=== PATIENT | female | born 1955 | race Caucasian/White ===

== ENCOUNTER 2016-03-11 17:38 | Outpatient (CLI) ==
[2016-03-11 17:54] VITALS: BMI 26.1
== END 2016-03-11 17:39 | disposition home or self-care (01) ==
LOC: AMBL 17:38
PROVIDERS: ATTEND Internal Medicine
DX: M79.662 Pain in left lower leg (principal); M79.661 Pain in right lower leg; L03.116 Cellulitis of left lower limb; L03.115 Cellulitis of right lower limb

== ENCOUNTER 2016-03-11 17:50 | Inpatient (IN) | payer OTHER ==
[2016-03-11 17:54] VITALS: BMI 26.1
--- NOTE | 2016-03-11 18:38 | ED.PDOC ---
[id number] 4d BILATERAL LEG PAIN RASH EDEMA Time Seen by Physician: 18:00 Mode of Arrival: Ambulance Information Source: Patient Exam Limitations: No limitations Nursing and Triage Documentation Reviewed and Agree: Yes Skin Complaint Exam - Skin Rash/Itching Complaint/Exam Onset/Duration: 4 DAYS SEEN AT [facility] [place] LAST NIGHT TREATED FOR CELLULITIS AND DISCHARGED Symptoms Are: Still present (PAIN IS ABOUT THE SAME , EDEMA IS THE SAME THE NIGHT BERFORE HAD LEG U/S LAST NIGHT AT [facility] PER PT REPORT) Initial Severity: Moderate Current Severity: Moderate Location: BILATERAL LOWER LEGS Prior Treatment: CLINDA STARTED LAST NIGHT AT [facility] E/D Aggravating: Reports: None Alleviating: Reports: None Associated Signs and Symptoms: Denies: Difficulty breathing, Fever, Chills Related History: Similar episode Differential Diagnoses: Other (CELLULITIS) Review of Systems - Review Of Systems Constitutional: Reports: No symptoms Eyes: Reports: No symptoms Ears, Nose, Mouth, Throat: Reports: No symptoms Respiratory: Reports: No symptoms Cardiac: Reports: No symptoms GI: Reports: No symptoms : Reports: No symptoms Musculoskeletal: Reports: Other (LEG EDEMA RASH SEE PHOTOS) Skin: Reports: Rash (BILATERAL LOWER LEGS SEE PHOTOS) Neurological: Reports: No symptoms Endocrine: Reports: No symptoms Hematologic/Lymphatic: Reports: No symptoms All Other Systems: Reviewed and Negative Past Medical History - Past Medical History Previously Healthy: No Endocrine: Reports: DM 2, Hypothyroid, Dyslipidemia Cardiovascular: Reports: CAD, [place], Hypertension, CHF Respiratory: Reports: COPD Hematological: Reports: Anemia Gastrointestinal: Reports: GERD, Pancreatitis Genitourinary: Reports: CKD Neuro/Psych: Reports: Seizure, Anxiety, Depression Musculoskeletal: Reports: None Cancer: Reports: Other (kidney) Last Menstrual Period: n/a Other Pertinent Past Medical History: 1 kidney, Greeley's disease, Glaucoma - Surgical History General Surgical History: Reports: Hysterectomy, Appendectomy, Cholecystectomy, Back Surgery, Other (nephrectomy,spleenectomy, partial pancreas,thyroidectomy, perforated colon,3 stents in heart) - Family History Family History: Reports: None - Social History Smoking Status: Current every day smoker, Light tobacco smoker Hx Substance Use: No Alcohol Screening: None Physical Exam - Physical Exam Appearance: Well-appearing, No pain distress, Well-nourished Eyes: DONY, EOMI, Conjunctiva clear ENT: Ears normal, Nose normal, Oropharynx normal Respiratory: Airway patent, Breath sounds clear, Breath sounds equal, Respirations nonlabored Cardiovascular: RRR, Pulses normal, No rub, No murmur GI/: Soft, Nontender, No masses, Bowel sounds normal, No Organomegaly Musculoskeletal: Normal strength, ROM intact, No edema, No calf tenderness Skin: Warm, Dry ( RASH BRADEN [place] COLOR DIFFUSE SEE PHOTOS OF LOWER LEGS) Neurological: Sensation intact, Motor intact, Reflexes intact, Cranial nerves intact, Alert, Oriented Psychiatric: Affect appropriate, Mood appropriate Physician Notification - Case Discussed Physician Notified: RELIFE AT 7 PM Time of Notification: 19:00 Critical Care Note - Critical Care Note Total Time (mins): 0 Course - Course Hematology/Chemistry: 03/12/16 05:18 03/12/16 05:18 Orders, Labs, Meds: Lab Review 03/11/16 03/11/16 18:15 18:18 WBC 11.53 H RBC 4.34 Hgb 13.9 Hct 42.2 MCV 97.2 MCH 32.0 H MCHC 32.9 RDW Coeff of Manoj 12.8 Plt Count 360 Immature Gran % (Auto) 0.4 Neut % (Auto) 57.9 Lymph % (Auto) 28.4 Barnes % (Auto) 6.6 Eos % (Auto) 6.2 Baso % (Auto) 0.5 Immature Gran # (Auto) 0.1 Neut # 6.7 Lymph # 3.3 Barnes # 0.8 Eos # 0.7 Baso # 0.1 Sodium 134 L Potassium 4.2 Chloride 98 Carbon Dioxide 23 Anion Gap 17.2 BUN 22 H Creatinine 1.04 Estimated GFR (MDRD) 54.00 BUN/Creatinine Ratio 21.15 Glucose 399 H Lactic Acid 15.3 Calcium 9.6 Total Bilirubin 0.29 AST 12 L ALT 20 Alkaline Phosphatase 132 Total Protein 8.4 H Albumin 3.4 Globulin 5.0 Albumin/Globulin Ratio 0.68 Acetone, Qual N Orders Category Date Time Status ED IV/MEDIPORT/POWERPORT .ONCE EMERGENCY 03/11/16 18:03 Active BLOOD CULTURE Stat LAB 03/11/16 18:18 Received CBC W/ AUTO DIFF Stat LAB 03/11/16 18:18 Completed COMPREHENSIVE METABOLIC PANEL Stat LAB 03/11/16 18:18 Completed LACTIC ACID Stat LAB 03/11/16 18:18 Completed 0.9 % Sodium Chloride [Saline Flush] MEDS 03/11/16 18:03 Ordered 1 syr IVF PRN PRN Hydromorphone HCl [Dilaudid 1 mg/ml Syringe] MEDS 03/11/16 20:10 Discontinued 1 mg IVP ONCE STA Vancomycin HCl [Vancomycin] 1 gm MEDS 03/11/16 20:07 Discontinued 0.9 % Sodium Chloride [Sodium Chloride] 250 ml IV ONCE Medications Generic Name Dose Route Start Last Admin Trade Name Freq PRN Reason Stop Dose Admin Albuterol Sulfate 2 puff 03/11/16 21:15 Proair Hfa IH Q4H PRN shortness of breath Aspirin 81 mg 03/12/16 21:00 Aspirin Ec PO BEDTIME [facility] Clopidogrel Bisulfate 75 mg 03/12/16 21:00 Plavix PO BEDTIME [facility] Cyclobenzaprine HCl 10 mg 03/12/16 09:00 Flexeril PO TID FRANCISCO J Enoxaparin Sodium 40 mg 03/12/16 09:00 Lovenox SUBCUT DAILY [facility] Hydromorphone HCl 1 mg 03/11/16 21:07 03/12/16 02:38 Dilaudid 1 Mg/Ml Syringe IVP 1 mg Q6HR PRN Administration Severe Pain Vancomycin HCl 1 gm/ Sodium 250 mls @ 125 mls/hr 03/12/16 09:00 Chloride IV Q12HR FRANCISCO J Sodium Chloride 1,000 mls @ 40 mls/hr 03/11/16 23:58 Sodium Chloride IV .Q25H [facility] Insulin Glargine 80 unit 03/12/16 21:00 Lantus SUBCUT BEDTIME [facility] Insulin Human Regular 0 - 15 unit 03/11/16 21:19 03/12/16 06:17 Humulin R SUBCUT 4 unit PRN PRN Administration Hyperglycemica Protocol Latanoprost 1 drop 03/12/16 21:00 Xalatan OP BEDTIME [facility] Levothyroxine Sodium 88 mcg 03/12/16 06:30 03/12/16 06:20 Synthroid PO 88 mcg QDAC FRANCISCO J Administration Lisinopril 5 mg 03/12/16 09:00 Zestril PO DAILY [facility] Nitroglycerin 0.4 mg 03/11/16 21:15 Nitrostat SL Q5MIN X 3 DOSES PRN Chest Pain Non-Formulary Medication 30 gm 03/12/16 09:00 Clobetasol Propionate/Emoll [Clobetasol Emollient 0.05% Crm] TP BID FRANCISCO J Non-Formulary Medication 100 mg 03/12/16 09:00 Desvenlafaxine Succinate [Pristiq] PO DAILY FRANCISCO J Non-Formulary Medication 1,000 mg 03/12/16 09:00 Levetiracetam [Keppra] PO BID FRANCISCO J Non-Formulary Medication 10 mg 03/12/16 09:00 Oxycodone Hcl [Oxycodone Hcl] PO TID FRANCISCO J Non-Formulary Medication 1 each 03/12/16 09:00 [employer]s/Dha/Epa/Fish Oil/D3 [[employer] + D Softgel] PO BID FRANCISCO J Non-Formulary Medication 40 mg 03/12/16 09:00 Rosuvastatin Calcium [Crestor] PO DAILY FRANCISCO J Non-Formulary Medication 60 gm 03/12/16 09:00 Calcipotriene [Dovonex] TP BID FRANCISCO J Ondansetron HCl 4 mg 03/11/16 21:07 Zofran 4 Mg/2 Ml IVP Q6H PRN Nausea / Vomiting Pantoprazole Sodium 40 mg 03/12/16 06:30 03/12/16 06:20 Protonix PO 40 mg QDAC FRANCISCO J Administration Sodium Chloride 1 syr 03/11/16 18:03 Saline Flush IVF PRN PRN To flush IV Discontinued Medications Generic Name Dose Route Start Last Admin Trade Name Freq PRN Reason Stop Dose Admin Hydromorphone HCl 1 mg 03/11/16 20:10 03/11/16 20:38 Dilaudid 1 Mg/Ml Syringe IVP 03/11/16 20:11 1 mg ONCE STA Administration Vancomycin HCl 1 gm/ Sodium 250 mls @ 250 mls/hr 03/11/16 20:07 03/11/16 20: 42 Chloride IV 03/11/16 21:06 250 mls/hr ONCE STA Administration Sodium Chloride 1,000 mls @ 125 mls/hr 03/11/16 21:30 03/11/16 23:02 Sodium Chloride IV 125 mls/hr .Q8H FRANCISCO J Administration Insulin Glargine 60 unit 03/12/16 21:00 Lantus SUBCUT BEDTIME [facility] Vital Signs: Temp Pulse Resp BP Pulse Ox 03/11/16 17:51 96.9 F L 108 H 16 168/82 H 97 Departure - Departure Time of Disposition: 19:00 Disposition: ADMITTED INPATIENT Discharge Problem: Cellulitis Condition: Good Pt referred to PMD for follow-up: No Allergies/Adverse Reactions: Allergies duloxetine HCl [From Cymbalta] Allergy (Severe, Verified 03/11/16 17:56) unable to sleep penicillin G Adverse Reaction (Severe, Verified 03/11/16 17:56) Difficulty Breathing aripiprazole [From Abilify] Adverse Reaction (Verified 03/11/16 17:56) cefaclor [From Ceclor] Adverse Reaction (Verified 03/11/16 17:56) ciprofloxacin [From Cipro] Adverse Reaction (Verified 03/11/16 17:56) Rash ciprofloxacin HCl [From Cipro] Adverse Reaction (Verified 03/11/16 17:56) Rash clarithromycin [From Biaxin] Adverse Reaction (Verified 03/11/16 17:56) Rash ketorolac tromethamine [From Toradol] Adverse Reaction (Verified 03/11/16 17:56) Vomiting loperamide HCl [From Imodium A-D] Adverse Reaction (Verified 03/11/16 17:56) affects glaucoma morphine Adverse Reaction (Verified 03/11/16 17:56) Penicillins Adverse Reaction (Verified 03/11/16 17:56) Difficulty Breathing sumatriptan [From Imitrex] Adverse Reaction (Verified 03/11/16 17:56) heart attack sumatriptan succinate [From Imitrex] Adverse Reaction (Verified 03/11/16 17:56) heart attack morphine Allergy (Uncoded 03/11/16 17:56) hypotension RECOMMENDED BY DR VYAS NOT TO TAKE DUE TO BP BOTTOMING OUT Home Medications: Ambulatory Orders Aspirin [Aspirin EC] 81 mg PO BEDTIME 11/14/12 Desvenlafaxine Succinate [Pristiq] 100 mg PO DAILY 11/14/12 Nitroglycerin [Nitrostat] 0.4 mg SL Q5MIN X 3 DOSES PRN 11/14/12 Pantoprazole Sodium [Protonix] 40 mg PO QDAC 04/12/14 Albuterol Sulfate [Proair Hfa] 2 puff IH Q4H PRN 08/23/14 Lisinopril 5 mg PO DAILY 10/24/14 Oxycodone HCl 10 mg PO TID 12/05/14 Calcipotriene [Dovonex] 60 gm TP BID #1 cream..g. 01/15/15 Clopidogrel Bisulfate [Plavix] 75 mg PO BEDTIME 05/30/15 Cyclobenzaprine HCl [Flexeril] 10 mg PO TID 08/05/15 Levetiracetam [Keppra] 1,000 mg PO BID 08/05/15 [employer]-3S/Dha/Epa/Fish Oil/D3 [[employer] + D Softgel] 1 each PO BID 08/05/15 Clobetasol Propionate/Emoll [Clobetasol Emollient 0.05% Crm] 30 gm TP BID Insulin Regular, Human [Novolin R] 8 - 15 unit IJ TIDWM 12/06/15 Metoprolol Succinate 12.5 mg PO BID 02/13/16
[2016-03-11 18:40] LABS: BASOPHILS # (AUTO) 0.1 K/uL (0-0.2); BASOPHILS % (AUTO) 0.5 % (0.0-3.0); EOSINOPHILS # (AUTO) 0.7 K/ul (0.0-0.7); EOSINOPHILS % (AUTO) 6.2 % (0.0-7.0); HEMATOCRIT 42.2 % (37.0-47.0); HEMOGLOBIN 13.9 g/dl (12.0-16.0); IMMATURE GRANULOCYTE % (AUTO) 0.4 % (0.0-5.0); LYMPHOCYTES # (AUTO) 3.3 K/uL (0.60-3.4); LYMPHOCYTES % (AUTO) 28.4 (10.0-50.0); MEAN CORPUSCULAR HGB CONC 32.9 (31.8-35.4); MEAN CORPUSCULAR VOLUME 97.2 fl (81.0-99.0); MONOCYTES # (AUTO) 0.8 K/uL (0.4-2.0); MONOCYTES % (AUTO) 6.6 (0-10); NEUTROPHILS # (AUTO) 6.7 K/ul (2.0-6.9); NEUTROPHILS % (AUTO) 57.9; PLATELET COUNT 360 10^3/uL (140-440); RED BLOOD COUNT 4.34 10^6/ul (4.20-5.40); WHITE BLOOD COUNT 11.53 K/ul (4.6-10.2)
[2016-03-11 18:52] LABS: ALBUMIN 3.4 g/dL (3.4-5.0); ALBUMIN/GLOBULIN RATIO 0.68; ANION GAP 17.2; BILIRUBIN,TOTAL 0.29 mg/dL (0.00-1.20); BUN/CREATININE RATIO 21.15; CALCIUM 9.6 mg/dL (8.2-10.2); CREATININE 1.04 mg/dL (0.60-1.30); POTASSIUM 4.2 mmol/L (3.5-5.10); TOTAL PROTEIN 8.4 g/dL (5.8-8.1)
[2016-03-11] MEDS ORDERED: VANCOMYCIN 1 GM in SODIUM CHLORIDE 250 ML IV STA (20:07)
[2016-03-11] MEDS ORDERED: DILAUDID 1 MG/ML SYRINGE IVP STA (20:10)
[2016-03-11 21:06] LABS: ABG BASE EXCESS -3 (-2.0-2.0); ABG HCO3 23.6 (22.0-26.0); ABG PCO2 47.3 mmHg (35-45); ABG PH 7.307 (7.35-7.45); ABG TCO2 25 (22.0-28.0)
[2016-03-11] MEDS ORDERED: ZOFRAN 4 MG/2 ML IVP PRN (21:07)
[2016-03-11] MEDS ORDERED: NITROSTAT SL PRN (21:15)
[2016-03-11] MEDS ORDERED: PROAIR HFA IH PRN (21:15)
[2016-03-11] MEDS ORDERED: SODIUM CHLORIDE 1,000 ML IV SCH (21:30)
[2016-03-11] MEDS: HUMULIN R SUBCUT PRN (23:19)
[2016-03-12] MEDS: DILAUDID 1 MG/ML SYRINGE IVP PRN ×4 (02:38→23:38)
[2016-03-12 05:19] LABS: BASOPHILS % (AUTO) 0.4 % (0.0-3.0); EOSINOPHILS # (AUTO) 0.6 K/ul (0.0-0.7); EOSINOPHILS % (AUTO) 5.5 % (0.0-7.0); HEMATOCRIT 40.3 % (37.0-47.0); HEMOGLOBIN 12.8 g/dl (12.0-16.0); IMMATURE GRANULOCYTE % (AUTO) 0.6 % (0.0-5.0); LYMPHOCYTES # (AUTO) 2.3 K/uL (0.60-3.4); LYMPHOCYTES % (AUTO) 22.1 (10.0-50.0); MEAN CORPUSCULAR HEMOGLOBIN 30.8 pg (27.0-31.0); MEAN CORPUSCULAR HGB CONC 31.8 (31.8-35.4); MEAN CORPUSCULAR VOLUME 97.1 fl (81.0-99.0); MONOCYTES # (AUTO) 0.7 K/uL (0.4-2.0); MONOCYTES % (AUTO) 6.6 (0-10); NEUTROPHILS # (AUTO) 6.7 K/ul (2.0-6.9); NEUTROPHILS % (AUTO) 64.8; PLATELET COUNT 343 10^3/uL (140-440); RED BLOOD COUNT 4.15 10^6/ul (4.20-5.40); WHITE BLOOD COUNT 10.27 K/ul (4.6-10.2)
[2016-03-12 05:37] LABS: ANION GAP 13.3; BUN/CREATININE RATIO 20.25; CALCIUM 9.1 mg/dL (8.2-10.2); CREATININE 0.79 mg/dL (0.60-1.30); POTASSIUM 4.3 mmol/L (3.5-5.10)
[2016-03-12] MEDS: HUMULIN R SUBCUT PRN ×4 (06:17→23:28)
[2016-03-12] MEDS: SYNTHROID PO SCH (06:20)
[2016-03-12] MEDS: PROTONIX PO SCH (06:20)
[2016-03-12] MEDS ORDERED: CALCIPOTRIENE TP SCH (09:00)
[2016-03-12] MEDS ORDERED: DHA PO SCH (09:00)
[2016-03-12] MEDS ORDERED: EPA PO SCH (09:00)
[2016-03-12] MEDS ORDERED: NON-FORMULARY MEDICATION (Rosuvastatin Calcium [Crestor] 40 MG) PO SCH (09:00)
[2016-03-12] MEDS ORDERED: OMEGA PO SCH (09:00)
[2016-03-12] MEDS ORDERED: FISH OIL PO SCH (09:00)
[2016-03-12] MEDS ORDERED: NON-FORMULARY MEDICATION (Oxycodone Hcl [Oxycodone Hcl] 10 MG) PO SCH (09:00)
[2016-03-12] MEDS ORDERED: D3 PO SCH (09:00)
[2016-03-12] MEDS ORDERED: NON-FORMULARY MEDICATION (Desvenlafaxine Succinate [Pristiq] 100 MG) PO SCH (09:00)
[2016-03-12] MEDS ORDERED: NON-FORMULARY MEDICATION (Levetiracetam [Keppra] 1,000 MG) PO SCH (09:00)
[2016-03-12] MEDS: ROCEPHIN 1 GM in SODIUM CHLORIDE 50 ML IV SCH (10:22)
[2016-03-12] MEDS: PRISTIQ ER PO SCH (10:23)
[2016-03-12] MEDS: ZESTRIL PO SCH (10:23)
[2016-03-12] MEDS: OMEGA-3 FISH OIL PO SCH ×2 (10:23→21:37)
[2016-03-12] MEDS: FLEXERIL PO SCH ×3 (10:24→21:37)
[2016-03-12] MEDS: CRESTOR PO SCH (10:24)
[2016-03-12] MEDS: KEPPRA PO SCH ×2 (10:24→21:37)
[2016-03-12] MEDS: LOVENOX SUBCUT SCH (10:24)
[2016-03-12] MEDS: OXYCODONE PO SCH ×3 (10:28→21:38)
[2016-03-12] MEDS: VANCOMYCIN 1 GM in SODIUM CHLORIDE 250 ML IV SCH ×2 (11:19→21:34)
[2016-03-12] MEDS: PRED FORTE 1% OPTH SOL OP SCH ×2 (14:58→21:39)
[2016-03-12] MEDS ORDERED: LANTUS SUBCUT SCH (21:00)
[2016-03-12] MEDS: ASPIRIN EC PO SCH (21:37)
[2016-03-12] MEDS: PLAVIX PO SCH (21:37)
[2016-03-12] MEDS: XALATAN OP SCH (21:39)
[2016-03-12] MEDS: LANTUS SUBCUT SCH (21:42)
[2016-03-13] MEDS: PROTONIX PO SCH (05:57)
[2016-03-13] MEDS: SYNTHROID PO SCH (05:57)
[2016-03-13 06:11] LABS: BASOPHILS % (AUTO) 0.4 % (0.0-3.0); EOSINOPHILS # (AUTO) 0.6 K/ul (0.0-0.7); EOSINOPHILS % (AUTO) 6.5 % (0.0-7.0); HEMOGLOBIN 11.5 g/dl (12.0-16.0); IMMATURE GRANULOCYTE % (AUTO) 0.6 % (0.0-5.0); LYMPHOCYTES # (AUTO) 2.8 K/uL (0.60-3.4); LYMPHOCYTES % (AUTO) 31.4 (10.0-50.0); MEAN CORPUSCULAR HEMOGLOBIN 31.3 pg (27.0-31.0); MEAN CORPUSCULAR HGB CONC 31.9 (31.8-35.4); MEAN CORPUSCULAR VOLUME 97.8 fl (81.0-99.0); MONOCYTES # (AUTO) 0.6 K/uL (0.4-2.0); MONOCYTES % (AUTO) 6.9 (0-10); NEUTROPHILS # (AUTO) 4.9 K/ul (2.0-6.9); NEUTROPHILS % (AUTO) 54.2; PLATELET COUNT 317 10^3/uL (140-440); RED BLOOD COUNT 3.68 10^6/ul (4.20-5.40); WHITE BLOOD COUNT 9.05 K/ul (4.6-10.2)
[2016-03-13] MEDS: SODIUM CHLORIDE 1,000 ML IV SCH (06:17)
[2016-03-13 06:41] LABS: ANION GAP 9.2; BUN/CREATININE RATIO 17.94; CALCIUM 8.3 mg/dL (8.2-10.2); CREATININE 0.78 mg/dL (0.60-1.30); POTASSIUM 4.2 mmol/L (3.5-5.10)
[2016-03-13] MEDS: HUMULIN R SUBCUT PRN ×4 (07:18→21:28)
[2016-03-13] MEDS: DILAUDID 1 MG/ML SYRINGE IVP PRN ×2 (07:54→16:20)
[2016-03-13] MEDS: ROCEPHIN 1 GM in SODIUM CHLORIDE 50 ML IV SCH (09:21)
[2016-03-13] MEDS: LOVENOX SUBCUT SCH (09:21)
[2016-03-13] MEDS: PRISTIQ ER PO SCH (09:21)
[2016-03-13] MEDS: CRESTOR PO SCH (09:21)
[2016-03-13] MEDS: OXYCODONE PO SCH ×3 (09:22→21:32)
[2016-03-13] MEDS: KEPPRA PO SCH ×2 (09:22→21:22)
[2016-03-13] MEDS: OMEGA-3 FISH OIL PO SCH ×2 (09:22→21:20)
[2016-03-13] MEDS: ZESTRIL PO SCH (09:22)
[2016-03-13] MEDS: FLEXERIL PO SCH ×3 (09:22→21:21)
[2016-03-13] MEDS: PRED FORTE 1% OPTH SOL OP SCH ×3 (09:23→21:30)
[2016-03-13] MEDS: VANCOMYCIN 1 GM in SODIUM CHLORIDE 250 ML IV SCH ×2 (10:39→21:32)
--- NOTE | 2016-03-13 13:30 | PCM.PROG ---
Attending Provider: ATTENDING PROVIDER: Dr. AMANDA GONZALEZ DATE OF SERVICE: 03/13/16 SUBJECTIVE: This 60 year old WHITE/ F was hospitalized 03/11/16. The patient is admitted with cellulitis of bilateral lower extremities, left more than right. The patient continues to have swelling and pain in both lower extremities with redness present. No fever, no chills. REVIEW OF SYSTEMS: CONSTITUTIONAL: No fever, no chills. ENDOCRINE: No weight loss or weight gain. HEENT: No sinus drainage, no sore throat. CVS: No angina symptoms. No CHF symptoms. No palpitations. No atypical chest pain for CAD. No shortness of breath. RESPIRATORY: No cough, no hemoptysis. GI: No melena. No abdominal pain. No nausea, no vomiting. : No hematuria. No polyuria. SKIN: Redness and scaliness of both lower extremities. Multiple psoriatic skin lesions - not warm to touch, not painful. MUSCULOSKELETAL: Pain in the legs. 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 No headache. No double vision. PSYCHIATRIC: Not anxious; no depression. No suicidal thoughts. No homicidal thoughts. PHYSICAL EXAMINATION: GENERAL: Lying in bed in no distress. VITAL SIGNS: Temperature 97.8 F, Pulse 80, Respiratory Rate 18, BP 120/68, Pulse Ox 96% HEENT: Normocephalic, atraumatic. Mucosa is dry, pallor positive. NECK: No JVP, no carotid bruit. No lymphadenopathy. CARDIAC: S1, S2, no S3. Systolic murmur present. LUNGS: Clear to auscultation. ABDOMEN: Soft, non-tender. Bowel sounds active. No rigidity, guarding or CVA tenderness. EXTREMITIES: Left leg redness from below the knee to above the ankle circumferentially, swollen and tender and the same on the right. Multiple psoriatic lesions on extremities. NEUROLOGIC: Awake, alert and oriented x3. LYMPHATIC: No palpable lymph nodes SKIN: As described above. MUSCULOSKELETAL: No joint swelling. LAB REVIEW: 03/13/16 05:30 03/13/16 05:30 03/13/16 05:30: WBC 9.05, RBC 3.68 L, Hgb 11.5 L, Hct 36.0 L, MCV 97.8, MCH 31.3 H, MCHC 31.9, RDW Coeff of Manoj 12.9, Plt Count 317, Immature Gran % (Auto) 0.6, Neut % (Auto) 54.2, Lymph % (Auto) 31.4, [place] % (Auto) 6.9, Eos % (Auto) 6.5, Baso % (Auto) 0.4, Immature Gran # (Auto) 0.1, Neut # 4.9, Lymph # 2.8, Calvert # 0.6, Eos # 0.6, Baso # 0.0, Sodium 138, Potassium 4.2, Chloride 107, Carbon Dioxide 26, Anion Gap 9.2, BUN 14, Creatinine 0.78, Estimated GFR (MDRD) 75.00, BUN/Creatinine Ratio 17.94, Glucose 181 H, Calcium 8.3 ASSESSMENT: 1. Bilateral lower extremity cellulitis 2. History of stable angina 3. Diabetes mellitus 4. Hypertension 5. Dyslipidemia 6. Chronic pain syndrome 7. Angina 8. Depression 9 History of pancreatic cancer PLAN: 1. Continue Lovenox 2. Daily I & O 3. Continue Rocephin and Vancomycin 4. Keep legs elevated Plan and coordination of the patient's care discussed in the presence of Dbas and nurse. CONDITION: Stable SCRIBED BY: CASEY ROSARIO, Plush Cutter scribed while in presence of service performed by Dr. AMANDA GONZALEZ on 03/13/16 ([id number])
--- NOTE | 2016-03-13 13:50 | HP ---
DATE OF SERVICE: 03/11/16 REASON FOR HOSPITALIZATION: Swelling and redness of the left leg and painful swelling. HISTORY OF PRESENT ILLNESS: The patient is a 60 year old female with history of multiple medical problems; angina and diabetes. She has been having the red rash in the left lower extremity and it was increasing in the size and was spreading to the whole leg. She does have psoriatic lesions also. The patient's been to the [facility] and was seen in the ER, was put on the Clindamycin. As the redness and swelling of the left calf was getting worse so the patient came to the [facility] and was seen by Dr. Kuhn. Initial white count was 11.53, ABG pH 7.307 , pCO2 47.7, pO2 73, BUN and creatinine is normal, sugar was 399 and Yves normal. At that time the patient was admitted to the hospital for the uncontrolled diabetes and left lower extremity cellulitis. REVIEW OF SYSTEMS: CONSTITUTIONAL: No night sweats. Weakness and tired. No fever or chills. HEENT: Eyes: No visual changes. No eye pain. No eye discharge. ENT: No runny nose. No epistaxis. No sinus pain. No sore throat. No odynophagia. No ear pain. No congestion. RESPIRATORY: No cough, no congestion. No hemoptysis. CARDIOVASCULAR: Angina symptoms which are stable. No CHF symptoms. No atypical chest pain for CAD. No palpitations. Shortness of breath which is stable. GASTROINTESTINAL: No abdominal pain. No nausea or vomiting. No diarrhea or constipation. No hematemesis. No hematochezia. GENITOURINARY: No urgency. No frequency. No dysuria. No hematuria. No obstructive symptoms. No discharge. No pain. No significant abnormal bleeding. MUSCULOSKELETAL: No musculoskeletal pain. No joint swelling. No arthritis. Back pains, joint pains. Walks with a cane. NEUROLOGICAL: No headache. No neck pain. No syncope. No seizures. No dizziness. PSYCHIATRIC: Anxious being in the hospital. No depression. No suicidal thoughts. No homicidal thoughts. SKIN: No rash. No lesions. No wounds. ENDOCRINE: No unexplained weight loss. No weight gain. HEMATOLOGIC/LYMPHATIC: No anemia. No purpura. No petechiae. No prolonged or excessive bleeding. No palpable lymph nodes. PERSONAL/FAMILY/SOCIAL HISTORY: The patient does not smoke or drink. Partially independent of the ADL's. Family history is significant for the diabetes, breast cancer and the pancreatic cancer. PAST MEDICAL/SURGICAL PROBLEMS: Coronary Artery Disease Congestive Heart Failure Angina Diabetes Hypertension Dyslipidemia History of [place], 2011 stents GERD History of pancreatic cancer, 2006 half removed. Chronic pain syndrome DJD Spine Osteoarthritis Shingles Total Thyroidectomy, 1997 Splenectomy 2006 Cholecystectomy 1994 Pancreatic cancer and all of the cancer removed in 2006 Cataract surgeries. MEDICATIONS: Nitroglycerin 0.4mg Sublingual PRN Pristiq 100mg PO daily Aspirin 81mg PO bedtime Protonix 40mg PO QDAC ProAir 2 puffs IH Q 4 hours Latanoprost 1 drop OP bedtime Levothyroxine 88mcg PO QDAC Lisinopril 5mg PO daily Oxycodone 10mg PO three times a day Plavix 75mg PO bedtime Lantus 60 units SQ bedtime Syringe one each MC three times a day PRN Flexeril 10mg PO three times a day Keppra 1,000mg PO twice a day [place] 3 PO twice a day Crestor 40mg PO daily Clobetasol Propionate/Emoll 30 grams TP twice a day Novolin R 100 unit/ml vial 8-15 units Metoprolol 12.5mg Po twice a day Prednisolone one drop left eye three times a day Calcitriol 100gm one application TP SUFRSA @ 0900, 2100 ALLERGIES: Duloxetine Penicillin Aripiprazole Cefaclor PHYSICAL EXAMINATION: VITAL SIGNS: Blood pressure 168/82, respiratory rate 16, heart rate 108 and temperature 96.9. HEENT: Head normocephalic, atraumatic. Eyes: Extraocular muscles are intact. Pupils are equal, round and reactive to light and accommodation. Ears: No lesions. Nose appeared normal. Throat: No exudate or erythema. Mucosa dry. NECK: Supple. No JVD, no carotid bruit. No lymphadenopathy or thyromegaly. LUNGS: Decreased and Clear to auscultation. Percussion note normal. Chest symmetrical. HEART: S1, S2, no S3. No murmurs. No cyanosis or clubbing. No ascites. Pulses: Dorsalis pedis and posterior tibial pulses +1 to +2 both sides. ABDOMEN: Soft. Nontender. Bowel sounds active. No CVA tenderness. No mass felt. EXTREMITIES: No edema. Full range of motion of all extremities, equal. Left calf and betts of the tibia all red, excoriating lesion. Tender to touch, warm to touch, tight. Multiple psoriatic lesion are seem in the lower extremities but they are not warm to touch. NEUROLOGIC: No focal deficit. Cranial nerves II through XII are grossly intact. No headache, no double vision or headache. SKIN: Not dry. Intact. Turgor - normal. LYMPHATIC: No palpable lymph nodes/no lymphedema. MUSCULOSKELETAL: Normal joints with no swelling. Muscle tone is normal. LABS: WBC 11.53, hgb 13.9, hct 42.2, plt count 360, ABG pH 7.307, pCO2 47.3, pO2 73, sodium 134, potassium 4.2, chloride 98, bicarb 23, BUN 22, creatinine 1.04, glucose 399, acetone levels negative. ASSESSMENT: 1. Uncontrolled diabetes 2. Cellulitis of the lower extremity 3. History of diabetes 4. Hypertension 5. Dyslipidemia 6. Coronary Artery Disease 7. Congestive Heart Failure 8. Angina 9. Chronic pain syndrome PLAN: 1. Admit patient to the regular floor 2. CBC and CMP today for and daily 3. Cardiac enzymes and Troponin 4. Accu-check with coverage 5. Vancomycin 1gram daily 6. Check for the Vancomycin trough levels 7. Keep the legs elevated Will follow the patient in daily rounds. TIME SPENT: More than 65 minutes. MTDD
--- NOTE | 2016-03-13 14:00 | PN ---
DATE OF SERVICE: 03/12/16 SUBJECTIVE: The patient was seen and examined for the followup. The patient was admitted for left lower leg cellulitis. She has been treated with the Vancomycin. Pain in some better today morning. REVIEW OF SYSTEMS: CONSTITUTIONAL: No fever, no chills. The patient is lying in the bed. HEENT: Normal. ENDOCRINE: No weight gain, no weight loss. CVS: No angina symptoms. No CHF symptoms. No palpitations. No atypical chest pain for CAD. No shortness of breath. No PND, no orthopnea. RESPIRATORY: No cough, no hemoptysis. GI: No nausea, no vomiting. No abdominal pain. : No hematuria. No polyuria. MUSCULOSKELETAL:. No joint swelling. PSYCHIATRIC: Not anxious. No depression. No suicidal thoughts. No homicidal thoughts. SKIN: Intact. No rash. PHYSICAL EXAMINATION: V/S: Blood pressure 134/79, pulse 98, respiratory 20, temperature 97.9 and pulse ox 95%. GENERAL: Left leg redness and swelling in still present. Whole calf is tight to touch. No drainage at this time. No abscess. HEENT: Normocephalic, atraumatic. Ears, eyes, nose and throat normal. NECK: Supple. No JVD, no carotid bruit. No lymphadenopathy. LUNGS: Clear to auscultation. No rales or rhonchi. HEART: S1, S2 normal. No S3. No murmur, gallop or regurgitation. ABDOMEN: Soft, nontender. Bowel sounds active. No rigidity. No rebound or guarding. No CVA tenderness. EXTREMITIES: No clubbing, cyanosis or pedal edema. MUSCULOSKELETAL: No joint swelling. NEUROLOGIC: Awake, alert, oriented times three. No focal deficit. LYMPHATIC: No lymph nodes palpable. SKIN: Intact. LABS: WBC 10.27, hgb 12.8, hct 40.3, plt count 343, sodium 139, potassium 4.3, chlroide 104, bicarb 26, BUN 16, creatinine 0.76 and glucose 222. ASSESSMENT: 1. Left lower extremity cellulitis, circumferential 2. Diabetes uncontrolled 3. Hypertension 4. Angina 5. Congestive heart failure PLAN: 1. Continue the Vancomycin 2. Lovenox for the DVT prophylaxis 3. Will give the Rocephin 1 gram daily 4. Keep the legs elevated. TIME SPENT: More than 30 minutes MTDD
[2016-03-13] MEDS: PLAVIX PO SCH (21:21)
[2016-03-13] MEDS: ASPIRIN EC PO SCH (21:22)
[2016-03-13] MEDS: LANTUS SUBCUT SCH (21:28)
[2016-03-13] MEDS: XALATAN OP SCH (21:31)
[2016-03-14] MEDS: DILAUDID 1 MG/ML SYRINGE IVP PRN ×4 (00:31→20:20)
[2016-03-14] MEDS: SYNTHROID PO SCH (06:04)
[2016-03-14] MEDS: PROTONIX PO SCH (06:04)
[2016-03-14] MEDS: SODIUM CHLORIDE 1,000 ML IV SCH ×2 (06:44→13:49)
[2016-03-14] MEDS: ROCEPHIN 1 GM in SODIUM CHLORIDE 50 ML IV SCH (08:15)
[2016-03-14 08:43] LABS: BASOPHILS % (AUTO) 0.4 % (0.0-3.0); EOSINOPHILS # (AUTO) 0.5 K/ul (0.0-0.7); HEMATOCRIT 36.9 % (37.0-47.0); HEMOGLOBIN 11.8 g/dl (12.0-16.0); IMMATURE GRANULOCYTE % (AUTO) 0.5 % (0.0-5.0); LYMPHOCYTES # (AUTO) 2.2 K/uL (0.60-3.4); LYMPHOCYTES % (AUTO) 26.9 (10.0-50.0); MEAN CORPUSCULAR HEMOGLOBIN 31.6 pg (27.0-31.0); MEAN CORPUSCULAR VOLUME 98.9 fl (81.0-99.0); MONOCYTES # (AUTO) 0.6 K/uL (0.4-2.0); MONOCYTES % (AUTO) 6.9 (0-10); NEUTROPHILS # (AUTO) 4.8 K/ul (2.0-6.9); NEUTROPHILS % (AUTO) 59.3; PLATELET COUNT 335 10^3/uL (140-440); RED BLOOD COUNT 3.73 10^6/ul (4.20-5.40); WHITE BLOOD COUNT 8.13 K/ul (4.6-10.2)
[2016-03-14 09:08] LABS: ANION GAP 12.8; BUN/CREATININE RATIO 16.45; CALCIUM 8.4 mg/dL (8.2-10.2); CREATININE 0.79 mg/dL (0.60-1.30); POTASSIUM 4.8 mmol/L (3.5-5.10)
[2016-03-14] MEDS: CALCITRIOL TP SCH ×2 (09:09→20:43)
[2016-03-14] MEDS: CRESTOR PO SCH (09:11)
[2016-03-14] MEDS: FLEXERIL PO SCH ×3 (09:12→20:36)
[2016-03-14] MEDS: KEPPRA PO SCH ×2 (09:12→20:38)
[2016-03-14] MEDS: OMEGA-3 FISH OIL PO SCH ×2 (09:13→20:38)
[2016-03-14] MEDS: OXYCODONE PO SCH ×3 (09:14→20:37)
[2016-03-14] MEDS: PRED FORTE 1% OPTH SOL OP SCH ×3 (09:14→20:42)
[2016-03-14] MEDS: PRISTIQ ER PO SCH (09:15)
[2016-03-14] MEDS: VANCOMYCIN 1 GM in SODIUM CHLORIDE 250 ML IV SCH (09:16)
[2016-03-14] MEDS: ZESTRIL PO SCH (09:16)
[2016-03-14] MEDS: LOVENOX SUBCUT SCH (09:17)
--- NOTE | 2016-03-14 09:37 | PCM.PROG ---
Attending Provider: ATTENDING PROVIDER: Dr. AMANDA GONZALEZ DATE OF SERVICE: 03/14/16 SUBJECTIVE: This 60 year old WHITE/ F was hospitalized 03/11/16. The patient is admitted with bilateral lower extremity cellulitis. There is less redness today. The areas are warper tender and warm to touch, more so left leg, outer area. No drainage. REVIEW OF SYSTEMS: CONSTITUTIONAL: No fever, no chills. ENDOCRINE: No weight loss or weight gain. HEENT: No sinus drainage, no sore throat. CVS: No angina symptoms. No CHF symptoms. No palpitations. No atypical chest pain for CAD. No shortness of breath. RESPIRATORY: No cough, no hemoptysis. GI: No melena. No abdominal pain. No nausea, no vomiting. : No hematuria. No polyuria. SKIN: Redness and scaliness of lower extremities bilaterally. Tender and warm to touch. MUSCULOSKELETAL: Pain in the legs. MEASUREMENT COORDINATOR: No blackout, no dizziness. No headache. No double vision. PSYCHIATRIC: Not anxious; no depression. No suicidal thoughts. No homicidal thoughts. PHYSICAL EXAMINATION: GENERAL: Lying in bed in no distress. VITAL SIGNS: Temperature 97.7 F, Pulse 76, Respiratory Rate 16, BP 123/69, Pulse Ox 95% HEENT: Normocephalic, atraumatic. Mucosa is dry, pallor positive. NECK: No JVP, no carotid bruit. No lymphadenopathy. CARDIAC: S1, S2, no S3. No murmur, gallop or regurgitation. LUNGS: Clear to auscultation. ABDOMEN: Soft, non-tender. Bowel sounds active. No rigidity, guarding or CVA tenderness. EXTREMITIES: Left leg redness from below the knee to above the ankle circumferentially, swollen and tender and the same on the right. Multiple psoriatic lesions on extremities. NEUROLOGIC: Awake, alert and oriented x3. LYMPHATIC: No palpable lymph nodes SKIN: As above. MUSCULOSKELETAL: No joint swelling. LAB REVIEW: 03/13/16 05:30 03/13/16 05:30 ASSESSMENT: 1. Bilateral lower extremity cellulitis 2. History of stable angina 3. Diabetes mellitus 4. Hypertension 5. Dyslipidemia 6. Chronic pain syndrome 7. Angina 8. Depression 9 History of pancreatic cancer PLAN: 1. Continue Rocephin and Vancomycin 2. Left leg below knee CT scan 3. Decadron 1 cc Plan and coordination of the patient's care discussed in the presence of Aquaculturist and nurse. CONDITION: Stable SCRIBED BY: CASEY ROSARIO Water Inspector scribed while in presence of service performed by Dr. AMANDA GONZALEZ on 03/14/16 ([id number])
--- NOTE | 2016-03-14 14:42 | CT ---
EXAM: CT left tibia and fibula with and without contrast HISTORY: Left lower leg pain and swelling. Possible left calf abscess COMPARISON: None available TECHNIQUE: Multiple axial images of the left tibia and fibula were obtained prior to and following intravenous administration of Omnipaque-350. Images were reformatted in the sagittal and coronal pl anes appear FINDINGS: Subcutaneous edema seen throughout the calf which is greater in the lateral aspect of the distal lower leg. No discrete drainable fluid collection or subcutaneous air identified. Muscular compartments do not appear involved. The bones are demineralized. No fracture or dislocation iden tified. Patellar enthesophytes are present. Retrocalcaneal spur also present. No osseous destruct ion identified. Vascular structures of the lower leg are patent. Soft plaquing present in the visu alized popliteal artery without significant stenosis IMPRESSION: Cellulitis of the lower leg without evidence for abscess or osteomyelitis.
[2016-03-14] MEDS: HUMULIN R SUBCUT PRN ×2 (17:14→20:39)
[2016-03-14] MEDS: ASPIRIN EC PO SCH (20:36)
[2016-03-14] MEDS: PLAVIX PO SCH (20:37)
[2016-03-14] MEDS: LANTUS SUBCUT SCH (20:40)
[2016-03-14] MEDS: XALATAN OP SCH (20:41)
[2016-03-14] MEDS: VANCOMYCIN 750 MG in SODIUM CHLORIDE 250 ML IV SCH (20:46)
[2016-03-15] MEDS: DILAUDID 1 MG/ML SYRINGE IVP PRN ×4 (02:48→21:54)
[2016-03-15] MEDS: SYNTHROID PO SCH (05:49)
[2016-03-15] MEDS: PROTONIX PO SCH (05:49)
[2016-03-15 05:52] LABS: BASOPHILS # (AUTO) 0.1 K/uL (0-0.2); BASOPHILS % (AUTO) 0.7 % (0.0-3.0); EOSINOPHILS # (AUTO) 0.5 K/ul (0.0-0.7); EOSINOPHILS % (AUTO) 5.8 % (0.0-7.0); HEMATOCRIT 36.2 % (37.0-47.0); HEMOGLOBIN 11.2 g/dl (12.0-16.0); IMMATURE GRANULOCYTE % (AUTO) 0.7 % (0.0-5.0); LYMPHOCYTES # (AUTO) 2.4 K/uL (0.60-3.4); LYMPHOCYTES % (AUTO) 26.8 (10.0-50.0); MEAN CORPUSCULAR HEMOGLOBIN 30.9 pg (27.0-31.0); MEAN CORPUSCULAR HGB CONC 30.9 (31.8-35.4); MEAN CORPUSCULAR VOLUME 99.7 fl (81.0-99.0); MONOCYTES # (AUTO) 0.6 K/uL (0.4-2.0); MONOCYTES % (AUTO) 7.1 (0-10); NEUTROPHILS # (AUTO) 5.4 K/ul (2.0-6.9); NEUTROPHILS % (AUTO) 58.9; PLATELET COUNT 344 10^3/uL (140-440); RED BLOOD COUNT 3.63 10^6/ul (4.20-5.40); WHITE BLOOD COUNT 9.07 K/ul (4.6-10.2)
[2016-03-15 06:15] LABS: ANION GAP 13.4; BUN/CREATININE RATIO 19.27; CALCIUM 8.6 mg/dL (8.2-10.2); CREATININE 0.83 mg/dL (0.60-1.30); POTASSIUM 4.4 mmol/L (3.5-5.10)
[2016-03-15] MEDS: PRISTIQ ER PO SCH (08:41)
[2016-03-15] MEDS: OXYCODONE PO SCH ×3 (08:42→21:43)
[2016-03-15] MEDS: OMEGA-3 FISH OIL PO SCH ×2 (08:42→21:28)
[2016-03-15] MEDS: ZESTRIL PO SCH (08:42)
[2016-03-15] MEDS: CRESTOR PO SCH (08:42)
[2016-03-15] MEDS: FLEXERIL PO SCH ×3 (08:42→21:28)
[2016-03-15] MEDS: KEPPRA PO SCH ×2 (08:42→21:29)
[2016-03-15] MEDS: ROCEPHIN 1 GM in SODIUM CHLORIDE 50 ML IV SCH (08:44)
[2016-03-15] MEDS: PRED FORTE 1% OPTH SOL OP SCH ×3 (08:44→21:27)
[2016-03-15] MEDS: LOVENOX SUBCUT SCH (08:44)
[2016-03-15] MEDS: CALCITRIOL TP SCH ×2 (09:55→21:26)
[2016-03-15] MEDS: VANCOMYCIN 750 MG in SODIUM CHLORIDE 250 ML IV SCH ×2 (10:24→21:27)
[2016-03-15] MEDS: HUMULIN R SUBCUT PRN ×2 (11:58→21:43)
[2016-03-15] MEDS: SODIUM CHLORIDE 1,000 ML IV SCH (19:40)
[2016-03-15] MEDS: XALATAN OP SCH (21:27)
[2016-03-15] MEDS: PLAVIX PO SCH (21:28)
[2016-03-15] MEDS: ASPIRIN EC PO SCH (21:28)
[2016-03-15] MEDS: LANTUS SUBCUT SCH (21:44)
[2016-03-16] MEDS: PROTONIX PO SCH (05:40)
[2016-03-16] MEDS: SYNTHROID PO SCH (05:40)
[2016-03-16] MEDS: DILAUDID 1 MG/ML SYRINGE IVP PRN ×3 (06:19→18:42)
[2016-03-16 07:38] LABS: BASOPHILS % (AUTO) 0.4 % (0.0-3.0); EOSINOPHILS # (AUTO) 0.6 K/ul (0.0-0.7); EOSINOPHILS % (AUTO) 6.1 % (0.0-7.0); HEMATOCRIT 35.8 % (37.0-47.0); HEMOGLOBIN 11.3 g/dl (12.0-16.0); IMMATURE GRANULOCYTE % (AUTO) 0.7 % (0.0-5.0); LYMPHOCYTES # (AUTO) 3.3 K/uL (0.60-3.4); LYMPHOCYTES % (AUTO) 36.1 (10.0-50.0); MEAN CORPUSCULAR HEMOGLOBIN 31.7 pg (27.0-31.0); MEAN CORPUSCULAR HGB CONC 31.6 (31.8-35.4); MEAN CORPUSCULAR VOLUME 100.3 fl (81.0-99.0); MONOCYTES # (AUTO) 0.7 K/uL (0.4-2.0); MONOCYTES % (AUTO) 7.7 (0-10); NEUTROPHILS # (AUTO) 4.5 K/ul (2.0-6.9); PLATELET COUNT 359 10^3/uL (140-440); RED BLOOD COUNT 3.57 10^6/ul (4.20-5.40); WHITE BLOOD COUNT 9.23 K/ul (4.6-10.2)
[2016-03-16 08:08] LABS: ANION GAP 10.1; BUN/CREATININE RATIO 17.28; CALCIUM 8.4 mg/dL (8.2-10.2); CREATININE 0.81 mg/dL (0.60-1.30); POTASSIUM 4.1 mmol/L (3.5-5.10)
[2016-03-16] MEDS: ROCEPHIN 1 GM in SODIUM CHLORIDE 50 ML IV SCH (08:51)
[2016-03-16] MEDS: CALCITRIOL TP SCH ×2 (08:51→21:14)
[2016-03-16] MEDS: PRED FORTE 1% OPTH SOL OP SCH ×3 (08:51→21:14)
[2016-03-16] MEDS: LOVENOX SUBCUT SCH (08:51)
[2016-03-16] MEDS: OXYCODONE PO SCH ×3 (08:51→21:18)
[2016-03-16] MEDS: PRISTIQ ER PO SCH (08:52)
[2016-03-16] MEDS: CRESTOR PO SCH (08:52)
[2016-03-16] MEDS: OMEGA-3 FISH OIL PO SCH ×2 (08:52→21:18)
[2016-03-16] MEDS: ZESTRIL PO SCH (08:52)
[2016-03-16] MEDS: KEPPRA PO SCH ×2 (08:52→21:18)
[2016-03-16] MEDS: FLEXERIL PO SCH ×3 (08:52→21:19)
[2016-03-16] MEDS: VANCOMYCIN 750 MG in SODIUM CHLORIDE 250 ML IV SCH ×2 (09:52→21:15)
[2016-03-16] MEDS: XALATAN OP SCH (21:14)
[2016-03-16] MEDS: LANTUS SUBCUT SCH (21:15)
[2016-03-16] MEDS: PLAVIX PO SCH (21:19)
[2016-03-16] MEDS: ASPIRIN EC PO SCH (21:19)
[2016-03-17] MEDS: SODIUM CHLORIDE 1,000 ML IV SCH ×2 (02:21→02:22)
[2016-03-17] MEDS: DILAUDID 1 MG/ML SYRINGE IVP PRN (02:46)
[2016-03-17] MEDS: SYNTHROID PO SCH (05:37)
[2016-03-17] MEDS: PROTONIX PO SCH (05:37)
[2016-03-17 08:37] LABS: BASOPHILS # (AUTO) 0.1 K/uL (0-0.2); BASOPHILS % (AUTO) 0.5 % (0.0-3.0); EOSINOPHILS # (AUTO) 0.5 K/ul (0.0-0.7); EOSINOPHILS % (AUTO) 5.5 % (0.0-7.0); HEMATOCRIT 35.3 % (37.0-47.0); HEMOGLOBIN 11.3 g/dl (12.0-16.0); IMMATURE GRANULOCYTE % (AUTO) 0.5 % (0.0-5.0); LYMPHOCYTES # (AUTO) 2.5 K/uL (0.60-3.4); LYMPHOCYTES % (AUTO) 27.3 (10.0-50.0); MEAN CORPUSCULAR HEMOGLOBIN 31.8 pg (27.0-31.0); MEAN CORPUSCULAR VOLUME 99.4 fl (81.0-99.0); MONOCYTES # (AUTO) 0.6 K/uL (0.4-2.0); MONOCYTES % (AUTO) 6.9 (0-10); NEUTROPHILS # (AUTO) 5.4 K/ul (2.0-6.9); NEUTROPHILS % (AUTO) 59.3; PLATELET COUNT 359 10^3/uL (140-440); RED BLOOD COUNT 3.55 10^6/ul (4.20-5.40); WHITE BLOOD COUNT 9.19 K/ul (4.6-10.2)
[2016-03-17 09:02] LABS: ANION GAP 13.4; BUN/CREATININE RATIO 16.04; CALCIUM 8.3 mg/dL (8.2-10.2); CREATININE 0.81 mg/dL (0.60-1.30); POTASSIUM 4.4 mmol/L (3.5-5.10)
[2016-03-17] MEDS: ROCEPHIN 1 GM in SODIUM CHLORIDE 50 ML IV SCH (09:11)
[2016-03-17] MEDS: PRED FORTE 1% OPTH SOL OP SCH ×3 (09:11→22:25)
[2016-03-17] MEDS: KEPPRA PO SCH ×2 (09:13→22:26)
[2016-03-17] MEDS: CRESTOR PO SCH (09:14)
[2016-03-17] MEDS: OXYCODONE PO SCH ×3 (09:14→22:26)
[2016-03-17] MEDS: ZESTRIL PO SCH (09:14)
[2016-03-17] MEDS: PRISTIQ ER PO SCH (09:14)
[2016-03-17] MEDS: OMEGA-3 FISH OIL PO SCH ×2 (09:15→22:26)
[2016-03-17] MEDS: MIRALAX PO SCH (09:15)
[2016-03-17] MEDS: LOVENOX SUBCUT SCH (09:15)
[2016-03-17] MEDS: FLEXERIL PO SCH ×3 (09:21→22:27)
--- NOTE | 2016-03-17 10:01 | PCM.PROG ---
Attending Provider: ATTENDING PROVIDER: Dr. AMANDA GONZALEZ DATE OF SERVICE: 03/17/16 SUBJECTIVE: This 60 year old WHITE/ F was hospitalized 03/11/16. The patient is doing much better. Lower extremity bilateral cellulitis -redness and swelling is looking much better. The patient has a followup with research scholar on the . Blood sugar dropped in the 40s last night after receiving Lantus. She had not eaten much yesterday The latest blood sugar is 83. REVIEW OF SYSTEMS: CONSTITUTIONAL: No fever, no chills. ENDOCRINE: No weight loss or weight gain. HEENT: No sinus drainage, no sore throat. CVS: No angina symptoms. No CHF symptoms. No palpitations. No atypical chest pain for CAD. No shortness of breath. RESPIRATORY: No cough, no hemoptysis. GI: No melena. No abdominal pain. No nausea, no vomiting. : No hematuria. No polyuria. SKIN: Redness and swelling bilateral lower extremities, better. MUSCULOSKELETAL: No pain. PEDIATRIC REGISTERED NURSE: No blackout, no dizziness. No headache. No double vision. PSYCHIATRIC: Not anxious; no depression. No suicidal thoughts. No homicidal thoughts. PHYSICAL EXAMINATION: GENERAL: Lying in bed in no distress. VITAL SIGNS: Temperature 97.7 F, Pulse 76, Respiratory Rate 18, BP 118/69, Pulse Ox 95% HEENT: Normocephalic, atraumatic. Mucosa is dry, pallor positive. NECK: No JVP, no carotid bruit. No lymphadenopathy. CARDIAC: S1, S2, no S3. No murmur, gallop or regurgitation. LUNGS: Clear to auscultation. ABDOMEN: Soft, non-tender. Bowel sounds active. No rigidity, guarding or CVA tenderness. EXTREMITIES: No clubbing, cyanosis. Bilateral lower extremity redness and swelling decreased. NEUROLOGIC: Awake, alert and oriented x3. LYMPHATIC: No palpable lymph nodes SKIN: Not dry. Intact. MUSCULOSKELETAL: No joint swelling. LAB REVIEW: 03/16/16 06:35 03/16/16 06:35 ASSESSMENT: 1. Hypoglycemia 2. Bilateral lower extremity cellulitis 3. History of stable angina 4. Diabetes mellitus 5. Hypertension 6. Dyslipidemia 7. Chronic pain syndrome 8. Angina 9. Depression 10. History of pancreatic cancer PLAN: 1. Stop Dilaudid. 2. Continue Rocephin and Vancomyin. 3. Monitor sugars. 4. Keep legs elevated. Plan and coordination of the patient's care discussed in the presence of Buckle Sorter and nurse. CONDITION: STABLE SCRIBED BY: CASEY ROSARIO Photographic Laboratory Supervisor scribed while in presence of service performed by Dr. AMANDA GONZALEZ on 03/17/16 ([id number])
[2016-03-17] MEDS: VANCOMYCIN 750 MG in SODIUM CHLORIDE 250 ML IV SCH ×2 (10:24→22:29)
[2016-03-17] MEDS: HUMULIN R SUBCUT PRN (11:10)
--- NOTE | 2016-03-17 11:38 | PN ---
DATE OF SERVICE: 03/16/16 SUBJECTIVE: The swelling and redness in both lower extremities is better. Redness is still present in the left lower extremity more than the right otherwise she says that pain is 50% better. She is walking with a cane. REVIEW OF SYSTEMS: CONSTITUTIONAL: No fever, no chills. HEENT: Normal. ENDOCRINE: No weight gain, no weight loss. CVS: No angina symptoms. No CHF symptoms. No palpitations. No atypical chest pain for CAD. No shortness of breath. No PND, no orthopnea. RESPIRATORY: No cough, no hemoptysis. GI: No nausea, no vomiting. No abdominal pain. : No hematuria. No polyuria. MUSCULOSKELETAL:. No joint swelling. PSYCHIATRIC: Not anxious. No depression. No suicidal thoughts. No homicidal thoughts. SKIN: Intact. No rash. PHYSICAL EXAMINATION: V/S: Blood pressure 118/70, respiratory rate 16, heart rate 80 and temperature 97.9. HEENT: Normocephalic, atraumatic. Ears, eyes, nose and throat normal. Mucosa dry. Pallor positive. No icterus. NECK: Supple. No JVD, no carotid bruit. No lymphadenopathy. LUNGS: Clear to auscultation. No rales or rhonchi. HEART: S1, S2 normal. No S3. No murmur, gallop or regurgitation. ABDOMEN: Soft, nontender. Bowel sounds active. No rigidity. No rebound or guarding. No CVA tenderness. EXTREMITIES: No clubbing, cyanosis or pedal edema. Lower extremity swelling and redness and tenderness is present but the redness is decreased. Circumferential redness and the legs used to be very hard to touch but they are soft today. MUSCULOSKELETAL: No joint swelling. NEUROLOGIC: Awake, alert, oriented times three. No focal deficit. LYMPHATIC: No lymph nodes palpable. SKIN: Intact. ASSESSMENT: 1. Bilateral lower extremity cellulitis, circumferential left more than the right 2. Diabetes Mellitus 3. Hypertension 4. Angina 5. Chronic pain syndrome 6. Depression 7. Anxiety 8. History of pancreatic cancer PLAN: 1. Continue the Rocephin and Vancomycin 2. Keep the legs elevated 3. Dilaudid of the pain PRN 4. Encouraged to walk. TIME SPENT: More than 30 minutes MTDD
--- NOTE | 2016-03-17 11:46 | PN ---
DATE OF SERVICE: 03/15/16 SUBJECTIVE: The patient is lying in the bed and not in any distress. The reason for the admission was lower extremity cellulitis; swelling and the pain is somewhat better but still has a lot of tenderness and warm to touch in the lower left extremity. REVIEW OF SYSTEMS: CONSTITUTIONAL: No fever, no chills. HEENT: Normal. ENDOCRINE: No weight gain, no weight loss. CVS: No angina symptoms. No CHF symptoms. No palpitations. No atypical chest pain for CAD. No shortness of breath. No PND, no orthopnea. RESPIRATORY: No cough, no hemoptysis. GI: No nausea, no vomiting. No abdominal pain. : No hematuria. No polyuria. MUSCULOSKELETAL:. No joint swelling. PSYCHIATRIC: Not anxious. No depression. No suicidal thoughts. No homicidal thoughts. SKIN: Intact. No rash. PHYSICAL EXAMINATION: V/S: Blood pressure 117/72, respiratory rate 18, heart rate 78 and temperature 98. HEENT: Normocephalic, atraumatic. Ears, eyes, nose and throat normal. Mucosa dry. Pallor positive. No icterus. NECK: Supple. No JVD, no carotid bruit. No lymphadenopathy. LUNGS: Clear to auscultation. No rales or rhonchi. HEART: S1, S2 normal. No S3. No murmur, gallop or regurgitation. ABDOMEN: Soft, nontender. Bowel sounds active. No rigidity. No rebound or guarding. No CVA tenderness. EXTREMITIES: No clubbing, cyanosis or pedal edema. Left lower extremity swelling and redness are better later part of the left leg. Right leg swelling and redness is almost normal. MUSCULOSKELETAL: No joint swelling. NEUROLOGIC: Awake, alert, oriented times three. No focal deficit. LYMPHATIC: No lymph nodes palpable. SKIN: Intact. LABS: WBC 9.07, hgb 11.2, hct 36.2, plt count 344, sodium 144, potassium 4.4, chloride 109, bicarb 26, BUN 16 and creatinine 0.83. ASSESSMENT: 1. Bilateral lower extremity cellulitis 2. Diabetes 3. Hypertension 4. Angina, stable 5. Congestive heart failure 6. Chronic pain syndrome PLAN: 1. Continue Rocephin and Vancomycin 2. Keep the legs elevated 3. Daily I&O's Will follow the patient in daily rounds. TIME SPENT: More than 30 minutes MTDD
[2016-03-17] MEDS ORDERED: LANTUS SUBCUT SCH (21:00)
[2016-03-17] MEDS: PLAVIX PO SCH (22:26)
[2016-03-17] MEDS: XALATAN OP SCH (22:26)
[2016-03-17] MEDS: ASPIRIN EC PO SCH (22:27)
[2016-03-18 04:27] LABS: BASOPHILS # (AUTO) 0.1 K/uL (0-0.2); BASOPHILS % (AUTO) 0.5 % (0.0-3.0); EOSINOPHILS % (AUTO) 0.3 % (0.0-7.0); HEMATOCRIT 37.2 % (37.0-47.0); HEMOGLOBIN 11.8 g/dl (12.0-16.0); IMMATURE GRANULOCYTE % (AUTO) 1.3 % (0.0-5.0); LYMPHOCYTES % (AUTO) 18.6 (10.0-50.0); MEAN CORPUSCULAR HEMOGLOBIN 31.1 pg (27.0-31.0); MEAN CORPUSCULAR HGB CONC 31.7 (31.8-35.4); MEAN CORPUSCULAR VOLUME 97.9 fl (81.0-99.0); MONOCYTES # (AUTO) 0.1 K/uL (0.4-2.0); MONOCYTES % (AUTO) 1.3 (0-10); NEUTROPHILS # (AUTO) 8.2 K/ul (2.0-6.9); PLATELET COUNT 410 10^3/uL (140-440); WHITE BLOOD COUNT 10.46 K/ul (4.6-10.2)
[2016-03-18 04:55] LABS: ANION GAP 12.3; CREATININE 0.8 mg/dL (0.60-1.30); POTASSIUM 4.3 mmol/L (3.5-5.10)
[2016-03-18] MEDS: SODIUM CHLORIDE 1,000 ML IV SCH (06:18)
[2016-03-18] MEDS: SYNTHROID PO SCH (06:18)
[2016-03-18] MEDS: PROTONIX PO SCH (06:18)
[2016-03-18] MEDS: MIRALAX PO SCH (08:52)
[2016-03-18] MEDS: CRESTOR PO SCH (08:52)
[2016-03-18] MEDS: PRISTIQ ER PO SCH (08:52)
[2016-03-18] MEDS: LOVENOX SUBCUT SCH (08:52)
[2016-03-18] MEDS: PRED FORTE 1% OPTH SOL OP SCH (08:52)
[2016-03-18] MEDS: ZESTRIL PO SCH (08:52)
[2016-03-18] MEDS: OMEGA-3 FISH OIL PO SCH (08:52)
[2016-03-18] MEDS: KEPPRA PO SCH (08:52)
[2016-03-18] MEDS: VANCOMYCIN 750 MG in SODIUM CHLORIDE 250 ML IV SCH (08:53)
[2016-03-18] MEDS: ROCEPHIN 1 GM in SODIUM CHLORIDE 50 ML IV SCH (08:53)
[2016-03-18] MEDS: OXYCODONE PO SCH (08:57)
[2016-03-18] MEDS: FLEXERIL PO SCH (09:00)
[2016-03-18 10:25] VITALS: BP 145/73; TEMP 97.6
--- NOTE | 2016-03-20 15:10 | DS ---
DATE OF SERVICE: 03/18/16 FINAL DIAGNOSIS: 1. BILATERAL LOWER EXTREMITIES CELLULITIS AND DIFFUSE CIRCUMFERENTIAL. AT THE TIME OF DISCHARGE THIS HAD IMPROVED A LOT. 2. HISTORY OF DIABETES 3. HYPERTENSION 4. DYSLIPIDEMIA 5. ANGINA 6. CONGESTIVE HEART FAILURE 7. CORONARY ARTERY DISEASE 8. CHRONIC PAIN SYNDROME 9. HISTORY OF PANCREATIC CANCER 10. DEGENERATIVE JOINT DISEASE OF SPINE 11. OSTEOARTHRITIS 12. CORONARY ARTERY DISEASE, STATUS POST TWO STENTS IN 2011 13. CATARACT SURGERY 14. EPILEPSY 20 YEARS AGO 15. STATUS POST SPLENECTOMY PLAN: 1. Discharge the patient home. 2. Follow up with a skin doctor as scheduled. 3. Continue the Clindamycin 300 mg three times a day for three more days. 4. Keep the legs elevated when resting. 5. Diet: Diabetic and Cardiac healthy diet. 6. The patient has a follow up with [facility] on March 20. DISEASE SPECIFIC EDUCATION: Antibiotic use and diarrhea was discussed. Lower extremity cellulitis, risk of osteomyelitis and amputation was discussed and in view of diabetes. HOME MEDICATIONS: Nitrostat 0.4 mg SL every 5 minutes times three prn Pristiq 100 mg daily Aspirin 81 mg at bedtime Protonix 40 mg daily ProAir HFA two puffs every 4 hours prn Latanoprost 2.5 ml drops, one drop at bedtime Levothyroxine Sodium 88 mcg daily Lisinopril 5 mg daily Oxycodone 10 mg three times daily Plavix 75 mg at bedtime Lantus 60 U at bedtime Flexeril 10 mg three times daily Keppra 1,000 mg twice daily [place] 3 one twice daily Crestor 40 mg daily Clobetasol Propionate Emollient 0.05%, 30 gm topical twice daily Novolin R 8-15 Unit three times daily with meals Metoprolol Succinate 12.5 mg twice daily Prednisolone Opth Susp one drop left eye three times daily Calcitriol 100 gm ointment one application twice daily Clindamycin 300 mg every 8 hours #9 HOSPITAL COURSE: Cynthia Alejandra who is a 60 year old female with multiple medical problems came to the emergency room with diffuse swelling and redness of the circumferential swelling and redness of the lower extremity. She had an elevated white count and acute cellulitis of the lower extremities. Sugar was 399, uncontrolled, so she was admitted with uncontrolled diabetes and the lower extremity cellulitis. She was started on Rocephin and keep the legs elevated. Gradually the pain and redness were getting better. It took a really hard and long time to help the patient, because the patient already had a psoriatic skin lesion on top. The patient had infection and with the Rocephin and Vancomycin gradually she was feeling better. Blood sugars were controlled without any change of medications. The patient was up and about and walking. The Lovenox was given for the DVT prophylaxis. CT of the lower extremity on the left leg was done as the pain and swelling were more severe to rule out any abscess, but there was no abscess. It was consistent with cellulitis. The patient did inform us that the patient had a follow up with a skin doctor at [facility]. The patient's sugars were stabilized. The patient was getting hypoglycemia just two days before the discharge. So the Lantus was decreased to 60 units by which the patient's sugars were better. The patient is aware of the hypoglycemia and the side effects of the Insulin. The patient was advised to monitor the sugars three times a day. If the sugars are low, please inform the office. Time spent on the patient is more than 45 minutes. DAVID
== END 2016-03-18 12:00 | disposition home or self-care (01) | DRG 603 ==
LOC: ED 17:50 → MEDSURG A 20:27
PROVIDERS: ADMIT Emergency Medicine; ATTEND Emergency Medicine
DX: L03.116 Cellulitis of left lower limb (principal); L03.115 Cellulitis of right lower limb; R60.0 Localized edema; E11.65 Type 2 diabetes mellitus with hyperglycemia; E11.649 Type 2 diabetes mellitus with hypoglycemia without coma; I20.8 Other forms of angina pectoris; I50.9 Heart failure, unspecified; I10 Essential (primary) hypertension; L40.8 Other psoriasis; G89.4 Chronic pain syndrome; F32.9 Major depressive disorder, single episode, unspecified; F17.210 Nicotine dependence, cigarettes, uncomplicated; Z79.01 Long term (current) use of anticoagulants; Z79.4 Long term (current) use of insulin; Z79.899 Other long term (current) drug therapy; E11.9 Type 2 diabetes mellitus without complications
CPT/HCPCS: 36415; 80048; 80053; 80202; 82009; 82803; 82962; 83605; 85025; 87040; 96365; 96375; 97802; 99223; 99232; 99239; 99284

== ENCOUNTER 2016-03-25 11:37 | Emergency (ER) | payer OTHER ==
[2016-03-25 11:46] VITALS: BP 137/64; TEMP 98.2; BMI 29.6
--- NOTE | 2016-03-25 12:02 | ED.PDOC ---
General ED Provider: Dr. KRISTIN LOYD JR Chief Complaint: Extremity Swelling/Pain Stated Complaint: states discharged from hospital 1 week ago with same problem-- left leg has started to swell again--had cellulitus at that time[End] 98.2 97 20 94% 137/64 8/10 percocet...has redness with patches to both legs--has psoriasis --left leg is worseLEGS SWELLING FOR PAST THREE DAYS LEFT WORSE CHILLS AT NIGHT HAS NO THERMOMETER CONCERNED THAT CELLULITIS IS BACK STATES SUGAR 120 TODAY[ End ] Time Seen by Physician: 12:09 Mode of Arrival: Wheelchair Information Source: Patient Exam Limitations: No limitations [facility] [address] Nursing and Triage Documentation Reviewed and Agree: No Review of Systems - Review Of Systems Constitutional: Reports: Fever, Malaise Eyes: Reports: No symptoms Ears, Nose, Mouth, Throat: Reports: No symptoms Respiratory: Reports: No symptoms Cardiac: Reports: No symptoms GI: Reports: No symptoms : Reports: No symptoms Musculoskeletal: Reports: Other Skin: Reports: Lesions, Other (PSORIASIS NO EVIDENCE FOCAL CELLULITIS) Endocrine: Reports: No symptoms Hematologic/Lymphatic: Reports: Other All Other Systems: Other Past Medical History - Past Medical History Previously Healthy: No Endocrine: Reports: DM 2, Hypothyroid, Dyslipidemia Cardiovascular: Reports: CAD, [place], Hypertension, CHF Respiratory: Reports: COPD Hematological: Reports: Anemia Gastrointestinal: Reports: GERD, Pancreatitis Genitourinary: Reports: CKD Neuro/Psych: Reports: Seizure, Anxiety, Depression Musculoskeletal: Reports: None Cancer: Reports: Other (kidney) Last Menstrual Period: hysterectomy Other Pertinent Past Medical History: 1 kidney, [place]'s disease, Glaucoma - Surgical History General Surgical History: Reports: Hysterectomy, Appendectomy, Cholecystectomy, Back Surgery, Other (nephrectomy,spleenectomy, partial pancreas,thyroidectomy, perforated colon,3 stents in heart) - Family History Family History: Reports: None - Social History Smoking Status: Current every day smoker Hx Substance Use: No Alcohol Screening: None Physical Exam - Physical Exam Appearance: Well-appearing Pain Distress: Mild Eyes: DONY, EOMI, Conjunctiva clear Neck: Supple Respiratory: Airway patent Cardiovascular: RRR GI/: Soft, Nontender Musculoskeletal: Normal strength, ROM intact, No calf tenderness (TENDER ANTERIORLY), Edema Skin: Warm, Dry Neurological: Sensation intact, Motor intact Psychiatric: Affect appropriate, Mood appropriate Critical Care Note - Critical Care Note Total Time (mins): 0 Course - Course Hematology/Chemistry: 03/25/16 12:25 03/25/16 12:25 Orders, Labs, Meds: Lab Review 03/25/16 12:25 WBC 10.31 H RBC 4.03 L Hgb 12.7 Hct 39.4 MCV 97.8 MCH 31.5 H MCHC 32.2 RDW Coeff of Manoj 12.9 Plt Count 401 Immature Gran % (Auto) 0.4 Neut % (Auto) 62.0 Lymph % (Auto) 27.8 Dickinson % (Auto) 4.7 Eos % (Auto) 4.5 Baso % (Auto) 0.6 Immature Gran # (Auto) 0.0 Neut # 6.4 Lymph # 2.9 Dickinson # 0.5 Eos # 0.5 Baso # 0.1 D-Dimer 0.38 Sodium 141 Potassium 4.2 Chloride 103 Carbon Dioxide 28 Anion Gap 14.2 BUN 12 Creatinine 0.96 Estimated GFR (MDRD) 59.00 BUN/Creatinine Ratio 12.50 Glucose 179 H Lactic Acid 12.2 Calcium 9.2 Total Bilirubin 0.21 AST 13 L ALT 17 Alkaline Phosphatase 108 Total Creatine Kinase 69 Troponin I 0.0160 B-Natriuretic Peptide 27 Total Protein 7.6 Albumin 3.2 L Globulin 4.4 Albumin/Globulin Ratio 0.73 Procalcitonin < 0.05 Orders Category Date Time Status ACCUCHECK (ED) [ED ACCUCHECK ASSESSMENT] .ONCE EMERGENCY 03/25/16 12:03 Active B-TYPE NATRIURETIC PEPTIDE Stat LAB 03/25/16 12:25 Completed BLOOD CULTURE Stat LAB 03/25/16 12:25 Received CBC W/ AUTO DIFF Stat LAB 03/25/16 12:25 Completed COMPREHENSIVE METABOLIC PANEL Stat LAB 03/25/16 12:25 Completed CREATINE KINASE Stat LAB 03/25/16 12:25 Completed D-DIMER Stat LAB 03/25/16 12:25 Completed LACTIC ACID Stat LAB 03/25/16 12:25 Completed PROCALCITONIN Stat LAB 03/25/16 12:25 Completed TROPONIN I Stat LAB 03/25/16 12:25 Completed Vital Signs: Temp Pulse Resp BP Pulse Ox 03/25/16 11:38 98.2 F 97 H 20 137/64 94 L Departure - Departure Time of Disposition: 13:49 Disposition: HOME SELF-CARE Discharge Problem: Edema of lower extremity, Leg pain, bilateral, Leg pain, bilateral, Leg pain, anterior Instructions: Leg Edema (ED), Leg Pain (ED) Condition: Good Pt referred to PMD for follow-up: Yes Additional Instructions: Please follow-up with in 1-3 days. Recheck Please call your Family Physician as soon as possible to schedule a follow-up appointment. septra twice a day until gone elevate legs above level of heart twice a day for three to ten days Prescriptions: Sulfamethoxazole/Trimethoprim [Bactrim Ds 800/160 mg] 1 tab PO Q12HR #14 tablet Allergies/Adverse Reactions: Allergies duloxetine HCl [From Cymbalta] Allergy (Severe, Verified 03/25/16 11:47) unable to sleep penicillin G Adverse Reaction (Severe, Verified 03/25/16 11:47) Difficulty Breathing aripiprazole [From Abilify] Adverse Reaction (Verified 03/25/16 11:47) cefaclor [From Ceclor] Adverse Reaction (Verified 03/25/16 11:47) ciprofloxacin [From Cipro] Adverse Reaction (Verified 03/25/16 11:47) Rash clarithromycin [From Biaxin] Adverse Reaction (Verified 03/25/16 11:47) Rash ketorolac tromethamine [From Toradol] Adverse Reaction (Verified 03/25/16 11:47) Vomiting loperamide HCl [From Imodium A-D] Adverse Reaction (Verified 03/25/16 11:47) affects glaucoma Penicillins Adverse Reaction (Verified 03/25/16 11:47) Difficulty Breathing sumatriptan [From Imitrex] Adverse Reaction (Verified 03/25/16 11:47) heart attack sumatriptan succinate [From Imitrex] Adverse Reaction (Verified 03/25/16 11:47) heart attack Home Medications: Ambulatory Orders Aspirin [Aspirin EC] 81 mg PO BEDTIME 11/14/12 Desvenlafaxine Succinate [Pristiq] 100 mg PO DAILY 11/14/12 Nitroglycerin [Nitrostat] 0.4 mg SL Q5MIN X 3 DOSES PRN 11/14/12 Pantoprazole Sodium [Protonix] 40 mg PO QDAC 04/12/14 Albuterol Sulfate [Proair Hfa] 2 puff IH Q4H PRN 08/23/14 Lisinopril 5 mg PO DAILY 10/24/14 Oxycodone HCl 10 mg PO TID 12/05/14 Clopidogrel Bisulfate [Plavix] 75 mg PO BEDTIME 05/30/15 Cyclobenzaprine HCl [Flexeril] 10 mg PO TID 08/05/15 Levetiracetam [Keppra] 1,000 mg PO BID 08/05/15 [place]-3S/Dha/Epa/Fish Oil/D3 [[place]-3 + D Softgel] 1 each PO BID 08/05/15 Clobetasol Propionate/Emoll [Clobetasol Emollient 0.05% Crm] 30 gm TP BID Insulin Regular, Human [Novolin R] 8 - 15 unit IJ TIDWM 12/06/15 Metoprolol Succinate 12.5 mg PO BID 02/13/16 Calcitriol 1 applic TP SUFRSA@0900,2100 03/12/16 Prednisolone Opth Susp [Pred Forte 1% Opth Cehyanne] 1 drop LEFTEYE TID 03/12/16 Sulfamethoxazole/Trimethoprim [Bactrim Ds 800/160 mg] 1 tab PO Q12HR #14 tablet 03/25/16
[2016-03-25 12:37] LABS: BASOPHILS # (AUTO) 0.1 K/uL (0-0.2); BASOPHILS % (AUTO) 0.6 % (0.0-3.0); EOSINOPHILS # (AUTO) 0.5 K/ul (0.0-0.7); EOSINOPHILS % (AUTO) 4.5 % (0.0-7.0); HEMATOCRIT 39.4 % (37.0-47.0); HEMOGLOBIN 12.7 g/dl (12.0-16.0); IMMATURE GRANULOCYTE % (AUTO) 0.4 % (0.0-5.0); LYMPHOCYTES # (AUTO) 2.9 K/uL (0.60-3.4); LYMPHOCYTES % (AUTO) 27.8 (10.0-50.0); MEAN CORPUSCULAR HEMOGLOBIN 31.5 pg (27.0-31.0); MEAN CORPUSCULAR HGB CONC 32.2 (31.8-35.4); MEAN CORPUSCULAR VOLUME 97.8 fl (81.0-99.0); MONOCYTES # (AUTO) 0.5 K/uL (0.4-2.0); MONOCYTES % (AUTO) 4.7 (0-10); NEUTROPHILS # (AUTO) 6.4 K/ul (2.0-6.9); PLATELET COUNT 401 10^3/uL (140-440); RED BLOOD COUNT 4.03 10^6/ul (4.20-5.40); WHITE BLOOD COUNT 10.31 K/ul (4.6-10.2)
[2016-03-25 13:07] LABS: ALBUMIN 3.2 g/dL (3.4-5.0); ALBUMIN/GLOBULIN RATIO 0.73; ANION GAP 14.2; BILIRUBIN,TOTAL 0.21 mg/dL (0.00-1.20); BUN/CREATININE RATIO 12.5; CALCIUM 9.2 mg/dL (8.2-10.2); CREATININE 0.96 mg/dL (0.60-1.30); POTASSIUM 4.2 mmol/L (3.5-5.10); TOTAL PROTEIN 7.6 g/dL (5.8-8.1); TROPONIN I 0.016 ng/ml (0.0000-0.4000)
== END 2016-03-25 14:10 | disposition home or self-care (01) ==
LOC: ED 11:37
DX: R60.0 Localized edema (principal); M79.662 Pain in left lower leg; M79.661 Pain in right lower leg; E11.9 Type 2 diabetes mellitus without complications; I10 Essential (primary) hypertension; I50.9 Heart failure, unspecified; Z79.899 Other long term (current) drug therapy; Z79.01 Long term (current) use of anticoagulants
CPT/HCPCS: 36415; 80053; 82550; 82962; 83605; 83880; 84145; 84484; 85025; 85379; 87040; 99283

== ENCOUNTER 2016-04-25 14:30 | Inpatient (IN) ==
[2016-04-25 14:33] VITALS: BMI 27.6
[2016-04-25] MEDS ORDERED: DUONEB NEB STA (14:57)
[2016-04-25 15:25] LABS: BASOPHILS # (AUTO) 0.1 K/uL (0-0.2); BASOPHILS % (AUTO) 0.6 % (0.0-3.0); EOSINOPHILS # (AUTO) 0.4 K/ul (0.0-0.7); EOSINOPHILS % (AUTO) 4.2 % (0.0-7.0); HEMATOCRIT 38.4 % (37.0-47.0); HEMOGLOBIN 12.8 g/dl (12.0-16.0); IMMATURE GRANULOCYTE % (AUTO) 0.5 % (0.0-5.0); LYMPHOCYTES # (AUTO) 1.6 K/uL (0.60-3.4); MEAN CORPUSCULAR HEMOGLOBIN 31.9 pg (27.0-31.0); MEAN CORPUSCULAR HGB CONC 33.3 (31.8-35.4); MEAN CORPUSCULAR VOLUME 95.8 fl (81.0-99.0); MONOCYTES # (AUTO) 0.6 K/uL (0.4-2.0); MONOCYTES % (AUTO) 5.8 (0-10); NEUTROPHILS # (AUTO) 6.9 K/ul (2.0-6.9); NEUTROPHILS % (AUTO) 71.9; PLATELET COUNT 341 10^3/uL (140-440); RED BLOOD COUNT 4.01 10^6/ul (4.20-5.40); WHITE BLOOD COUNT 9.62 K/ul (4.6-10.2)
--- NOTE | 2016-04-25 15:28 | DI ---
EXAM: CHEST FRONTAL AND LATERAL VIEWS HISTORY: Short of breath. COMPARISON: 09/09/2014 FINDINGS: Heart size and mediastinal contour remain within normal limits. Mild aortic atheroscler osis is suggested. No acute infiltrates. Normal vascularity with no pleural fluid or pneumothorax. The bony thorax has no acute finding. Surgical clips again noted over the thyroid bed. IMPRESSION: No acute cardiopulmonary process.
[2016-04-25 15:38] LABS: ABG BASE EXCESS -1 (-2.0-2.0); ABG HCO3 25.1 (22.0-26.0); ABG PCO2 45.8 mmHg (35-45); ABG PH 7.347 (7.35-7.45); ABG TCO2 27 (22.0-28.0)
[2016-04-25 15:39] LABS: FLU INTERNAL QC INTERNAL QC VALID; RAPID FLU A NEGATIVE (NEGATIVE); RAPID FLU B NEGATIVE (NEGATIVE)
[2016-04-25 15:53] LABS: ALBUMIN 3.3 g/dL (3.4-5.0); ALBUMIN/GLOBULIN RATIO 0.7; ANION GAP 15.3; BILIRUBIN,TOTAL 0.18 mg/dL (0.00-1.20); BUN/CREATININE RATIO 17.52; CALCIUM 8.9 mg/dL (8.2-10.2); CREATININE 0.97 mg/dL (0.60-1.30); POTASSIUM 4.3 mmol/L (3.5-5.10); TROPONIN I 0.095 ng/ml (0.0000-0.4000)
[2016-04-25] MEDS ORDERED: NITROSTAT SL PRN (16:57)
--- NOTE | 2016-04-25 17:03 | ED.PDOC ---
[id number]: short of air Time Seen by Physician: 14:30 Mode of Arrival: Walk-In Information Source: Patient Exam Limitations: No limitations Primary Care Provider: AMANDA MONTILLA Nursing and Triage Documentation Reviewed and Agree: Yes Respiratory Complaint Exam - Respiratory Complaint/Exam Onset/Duration: 1 day Symptoms Are: Still present Initial Severity: Moderate Current Severity: Mild Location: Chest Character: Reports: Non-productive cough Aggravating: Reports: None Alleviating: Reports: Spontaneous resolution Associated Signs and Symptoms: Reports: Wheezing. Denies: Rapid breathing, Dyspnea, Fever, Chills, Chest pain, Pleuritic chest pain, Hemoptysis, Dizziness , Calf pain, Calf swelling, Edema, URI, Nasal congestion, Hoarseness, Sinus discomfort, Vomiting, Sore throat, Weight loss, Decreased oral intake, Increased thirst, Increased appetite, Increased urination Related History: Reports: Similar episode History of Healthcare-Acquired Pneumonia: No Related Surgical History: Reports: None Pulmonary Embolism Risk Factors: Bedrest Cardiac Risk Factors: Reports: Elevated lipids, Hypertension Pseudomonas Risk Factors: Reports: None Tuberculosis Risk Factors: Reports: None Status Asthmaticus Risk Factors: Reports: None Home Oxygen Use: No Recent Stress Test: No Recent Echo/LV Function: No Current Antibiotic Use: No Current Asthma Medication Use: No Respiratory Distress: None Inadequate Respiratory Effort: No Dysphagia Present: No Stridor Present: No JVD Present: No Retractions: Not Present Diminished Breath Sounds: No Sinus Tenderness: None Differential Diagnoses: Pneumonia, Bronchitis Review of Systems - Review Of Systems Constitutional: Reports: Malaise, Weakness Eyes: Reports: No symptoms Ears, Nose, Mouth, Throat: Reports: No symptoms Respiratory: Reports: Cough, Short of air, Wheezing Cardiac: Reports: No symptoms GI: Reports: No symptoms : Reports: No symptoms Musculoskeletal: Reports: No symptoms Skin: Reports: No symptoms Neurological: Reports: No symptoms Endocrine: Reports: No symptoms Hematologic/Lymphatic: Reports: No symptoms All Other Systems: Reviewed and Negative Past Medical History - Past Medical History Previously Healthy: No Endocrine: Reports: DM 2, Hypothyroid, Dyslipidemia Cardiovascular: Reports: CAD, NM, Hypertension, CHF Respiratory: Reports: COPD Hematological: Reports: Anemia Gastrointestinal: Reports: GERD, Pancreatitis Genitourinary: Reports: CKD Neuro/Psych: Reports: Seizure, Anxiety, Depression Musculoskeletal: Reports: None Cancer: Reports: Other (kidney) Last Menstrual Period: NONE Other Pertinent Past Medical History: 1 kidney, Allegheny's disease, Glaucoma - Surgical History General Surgical History: Reports: Hysterectomy, Appendectomy, Cholecystectomy, Back Surgery, Other (nephrectomy,spleenectomy, partial pancreas,thyroidectomy, perforated colon,3 stents in heart) - Family History Family History: Reports: None - Social History Smoking Status: Current every day smoker Hx Substance Use: No Alcohol Screening: None Physical Exam - Physical Exam Appearance: Ill-appearing Ill-appearing: Moderate Pain Distress: Mild Eyes: DONY, EOMI, Conjunctiva clear ENT: Ears normal, Nose normal, Oropharynx normal Respiratory: Rhonchi, Wheezes Cardiovascular: RRR, Pulses normal, No rub, No murmur GI/: Soft, Nontender, No masses, Bowel sounds normal, No Organomegaly Musculoskeletal: Normal strength, ROM intact, No edema, No calf tenderness Skin: Warm, Dry, Normal color Neurological: Sensation intact, Motor intact, Reflexes intact, Cranial nerves intact, Alert, Oriented Psychiatric: Affect appropriate, Mood appropriate Interpretation - Radiology Interpretation Radiology Interpretation By: Radiologist Radiology Results: No acute changes - 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: Tachy Rhythm: Sinus - EKG Interpretation Rate: Tachy Rhythm: Sinus Ectopy: None [place]: [place] ST Segment: Normal Critical Care Note - Critical Care Note Total Time (mins): 0 Course - Course Hematology/Chemistry: 04/28/16 04:42 04/28/16 04:42 Orders, Labs, Meds: Lab Review 04/25/16 04/25/16 04/25/16 14:57 15:10 15:14 WBC 9.62 RBC 4.01 L Hgb 12.8 Hct 38.4 MCV 95.8 MCH 31.9 H MCHC 33.3 RDW Coeff of Manoj 12.9 Plt Count 341 Immature Gran % (Auto) 0.5 Neut % (Auto) 71.9 Lymph % (Auto) 17.0 Fisher % (Auto) 5.8 Eos % (Auto) 4.2 Baso % (Auto) 0.6 Immature Gran # (Auto) 0.1 Neut # 6.9 Lymph # 1.6 Fisher # 0.6 Eos # 0.4 Baso # 0.1 D-Dimer 0.54 Puncture Site Lbrach O2 Saturation 89.0 L ABG pH 7.347 L ABG pCO2 45.8 H ABG pO2 61.0 L ABG HCO3 25.1 ABG Total CO2 27 ABG Base Excess -1 FiO2 % 21.0 Sodium 137 Potassium 4.3 Chloride 101 Carbon Dioxide 25 Anion Gap 15.3 BUN 17 Creatinine 0.97 Estimated GFR (MDRD) 58.00 BUN/Creatinine Ratio 17.52 Glucose 223 H Calcium 8.9 Total Bilirubin 0.18 AST 30 ALT 31 Alkaline Phosphatase 128 Total Creatine Kinase 89 Troponin I 0.0950 B-Natriuretic Peptide 80 Total Protein 8.0 Albumin 3.3 L Globulin 4.7 Albumin/Globulin Ratio 0.70 Procalcitonin 0.08 Influenza A (Rapid) Negative Influenza B (Rapid) Negative Orders Category Date Time Status ADMIT PATIENT INPATIENT .TO [facility] (MONITORED BED) ADMISSION 04/25/16 16: 54 Active ABG DRAW REQUEST Stat CARDIO 04/25/16 14:57 Completed EKG-(ED ONLY) Stat CARDIO 04/25/16 14:56 Completed EKG-(IP & OP ONLY) DAILY CARDIO 04/26/16 06:00 Completed EKG-(IP & OP ONLY) DAILY CARDIO 04/27/16 06:00 Completed EKG-(IP & OP ONLY) DAILY CARDIO 04/28/16 06:00 Completed NEBULIZER TREATMENT Routine CARDIO 04/25/16 16:56 Completed NEBULIZER TREATMENT Stat CARDIO 04/25/16 14:57 Completed OXYGEN Routine CARDIO 04/25/16 16:55 Completed ACTIVITY .BR with BRP CARE 04/25/16 16:54 Active TELEMETRY MONITORING TELE CARE 04/25/16 16:55 Active VITAL SIGNS Q4HR CARE 04/25/16 16:54 Active ABG Stat LAB 04/25/16 14:57 Completed B-TYPE NATRIURETIC PEPTIDE Stat LAB 04/25/16 15:14 Completed BLOOD CULTURE Stat LAB 04/25/16 15:14 Results CBC W/ AUTO DIFF DAILY@0600 LAB 04/26/16 07:30 Completed CBC W/ AUTO DIFF DAILY@0600 LAB 04/27/16 07:35 Completed CBC W/ AUTO DIFF DAILY@0600 LAB 04/28/16 04:42 Completed CBC W/ AUTO DIFF DAILY@0600 LAB 04/29/16 06:00 Ordered CBC W/ AUTO DIFF DAILY@0600 LAB 04/30/16 06:00 Ordered CBC W/ AUTO DIFF DAILY@0600 LAB 05/01/16 06:00 Ordered CBC W/ AUTO DIFF DAILY@0600 LAB 05/02/16 06:00 Ordered CBC W/ AUTO DIFF DAILY@0600 LAB 05/03/16 06:00 Ordered CBC W/ AUTO DIFF DAILY@0600 LAB 05/04/16 06:00 Ordered CBC W/ AUTO DIFF DAILY@0600 LAB 05/05/16 06:00 Ordered CBC W/ AUTO DIFF DAILY@0600 LAB 05/06/16 06:00 Ordered CBC W/ AUTO DIFF DAILY@0600 LAB 05/07/16 06:00 Ordered CBC W/ AUTO DIFF DAILY@0600 LAB 05/08/16 06:00 Ordered CBC W/ AUTO DIFF DAILY@0600 LAB 05/09/16 06:00 Ordered CBC W/ AUTO DIFF DAILY@0600 LAB 05/10/16 06:00 Ordered CBC W/ AUTO DIFF DAILY@0600 LAB 05/11/16 06:00 Ordered CBC W/ AUTO DIFF DAILY@0600 LAB 05/12/16 06:00 Ordered CBC W/ AUTO DIFF DAILY@0600 LAB 05/13/16 06:00 Ordered CBC W/ AUTO DIFF DAILY@0600 LAB 05/14/16 06:00 Ordered CBC W/ AUTO DIFF DAILY@0600 LAB 05/15/16 06:00 Ordered CBC W/ AUTO DIFF Stat LAB 04/25/16 15:14 Completed COMPREHENSIVE METABOLIC PANEL DAILY@0600 LAB 04/27/16 07:35 Completed COMPREHENSIVE METABOLIC PANEL DAILY@0600 LAB 04/28/16 04:42 Completed COMPREHENSIVE METABOLIC PANEL DAILY@0600 LAB 04/29/16 06:00 Ordered COMPREHENSIVE METABOLIC PANEL DAILY@0600 LAB 04/30/16 06:00 Ordered COMPREHENSIVE METABOLIC PANEL DAILY@0600 LAB 05/01/16 06:00 Ordered COMPREHENSIVE METABOLIC PANEL DAILY@0600 LAB 05/02/16 06:00 Ordered COMPREHENSIVE METABOLIC PANEL DAILY@0600 LAB 05/03/16 06:00 Ordered COMPREHENSIVE METABOLIC PANEL DAILY@0600 LAB 05/04/16 06:00 Ordered COMPREHENSIVE METABOLIC PANEL DAILY@0600 LAB 05/05/16 06:00 Ordered COMPREHENSIVE METABOLIC PANEL DAILY@0600 LAB 05/06/16 06:00 Ordered COMPREHENSIVE METABOLIC PANEL DAILY@0600 LAB 05/07/16 06:00 Ordered COMPREHENSIVE METABOLIC PANEL DAILY@0600 LAB 05/08/16 06:00 Ordered COMPREHENSIVE METABOLIC PANEL DAILY@0600 LAB 05/09/16 06:00 Ordered COMPREHENSIVE METABOLIC PANEL DAILY@0600 LAB 05/10/16 06:00 Ordered COMPREHENSIVE METABOLIC PANEL DAILY@0600 LAB 05/11/16 06:00 Ordered COMPREHENSIVE METABOLIC PANEL DAILY@0600 LAB 05/12/16 06:00 Ordered COMPREHENSIVE METABOLIC PANEL DAILY@0600 LAB 05/13/16 06:00 Ordered COMPREHENSIVE METABOLIC PANEL DAILY@0600 LAB 05/14/16 06:00 Ordered COMPREHENSIVE METABOLIC PANEL DAILY@0600 LAB 05/15/16 06:00 Ordered COMPREHENSIVE METABOLIC PANEL Stat LAB 04/25/16 15:14 Completed CREATINE KINASE Q8H LAB 04/25/16 22:30 Completed CREATINE KINASE Q8H LAB 04/26/16 07:30 Completed CREATINE KINASE Stat LAB 04/25/16 15:14 Completed D-DIMER Stat LAB 04/25/16 15:14 Completed RAPID FLU A/B Stat LAB 04/25/16 15:10 Completed TROPONIN I Q8H LAB 04/25/16 22:30 Completed TROPONIN I Q8H LAB 04/26/16 07:30 Completed TROPONIN I Stat LAB 04/25/16 15:14 Completed Aspirin [Aspirin EC] MEDS 04/25/16 21:00 Discontinued 81 mg PO BEDTIME Calcitriol [Calcitriol] MEDS 04/25/16 21:00 Discontinued 1 applic TP [id number]@0900,2100 Clobetasol Propionate/Emoll [Clobetasol Emollient 0.05% MEDS 04/25/16 21:00 Discontinued Crm] 30 gm TP BID Clopidogrel Bisulfate [Plavix] MEDS 04/25/16 21:00 Active 75 mg PO BEDTIME Ipratropium/Albuterol Neb [Duoneb] MEDS 04/25/16 14:57 Discontinued 1 vial NEB ONCE STA Ipratropium/Albuterol Neb [Duoneb] MEDS 04/25/16 18:00 Active 1 vial NEB RTQ6H Latanoprost [Xalatan] MEDS 04/25/16 21:00 Active 1 drop OP BEDTIME Levetiracetam [Keppra] MEDS 04/25/16 21:00 Discontinued 1,000 mg PO BID Levothyroxine Sodium [Synthroid] MEDS 04/26/16 06:30 Active 88 mcg PO QDAC Lisinopril [Zestril] MEDS 04/26/16 09:00 Active 5 mg PO DAILY Metoprolol Succinate [Toprol Xl] MEDS 04/25/16 21:00 Active 12.5 mg PO BID Nitroglycerin [Nitrostat] MEDS 04/25/16 16:57 Active 0.4 mg SL Q5MIN X 3 DOSES PRN Oxycodone HCl [Oxycodone HCl] MEDS 04/25/16 21:00 Discontinued 10 mg PO TID Pantoprazole Sodium [Protonix] MEDS 04/26/16 06:30 Active 40 mg PO QDAC Prednisolone Opth Susp [Pred Forte 1% Opth [place]] MEDS 04/25/16 21:00 Active 1 drop OP TID Sodium Chloride 0.9% [Sodium Chloride] 1,000 ml MEDS 04/25/16 17:00 Active IV 75 mls/hr CHEST, 2 VIEWS PA & LAT DAILY RADS 04/26/16 06:00 Completed CHEST, 2 VIEWS PA & LAT Stat RADS 04/25/16 14:56 Completed Medications Generic Name Dose Route Start Last Admin Trade Name Freq PRN Reason Stop Dose Admin Albuterol/Ipratropium 1 vial 04/25/16 18:00 04/28/16 11:10 Duoneb NEB 1 vial RTQ6H FRANCISCO J Administration Artificial Tears 1 drop 04/27/16 09:00 04/28/16 08:44 Artificial Tears Opth [place] OP 1 drop BID FRANCISCO J Administration Aspirin 81 mg 04/26/16 14:32 04/28/16 08:44 Aspirin Ec PO 81 mg DAILY FRANCISCO J Administration Clopidogrel Bisulfate 75 mg 04/25/16 21:00 04/27/16 20:08 Plavix PO 75 mg BEDTIME FRANCISCO J Administration Cyclobenzaprine HCl 10 mg 04/25/16 21:00 04/28/16 08:50 Flexeril PO 10 mg TID FRANCISCO J Administration Sodium Chloride 1,000 mls @ 75 mls/hr 04/25/16 17:00 04/28/16 04:06 Sodium Chloride IV 75 mls/hr .[id number] FRANCISCO J Administration Insulin Glargine 50 unit 04/25/16 21:00 04/27/16 20:18 Lantus SUBCUT 50 unit BEDTIME FRANCISCO J Administration Insulin Human Lispro 0 unit 04/26/16 12:00 04/28/16 12:01 Humalog SUBCUT 9 unit TIDWM FRANCISCO J Administration Latanoprost 1 drop 04/25/16 21:00 04/27/16 20:06 Xalatan OP 1 drop BEDTIME FRANCISCO J Administration Levetiracetam 1,000 mg 04/26/16 09:00 04/28/16 08:50 Keppra PO 1,000 mg BID FRANCISCO J Administration Levothyroxine Sodium 88 mcg 04/26/16 06:30 04/28/16 05:34 Synthroid PO 88 mcg QDAC FRANCISCO J Administration Lisinopril 5 mg 04/26/16 09:00 04/28/16 08:53 Zestril PO 5 mg DAILY FARNCISCO J Administration Metoprolol Succinate 12.5 mg 04/25/16 21:00 04/28/16 08:53 Toprol Xl PO 12.5 mg BID FRANCISCO J Administration Nitroglycerin 0.4 mg 04/25/16 16:57 Nitrostat SL Q5MIN X 3 DOSES PRN Angina Non-Formulary Medication 0 gm 04/28/16 08:59 04/28/16 08:46 Clobetasol Propionate/Emoll [Clobetasol Emollient 0.05% Crm] TP 30 gm MOTUWETH FRANCISCO J Administration Non-Formulary Medication 1 applic 04/26/16 21:00 04/27/16 20:06 Calcitriol [Calcitriol] TP 1 applic SUFRSA@0900,2100 [facility] Administration Non-Formulary Medication 1 drop 04/27/16 15:00 04/28/16 08:49 Diclofenac Sodium [Diclofenac Sodium] OP Not Given TID [facility] Oseltamivir Phosphate 75 mg 04/26/16 21:00 04/28/16 08:52 Tamiflu PO 05/01/16 20:59 75 mg Q12HR FRANCISCO J Administration Oxycodone HCl 10 mg 04/27/16 21:00 04/28/16 09:08 Oxycodone PO 10 mg TID FRANCISCO J Administration Pantoprazole Sodium 40 mg 04/26/16 06:30 04/28/16 05:34 Protonix PO 40 mg QDAC FRANCISCO J Administration Prednisolone Acetate 1 drop 04/25/16 21:00 04/28/16 08:51 Pred Forte 1% Opth [place] OP 1 drop TID FRANCISCO J Administration Rosuvastatin Calcium 40 mg 04/26/16 09:00 04/28/16 08:47 Crestor PO 40 mg DAILY FRANCISCO J Administration Tobramycin Sulfate 1 drop 04/26/16 21:00 04/28/16 08:53 Tobrex 0.3% OP 1 drop TID FRANCISCO J Administration Discontinued Medications Generic Name Dose Route Start Last Admin Trade Name Elena PRN Reason Stop Dose Admin Albuterol/Ipratropium 1 vial 04/25/16 14:57 04/25/16 15:31 Duoneb NEB 04/25/16 14:58 1 vial ONCE STA Administration Aspirin 81 mg 04/25/16 21:00 04/25/16 21:30 Aspirin Ec PO Not Given BEDTIME FRANCISCO J Non-Formulary Medication 30 gm 04/25/16 21:00 04/26/16 10:36 Clobetasol Propionate/Emoll [Clobetasol Emollient 0.05% Crm] TP Not Given BID FRANCISCO J Non-Formulary Medication 10 mg 04/25/16 21:00 04/25/16 21:20 Oxycodone Hcl [Oxycodone Hcl] PO Not Given TID FRANCISCO J Non-Formulary Medication 1 applic 04/25/16 21:00 04/26/16 08:52 Calcitriol [Calcitriol] TP 1 applic SUFRSA@0900,2100 FRANCISCO J Administration Non-Formulary Medication 1,000 mg 04/25/16 21:00 04/25/16 21:20 Levetiracetam [Keppra] PO Not Given BID FRANCISCO J Non-Formulary Medication 1 each 04/26/16 21:00 04/26/16 20:39 Polyvinyl Alcohol/Povidone/Pf [Refresh Classic Eye Drops] OP 1 each BID FRANCISCO J Administration Non-Formulary Medication 1 drop 04/26/16 21:00 04/27/16 08:49 Diclofenac Sodium [Diclofenac Sodium] OP Not Given TID FRANCISCO J Oseltamivir Phosphate 75 mg 04/25/16 21:00 04/26/16 09:55 Tamiflu PO 75 mg Q12HR FRANCISCO J Administration Oxycodone HCl 10 mg 04/26/16 09:00 04/26/16 17:16 Oxycodone PO Not Given TID FRANCISCO J Oxycodone HCl 5 mg 04/26/16 17:30 04/27/16 14:54 Oxycodone PO 5 mg TID FRANCISCO J Administration Vital Signs: Temp Pulse Resp BP Pulse Ox 04/25/16 14:30 99.5 F 107 H 18 153/76 H 91 L Departure - Departure Time of Disposition: 17:03 Disposition: ADMITTED INPATIENT Discharge Problem: Shortness of breath Condition: Good Pt referred to PMD for follow-up: No Allergies/Adverse Reactions: Allergies duloxetine HCl [From Cymbalta] Allergy (Severe, Verified 04/25/16 14:34) unable to sleep penicillin G Adverse Reaction (Severe, Verified 04/25/16 14:34) Difficulty Breathing aripiprazole [From Abilify] Adverse Reaction (Verified 04/25/16 14:34) cefaclor [From Ceclor] Adverse Reaction (Verified 04/25/16 14:34) ciprofloxacin [From Cipro] Adverse Reaction (Verified 04/25/16 14:34) Rash clarithromycin [From Biaxin] Adverse Reaction (Verified 04/25/16 14:34) Rash ketorolac tromethamine [From Toradol] Adverse Reaction (Verified 04/25/16 14:34) Vomiting loperamide HCl [From Imodium A-D] Adverse Reaction (Verified 04/25/16 14:34) affects glaucoma Penicillins Adverse Reaction (Verified 04/25/16 14:34) Difficulty Breathing sumatriptan [From Imitrex] Adverse Reaction (Verified 04/25/16 14:34) heart attack sumatriptan succinate [From Imitrex] Adverse Reaction (Verified 04/25/16 14:34) heart attack Home Medications: Ambulatory Orders Aspirin [Aspirin EC] 81 mg PO BEDTIME 11/14/12 Desvenlafaxine Succinate [Pristiq] 100 mg PO DAILY 11/14/12 Nitroglycerin [Nitrostat] 0.4 mg SL Q5MIN X 3 DOSES PRN 11/14/12 Pantoprazole Sodium [Protonix] 40 mg PO QDAC 04/12/14 Albuterol Sulfate [Proair Hfa] 2 puff IH Q4H PRN 08/23/14 Lisinopril 5 mg PO DAILY 10/24/14 Oxycodone HCl 10 mg PO TID 12/05/14 Clopidogrel Bisulfate [Plavix] 75 mg PO BEDTIME 05/30/15 Cyclobenzaprine HCl [Flexeril] 10 mg PO TID 08/05/15 Levetiracetam [Keppra] 1,000 mg PO BID 08/05/15 [place]-3S/Dha/Epa/Fish Oil/D3 [[place]-3 + D Softgel] 1 each PO BID 08/05/15 Clobetasol Propionate/Emoll [Clobetasol Emollient 0.05% Crm] 30 gm TP MOTUWETH 12/06/15 Metoprolol Succinate 12.5 mg PO BID 02/13/16 Calcitriol 1 applic TP SUFRSA@0900,2100 03/12/16 Prednisolone Opth Susp [Pred Forte 1% Opth [place]] 1 drop RIGHTEYE TID 03/12/16 Insulin Aspart [Novolog Insulin] 8 unit SQ TID and sliding scal vial 03/26/16 Insulin Glargine,Hum.rec.anlog [Lantus] 50 unit SQ BEDTIME vial 03/26/16 Diclofenac Sodium 1 drop OP TID 04/26/16 Polyvinyl Alcohol/Povidone/Pf [Refresh Classic Eye Drops] 1 each OP BID Prednisolone Opth Susp [Pred Forte 1% Opth [place]] 1 drop OP TID 04/26/16 Tobramycin Sulfate Opth 0.3% [Tobrex 0.3%] 1 drop OP TID 04/26/16 Oseltamivir Phosphate [Tamiflu] 75 mg PO Q12HR #6 capsule 04/28/16 Disposition Discussed With: Patient
[2016-04-25] MEDS: DUONEB NEB SCH ×2 (18:22→22:40)
[2016-04-25] MEDS: SODIUM CHLORIDE 1,000 ML IV SCH (18:49)
[2016-04-25] MEDS ORDERED: INSULIN ASPART 8 UNIT SQ SCH (20:45)
[2016-04-25] MEDS: CALCITRIOL TP SCH (21:00)
[2016-04-25] MEDS ORDERED: ASPIRIN EC PO SCH (21:00)
[2016-04-25] MEDS ORDERED: NON-FORMULARY MEDICATION (Oxycodone Hcl [Oxycodone Hcl] 10 MG) PO SCH (21:00)
[2016-04-25] MEDS ORDERED: NON-FORMULARY MEDICATION (Levetiracetam [Keppra] 1,000 MG) PO SCH (21:00)
[2016-04-25] MEDS: XALATAN OP SCH (21:00)
[2016-04-25] MEDS ORDERED: ASPIRIN CHEWABLE ONE (21:03)
[2016-04-25] MEDS ORDERED: OXYCODONE ONE (21:04)
[2016-04-25] MEDS ORDERED: KEPPRA ONE (21:04)
[2016-04-25] MEDS: FLEXERIL PO SCH (21:16)
[2016-04-25] MEDS: PLAVIX PO SCH (21:16)
[2016-04-25] MEDS: TOPROL XL PO SCH (21:17)
[2016-04-25] MEDS: TAMIFLU PO SCH (21:18)
[2016-04-25] MEDS: LANTUS SUBCUT SCH (21:19)
[2016-04-25] MEDS: PRED FORTE 1% OPTH SOL OP SCH (23:06)
[2016-04-25 23:13] LABS: TROPONIN I 0.07 ng/ml (0.0000-0.4000)
[2016-04-26] MEDS: DUONEB NEB SCH ×4 (04:42→23:02)
[2016-04-26] MEDS: SYNTHROID PO SCH (06:00)
[2016-04-26] MEDS: PROTONIX PO SCH (06:00)
[2016-04-26] MEDS ORDERED: TYLENOL PO PRN (07:00)
[2016-04-26] MEDS: SODIUM CHLORIDE 1,000 ML IV SCH (08:00)
[2016-04-26 08:07] LABS: BASOPHILS # (AUTO) 0.1 K/uL (0-0.2); BASOPHILS % (AUTO) 0.5 % (0.0-3.0); EOSINOPHILS # (AUTO) 0.2 K/ul (0.0-0.7); EOSINOPHILS % (AUTO) 1.7 % (0.0-7.0); HEMATOCRIT 35.6 % (37.0-47.0); HEMOGLOBIN 11.4 g/dl (12.0-16.0); IMMATURE GRANULOCYTE % (AUTO) 0.3 % (0.0-5.0); LYMPHOCYTES # (AUTO) 2.2 K/uL (0.60-3.4); LYMPHOCYTES % (AUTO) 22.4 (10.0-50.0); MEAN CORPUSCULAR VOLUME 96.7 fl (81.0-99.0); MONOCYTES # (AUTO) 0.7 K/uL (0.4-2.0); MONOCYTES % (AUTO) 7.4 (0-10); NEUTROPHILS # (AUTO) 6.6 K/ul (2.0-6.9); NEUTROPHILS % (AUTO) 67.7; PLATELET COUNT 244 10^3/uL (140-440); RED BLOOD COUNT 3.68 10^6/ul (4.20-5.40); WHITE BLOOD COUNT 9.77 K/ul (4.6-10.2)
[2016-04-26 08:38] LABS: ALBUMIN 2.7 g/dL (3.4-5.0); ALBUMIN/GLOBULIN RATIO 0.64; ANION GAP 15.4; BILIRUBIN,TOTAL 0.19 mg/dL (0.00-1.20); BUN/CREATININE RATIO 18.42; CALCIUM 8.3 mg/dL (8.2-10.2); CREATININE 0.76 mg/dL (0.60-1.30); POTASSIUM 4.4 mmol/L (3.5-5.10); TOTAL PROTEIN 6.9 g/dL (5.8-8.1); TROPONIN I 0.091 ng/ml (0.0000-0.4000)
[2016-04-26] MEDS: OXYCODONE PO SCH ×4 (08:49→20:38)
[2016-04-26] MEDS: KEPPRA PO SCH ×2 (08:50→20:37)
[2016-04-26] MEDS: CRESTOR PO SCH (08:50)
[2016-04-26] MEDS: PRISTIQ ER PO SCH (08:50)
[2016-04-26] MEDS: ZESTRIL PO SCH (08:51)
[2016-04-26] MEDS: FLEXERIL PO SCH ×3 (08:51→20:37)
[2016-04-26] MEDS: TOPROL XL PO SCH ×2 (08:51→20:40)
[2016-04-26] MEDS: CALCITRIOL TP SCH ×2 (08:52→20:36)
[2016-04-26] MEDS: PRED FORTE 1% OPTH SOL OP SCH ×3 (08:54→20:42)
[2016-04-26] MEDS ORDERED: NON-FORMULARY MEDICATION (Desvenlafaxine Succinate [Pristiq] 100 MG) PO SCH (09:00)
[2016-04-26] MEDS ORDERED: NON-FORMULARY MEDICATION (Rosuvastatin Calcium [Crestor] 40 MG) PO SCH (09:00)
--- NOTE | 2016-04-26 09:33 | DI ---
Exam: Chest two-view History: Shortness of breath FINDINGS: Normal cardiomediastinal contours. Normal pulmonary vasculature. No infiltrative opacit ies. Atherosclerotic calcification of the aorta. No acute chest wall abnormality. Impression: No acute cardiopulmonary disease.
[2016-04-26] MEDS: TAMIFLU PO SCH ×2 (09:55→20:40)
[2016-04-26] MEDS: HUMALOG SUBCUT SCH ×2 (12:00→18:26)
[2016-04-26] MEDS: TOBREX 0.3% OP SCH (20:34)
[2016-04-26] MEDS: DICLOFENAC SODIUM OP SCH (20:37)
[2016-04-26] MEDS: PLAVIX PO SCH (20:38)
[2016-04-26] MEDS: XALATAN OP SCH (20:42)
[2016-04-26] MEDS: LANTUS SUBCUT SCH (20:43)
[2016-04-26] MEDS ORDERED: [UNRECOGNIZED DRUG - OTHER] OP SCH (21:00)
[2016-04-26] MEDS ORDERED: POLYVINYL ALCOHOL OP SCH (21:00)
[2016-04-26] MEDS ORDERED: POVIDONE OP SCH (21:00)
[2016-04-27] MEDS: SODIUM CHLORIDE 1,000 ML IV SCH ×2 (01:22→15:30)
[2016-04-27] MEDS: DUONEB NEB SCH ×4 (04:50→22:40)
[2016-04-27] MEDS: PROTONIX PO SCH (05:58)
[2016-04-27] MEDS: SYNTHROID PO SCH (05:58)
[2016-04-27 07:59] LABS: BASOPHILS % (AUTO) 0.4 % (0.0-3.0); EOSINOPHILS # (AUTO) 0.4 K/ul (0.0-0.7); EOSINOPHILS % (AUTO) 4.4 % (0.0-7.0); HEMATOCRIT 35.1 % (37.0-47.0); HEMOGLOBIN 11.2 g/dl (12.0-16.0); IMMATURE GRANULOCYTE % (AUTO) 0.2 % (0.0-5.0); LYMPHOCYTES # (AUTO) 2.9 K/uL (0.60-3.4); LYMPHOCYTES % (AUTO) 34.5 (10.0-50.0); MEAN CORPUSCULAR HEMOGLOBIN 31.5 pg (27.0-31.0); MEAN CORPUSCULAR HGB CONC 31.9 (31.8-35.4); MEAN CORPUSCULAR VOLUME 98.9 fl (81.0-99.0); MONOCYTES # (AUTO) 0.8 K/uL (0.4-2.0); MONOCYTES % (AUTO) 9.4 (0-10); NEUTROPHILS # (AUTO) 4.3 K/ul (2.0-6.9); NEUTROPHILS % (AUTO) 51.1; PLATELET COUNT 296 10^3/uL (140-440); RED BLOOD COUNT 3.55 10^6/ul (4.20-5.40); WHITE BLOOD COUNT 8.33 K/ul (4.6-10.2)
[2016-04-27 08:12] LABS: ALBUMIN 2.7 g/dL (3.4-5.0); ALBUMIN/GLOBULIN RATIO 0.69; ANION GAP 13.3; BILIRUBIN,TOTAL 0.15 mg/dL (0.00-1.20); BUN/CREATININE RATIO 18.75; CALCIUM 8.2 mg/dL (8.2-10.2); CREATININE 0.8 mg/dL (0.60-1.30); POTASSIUM 4.3 mmol/L (3.5-5.10); TOTAL PROTEIN 6.6 g/dL (5.8-8.1)
[2016-04-27] MEDS: ASPIRIN EC PO SCH (08:39)
[2016-04-27] MEDS: FLEXERIL PO SCH ×3 (08:39→20:07)
[2016-04-27] MEDS: CRESTOR PO SCH (08:39)
[2016-04-27] MEDS: ZESTRIL PO SCH (08:40)
[2016-04-27] MEDS: PRISTIQ ER PO SCH (08:40)
[2016-04-27] MEDS: OXYCODONE PO SCH ×3 (08:40→20:07)
[2016-04-27] MEDS: KEPPRA PO SCH ×2 (08:40→20:07)
[2016-04-27] MEDS: TOPROL XL PO SCH ×2 (08:40→20:08)
[2016-04-27] MEDS: TOBREX 0.3% OP SCH ×3 (08:41→20:07)
[2016-04-27] MEDS: TAMIFLU PO SCH ×2 (08:41→20:07)
[2016-04-27] MEDS: DICLOFENAC SODIUM OP SCH ×3 (08:49→20:08)
[2016-04-27] MEDS: PRED FORTE 1% OPTH SOL OP SCH ×3 (08:53→20:07)
[2016-04-27] MEDS: CALCITRIOL TP SCH ×2 (08:53→20:06)
[2016-04-27] MEDS: HUMALOG SUBCUT SCH ×3 (08:53→17:49)
[2016-04-27] MEDS: ARTIFICIAL TEARS OPTH SOL OP SCH ×2 (08:53→20:07)
[2016-04-27] MEDS: XALATAN OP SCH (20:06)
[2016-04-27] MEDS: PLAVIX PO SCH (20:08)
[2016-04-27] MEDS: LANTUS SUBCUT SCH (20:18)
[2016-04-28] MEDS: SODIUM CHLORIDE 1,000 ML IV SCH (04:06)
[2016-04-28 04:44] LABS: BASOPHILS % (AUTO) 0.3 % (0.0-3.0); EOSINOPHILS # (AUTO) 0.5 K/ul (0.0-0.7); EOSINOPHILS % (AUTO) 4.8 % (0.0-7.0); HEMATOCRIT 34.3 % (37.0-47.0); IMMATURE GRANULOCYTE % (AUTO) 0.3 % (0.0-5.0); LYMPHOCYTES # (AUTO) 2.5 K/uL (0.60-3.4); LYMPHOCYTES % (AUTO) 26.4 (10.0-50.0); MEAN CORPUSCULAR HEMOGLOBIN 31.7 pg (27.0-31.0); MEAN CORPUSCULAR HGB CONC 32.1 (31.8-35.4); MEAN CORPUSCULAR VOLUME 98.8 fl (81.0-99.0); MONOCYTES # (AUTO) 0.6 K/uL (0.4-2.0); MONOCYTES % (AUTO) 6.4 (0-10); NEUTROPHILS # (AUTO) 5.8 K/ul (2.0-6.9); NEUTROPHILS % (AUTO) 61.8; PLATELET COUNT 301 10^3/uL (140-440); RED BLOOD COUNT 3.47 10^6/ul (4.20-5.40); WHITE BLOOD COUNT 9.33 K/ul (4.6-10.2)
[2016-04-28 05:04] LABS: ALBUMIN 2.6 g/dL (3.4-5.0); ALBUMIN/GLOBULIN RATIO 0.67; ANION GAP 12.2; BILIRUBIN,TOTAL 0.19 mg/dL (0.00-1.20); BUN/CREATININE RATIO 18.42; CALCIUM 8.1 mg/dL (8.2-10.2); CREATININE 0.76 mg/dL (0.60-1.30); POTASSIUM 4.2 mmol/L (3.5-5.10); TOTAL PROTEIN 6.5 g/dL (5.8-8.1)
[2016-04-28] MEDS: DUONEB NEB SCH ×2 (05:08→11:10)
[2016-04-28] MEDS: SYNTHROID PO SCH (05:34)
[2016-04-28] MEDS: PROTONIX PO SCH (05:34)
[2016-04-28] MEDS: ARTIFICIAL TEARS OPTH SOL OP SCH (08:44)
[2016-04-28] MEDS: ASPIRIN EC PO SCH (08:44)
[2016-04-28] MEDS: CRESTOR PO SCH (08:47)
[2016-04-28] MEDS: DICLOFENAC SODIUM OP SCH (08:49)
[2016-04-28] MEDS: FLEXERIL PO SCH (08:50)
[2016-04-28] MEDS: KEPPRA PO SCH (08:50)
[2016-04-28] MEDS: PRED FORTE 1% OPTH SOL OP SCH (08:51)
[2016-04-28] MEDS: TAMIFLU PO SCH (08:52)
[2016-04-28] MEDS: PRISTIQ ER PO SCH (08:52)
[2016-04-28] MEDS: ZESTRIL PO SCH (08:53)
[2016-04-28] MEDS: TOPROL XL PO SCH (08:53)
[2016-04-28] MEDS: TOBREX 0.3% OP SCH (08:53)
[2016-04-28] MEDS ORDERED: [UNRECOGNIZED DRUG - OTHER] TP SCH (08:59)
[2016-04-28] MEDS: OXYCODONE PO SCH (09:08)
[2016-04-28] MEDS: HUMALOG SUBCUT SCH ×2 (09:31→12:01)
[2016-04-28 11:22] VITALS: BP 135/65; TEMP 98.1
--- NOTE | 2016-04-28 12:45 | PN ---
DATE OF VISIT: 04/27/16 SUBJECTIVE: The patient this evening is alert and ambulatory and looking much better. She doesn't look sick and she claims that she is feeling well. The patient had been smoking until the day of admission and she claimed that she would never resume smoking anymore. VITAL SIGNS: Temperature 98.3, pulse 86, blood pressure 119/66, respiratory rate 20 and oxygen saturation 95% at 2 liters. NECK: No masses and no bruit CHEST: Symmetrical and equal with good expansion LUNGS: Breath sounds are slightly diminished in both sides with expiratory wheezing which I did not hear on the day of admission since she was probably not breathing enough. HEART: Normal sinus rhythm I did advised her to stop smoking completely since she has multiple medical problems and she doesn't need the additional problems of emphysematous consequences of smoking,even lung cancer. Smoking also does promote or increases the chances of osteoporosis. She claimed that she will stop smoking completely. Her WBC today is 8,330, hgb 11.2 slightly lower than yesterday 11.4. Chemistries are normal except for the blood sugar fasting of 221, EGFR 73 with BUN of 15, creatinine 0.80. Her albumin is below normal and had been below normal since admission. Still do not have the quantitative antibody titer for influenza A and B although the rapid A and B were negative but I believe the patient's symptoms and responses to medication indicates that she has either Influenza A mostly likely or B. MTDD
--- NOTE | 2016-04-28 14:10 | PN ---
DATE OF VISIT: 04/26/16 SUBJECTIVE: The patient is a 51 year old female who was admitted because of acute febrile illness, fever, chills and generalized muscular aches. The Rapid A and B were negative however the history indicates that the patient probably has a viral problem. The procalcitonin was also normal. The patient was medicated with Tamiflu 75mg capsules twice a day or every 12 hours. The patient's temperature now has remained normal, it did spike to 102.3 reported 3:00 yesterday from 99.9 on admission. It was still 102.3 at 6:00pm yesterday persisted to be elevated to 102.4 by 10:00 yesterday and since then the temperature had returned towards normal. VITAL SIGNS: Temperature 98.3, pulse 84, blood pressure 82/46, respiratory rate 16 and oxygen saturation 96% at 2 liters. Her blood pressure did rise to 108/68 at 3: 36pm. OBJECTIVE: The patient is alert and responsive and oriented without any light headed or any other symptoms with hypertension. Her color and she is feeling some better LUNGS: Some course rales of the bases not heard yesterday. Breath sounds are harsh. Chest x-ray showed no acute cardiopulmonary process. MTDD
--- NOTE | 2016-04-28 15:55 | HP ---
DATE OF ADMISSION: 04/25/16 CHIEF COMPLAINT: Non-productive cough, fever, chills and generalized muscular aches. HISTORY OF PRESENT ILLNESS: The patient began on the day of present to the emergency room. The patient was seen at 2:30 in the afternoon. The patient claimed that the problem came up suddenly with fever and chills and non-productive cough with generalized muscular aches. The patient denied any urinary problems such pain, frequency or urgency. There was no blood in the urine. She denied any significant sore throat. The patient denied anybody in the family that had a flu type of symptoms but her two care givers did come down with flu. The patient evaluated in the emergency and on presentation was noted to have a temperature of 99.5, pulse 107, respiratory rate 18, oxygen saturation at 91 at room air and blood pressure 153/76. Chest x-ray at the emergency room showed no acute cardiopulmonary process, labs showed gely WBC, normal hgb at 12.8, hct 8.4, plt count 341,000, D-dimer 0.54, within normal. Arterial blood gasses pH 7.347, pCO2 45.8, pO2 61, HCO3 25.1, total CO2 27, base excess -1 and oxygen saturation 89% and FiO2 21. Chemistries are normal except for elevated blood sugar 223, the patient is a known diabetic. Albumin slightly lower at 3.3 with a normal total protein 8.0. Procalcitonin 0.08. Rapid A and B negative. PAST PERSONAL HISTORY: Bilateral cataract extraction 02/15/16 History of myocardial infarction Congestive heart failure Coronary stents are in place, 07/11 History of previous pneumonia History of colon perforation History of left renal carcinoma, operated 2006 Previous history of Nephrolithiasis History of endometriosis Hypertension Type 2 diabetes Mellitus Thyroid dysfunction Anemia History of seizures History of dyslipidemia COPD GERD Depression Anxiety Glaucoma PAST SURGICAL HISTORY: Splenectomy Partial pancreatectomy Left Nephrectomy Thyroidectomy Cholecystectomy Appendectomy Total abdominal hysterectomy Coronary artery disease, stenosis with three stents Previous pancreatitis, operated Colon Operated FAMILY HISTORY: Brother had pancreatic carcinoma Two brother had myocardial infarction Family history of diabetes on the paternal side. Renal failure on maternal side. Mother had uteric valvular problems treated with Mechanical valve replacement. History of congestive heart and history of carcinoma. SOCIAL HISTORY: The patient is single with grown children. She is disabled and unemployed. She continues to smoke cigarettes. She denies any alcohol use or drug abuse. MEDICATIONS: Nitroglycerin 0.4mg sublingually as needed x3 doses Pristiq 100mg daily Aspirin 81mg daily Protonix 40mg daily Albuterol sulfate two puffs Q 4 hours PRN Latanoprost one drop in both eyes at bedtime Levothyroxine 88mcg daily Lisinopril 5mg daily Oxycodone 10mg three times a day Plavix 75mg daily Flexeril 10mg three times a day Keppra 1,000mg twice a day [place] 3 +D one capsule twice a day Crestor 40mg daily Clobetasol Propionate to be applied externally Metoprolol succinate 12.5mg twice a day Prednisolone one drop to the left eye three times a day Calcitriol 100gm ointment apply topically Lantus 50 units SUBCUT in the evening daily Novolog 8 unit SUBCUT three times a day and sliding scale ALLERGIES: Duloxetine HCL Penicillin G Aripiprazole Cefaclor Ciprofloxacin Clarithromycin Ketorolac tromethamine Loperamide Penicillins Sumatriptan Sumatriptan succinate REVIEW OF SYSTEMS: CONSTITUTIONAL: The patient has fever, chills and fatigue. LASTING FLOORWORKER: The patient has history of seizure disorder, on medication. She has no ataxia but she has some weakness probably from the febrile illness with ambulation. VISUAL: Denies any double vision, blurred or transient loss of vision. AUDITORY: Denies any tinnitus, pain or drainage. Some decreased hearing. RESPIRATORY: The patient has a non-productive cough that began earlier on the day of presentation to the emergency room. No hemoptysis. Some shortness of breath CARDIOVASCULAR: Denies any chest pain or chest oppression or mandibular pain GASTROINTESTINAL: The appetite is decreased but no dysphagia. Slight soreness upon swallowing but not significance. Denies any diarrhea. GENITOURINARY: Denies any pain frequency or urgency or urinary. MUSCULOSKELETAL: The patient does have some back pain and joint pain but not severe. ENDOCRINE: No polyuria or polydipsia. The patient has diabetes mellitus, probably type 2 with insulin. INTEGUMENT: Denies any rash or pleuritis. HEMATOLOGIC: No history of prolonged bleeding or easy bruising. PSYCHIATRIC: Affect appears adequate PHYSICAL EXAMINATION: VITAL SIGNS: Temperature 99.5, pulse 107, blood pressure 153/76, respiratory rate 17 and oxygen saturation is 91%. The patient is 5'8" and 162 pounds with BMI 27.7. HEAD: Unremarkable FACE: Symmetrical and equal with no facial weakness. EYES: Pupils equal/reactive to light. Conjunctivae not pale. Sclerae not icteric. MOUTH: Unremarkable THROAT: No inflammation, tumors or exudate. NECK: No masses. No bruit. No tenderness. No rigidity. CHEST: Essentially symmetrical and equal with good expansion. LUNGS: No rales or wheezing. HEART: Audible and regular with good tones. No murmurs. ABDOMEN: Slightly protuberant, soft no remarkable tenderness, no guarding and bowel sounds are active. No masses palpable. LOWER EXTREMITIES: Some ankle edema. Pedal pulses not checked, will be incorporated into the progress notes. UPPER EXTREMITIES: Symmetrical and equal. ASSESSMENT: 1. Acute febrile illness probably viral, probably influenza A 2. History of Type 2 diabetes mellitus with supplementation insulin 3. History of hypertension 4. History of coronary artery disease, status post cardiac cath with three stent 5. History of seizure disorder 6. History of hypothyroidism post surgery 7. History of COPD 8. History of myocardial infarction 9. History of congestive heart failure, compensated 10.History of GERD 11.History of anxiety 12.History of Glaucoma 13.History of renal cell carcinoma, left operated 14.History of intestinal rupture, operated 15.History of pancreatitis. MTDD
--- NOTE | 2016-04-30 11:41 | DS ---
PATIENT IDENTIFICATION: The patient had a sudden episode of fever and chills and nonproductive cough with generalized muscular ache early in the morning of the day of presentation to the emergency room. The patient had a rapid A & B, which were negative. Because of the chills and fever, the patient was admitted to the hospital. This patient has several severe comorbid medical conditions. HOSPITAL COURSE: Examination revealed a alert individual who is oriented times four, not dyspneic, nor tachypneic. Temperature on admission at the emergency room was recorded at 99.5. Arterial blood gases showed moderate hypoxemia with a PO2 of 61, oxygen saturation at 89. LUNGS: Diminished breath sounds, but no rales or wheezing. HEART: Audible with good tones. ABDOMEN: Soft with no tenderness. The patient was felt to still have an influenza, either A or B and most likely A. She was given Tamiflu 75 mg twice a day. The patient on the following day had felt better, but not well. Temperature beginning on 04/26/16 had remained more or less normal. The highest temperature was 99. She did spike late at night on the day of admission at 102.4. The patient continued to remain afebrile on 04/27/16. Her oxygen saturation was 98 at 2 liters. At 5:58 on the temperature is 97.9, pulse 83, blood pressure 141/68, respiratory rate 18, oxygen saturation 97 at 2 liters. No further chills. The lungs remained clear, although breath sounds were diminished. This patient is still smoking and she promised that she would not restart her habit when she gets home. The chest x-ray on admission showed no acute cardiopulmonary process and the repeat x-ray showed no other findings. The patient on 04/28/16 was feeling well and wanted to go home. She is not dyspneic, nor tachypneic. VITAL SIGNS: Her vital signs at 10 a.m. revealed a temperature of 98.1 orally, pulse 80, blood pressure 135/65, respiratory rate 20, oxygen saturation 96 at room air. LUNGS: Clear to auscultation with some diminished breath sounds. HEART: Normal sinus rhythm. NECK: No masses and no bruit. ABDOMEN: Unremarkable. LOWER EXTREMITIES: No tenderness in the calf muscles. PLAN: 1. The patient is discharged with Tamiflu 75 mg capsule #6 to be taken one in the evening today and then every 12 hours or twice a day in the succeeding days. 2. She is advised to resume her previous medications and again Tamiflu was prescribed. 3. She is instructed to follow up with the [facility] on this coming Thursday or Thursday. Call to schedule the appointment and the phone number was given. 4. The patient was advised to never resume smoking. 5. She is to resume normal activity as tolerated. 6. She is to continue with a diabetic diet. The Influenza A and B antibodies are still not available at this time. FINAL DIAGNOSES: 1. ACUTE FEBRILE ILLNESS, RESOLVED. PROBABLY INFLUENZA A OR B. 2. TYPE II DIABETES MELLITUS WITH SUPPLEMENTAL INSULIN 3. HYPERTENSION 4. CORONARY ARTERY DISEASE, STATUS POST CARDIAC CATHETERIZATION, PLUS STENT 5. HISTORY OF SEIZURE DISORDER 6. HYPOTHYROIDISM, POST SURGERY 7. CHRONIC OBSTRUCTIVE PULMONARY DISEASE 8. HISTORY OF MYOCARDIAL INFARCTION 9. HISTORY OF CONGESTIVE HEART FAILURE, COMPENSATED 10. HISTORY OF GASTROESOPHAGEAL REFLUX DISEASE 11. HISTORY OF CHRONIC TOBACCO USE AND ABUSE, PERSISTENT 12. HISTORY OF ANXIETY 13. HISTORY OF GLAUCOMA 14. HISTORY OF RENAL CELL CARCINOMA, LEFT, OPERATED 15. HISTORY OF INTESTINAL RUPTURE, OPERATED 16. HISTORY OF PANCREATITIS PROGNOSIS: Guarded. MTDD
== END 2016-04-28 12:55 | disposition home or self-care (01) | DRG 153 ==
LOC: ED 14:30 → MEDSURG A 17:00
PROVIDERS: ADMIT General Practice; ATTEND General Practice
DX: J11.1 Influenza due to unidentified influenza virus with other respiratory manifestations (principal); R50.9 Fever, unspecified; R05 Cough; J44.9 Chronic obstructive pulmonary disease, unspecified; R06.02 Shortness of breath; E11.9 Type 2 diabetes mellitus without complications; I10 Essential (primary) hypertension; I50.9 Heart failure, unspecified; I25.10 Atherosclerotic heart disease of native coronary artery without angina pectoris; F17.210 Nicotine dependence, cigarettes, uncomplicated; R09.89 Other specified symptoms and signs involving the circulatory and respiratory systems; E89.0 Postprocedural hypothyroidism; K21.9 Gastro-esophageal reflux disease without esophagitis; F41.9 Anxiety disorder, unspecified; I25.2 Old myocardial infarction; Z98.890 Other specified postprocedural states; Z79.4 Long term (current) use of insulin; Z79.01 Long term (current) use of anticoagulants; Z79.899 Other long term (current) drug therapy
CPT/HCPCS: 36415; 80053; 82550; 82803; 82962; 83880; 84145; 84484; 85025; 85379; 86710; 87040; 87804; 93005; 93010; 94640; 99223; 99232; 99239; 99284

== ENCOUNTER 2016-05-14 12:28 | Outpatient (CLI) | payer OTHER ==
[2016-05-14 13:15] LABS: BASOPHILS # (AUTO) 0.1 K/uL (0-0.2); BASOPHILS % (AUTO) 0.6 % (0.0-3.0); EOSINOPHILS # (AUTO) 0.4 K/ul (0.0-0.7); EOSINOPHILS % (AUTO) 3.9 % (0.0-7.0); HEMATOCRIT 39.5 % (37.0-47.0); HEMOGLOBIN 13.3 g/dl (12.0-16.0); IMMATURE GRANULOCYTE % (AUTO) 0.4 % (0.0-5.0); LYMPHOCYTES # (AUTO) 3.5 K/uL (0.60-3.4); LYMPHOCYTES % (AUTO) 30.9 (10.0-50.0); MEAN CORPUSCULAR HEMOGLOBIN 31.8 pg (27.0-31.0); MEAN CORPUSCULAR HGB CONC 33.7 (31.8-35.4); MEAN CORPUSCULAR VOLUME 94.5 fl (81.0-99.0); MONOCYTES # (AUTO) 0.7 K/uL (0.4-2.0); NEUTROPHILS # (AUTO) 6.6 K/ul (2.0-6.9); NEUTROPHILS % (AUTO) 58.2; PLATELET COUNT 352 10^3/uL (140-440); RED BLOOD COUNT 4.18 10^6/ul (4.20-5.40); WHITE BLOOD COUNT 11.31 K/ul (4.6-10.2)
== END 2016-05-14 12:29 | disposition home or self-care (01) ==
LOC: LAB 12:28
PROVIDERS: ATTEND Nurse Practitioner Family
DX: K62.5 Hemorrhage of anus and rectum (principal)
CPT/HCPCS: 36415; 85025

== ENCOUNTER 2016-05-18 23:22 | Emergency (ER) ==
[2016-05-18 23:22] VITALS: BMI 27.6
[2016-05-18 23:33] VITALS: BP 146/80; TEMP 96.6
--- NOTE | 2016-05-18 23:55 | ED.PDOC ---
General ED Provider: Dr. RUFUS GIFFORD-ER Chief Complaint: Wound Check Stated Complaint: meryl had this rash for weeks--i saw dr gonzalez for this last week and he referred me to a skin doctor Time Seen by Physician: 23:30 Mode of Arrival: Walk-In Information Source: Patient Exam Limitations: No limitations Primary Care Provider: AMANDA GONZALEZ-[facility] Nursing and Triage Documentation Reviewed and Agree: Yes Skin Complaint Exam - Skin Rash/Itching Complaint/Exam Onset/Duration: 3 weeks Symptoms Are: Still present Initial Severity: Mild Current Severity: Moderate Location: lower legs Potential Exposures: Reports: Unknown Aggravating: Reports: None Alleviating: Reports: None Associated Signs and Symptoms: Denies: Difficulty breathing, Fever, Chills Skin Findings: Present: Maculae, Weeping skin Review of Systems - Review Of Systems Constitutional: Reports: No symptoms Eyes: Reports: No symptoms Ears, Nose, Mouth, Throat: Reports: No symptoms Respiratory: Reports: No symptoms Cardiac: Reports: No symptoms GI: Reports: No symptoms : Reports: No symptoms Musculoskeletal: Reports: No symptoms Skin: Reports: No symptoms, Rash Neurological: Reports: No symptoms Endocrine: Reports: No symptoms Hematologic/Lymphatic: Reports: No symptoms All Other Systems: Reviewed and Negative Past Medical History - Past Medical History Previously Healthy: No Endocrine: Reports: DM 2, Hypothyroid, Dyslipidemia Cardiovascular: Reports: CAD, [place], Hypertension, CHF Respiratory: Reports: COPD Hematological: Reports: Anemia Gastrointestinal: Reports: GERD, Pancreatitis Genitourinary: Reports: CKD Neuro/Psych: Reports: Seizure, Anxiety, Depression Musculoskeletal: Reports: None Cancer: Reports: Other (kidney) Last Menstrual Period: POST MENAPAUSAL Other Pertinent Past Medical History: 1 kidney, Lamoure's disease, Glaucoma - Surgical History General Surgical History: Reports: Hysterectomy, Appendectomy, Cholecystectomy, Back Surgery, Other (nephrectomy,spleenectomy, partial pancreas,thyroidectomy, perforated colon,3 stents in heart) - Family History Family History: Reports: None - Social History Smoking Status: Current every day smoker Hx Substance Use: No Alcohol Screening: None Lives: With family - Immunizations Tetanus Shot up to Date: No Physical Exam - Physical Exam Appearance: Well-appearing, No pain distress, Well-nourished Pain Distress: Mild Eyes: DONY, EOMI, Conjunctiva clear ENT: Ears normal, Nose normal, Oropharynx normal Neck: Supple Respiratory: Airway patent, Breath sounds clear, Breath sounds equal, Respirations nonlabored Cardiovascular: RRR, Pulses normal, No rub, No murmur GI/: Soft, Nontender, No masses, Bowel sounds normal, No Organomegaly Musculoskeletal: Normal strength, ROM intact, No edema, No calf tenderness Skin: Warm, Dry, Normal color Neurological: Sensation intact, Motor intact, Reflexes intact, Cranial nerves intact, Alert, Oriented Psychiatric: Affect appropriate, Mood appropriate Critical Care Note - Critical Care Note Total Time (mins): 0 Course - Course Vital Signs: Temp Pulse Resp BP Pulse Ox 05/18/16 23:27 96.6 F L 97 H 20 146/80 H 92 L Departure - Departure Time of Disposition: 23:56 Disposition: HOME SELF-CARE Discharge Problem: Rash and nonspecific skin eruption Instructions: Dermatitis (ED) Condition: Good Pt referred to PMD for follow-up: Yes Additional Instructions: clindamycin 150mg tid x 7 days---[place] soaks bid ---f/u with dr gonzalez in 2 days Allergies/Adverse Reactions: Allergies duloxetine HCl [From Cymbalta] Allergy (Severe, Verified 05/18/16 23:33) unable to sleep penicillin G Adverse Reaction (Severe, Verified 05/18/16 23:33) Difficulty Breathing aripiprazole [From Abilify] Adverse Reaction (Verified 05/18/16 23:33) cefaclor [From Ceclor] Adverse Reaction (Verified 05/18/16 23:33) ciprofloxacin [From Cipro] Adverse Reaction (Verified 05/18/16 23:33) Rash clarithromycin [From Biaxin] Adverse Reaction (Verified 05/18/16 23:33) Rash ketorolac tromethamine [From Toradol] Adverse Reaction (Verified 05/18/16 23:33) Vomiting loperamide HCl [From Imodium A-D] Adverse Reaction (Verified 05/18/16 23:33) affects glaucoma Penicillins Adverse Reaction (Verified 05/18/16 23:33) Difficulty Breathing sumatriptan [From Imitrex] Adverse Reaction (Verified 05/18/16 23:33) heart attack sumatriptan succinate [From Imitrex] Adverse Reaction (Verified 05/18/16 23:33) heart attack Home Medications: Ambulatory Orders Aspirin [Aspirin EC] 81 mg PO BEDTIME 11/14/12 Desvenlafaxine Succinate [Pristiq] 100 mg PO DAILY 11/14/12 Nitroglycerin [Nitrostat] 0.4 mg SL Q5MIN X 3 DOSES PRN 11/14/12 Pantoprazole Sodium [Protonix] 40 mg PO QDAC 04/12/14 Albuterol Sulfate [Proair Hfa] 2 puff IH Q4H PRN 08/23/14 Lisinopril 5 mg PO DAILY 10/24/14 Oxycodone HCl 10 mg PO TID 12/05/14 Clopidogrel Bisulfate [Plavix] 75 mg PO BEDTIME 05/30/15 Cyclobenzaprine HCl [Flexeril] 10 mg PO TID 08/05/15 Levetiracetam [Keppra] 1,000 mg PO BID 08/05/15 [place]-3S/Dha/Epa/Fish Oil/D3 [[place]-3 + D Softgel] 1 each PO BID 08/05/15 Clobetasol Propionate/Emoll [Clobetasol Emollient 0.05% Crm] 30 gm TP MOTUWETH 12/06/15 Metoprolol Succinate 12.5 mg PO BID 02/13/16 Calcitriol 1 applic TP SUFRSA@0900,2100 03/12/16 Prednisolone Opth Susp [Pred Forte 1% Opth [place]] 1 drop RIGHTEYE TID 03/12/16 Insulin Aspart [Novolog Insulin] 8 unit SQ TID and sliding scal vial 03/26/16 Insulin Glargine,Hum.rec.anlog [Lantus] 50 unit SQ BEDTIME vial 03/26/16 Diclofenac Sodium 1 drop OP TID 04/26/16 Polyvinyl Alcohol/Povidone/Pf [Refresh Classic Eye Drops] 1 each OP BID Prednisolone Opth Susp [Pred Forte 1% Opth [place]] 1 drop OP TID 04/26/16 Tobramycin Sulfate Opth 0.3% [Tobrex 0.3%] 1 drop OP TID 04/26/16 Oseltamivir Phosphate [Tamiflu] 75 mg PO Q12HR #6 capsule 04/28/16 Disposition Discussed With: Patient
== END 2016-05-19 00:06 | disposition home or self-care (01) ==
LOC: ED 23:22
DX: R21 Rash and other nonspecific skin eruption (principal); F17.210 Nicotine dependence, cigarettes, uncomplicated; Z79.899 Other long term (current) drug therapy; L03.119 Cellulitis of unspecified part of limb
CPT/HCPCS: 99281; 99283

== ENCOUNTER 2016-05-19 20:52 | Emergency (ER) ==
[2016-05-19 20:52] VITALS: BMI 27.6
[2016-05-19 20:59] VITALS: BP 120/68; TEMP 97.9
--- NOTE | 2016-05-19 21:06 | ED.PDOC ---
General ED Provider: Dr. RUFUS GIFFORD-ER Chief Complaint: Wound Check Stated Complaint: i was here last night and i am here for recheck for cellulitis --its working --its no longer weeping..no fever or chills Time Seen by Physician: 20:55 Mode of Arrival: Walk-In Information Source: Patient Exam Limitations: No limitations Nursing and Triage Documentation Reviewed and Agree: Yes Skin Complaint Exam - Skin Rash/Itching Complaint/Exam Onset/Duration: several weeks Symptoms Are: Still present Initial Severity: Moderate Current Severity: Moderate Location: lower extremities Potential Exposures: Reports: Unknown Aggravating: Reports: None Alleviating: Reports: None Associated Signs and Symptoms: Denies: Difficulty breathing, Fever, Chills Skin Findings: Present: Maculae, Weeping skin (but improved) Differential Diagnoses: Other Review of Systems - Review Of Systems Constitutional: Reports: No symptoms Eyes: Reports: No symptoms Ears, Nose, Mouth, Throat: Reports: No symptoms Respiratory: Reports: No symptoms Cardiac: Reports: No symptoms GI: Reports: No symptoms : Reports: No symptoms Musculoskeletal: Reports: No symptoms Skin: Reports: Rash (improved--no longer "weeping" erythema of lower extremie) Neurological: Reports: No symptoms Endocrine: Reports: No symptoms Hematologic/Lymphatic: Reports: No symptoms All Other Systems: Reviewed and Negative Past Medical History - Past Medical History Previously Healthy: No Endocrine: Reports: DM 2, Hypothyroid, Dyslipidemia Cardiovascular: Reports: CAD, [place], Hypertension, CHF Respiratory: Reports: COPD Hematological: Reports: Anemia Gastrointestinal: Reports: GERD, Pancreatitis Genitourinary: Reports: CKD Neuro/Psych: Reports: Seizure, Anxiety, Depression Musculoskeletal: Reports: None Cancer: Reports: Other (kidney) Last Menstrual Period: na Other Pertinent Past Medical History: 1 kidney, Ayden's disease, Glaucoma - Surgical History General Surgical History: Reports: Hysterectomy, Appendectomy, Cholecystectomy, Back Surgery, Other (nephrectomy,spleenectomy, partial pancreas,thyroidectomy, perforated colon,3 stents in heart) - Family History Family History: Reports: None - Social History Smoking Status: Current every day smoker Hx Substance Use: No Alcohol Screening: None Lives: With family - Immunizations Tetanus Shot up to Date: Yes Physical Exam - Physical Exam Appearance: Well-appearing, No pain distress, Well-nourished Eyes: DONY ENT: Ears normal, Nose normal, Oropharynx normal Neck: Supple Respiratory: Airway patent, Breath sounds clear, Breath sounds equal, Respirations nonlabored Cardiovascular: RRR GI/: Soft, Nontender, No masses, Bowel sounds normal, No Organomegaly Musculoskeletal: Normal strength, ROM intact, No edema, No calf tenderness Skin: Warm, Dry, Normal color Neurological: Sensation intact, Motor intact, Reflexes intact, Cranial nerves intact, Alert, Oriented Psychiatric: Affect appropriate Critical Care Note - Critical Care Note Total Time (mins): 0 Course - Course Vital Signs: Temp Pulse Resp BP Pulse Ox 05/19/16 20:53 97.9 F 106 H 20 120/68 95 Departure - Departure Time of Disposition: 21:07 Disposition: HOME SELF-CARE Discharge Problem: Cellulitis Qualifiers: Site of cellulitis: extremity Site of cellulitis of extremity: lower extremity Laterality: unspecified laterality Qualifier Code: (L03.119) Cellulitis of unspecified part of limb Instructions: Cellulitis (ED) Condition: Good Pt referred to PMD for follow-up: Yes Additional Instructions: continue clindamycin and [place] soaks---f/u with pcp in thursday Allergies/Adverse Reactions: Allergies duloxetine HCl [From Cymbalta] Allergy (Severe, Verified 05/18/16 23:33) unable to sleep penicillin G Adverse Reaction (Severe, Verified 05/18/16 23:33) Difficulty Breathing aripiprazole [From Abilify] Adverse Reaction (Verified 05/18/16 23:33) cefaclor [From Ceclor] Adverse Reaction (Verified 05/18/16 23:33) ciprofloxacin [From Cipro] Adverse Reaction (Verified 05/18/16 23:33) Rash clarithromycin [From Biaxin] Adverse Reaction (Verified 05/18/16 23:33) Rash ketorolac tromethamine [From Toradol] Adverse Reaction (Verified 05/18/16 23:33) Vomiting loperamide HCl [From Imodium A-D] Adverse Reaction (Verified 05/18/16 23:33) affects glaucoma Penicillins Adverse Reaction (Verified 05/18/16 23:33) Difficulty Breathing sumatriptan [From Imitrex] Adverse Reaction (Verified 05/18/16 23:33) heart attack sumatriptan succinate [From Imitrex] Adverse Reaction (Verified 05/18/16 23:33) heart attack Home Medications: Ambulatory Orders Aspirin [Aspirin EC] 81 mg PO BEDTIME 11/14/12 Desvenlafaxine Succinate [Pristiq] 100 mg PO DAILY 11/14/12 Nitroglycerin [Nitrostat] 0.4 mg SL Q5MIN X 3 DOSES PRN 11/14/12 Pantoprazole Sodium [Protonix] 40 mg PO QDAC 04/12/14 Albuterol Sulfate [Proair Hfa] 2 puff IH Q4H PRN 08/23/14 Lisinopril 5 mg PO DAILY 10/24/14 Oxycodone HCl 10 mg PO TID 12/05/14 Clopidogrel Bisulfate [Plavix] 75 mg PO BEDTIME 05/30/15 Cyclobenzaprine HCl [Flexeril] 10 mg PO TID 08/05/15 Levetiracetam [Keppra] 1,000 mg PO BID 08/05/15 [place]-3S/Dha/Epa/Fish Oil/D3 [[place]-3 + D Softgel] 1 each PO BID 08/05/15 Clobetasol Propionate/Emoll [Clobetasol Emollient 0.05% Crm] 30 gm TP MOTUWETH 12/06/15 Metoprolol Succinate 12.5 mg PO BID 02/13/16 Calcitriol 1 applic TP SUFRSA@0900,2100 03/12/16 Prednisolone Opth Susp [Pred Forte 1% Opth [place]] 1 drop RIGHTEYE TID 03/12/16 Insulin Aspart [Novolog Insulin] 8 unit SQ TID and sliding scal vial 03/26/16 Insulin Glargine,Hum.rec.anlog [Lantus] 50 unit SQ BEDTIME vial 03/26/16 Diclofenac Sodium 1 drop OP TID 04/26/16 Polyvinyl Alcohol/Povidone/Pf [Refresh Classic Eye Drops] 1 each OP BID Prednisolone Opth Susp [Pred Forte 1% Opth [place]] 1 drop OP TID 04/26/16 Tobramycin Sulfate Opth 0.3% [Tobrex 0.3%] 1 drop OP TID 04/26/16 Oseltamivir Phosphate [Tamiflu] 75 mg PO Q12HR #6 capsule 04/28/16 Disposition Discussed With: Patient
== END 2016-05-19 21:12 | disposition home or self-care (01) ==
LOC: ED 20:52
DX: L03.119 Cellulitis of unspecified part of limb (principal); R21 Rash and other nonspecific skin eruption; F17.210 Nicotine dependence, cigarettes, uncomplicated; Z79.899 Other long term (current) drug therapy
CPT/HCPCS: 99281; 99283

== ENCOUNTER 2016-06-10 12:08 | Emergency (ER) | payer OTHER ==
[2016-06-10 12:14] VITALS: BP 159/77; TEMP 97.6; BMI 28.8
--- NOTE | 2016-06-10 12:42 | ED.PDOC ---
General ED Provider: Dr. KRISTIN LOYD JR Chief Complaint: Extremity Swelling/Pain Stated Complaint: has cellulitis/psoriasis to both lower legs--had for several months--states yesterday pain has worsened --has red streaks to legs--occ draining noted[ End ]97.6 97 20 98% 159/77 10/09 sees [facility] dermatology for problem [ End ] Time Seen by Physician: 12:42 Mode of Arrival: Walk-In Information Source: Patient Exam Limitations: No limitations [facility] Nursing and Triage Documentation Reviewed and Agree: No Review of Systems - Review Of Systems Constitutional: Reports: Malaise, Weakness, Sweats Eyes: Reports: No symptoms Ears, Nose, Mouth, Throat: Reports: No symptoms Respiratory: Reports: No symptoms Cardiac: Reports: Edema (legs) GI: Reports: No symptoms : Reports: No symptoms Musculoskeletal: Reports: Joint pain, Muscle pain Skin: Reports: Lesions, Rash, Other (pain) Neurological: Reports: Anxiety Endocrine: Reports: No symptoms Hematologic/Lymphatic: Reports: Blood clots All Other Systems: Other Past Medical History - Past Medical History Previously Healthy: No Endocrine: Reports: DM 2, Hypothyroid, Dyslipidemia Cardiovascular: Reports: CAD, [place], Hypertension, CHF Respiratory: Reports: COPD Hematological: Reports: Anemia Gastrointestinal: Reports: GERD, Pancreatitis Genitourinary: Reports: CKD Neuro/Psych: Reports: Seizure, Anxiety, Depression Musculoskeletal: Reports: None Cancer: Reports: Other (kidney) Last Menstrual Period: menopause Other Pertinent Past Medical History: 1 kidney, Cochise's disease, Glaucoma - Surgical History General Surgical History: Reports: Hysterectomy, Appendectomy, Cholecystectomy, Back Surgery, Other (nephrectomy,spleenectomy, partial pancreas,thyroidectomy, perforated colon,3 stents in heart) - Family History Family History: Reports: None - Social History Smoking Status: Current every day smoker, Light tobacco smoker Hx Substance Use: No Alcohol Screening: None Physical Exam - Physical Exam Appearance: Ill-appearing, Thin Ill-appearing: Moderate Pain Distress: Moderate Eyes: DONY, EOMI, Conjunctiva clear ENT: Ears normal, Nose normal, Oropharynx normal Respiratory: Airway patent, Breath sounds clear, Breath sounds equal, Respirations nonlabored Cardiovascular: RRR, Pulses normal, No rub, No murmur GI/: Soft, Nontender, No masses, Bowel sounds normal, No Organomegaly Musculoskeletal: Normal strength, ROM intact, No edema, Calf tenderness Skin: Warm, Dry, Normal color Neurological: Sensation intact, Motor intact, Reflexes intact, Cranial nerves intact, Alert, Oriented Psychiatric: Affect appropriate, Mood appropriate Critical Care Note - Critical Care Note Total Time (mins): 0 Course - Course Hematology/Chemistry: 06/10/16 13:02 06/10/16 13:02 Orders, Labs, Meds: Lab Review 06/10/16 13:02 WBC 9.32 RBC 4.21 Hgb 13.2 Hct 40.7 MCV 96.7 MCH 31.4 H MCHC 32.4 RDW Coeff of Manoj 13.4 Plt Count 364 Immature Gran % (Auto) 0.3 Neut % (Auto) 54.4 Lymph % (Auto) 30.8 [place] % (Auto) 5.6 Eos % (Auto) 8.4 H Baso % (Auto) 0.5 Immature Gran # (Auto) 0.0 Neut # 5.1 Lymph # 2.9 [place] # 0.5 Eos # 0.8 H Baso # 0.1 D-Dimer (Manual) 1036.02 Sodium 137 Potassium 4.2 Chloride 104 Carbon Dioxide 25 Anion Gap 12.2 BUN 15 Creatinine 1.03 Estimated GFR (MDRD) 54.00 BUN/Creatinine Ratio 14.56 Glucose 232 H Lactic Acid 12.2 Calcium 9.1 Total Bilirubin 0.16 AST 19 ALT 18 Alkaline Phosphatase 132 B-Natriuretic Peptide 51 Total Protein 8.2 H Albumin 3.3 L Globulin 4.9 Albumin/Globulin Ratio 0.67 Procalcitonin < 0.05 Orders Category Date Time Status ED IV/MEDIPORT/POWERPORT .ONCE EMERGENCY 06/10/16 12:46 Active B-TYPE NATRIURETIC PEPTIDE Stat LAB 06/10/16 13:02 Completed BLOOD CULTURE Stat LAB 06/10/16 13:02 Received CBC W/ AUTO DIFF Stat LAB 06/10/16 13:02 Completed COMPREHENSIVE METABOLIC PANEL Stat LAB 06/10/16 13:02 Completed D-DIMER Stat LAB 06/10/16 13:02 Completed LACTIC ACID Stat LAB 06/10/16 13:02 Completed PROCALCITONIN Stat LAB 06/10/16 13:02 Completed 0.9 % Sodium Chloride [Saline Flush] MEDS 06/10/16 12:46 Discontinued 1 syr IVF PRN PRN Diphenhydramine Inj [Benadryl] MEDS 06/10/16 12:54 Discontinued 25 mg IVP ONCE STA Morphine Sulfate [Morphine 2 mg/ml Syringe] MEDS 06/10/16 12:54 Discontinued 2 mg IVP ONCE STA Morphine Sulfate [Morphine 4 mg/ml Syringe] MEDS 06/10/16 15:36 Discontinued 4 mg IVP ONCE STA Ondansetron HCl/Pf [Zofran 4 mg/2 ml] MEDS 06/10/16 12:54 Discontinued 4 mg IVP ONCE STA CHEST, 1V AP ONLY Stat RADS 06/10/16 12:46 Completed ULTRASOUND VENOUS SCAN NATHAN LEGS [U/S VENOUS SCAN NATHAN RADS 06/10/16 14:59 Completed LEGS] Stat Medications Discontinued Medications Generic Name Dose Route Start Last Admin Trade Name Freq PRN Reason Stop Dose Admin Diphenhydramine HCl 25 mg 06/10/16 12:54 06/10/16 13:41 Benadryl IVP 06/10/16 12:55 25 mg ONCE STA Administration Morphine Sulfate 2 mg 06/10/16 12:54 06/10/16 13:45 Morphine 2 Mg/Ml Syringe IVP 06/10/16 12:55 2 mg ONCE STA Administration Morphine Sulfate 4 mg 06/10/16 15:36 06/10/16 15:59 Morphine 4 Mg/Ml Syringe IVP 06/10/16 15:37 4 mg ONCE STA Administration Ondansetron HCl 4 mg 06/10/16 12:54 06/10/16 13:39 Zofran 4 Mg/2 Ml IVP 06/10/16 12:55 4 mg ONCE STA Administration Sodium Chloride 1 syr 06/10/16 12:46 06/10/16 15:59 Saline Flush IVF 1 syr PRN PRN Administration To flush IV Vital Signs: Temp Pulse Resp BP Pulse Ox 06/10/16 12:09 97.6 F 97 H 20 159/77 H 98 Departure - Departure Time of Disposition: 16:11 Disposition: HOME SELF-CARE Discharge Problem: Edema of lower extremity, Psoriasis (a type of skin inflammation) Instructions: Psoriasis (ED) Condition: Good Pt referred to PMD for follow-up: Yes Additional Instructions: recheck PMD one week consult dermatology if appropriate may take one [place] a day if needed for pain exacerbations--no refills no clots no elevation of BNP, no worsening of condition on testing Prescriptions: Hydrocodone Bit/Acetaminophen [[place] 5-325] 1 - 2 tab PO Q6HR PRN #12 tablet PRN Reason: pain Allergies/Adverse Reactions: Allergies duloxetine HCl [From Cymbalta] Allergy (Severe, Verified 06/10/16 12:16) unable to sleep penicillin G Adverse Reaction (Severe, Verified 06/10/16 12:16) Difficulty Breathing aripiprazole [From Abilify] Adverse Reaction (Verified 06/10/16 12:16) cefaclor [From Ceclor] Adverse Reaction (Verified 06/10/16 12:16) ciprofloxacin [From Cipro] Adverse Reaction (Verified 06/10/16 12:16) Rash clarithromycin [From Biaxin] Adverse Reaction (Verified 06/10/16 12:16) Rash ketorolac tromethamine [From Toradol] Adverse Reaction (Verified 06/10/16 12:16) Vomiting loperamide HCl [From Imodium A-D] Adverse Reaction (Verified 06/10/16 12:16) affects glaucoma Penicillins Adverse Reaction (Verified 06/10/16 12:16) Difficulty Breathing sumatriptan [From Imitrex] Adverse Reaction (Verified 06/10/16 12:16) heart attack sumatriptan succinate [From Imitrex] Adverse Reaction (Verified 06/10/16 12:16) heart attack Home Medications: Ambulatory Orders Aspirin [Aspirin EC] 81 mg PO BEDTIME 11/14/12 Desvenlafaxine Succinate [Pristiq] 100 mg PO DAILY 11/14/12 Nitroglycerin [Nitrostat] 0.4 mg SL Q5MIN X 3 DOSES PRN 11/14/12 Pantoprazole Sodium [Protonix] 40 mg PO QDAC 04/12/14 Albuterol Sulfate [Proair Hfa] 2 puff IH Q4H PRN 08/23/14 Lisinopril 5 mg PO DAILY 10/24/14 Oxycodone HCl 10 mg PO TID 12/05/14 Clopidogrel Bisulfate [Plavix] 75 mg PO BEDTIME 05/30/15 Cyclobenzaprine HCl [Flexeril] 10 mg PO TID 08/05/15 Levetiracetam [Keppra] 1,000 mg PO BID 08/05/15 [place]-3S/Dha/Epa/Fish Oil/D3 [[place]-3 + D Softgel] 1 each PO BID 08/05/15 Clobetasol Propionate/Emoll [Clobetasol Emollient 0.05% Crm] 30 gm TP MOTUWETH 12/06/15 Metoprolol Succinate 12.5 mg PO BID 02/13/16 Calcitriol 1 applic TP SUFRSA@0900,2100 03/12/16 Prednisolone Opth Susp [Pred Forte 1% Opth [place]] 1 drop RIGHTEYE TID 03/12/16 Insulin Aspart [Novolog Insulin] 8 unit SQ TID and sliding scal vial 03/26/16 Insulin Glargine,Hum.rec.anlog [Lantus] 50 unit SQ BEDTIME vial 03/26/16 Diclofenac Sodium 1 drop OP TID 04/26/16 Polyvinyl Alcohol/Povidone/Pf [Refresh Classic Eye Drops] 1 each OP BID Prednisolone Opth Susp [Pred Forte 1% Opth [place]] 1 drop OP TID 04/26/16 Tobramycin Sulfate Opth 0.3% [Tobrex 0.3%] 1 drop OP TID 04/26/16 Calcium Acetate/Aluminum Sulf [[place] Packet] 1 pkg MC BID 05/19/16 Clindamycin HCl [Cleocin] 150 mg PO Q8HR 05/19/16 Hydrocodone Bit/Acetaminophen [[place] 5-325] 1 - 2 tab PO Q6HR PRN #12 tablet 01/16
[2016-06-10] MEDS ORDERED: MORPHINE 2 MG/ML SYRINGE IVP STA (12:54)
[2016-06-10] MEDS ORDERED: ZOFRAN 4 MG/2 ML IVP STA (12:54)
[2016-06-10] MEDS ORDERED: BENADRYL IVP STA (12:54)
[2016-06-10 13:13] LABS: BASOPHILS # (AUTO) 0.1 K/uL (0-0.2); BASOPHILS % (AUTO) 0.5 % (0.0-3.0); EOSINOPHILS # (AUTO) 0.8 K/ul (0.0-0.7); EOSINOPHILS % (AUTO) 8.4 % (0.0-7.0); HEMATOCRIT 40.7 % (37.0-47.0); HEMOGLOBIN 13.2 g/dl (12.0-16.0); IMMATURE GRANULOCYTE % (AUTO) 0.3 % (0.0-5.0); LYMPHOCYTES # (AUTO) 2.9 K/uL (0.60-3.4); LYMPHOCYTES % (AUTO) 30.8 (10.0-50.0); MEAN CORPUSCULAR HEMOGLOBIN 31.4 pg (27.0-31.0); MEAN CORPUSCULAR HGB CONC 32.4 (31.8-35.4); MEAN CORPUSCULAR VOLUME 96.7 fl (81.0-99.0); MONOCYTES # (AUTO) 0.5 K/uL (0.4-2.0); MONOCYTES % (AUTO) 5.6 (0-10); NEUTROPHILS # (AUTO) 5.1 K/ul (2.0-6.9); NEUTROPHILS % (AUTO) 54.4; PLATELET COUNT 364 10^3/uL (140-440); RED BLOOD COUNT 4.21 10^6/ul (4.20-5.40); WHITE BLOOD COUNT 9.32 K/ul (4.6-10.2)
--- NOTE | 2016-06-10 13:17 | DI ---
EXAM: Chest one view, frontal view only. HISTORY: Chest pain. COMPARISON: 04/26/2016. FINDINGS: The heart size is normal. There is no pulmonary vascular congestion. The lungs are blair r. No pleural effusion or pneumothorax is seen. No acute osseous abnormality is identified. Clips seen in the right neck. Since the prior study, there has been no significant interval change. IMPRESSION: No acute cardiopulmonary process.
[2016-06-10 13:37] LABS: ALBUMIN 3.3 g/dL (3.4-5.0); ALBUMIN/GLOBULIN RATIO 0.67; ANION GAP 12.2; BILIRUBIN,TOTAL 0.16 mg/dL (0.00-1.20); BUN/CREATININE RATIO 14.56; CALCIUM 9.1 mg/dL (8.2-10.2); CREATININE 1.03 mg/dL (0.60-1.30); POTASSIUM 4.2 mmol/L (3.5-5.10); TOTAL PROTEIN 8.2 g/dL (5.8-8.1)
[2016-06-10] MEDS ORDERED: MORPHINE 4 MG/ML SYRINGE IVP STA (15:36)
--- NOTE | 2016-06-10 15:50 | US ---
EXAM: ULTRASOUND LOWER EXTREMITY VENOUS DOPPLER EXAM HISTORY: Leg pain, swelling, positive D-dimer. FINDINGS: Bilateral lower extremity venous Doppler exam. Real time land-scale, Doppler spectral erica lysis and color-flow Doppler imaging performed. The veins targeted for evaluation include the commo n femoral, greater saphenous, profundus, femoral, popliteal, peroneal, anterior tibial and posterior tibial. The evaluated veins demonstrated normal spontaneous flow and compression without evidence of thrombosis. IMPRESSION: No venous thrombosis identified within the areas evaluated.
== END 2016-06-10 17:17 | disposition home or self-care (01) ==
LOC: ED 12:08
DX: R60.0 Localized edema (principal); L40.9 Psoriasis, unspecified; M79.605 Pain in left leg; M79.604 Pain in right leg; I50.9 Heart failure, unspecified; E11.9 Type 2 diabetes mellitus without complications; E03.9 Hypothyroidism, unspecified; E78.5 Hyperlipidemia, unspecified; I25.10 Atherosclerotic heart disease of native coronary artery without angina pectoris; I25.2 Old myocardial infarction; N18.9 Chronic kidney disease, unspecified; D64.9 Anemia, unspecified; J44.9 Chronic obstructive pulmonary disease, unspecified; I10 Essential (primary) hypertension; E27.1 Primary adrenocortical insufficiency; Z79.899 Other long term (current) drug therapy; F17.210 Nicotine dependence, cigarettes, uncomplicated; Z87.19 Personal history of other diseases of the digestive system; Z85.528 Personal history of other malignant neoplasm of kidney
CPT/HCPCS: 36415; 80053; 83605; 83880; 84145; 85025; 85379; 87040; 96374; 96375; 96376; 99283

== ENCOUNTER 2016-07-09 06:09 | Outpatient (CLI) | payer OTHER | END 2016-07-09 06:10 | LOC: AMBL 06:09 | PROVIDERS: ATTEND Family Medicine | DX: M79.606 Pain in leg, unspecified (principal); R10.9 Unspecified abdominal pain; M54.2 Cervicalgia; J18.9 Pneumonia, unspecified organism ==

== ENCOUNTER 2016-07-28 14:29 | Emergency (ER) | payer OTHER ==
[2016-07-28 14:31] VITALS: BMI 28.8
[2016-07-28] MEDS ORDERED: NORCO 7.5-325 PO STA (14:39)
[2016-07-28] MEDS ORDERED: DECADRON 4 MG/ML SDV IM STA (14:39)
[2016-07-28 14:51] VITALS: BP 173/83; TEMP 98.3
--- NOTE | 2016-07-28 15:00 | DI ---
EXAM: Right knee, four views HISTORY: Pain and swelling COMPARISON: None TECHNIQUE: Four views right knee were performed FINDINGS: There are small tricompartmental osteophytes. Mild narrowing medial and patellofemoral c ompartment. No fracture or dislocation. No joint effusion. Subcutaneous edema suggested. Well mar ginated ossification or calcification suggested about the proximal aspect of the medial collateral l igament may be due to old soft tissue injury or trauma. Mild quadriceps tendon enthesopathy. IMPRESSION: 1. No fracture or dislocation. 2. Tricompartmental osteoarthritis. 3. Subcutaneous edema suggested.
--- NOTE | 2016-07-28 15:06 | ED.PDOC ---
General ED Provider: Dr. RUFUS GIFFORD-ER Chief Complaint: Knee Pain/Injury Stated Complaint: my knee hurts Time Seen by Physician: 14:40 Mode of Arrival: Walk-In Information Source: Patient Exam Limitations: No limitations Nursing and Triage Documentation Reviewed and Agree: Yes Musculoskeletal Complaint Exam - Knee Pain Complaint/Exam Mechanism of Injury: Reports: No known trauma Onset/Duration: several days Symptoms Are: Still present Onset of Pain: Reports: Immediate Initial Severity: Mild Current Severity: Moderate Location: Reports: Discrete (right knee) Character: Reports: Dull, Aching, Stiffness Aggravating: Reports: Movement, Weight bearing Associated Signs and Symptoms: Reports: Swelling. Denies: Redness, Bruising, Fever, Weakness, Numbness, Tingling Able to Bear Weight: Yes Related History: Reports: Similar episode Septic Arthritis Risk Factors: Reports: None Gout Risk Factors: Reports: None Knee Findings: Present: Swelling, Tenderness, Limited range of motion Paulette Test Positive: No Hannah Test Positive: No Differential Diagnoses: Other Review of Systems - Review Of Systems Constitutional: Reports: No symptoms Eyes: Reports: No symptoms Ears, Nose, Mouth, Throat: Reports: No symptoms Respiratory: Reports: No symptoms Cardiac: Reports: No symptoms GI: Reports: No symptoms : Reports: No symptoms Musculoskeletal: Reports: Joint pain Skin: Reports: No symptoms Neurological: Reports: No symptoms Endocrine: Reports: No symptoms Hematologic/Lymphatic: Reports: No symptoms All Other Systems: Reviewed and Negative Past Medical History - Past Medical History Previously Healthy: No Endocrine: Reports: DM 2, Hypothyroid, Dyslipidemia Cardiovascular: Reports: CAD, [place], Hypertension, CHF Respiratory: Reports: COPD Hematological: Reports: Anemia Gastrointestinal: Reports: GERD, Pancreatitis Genitourinary: Reports: CKD Neuro/Psych: Reports: Seizure, Anxiety, Depression Musculoskeletal: Reports: None Cancer: Reports: Other (kidney) Last Menstrual Period: none Other Pertinent Past Medical History: 1 kidney, Ayden's disease, Glaucoma - Surgical History General Surgical History: Reports: Hysterectomy, Appendectomy, Cholecystectomy, Back Surgery, Other (nephrectomy,spleenectomy, partial pancreas,thyroidectomy, perforated colon,3 stents in heart) - Family History Family History: Reports: None - Social History Smoking Status: Current every day smoker, Light tobacco smoker Hx Substance Use: No Alcohol Screening: None Lives: With family Physical Exam - Physical Exam Appearance: Well-appearing, No pain distress, Well-nourished Pain Distress: Moderate Eyes: DONY, EOMI, Conjunctiva clear ENT: Ears normal, Nose normal, Oropharynx normal Neck: Supple Respiratory: Airway patent, Breath sounds clear, Breath sounds equal, Respirations nonlabored Cardiovascular: RRR, Pulses normal, No rub, No murmur GI/: Soft, Nontender, No masses, Bowel sounds normal, No Organomegaly Musculoskeletal: Limited ROM Skin: Warm, Dry, Normal color Neurological: Sensation intact Psychiatric: Affect appropriate, Mood appropriate Interpretation - Radiology Interpretation Radiology Interpretation By: Radiologist Radiology Results: Positive Critical Care Note - Critical Care Note Total Time (mins): 0 Course - Course Orders, Labs, Meds: Orders Category Date Time Status Dexamethasone 4 mg/ml Inj [Decadron 4 mg/ml Sdv] MEDS 07/28/16 14:39 Discontinued 4 mg IM ONCE STA Hydrocodone Bit/Acetaminophen [[place] 7.5-325] MEDS 07/28/16 14:39 Discontinued 1 tab PO ONCE STA KNEE, RIGHT 4 VIEWS Stat RADS 07/28/16 14:38 Completed Medications Discontinued Medications Generic Name Dose Route Start Last Admin Trade Name Freq PRN Reason Stop Dose Admin Acetaminophen/Hydrocodone Bitart 1 tab 07/28/16 14:39 [place] 7.5-325 PO 07/28/16 14:40 ONCE STA Dexamethasone Sodium Phosphate 4 mg 07/28/16 14:39 Decadron 4 Mg/Ml Sdv IM 07/28/16 14:40 ONCE STA Vital Signs: Temp Pulse Resp BP Pulse Ox 07/28/16 14:31 98.3 F 93 H 20 173/83 H 96 Departure - Departure Time of Disposition: 15:06 Disposition: HOME SELF-CARE Discharge Problem: Knee pain Instructions: Swollen Knee Joint (ED) Condition: Stable Pt referred to PMD for follow-up: Yes Additional Instructions: norco 5mg q 4hrs prn pain #15--f/u clinic--consider referral to ortho Allergies/Adverse Reactions: Allergies duloxetine HCl [From Cymbalta] Allergy (Severe, Verified 07/28/16 14:36) unable to sleep levofloxacin [From Levaquin] Allergy (Mild, Verified 07/28/16 14:36) Unknown Per patient she states she was on IV Levaquin in hospital for 5 days, then sent home with oral Levaquin. She c/o after 3 doses, she had blisters in her mouth penicillin G Adverse Reaction (Severe, Verified 07/28/16 14:36) Difficulty Breathing aripiprazole [From Abilify] Adverse Reaction (Verified 07/28/16 14:36) cefaclor [From Ceclor] Adverse Reaction (Verified 07/28/16 14:36) ciprofloxacin [From Cipro] Adverse Reaction (Verified 07/28/16 14:36) Rash clarithromycin [From Biaxin] Adverse Reaction (Verified 07/28/16 14:36) Rash ketorolac tromethamine [From Toradol] Adverse Reaction (Verified 07/28/16 14:36) Vomiting loperamide HCl [From Imodium A-D] Adverse Reaction (Verified 07/28/16 14:36) affects glaucoma Penicillins Adverse Reaction (Verified 07/28/16 14:36) Difficulty Breathing sumatriptan [From Imitrex] Adverse Reaction (Verified 07/28/16 14:36) heart attack sumatriptan succinate [From Imitrex] Adverse Reaction (Verified 07/28/16 14:36) heart attack Home Medications: Ambulatory Orders Aspirin [Aspirin EC] 81 mg PO BEDTIME 11/14/12 Desvenlafaxine Succinate [Pristiq] 100 mg PO DAILY 11/14/12 Nitroglycerin [Nitrostat] 0.4 mg SL Q5MIN X 3 DOSES PRN 11/14/12 Pantoprazole Sodium [Protonix] 40 mg PO QDAC 04/12/14 Albuterol Sulfate [Proair Hfa] 2 puff IH Q4H PRN 08/23/14 Lisinopril 5 mg PO DAILY 10/24/14 Clopidogrel Bisulfate [Plavix] 75 mg PO BEDTIME 05/30/15 Cyclobenzaprine HCl [Flexeril] 10 mg PO TID 08/05/15 Levetiracetam [Keppra] 1,000 mg PO BID 08/05/15 [place]-3S/Dha/Epa/Fish Oil/D3 [[place]-3 + D Softgel] 1 each PO BID 08/05/15 Clobetasol Propionate/Emoll [Clobetasol Emollient 0.05% Crm] 30 gm TP MOTUWETH 12/06/15 Metoprolol Succinate 12.5 mg PO BID 02/13/16 Calcitriol 1 applic TP SUFRSA@0900,2100 03/12/16 Prednisolone Opth Susp [Pred Forte 1% Opth [place]] 1 drop RIGHTEYE TID 03/12/16 Insulin Aspart [Novolog Insulin] 8 unit SQ TID and sliding scal vial 03/26/16 Insulin Glargine,Hum.rec.anlog [Lantus] 50 unit SQ BEDTIME vial 03/26/16 Diclofenac Sodium 1 drop OP TID 04/26/16 Polyvinyl Alcohol/Povidone/Pf [Refresh Classic Eye Drops] 1 each OP BID Prednisolone Opth Susp [Pred Forte 1% Opth [place]] 1 drop OP TID 04/26/16 Tobramycin Sulfate Opth 0.3% [Tobrex 0.3%] 1 drop OP TID 04/26/16 Calcium Acetate/Aluminum Sulf [[place] Packet] 1 pkg MC BID 05/19/16 Clindamycin HCl [Cleocin] 150 mg PO Q8HR 05/19/16 Hydrocodone Bit/Acetaminophen [[place] 5-325] 1 - 2 tab PO Q6HR PRN #12 tablet 01/16 Oxycodone HCl/Acetaminophen [Percocet 10-325 Mg Tablet] 1 each PO TID 06/11/16 Disposition Discussed With: Patient
== END 2016-07-28 15:29 | disposition home or self-care (01) ==
LOC: ED 14:29
DX: M25.561 Pain in right knee (principal); M25.461 Effusion, right knee
CPT/HCPCS: 96372; 99282

== ENCOUNTER 2016-07-31 09:09 | Outpatient (CLI) ==
--- NOTE | 2016-07-31 10:05 | US ---
EXAM: Thyroid ultrasound. HISTORY: Cervicalgia, history of thyroid cancer COMPARISON: None available FINDINGS: Garcia scale and color evaluation of the thyroid gland. No definite right thyroid lobe tissue is identified. The left lobe measures 4.6 x 3.2 x 2.1 cm. Multiple complex, predominately solid left thyroid lobe nodules are present. These measure 1.4 x 1.8 x 2.0 cm, 1.0 x 0.8 x 1.0 cm, 0.7 x 0.9 x 1.0 cm and 1 .4 x 1.3 x 1.3 cm. A left thyroid lobe calcification is also identified. The isthmus measures 8 mm. IMPRESSION: Multiple complex, predominately solid left thyroid lobe nodules with the largest measuring 1.4 x 1.8 x 2.0 cm. No definite right thyroid lobe tissue identified.
--- NOTE | 2016-07-31 12:27 | MRI ---
EXAM: MRI of the right knee without contrast COMPARISON: Right knee radiographs 07/28/2016. HISTORY: Right knee pain. Anterior cruciate ligament repair over 10 years ago. TECHNIQUE: Multiplanar noncontrast MR images of the right knee were acquired using a 1.2 Deepika magn et. FINDINGS: There is minimal linear arthrofibrosis involving Hoffa's fat pad related to previous arth roscopic surgery. The medial meniscus is intact aside from intrasubstance degeneration without a small rfacing tear. Intrasubstance degeneration of the lateral meniscus. There is truncation of the free edge of the lateral meniscus at the body/posterior horn junction which may be related to prior part ial meniscectomy versus a small radial tear. There is some linear intermediate signal within the re mnant approaching the free edge at that level which may represent postoperative scarring in the sett ing of previous surgery without definite fluid signal at that site. Intact anterior and posterior cruciate ligament fibers are identified. No evidence of previous ante rior cruciate ligament reconstruction. Sprain with scarring medial collateral ligament. Lateral co llateral ligament complex and posterolateral corner ligaments are intact. Patellar/quadriceps tendi nosis with small patellar spurs. No significant subluxation of the patella. Subcutaneous edema thr oughout the knee. Diffuse muscle atrophy. Marked thinning and fissuring of the cartilage along the lateral facet median ridge of the patella a s well as along the opposing articular surface of the trochlear groove. Mild thinning of the cartil age in the medial and lateral compartments. Subchondral edema throughout the medial femoral condyle . Several linear hypointense signal in a subchondral location along weightbearing surface of the me dial femoral condyle measuring 1.3 x 1.0 x 0.2 cm extent related to a subchondral/insufficiency frac ture and/or component of subchondral osteonecrosis. No articular surface depression. Moderate join t effusion which is nonspecific. Fluid edema along the expected location of the popliteal cyst with out identification of the cyst which could represent sequela of a previous cyst rupture. IMPRESSION: 1. Intrasubstance degeneration of the medial and lateral menisci with some minimal arthrofibrosis i nvolving Hoffa's fat pad related to previous arthroscopic surgery. Blunting of the free edge of the lateral meniscus at the body/posterior horn junction which may be postoperative related to a small tear as described. Correlate with physical examination and details of previous surgery. 2. Joint effusion, nonspecific. Question previous rupture of a popliteal cyst. Subcutaneous edema circumferentially. 3. Tricompartmental osteoarthrosis with most severe changes in the patellofemoral compartment. 4. Subchondral/insufficiency fracture and/or component of spontaneous osteonecrosis involving the w eightbearing surface of the medial femoral condyle without articular surface depression. 5. Patellar/quadriceps tendinosis.
== END 2016-07-31 09:10 | disposition home or self-care (01) ==
LOC: RAD 09:09
PROVIDERS: ATTEND Emergency Medicine
DX: M25.561 Pain in right knee (principal); M54.2 Cervicalgia

== ENCOUNTER 2016-08-04 15:38 | Outpatient (CLI) | payer OTHER ==
[2016-08-04 18:23] LABS: CHOL/HDL RATIO 6.2 (4.5-5.5)
== END 2016-08-04 15:39 | disposition home or self-care (01) ==
LOC: LAB 15:38
PROVIDERS: ATTEND Emergency Medicine
DX: E78.5 Hyperlipidemia, unspecified (principal); F32.9 Major depressive disorder, single episode, unspecified; I10 Essential (primary) hypertension
CPT/HCPCS: 36415; 80061; 84439; 84443; 84481

== ENCOUNTER 2016-11-18 11:42 | Emergency (ER) ==
[2016-11-18 11:57] VITALS: BP 122/74; TEMP 97.3; BMI 28.3
--- NOTE | 2016-11-18 12:17 | ED.PDOC ---
General ED Provider: Dr. MARISOL HOBSON Chief Complaint: Abdominal Pain Stated Complaint: Bilateral lower leg & feet swelling onset yesterday evening. Began having LUQ abd pain this am, cramping in nature. Time Seen by Physician: 12:11 Mode of Arrival: Walk-In Information Source: Patient Exam Limitations: No limitations [facility] Nursing and Triage Documentation Reviewed and Agree: Yes GI Complaint Exam - Abdominal Pain Complaint/Exam Onset: Sudden Duration: approximately 4 hours Symptoms Are: Still present Timing: Constant Initial Severity: Mild Current Severity: Moderate Location of Pain: LUQ Character: Reports: Cramping Aggravating: Reports: Movement Alleviating: Reports: None (patient reports her legs and feet became swollen last night. She had nausea/vomting 3 days ago with resolved 2 days ago.) AAA Risk Factors: Reports: Smoking Cardiac Risk Factors: Reports: Smoking Ectopic Risk Factors: Reports: None Ovarian Torsion Risk Factors: Reports: Hysterectomy Surgical Obstruction Risk Factors: Reports: Prior abdominal surgery Related Surgical History: Reports: Cholecystectomy, Appendectomy, OBDULIA Patient Rh Status: Unknown Abdominal Findings: Present: Abdominal distention Differential Diagnoses: AMI, Bowel Obstruction, Constipation, Diverticulitis Quality Indicators for AMI: EKG in 10min., Advised to stop smoking Quality Indicators for Cardiac Chest Pain: EKG in 10min. Quality Indicator For Non-Traumatic Chest Pain/Syncope: EKG Performed Review of Systems - Review Of Systems Constitutional: Reports: No symptoms Respiratory: Reports: No symptoms Cardiac: Reports: No symptoms GI: Reports: Abdominal pain : Reports: No symptoms Musculoskeletal: Reports: No symptoms Skin: Reports: No symptoms Neurological: Reports: No symptoms All Other Systems: Reviewed and Negative Past Medical History - Past Medical History Previously Healthy: No Endocrine: Reports: DM 2, Hypothyroid, Dyslipidemia Cardiovascular: Reports: CAD, VT, Hypertension, CHF Respiratory: Reports: COPD Hematological: Reports: Anemia Gastrointestinal: Reports: GERD, Pancreatitis Genitourinary: Reports: CKD Neuro/Psych: Reports: Seizure, Anxiety, Depression Musculoskeletal: Reports: None Cancer: Reports: Other (kidney) Last Menstrual Period: na Other Pertinent Past Medical History: 1 kidney, Lockridge's disease, Glaucoma - Surgical History General Surgical History: Reports: Hysterectomy, Appendectomy, Cholecystectomy, Back Surgery, Other (nephrectomy,spleenectomy, partial pancreas,thyroidectomy, perforated colon,3 stents in heart) - Family History Family History: Reports: None - Social History Smoking Status: Current every day smoker, Light tobacco smoker Hx Substance Use: No Alcohol Screening: None Lives: With family - Immunizations Tetanus Shot up to Date: No Influenza Vaccine within 12 Months: No Pneumococcal Vaccine up to Date: No Physical Exam - Physical Exam Appearance: Well-appearing, No pain distress, Well-nourished, Obese Ill-appearing: None Pain Distress: Moderate Eyes: DONY, EOMI, Conjunctiva clear ENT: Ears normal, Nose normal, Oropharynx normal Neck: Supple Respiratory: Airway patent, Breath sounds clear, Breath sounds equal, Respirations nonlabored Cardiovascular: RRR, Pulses normal, No rub, No murmur GI/: Soft, No masses, Bowel sounds normal, No Organomegaly, Tender ( generalized tenderness to palpation) Musculoskeletal: Normal strength, ROM intact, No edema, No calf tenderness Skin: Warm (+1 pitting edema pretibial bilateral), Dry, Normal color Neurological: Sensation intact, Motor intact, Reflexes intact, Cranial nerves intact, Alert, Oriented Psychiatric: Affect appropriate, Mood appropriate Critical Care Note - Critical Care Note Total Time (mins): 0 Course - Course Hematology/Chemistry: 11/18/16 12:43 11/18/16 12:43 Orders, Labs, Meds: Lab Review 11/18/16 11/18/16 11/18/16 12:43 12:43 12:43 WBC 7.37 RBC 4.14 L Hgb 13.3 Hct 39.3 MCV 94.9 MCH 32.1 H MCHC 33.8 RDW Coeff of Manoj 13.1 Plt Count 310 Immature Gran % (Auto) 0.5 Neut % (Auto) 42.8 Lymph % (Auto) 43.6 [place] % (Auto) 7.7 Eos % (Auto) 4.9 Baso % (Auto) 0.5 Immature Gran # (Auto) 0.0 Neut # 3.2 Lymph # 3.2 [place] # 0.6 Eos # 0.4 Baso # 0.0 Sodium 138 Potassium 4.2 Chloride 105 Carbon Dioxide 26 Anion Gap 11.2 BUN 20 H Creatinine 0.80 Estimated GFR (MDRD) 73.00 BUN/Creatinine Ratio 25.00 Glucose 125 H Lactic Acid 8.7 Calcium 9.3 Total Bilirubin 0.19 AST 16 ALT 27 Alkaline Phosphatase 137 Total Creatine Kinase 59 Troponin I < 0.0100 B-Natriuretic Peptide Total Protein 7.2 Albumin 3.1 L Globulin 4.1 Albumin/Globulin Ratio 0.76 Amylase 13 L Lipase 17 Urine Color Urine Clarity Urine pH Ur Specific Bryan Urine Protein Urine Glucose (UA) Urine Ketones Urine Blood Urine Nitrite Urine Bilirubin Urine Urobilinogen Ur Leukocyte Esterase Urine Microscopic RBC Urine Microscopic WBC Ur Squamous Epith Cells 11/18/16 11/18/16 12:43 13:28 WBC RBC Hgb Hct MCV MCH MCHC RDW Coeff of Manoj Plt Count Immature Gran % (Auto) Neut % (Auto) Lymph % (Auto) [place] % (Auto) Eos % (Auto) Baso % (Auto) Immature Gran # (Auto) Neut # Lymph # [place] # Eos # Baso # Sodium Potassium Chloride Carbon Dioxide Anion Gap BUN Creatinine Estimated GFR (MDRD) BUN/Creatinine Ratio Glucose Lactic Acid Calcium Total Bilirubin AST ALT Alkaline Phosphatase Total Creatine Kinase Troponin I B-Natriuretic Peptide 39 Total Protein Albumin Globulin Albumin/Globulin Ratio Amylase Lipase Urine Color Yellow Urine Clarity Clear Urine pH 5.5 Ur Specific Bryan 1.010 Urine Protein Trace Urine Glucose (UA) Negative Urine Ketones Negative Urine Blood Negative Urine Nitrite Negative Urine Bilirubin Negative Urine Urobilinogen 0.2 Ur Leukocyte Esterase 1+ Urine Microscopic RBC 0-2 Urine Microscopic WBC 5-10 Ur Squamous Epith Cells Not present Orders Category Date Time Status EKG-(ED ONLY) Stat CARDIO 11/18/16 12:22 Completed AMYLASE Stat LAB 11/18/16 12:43 Completed BNP [B-TYPE NATRIURETIC PEPTIDE] Stat LAB 11/18/16 12:43 Completed CBC W/ AUTO DIFF Stat LAB 11/18/16 12:43 Completed COMPREHENSIVE METABOLIC PANEL Stat LAB 11/18/16 12:43 Completed CREATINE KINASE Stat LAB 11/18/16 12:43 Completed LACTIC ACID Stat LAB 11/18/16 12:43 Completed LIPASE Stat LAB 11/18/16 12:43 Completed TROPONIN I Stat LAB 11/18/16 12:43 Completed URINALYSIS C & S IF INDICATED Stat LAB 11/18/16 13:28 Completed URINE CULTURE Routine LAB 11/18/16 13:15 Received Vital Signs: Temp Pulse Resp BP Pulse Ox 11/18/16 11:52 97.3 F L 82 20 122/74 94 L Departure - Departure Time of Disposition: 14:14 Disposition: HOME SELF-CARE Discharge Problem: Urinary tract infection Instructions: Urinary Tract Infection in Women (ED) Condition: Good Pt referred to PMD for follow-up: No (If no better in 3 days, see doctor) Allergies/Adverse Reactions: Allergies duloxetine HCl [From Cymbalta] Allergy (Severe, Verified 07/28/16 14:36) unable to sleep levofloxacin [From Levaquin] Allergy (Mild, Verified 07/28/16 14:36) Unknown Per patient she states she was on IV Levaquin in hospital for 5 days, then sent home with oral Levaquin. She c/o after 3 doses, she had blisters in her mouth penicillin G Adverse Reaction (Severe, Verified 07/28/16 14:36) Difficulty Breathing aripiprazole [From Abilify] Adverse Reaction (Verified 07/28/16 14:36) cefaclor [From Ceclor] Adverse Reaction (Verified 07/28/16 14:36) ciprofloxacin [From Cipro] Adverse Reaction (Verified 07/28/16 14:36) Rash clarithromycin [From Biaxin] Adverse Reaction (Verified 07/28/16 14:36) Rash ketorolac tromethamine [From Toradol] Adverse Reaction (Verified 07/28/16 14:36) Vomiting loperamide HCl [From Imodium A-D] Adverse Reaction (Verified 07/28/16 14:36) affects glaucoma Penicillins Adverse Reaction (Verified 07/28/16 14:36) Difficulty Breathing sumatriptan [From Imitrex] Adverse Reaction (Verified 07/28/16 14:36) heart attack sumatriptan succinate [From Imitrex] Adverse Reaction (Verified 07/28/16 14:36) heart attack Home Medications: Ambulatory Orders Aspirin [Aspirin EC] 81 mg PO BEDTIME 11/14/12 Desvenlafaxine Succinate [Pristiq] 100 mg PO DAILY 11/14/12 Nitroglycerin [Nitrostat] 0.4 mg SL Q5MIN X 3 DOSES PRN 11/14/12 Pantoprazole Sodium [Protonix] 40 mg PO QDAC 04/12/14 Albuterol Sulfate [Proair Hfa] 2 puff IH Q4H PRN 08/23/14 Lisinopril 5 mg PO DAILY 10/24/14 Clopidogrel Bisulfate [Plavix] 75 mg PO BEDTIME 05/30/15 Cyclobenzaprine HCl [Flexeril] 10 mg PO TID 08/05/15 Levetiracetam [Keppra] 1,000 mg PO BID 08/05/15 [place]-3S/Dha/Epa/Fish Oil/D3 [[place]-3 + D Softgel] 1 each PO BID 08/05/15 Clobetasol Propionate/Emoll [Clobetasol Emollient 0.05% Crm] 30 gm TP MOTUWETH 12/06/15 Metoprolol Succinate 12.5 mg PO BID 02/13/16 Calcitriol 1 applic TP SUFRSA@0900,2100 03/12/16 Insulin Aspart [Novolog Insulin] 8 unit SQ TID and sliding scal vial 03/26/16 Insulin Glargine,Hum.rec.anlog [Lantus] 50 unit SQ BEDTIME vial 03/26/16 Polyvinyl Alcohol/Povidone/Pf [Refresh Classic Eye Drops] 1 each OP BID Calcium Acetate/Aluminum Sulf [[place] Packet] 1 pkg MC BID 05/19/16 Oxycodone HCl/Acetaminophen [Percocet 10-325 Mg Tablet] 1 each PO TID 06/11/16 Nitrofurantoin Monohyd/M-Cryst [Macrobid] 100 mg PO BID #20 capsule 11/18/16 Disposition Discussed With: Patient, Family
[2016-11-18 12:56] LABS: BASOPHILS % (AUTO) 0.5 % (0.0-3.0); EOSINOPHILS # (AUTO) 0.4 K/ul (0.0-0.7); EOSINOPHILS % (AUTO) 4.9 % (0.0-7.0); HEMATOCRIT 39.3 % (37.0-47.0); HEMOGLOBIN 13.3 g/dl (12.0-16.0); IMMATURE GRANULOCYTE % (AUTO) 0.5 % (0.0-5.0); LYMPHOCYTES # (AUTO) 3.2 K/uL (0.60-3.4); LYMPHOCYTES % (AUTO) 43.6 (10.0-50.0); MEAN CORPUSCULAR HEMOGLOBIN 32.1 pg (27.0-31.0); MEAN CORPUSCULAR HGB CONC 33.8 (31.8-35.4); MEAN CORPUSCULAR VOLUME 94.9 fl (81.0-99.0); MONOCYTES # (AUTO) 0.6 K/uL (0.4-2.0); MONOCYTES % (AUTO) 7.7 (0-10); NEUTROPHILS # (AUTO) 3.2 K/ul (2.0-6.9); NEUTROPHILS % (AUTO) 42.8; PLATELET COUNT 310 10^3/uL (140-440); RED BLOOD COUNT 4.14 10^6/ul (4.20-5.40); WHITE BLOOD COUNT 7.37 K/ul (4.6-10.2)
[2016-11-18 13:16] LABS: ALANINE AMINOTRANSFERASE 27 U/L (12-78); ALBUMIN 3.1 g/dL (3.4-5.0); ALBUMIN/GLOBULIN RATIO 0.76; ALKALINE PHOSPHATASE 137 U/L (53-141); AMYLASE 13 U/L (25-115); ANION GAP 11.2; ASPARTATE AMINO TRANSFERASE 16 U/L (15-37); BILIRUBIN,TOTAL 0.19 mg/dL (0.00-1.20); BLOOD UREA NITROGEN 20 mg/dL (7-18); CALCIUM 9.3 mg/dL (8.2-10.2); CARBON DIOXIDE 26 mmol/L (23-31); CHLORIDE 105 mmol/L (98-107); CREATINE KINASE 59 U/L; GLUCOSE 125 mg/dL (82-115); LIPASE 17 U/L (8-78); POTASSIUM 4.2 mmol/L (3.5-5.10); SODIUM 138 mmol/L (136-145); TOTAL PROTEIN 7.2 g/dL (5.8-8.1)
[2016-11-18 13:34] LABS: BILIRUBIN,URINE Negative (NEGATIVE); KETONES,URINE Negative (NEGATIVE); LEUKOCYTE ESTERASE ,URINE 1+ (NEGATIVE); NITRITE,URINE Negative (NEGATIVE); PH,URINE 5.5 (5-9); PROTEIN,URINE Trace (NEGATIVE); URINE, BLOOD Negative (NEGATIVE)
[2016-11-18 13:57] LABS: ADD URINE MICROSCOPIC YES
== END 2016-11-18 14:20 | disposition home or self-care (01) ==
LOC: ED 11:42
DX: N39.0 Urinary tract infection, site not specified (principal); R60.0 Localized edema; E11.9 Type 2 diabetes mellitus without complications; E03.9 Hypothyroidism, unspecified; E78.5 Hyperlipidemia, unspecified; I10 Essential (primary) hypertension; I25.10 Atherosclerotic heart disease of native coronary artery without angina pectoris; N18.9 Chronic kidney disease, unspecified; I50.9 Heart failure, unspecified; I25.2 Old myocardial infarction; F17.210 Nicotine dependence, cigarettes, uncomplicated; Z79.899 Other long term (current) drug therapy; Z87.19 Personal history of other diseases of the digestive system; Z87.09 Personal history of other diseases of the respiratory system
CPT/HCPCS: 36415; 80053; 81001; 82150; 82550; 83605; 83690; 83880; 84484; 85025; 87086; 93005; 93010; 99283

== ENCOUNTER 2017-01-21 11:46 | Emergency (ER) ==
[2017-01-21 11:54] VITALS: BP 136/71; TEMP 98.7; BMI 28.1
[2017-01-21] MEDS ORDERED: MORPHINE 2 MG/ML SYRINGE IM STA (11:59)
[2017-01-21] MEDS ORDERED: ZOFRAN 4 MG/2 ML IM STA (12:00)
--- NOTE | 2017-01-21 12:35 | DI ---
Exam: Three x-rays of the chest. Comparison: 06/10/2016. Reason for exam: Cough. FINDINGS: No pneumothorax, pleural effusion, or focal consolidation. The cardiac silhouette is not enlarged. The imaged osseous structures appear grossly unremarkable without acute fracture. Operati ve changes are seen in the neck and abdomen. Impression: No acute cardiopulmonary process.
--- NOTE | 2017-01-21 14:00 | ED.PDOC ---
General ED Provider: Dr. LUCAS TURCIOS Chief Complaint: Back Pain Stated Complaint: back pain Time Seen by Physician: 12:00 (sudden back pain after a coughing nabila no fall) Mode of Arrival: Walk-In Information Source: Patient Exam Limitations: No limitations [facility] and Triage Documentation Reviewed and Agree: Yes (seen with nursing staff at all times ) Musculoskeletal Complaint Exam - Back Pain Complaint/Exam Mechanism of Injury: Reports: No known trauma, Other (after a cough) Onset/Duration: 2 hrs ago Symptoms Are: Still present Timing: Constant Episodes Lasting: Minutes Initial Severity: Moderate Current Severity: Moderate Location: Reports: Discrete Character: Reports: Aching Aggravating: Reports: None Alleviating: Reports: None Associated Signs and Symptoms: Denies: Swelling, Redness, Bruising, Fever, Weakness, Numbness, Tingling, Abdominal pain, Flank pain, Bladder incontinence, Bowel incontinence, Weight loss, Pain with weight bearing Related History: Reports: Similar episode AAA Risk Factors: Reports: None Cauda Equina Risk Factors: Reports: None Epidural Abcess Risk Factors: Reports: None Related Surgical History: Reports: None Focal Tenderness: No Paraspinal Muscle Tenderness: No Paraspinal Muscle Spasm: No Scoliosis: No Lordosis: No Kyphosis: No SLR Test: Right Negative, Left Negative Hip Motion Testing Pain: Right Negative, Left Negative Focal Weakness: Present: None Focal Sensory Loss: Present: None Gait: Present: Normal Differential Diagnoses: Strain, Sprain Review of Systems - Review Of Systems Constitutional: Reports: No symptoms Eyes: Reports: No symptoms Ears, Nose, Mouth, Throat: Reports: No symptoms Respiratory: Reports: No symptoms Cardiac: Reports: No symptoms GI: Reports: No symptoms : Reports: No symptoms Musculoskeletal: Reports: Back pain Skin: Reports: No symptoms Neurological: Reports: No symptoms Endocrine: Reports: No symptoms Hematologic/Lymphatic: Reports: No symptoms All Other Systems: Reviewed and Negative Past Medical History - Past Medical History Previously Healthy: No Endocrine: Reports: DM 2, Hypothyroid, Dyslipidemia Cardiovascular: Reports: CAD, [place], Hypertension, CHF Respiratory: Reports: COPD Hematological: Reports: Anemia Gastrointestinal: Reports: GERD, Pancreatitis Genitourinary: Reports: CKD Neuro/Psych: Reports: Seizure, Anxiety, Depression Musculoskeletal: Reports: None Cancer: Reports: Other (kidney) Last Menstrual Period: unknown Other Pertinent Past Medical History: 1 kidney, Mercer's disease, Glaucoma - Surgical History General Surgical History: Reports: Hysterectomy, Appendectomy, Cholecystectomy, Back Surgery, Other (nephrectomy,spleenectomy, partial pancreas,thyroidectomy, perforated colon,3 stents in heart) - Family History Family History: Reports: None - Social History Smoking Status: Current every day smoker, Light tobacco smoker Hx Substance Use: No Alcohol Screening: None - Immunizations Influenza Vaccine within 12 Months: No Pneumococcal Vaccine up to Date: No Physical Exam - Physical Exam Appearance: Well-appearing, No pain distress, Well-nourished Eyes: DONY, EOMI, Conjunctiva clear ENT: Ears normal, Nose normal, Oropharynx normal Respiratory: Airway patent, Breath sounds clear, Breath sounds equal, Respirations nonlabored Cardiovascular: RRR, Pulses normal, No rub, No murmur GI/: Soft, Nontender, No masses, Bowel sounds normal, No Organomegaly Musculoskeletal: Normal strength, ROM intact, No edema, No calf tenderness Skin: Warm, Dry, Normal color Neurological: Sensation intact, Motor intact, Reflexes intact, Cranial nerves intact, Alert, Oriented Psychiatric: Affect appropriate, Mood appropriate Interpretation - Radiology Interpretation Radiology Interpretation By: Radiologist Radiology Results: No acute changes Critical Care Note - Critical Care Note Total Time (mins): 0 Course - Course Orders, Labs, Meds: Orders Category Date Time Status Morphine Sulfate [Morphine 2 mg/ml Syringe] MEDS 01/21/17 11:59 Discontinued 2 mg IM ONCE STA Ondansetron HCl/Pf [Zofran 4 mg/2 ml] MEDS 01/21/17 12:00 Discontinued 4 mg IM ONCE STA CHEST, 2 VIEWS PA & LAT Stat RADS 01/21/17 12:00 Completed Medications Discontinued Medications Generic Name Dose Route Start Last Admin Trade Name Freq PRN Reason Stop Dose Admin Morphine Sulfate 2 mg 01/21/17 11:59 01/21/17 12:28 Morphine 2 Mg/Ml Syringe IM 01/21/17 12:00 2 mg ONCE STA Administration Ondansetron HCl 4 mg 01/21/17 12:00 01/21/17 12:27 Zofran 4 Mg/2 Ml IM 01/21/17 12:01 4 mg ONCE STA Administration Vital Signs: Temp Pulse Resp BP Pulse Ox 01/21/17 11:47 98.7 F 90 20 136/71 95 Departure - Departure Time of Disposition: 14:00 Disposition: HOME SELF-CARE Discharge Problem: Backache Instructions: Acute Low Back Pain (ED) Condition: Good Pt referred to PMD for follow-up: Yes Allergies/Adverse Reactions: Allergies duloxetine HCl [From Cymbalta] Allergy (Severe, Verified 01/21/17 11:55) unable to sleep hydrogen peroxide Allergy (Severe, Verified 01/21/17 11:55) rash, skin swells Patient to notify drugstore levofloxacin [From Levaquin] Allergy (Mild, Verified 01/21/17 11:55) Unknown Per patient she states she was on IV Levaquin in hospital for 5 days, then sent home with oral Levaquin. She c/o after 3 doses, she had blisters in her mouth penicillin G Adverse Reaction (Severe, Verified 01/21/17 11:55) Difficulty Breathing aripiprazole [From Abilify] Adverse Reaction (Verified 01/21/17 11:55) cefaclor [From Ceclor] Adverse Reaction (Verified 01/21/17 11:55) ciprofloxacin [From Cipro] Adverse Reaction (Verified 01/21/17 11:55) Rash clarithromycin [From Biaxin] Adverse Reaction (Verified 01/21/17 11:55) Rash ketorolac tromethamine [From Toradol] Adverse Reaction (Verified 01/21/17 11:55) Vomiting loperamide HCl [From Imodium A-D] Adverse Reaction (Verified 01/21/17 11:55) affects glaucoma Penicillins Adverse Reaction (Verified 01/21/17 11:55) Difficulty Breathing sumatriptan [From Imitrex] Adverse Reaction (Verified 01/21/17 11:55) heart attack sumatriptan succinate [From Imitrex] Adverse Reaction (Verified 01/21/17 11:55) heart attack Home Medications: Ambulatory Orders Albuterol Sulfate [Proair Hfa] 2 puff IH Q4H PRN 08/23/14 Cyclobenzaprine HCl [Flexeril] 10 mg PO TID 08/05/15 [place]-3S/Dha/Epa/Fish Oil/D3 [[place]-3 + D Softgel] 1 each PO BID 08/05/15 Clobetasol Propionate/Emoll [Clobetasol Emollient 0.05% Crm] 30 gm TP MOTUWETH 12/06/15 Calcitriol 1 applic TP SUFRSA@0900,2100 03/12/16 Polyvinyl Alcohol/Povidone/Pf [Refresh Classic Eye Drops] 1 each OP BID Calcium Acetate/Aluminum Sulf [[place] Packet] 1 pkg MC BID 05/19/16 Oxycodone HCl/Acetaminophen [Percocet 10-325 Mg Tablet] 1 each PO TID 06/11/16 Insulin Aspart [Novolog] 5 unit SQ TIDWM 01/21/17 Insulin Glargine,Hum.rec.anlog [Lantus] 60 unit SQ BEDTIME 01/21/17 Metoprolol Tartrate [Lopressor] 12.5 mg PO DAILY 01/21/17 Rosuvastatin Calcium [Crestor] 40 mg PO BEDTIME 01/21/17
== END 2017-01-21 14:35 | disposition home or self-care (01) ==
LOC: ED 11:46
DX: M54.9 Dorsalgia, unspecified (principal); R05 Cough; F17.210 Nicotine dependence, cigarettes, uncomplicated
CPT/HCPCS: 96374; 96375; 99282

== ENCOUNTER 2017-01-22 21:13 | Outpatient (CLI) ==
[2017-01-21 11:54] VITALS: BMI 28.1
== END 2017-01-22 21:14 | disposition left against medical advice (07) ==
LOC: AMBL 21:13
PROVIDERS: ATTEND Family Medicine
DX: E11.649 Type 2 diabetes mellitus with hypoglycemia without coma (principal); Z79.4 Long term (current) use of insulin

== ENCOUNTER 2017-02-12 12:41 | Inpatient (IN) ==
[2017-02-12] MEDS ORDERED: VANCOMYCIN 1,000 MG in SODIUM CHLORIDE 200 ML IV SCH (14:00)
[2017-02-12] MEDS ORDERED: SODIUM CHLORIDE 500 ML IV SCH (14:00)
[2017-02-12] MEDS ORDERED: POVIDONE OP PRN (14:19)
[2017-02-12] MEDS ORDERED: NITROSTAT SL PRN (14:19)
[2017-02-12] MEDS ORDERED: POLYVINYL ALCOHOL OP PRN (14:19)
[2017-02-12] MEDS ORDERED: [UNRECOGNIZED DRUG - OTHER] OP PRN (14:19)
[2017-02-12] MEDS ORDERED: PROAIR HFA IH PRN (14:19)
[2017-02-12] MEDS ORDERED: INSULIN ASPART 8 UNIT SQ SCH (14:30)
[2017-02-12 14:31] VITALS: BMI 29.2
[2017-02-12] MEDS: FLEXERIL PO SCH ×2 (15:45→21:18)
[2017-02-12] MEDS: PERCOCET 10-325 PO SCH ×2 (15:45→21:18)
--- NOTE | 2017-02-12 16:04 | DI ---
EXAM: Single frontal view of the chest HISTORY: Cough. COMPARISON: Chest x-ray 01/21/2017 and multiple priors FINDINGS: Cardiomediastinal silhouette is unchanged with atherosclerotic disease. There is no pneumo thorax or pleural effusion. There is no acute consolidation or mass. The osseous structures are unr emarkable. IMPRESSION: No acute cardiopulmonary process.
[2017-02-12] MEDS: SODIUM CHLORIDE 1,000 ML IV SCH (17:04)
[2017-02-12] MEDS: ROCEPHIN 1 GM in SODIUM CHLORIDE 50 ML IV SCH (17:06)
[2017-02-12] MEDS ORDERED: HUMALOG SUBCUT SCH (17:30)
[2017-02-12] MEDS: VANCOMYCIN 500 MG in SODIUM CHLORIDE 100 ML IV SCH ×2 (18:20→21:17)
[2017-02-12] MEDS ORDERED: NON-FORMULARY MEDICATION (Levetiracetam [Keppra] 1,000 MG) PO SCH (21:00)
[2017-02-12] MEDS ORDERED: EPA PO SCH (21:00)
[2017-02-12] MEDS ORDERED: D3 PO SCH (21:00)
[2017-02-12] MEDS ORDERED: OMEGA PO SCH (21:00)
[2017-02-12] MEDS ORDERED: FISH OIL PO SCH (21:00)
[2017-02-12] MEDS ORDERED: DHA PO SCH (21:00)
[2017-02-12] MEDS: ASPIRIN EC PO SCH (21:17)
[2017-02-12] MEDS: KEPPRA PO SCH (21:18)
[2017-02-12] MEDS: OMEGA-3 FISH OIL PO SCH (21:18)
[2017-02-12] MEDS: LANTUS SUBCUT SCH (21:18)
[2017-02-12] MEDS: PLAVIX PO SCH (21:18)
[2017-02-12] MEDS: HUMALOG SUBCUT PRN (21:19)
[2017-02-12] MEDS: XALATAN OP SCH (21:23)
[2017-02-13] MEDS: VANCOMYCIN 500 MG in SODIUM CHLORIDE 100 ML IV SCH ×3 (05:51→21:08)
[2017-02-13] MEDS: SYNTHROID PO SCH (05:51)
[2017-02-13] MEDS: PROTONIX PO SCH (05:51)
[2017-02-13] MEDS: LASIX TAB PO SCH (05:51)
[2017-02-13] MEDS: PERCOCET 10-325 PO SCH ×3 (08:24→21:01)
[2017-02-13] MEDS: HYDROCHLOROTHIAZIDE PO SCH (08:24)
[2017-02-13] MEDS: PRISTIQ ER PO SCH (08:24)
[2017-02-13] MEDS: OMEGA-3 FISH OIL PO SCH ×2 (08:25→21:02)
[2017-02-13] MEDS: FLEXERIL PO SCH ×3 (08:25→21:02)
[2017-02-13] MEDS: KEPPRA PO SCH ×2 (08:25→21:01)
[2017-02-13] MEDS: LIPITOR PO SCH (08:25)
[2017-02-13] MEDS: LYRICA PO SCH (08:25)
[2017-02-13] MEDS: ZESTRIL PO SCH (08:25)
[2017-02-13] MEDS: LOPRESSOR PO SCH (08:25)
[2017-02-13] MEDS: ROCEPHIN 1 GM in SODIUM CHLORIDE 50 ML IV SCH (08:29)
[2017-02-13] MEDS: MIRALAX PO SCH (08:29)
[2017-02-13] MEDS: ZOFRAN 4 MG/2 ML IVP SCH ×2 (08:55→17:23)
[2017-02-13] MEDS: DEMEROL 25 MG/ML VIAL IVP SCH ×2 (08:55→17:23)
[2017-02-13] MEDS ORDERED: NON-FORMULARY MEDICATION (Atorvastatin Calcium [Lipitor] 40 MG) PO SCH (09:00)
[2017-02-13] MEDS ORDERED: NON-FORMULARY MEDICATION (Desvenlafaxine Succinate [Pristiq] 100 MG) PO SCH (09:00)
[2017-02-13] MEDS ORDERED: NON-FORMULARY MEDICATION (Hydrochlorothiazide [Hydrochlorothiazide] 12.5 MG) PO SCH (09:00)
[2017-02-13] MEDS: HUMALOG SUBCUT PRN (13:50)
[2017-02-13] MEDS: ASPIRIN EC PO SCH (21:01)
[2017-02-13] MEDS: PLAVIX PO SCH (21:02)
[2017-02-13] MEDS: XALATAN OP SCH (21:03)
[2017-02-13] MEDS: LANTUS SUBCUT SCH (21:11)
[2017-02-14] MEDS: ZOFRAN 4 MG/2 ML IVP SCH ×3 (01:31→18:24)
[2017-02-14] MEDS: DEMEROL 25 MG/ML VIAL IVP SCH ×4 (01:31→22:08)
[2017-02-14] MEDS: SODIUM CHLORIDE 1,000 ML IV SCH (05:33)
[2017-02-14] MEDS: VANCOMYCIN 500 MG in SODIUM CHLORIDE 100 ML IV SCH ×3 (05:33→21:50)
[2017-02-14] MEDS: LASIX TAB PO SCH (05:33)
[2017-02-14] MEDS: PERCOCET 10-325 PO SCH ×3 (05:33→21:52)
[2017-02-14] MEDS: SYNTHROID PO SCH (05:34)
[2017-02-14] MEDS: PROTONIX PO SCH (05:34)
[2017-02-14] MEDS: ROCEPHIN 1 GM in SODIUM CHLORIDE 50 ML IV SCH (09:21)
[2017-02-14] MEDS: PRISTIQ ER PO SCH (09:24)
[2017-02-14] MEDS: OMEGA-3 FISH OIL PO SCH ×2 (09:26→21:52)
[2017-02-14] MEDS: LIPITOR PO SCH (09:26)
[2017-02-14] MEDS: ZESTRIL PO SCH (09:26)
[2017-02-14] MEDS: LOPRESSOR PO SCH (09:27)
[2017-02-14] MEDS: FLEXERIL PO SCH ×3 (09:27→21:51)
[2017-02-14] MEDS: HYDROCHLOROTHIAZIDE PO SCH (09:27)
[2017-02-14] MEDS: KEPPRA PO SCH ×2 (09:28→21:50)
[2017-02-14] MEDS: LYRICA PO SCH (09:28)
[2017-02-14] MEDS: MIRALAX PO SCH (09:29)
[2017-02-14] MEDS: HUMALOG SUBCUT PRN ×2 (12:01→17:30)
[2017-02-14] MEDS: ASPIRIN EC PO SCH (21:51)
[2017-02-14] MEDS: PLAVIX PO SCH (21:52)
[2017-02-14] MEDS: LANTUS SUBCUT SCH (21:52)
[2017-02-14] MEDS: XALATAN OP SCH (21:53)
[2017-02-15] MEDS: ZOFRAN 4 MG/2 ML IVP SCH ×3 (01:41→13:50)
[2017-02-15] MEDS: DEMEROL 25 MG/ML VIAL IVP SCH ×3 (05:41→14:05)
[2017-02-15] MEDS: SYNTHROID PO SCH (05:42)
[2017-02-15] MEDS: VANCOMYCIN 500 MG in SODIUM CHLORIDE 100 ML IV SCH ×3 (05:42→20:57)
[2017-02-15] MEDS: PROTONIX PO SCH (05:43)
[2017-02-15] MEDS: LASIX TAB PO SCH (05:43)
[2017-02-15] MEDS: PERCOCET 10-325 PO SCH ×3 (05:54→20:59)
[2017-02-15] MEDS: MIRALAX PO SCH (09:30)
[2017-02-15] MEDS: ROCEPHIN 1 GM in SODIUM CHLORIDE 50 ML IV SCH (09:31)
[2017-02-15] MEDS: OMEGA-3 FISH OIL PO SCH ×2 (09:34→20:57)
[2017-02-15] MEDS: LOPRESSOR PO SCH (09:34)
[2017-02-15] MEDS: PRISTIQ ER PO SCH (09:34)
[2017-02-15] MEDS: HYDROCHLOROTHIAZIDE PO SCH (09:35)
[2017-02-15] MEDS: LIPITOR PO SCH (09:35)
[2017-02-15] MEDS: KEPPRA PO SCH ×2 (09:35→20:57)
[2017-02-15] MEDS: LYRICA PO SCH (09:35)
[2017-02-15] MEDS: ZESTRIL PO SCH (09:35)
[2017-02-15] MEDS: FLEXERIL PO SCH ×3 (09:37→20:57)
[2017-02-15] MEDS: HUMALOG SUBCUT PRN ×2 (12:16→17:34)
[2017-02-15] MEDS: SODIUM CHLORIDE 1,000 ML IV SCH (12:20)
[2017-02-15] MEDS: PLAVIX PO SCH (20:57)
[2017-02-15] MEDS: ASPIRIN EC PO SCH (20:57)
[2017-02-15] MEDS: LANTUS SUBCUT SCH (21:00)
[2017-02-15] MEDS: XALATAN OP SCH (21:00)
[2017-02-16] MEDS: SODIUM CHLORIDE 1,000 ML IV SCH (01:20)
[2017-02-16] MEDS: PERCOCET 10-325 PO SCH ×2 (05:53→13:24)
[2017-02-16] MEDS: LASIX TAB PO SCH (05:53)
[2017-02-16] MEDS: PROTONIX PO SCH (05:53)
[2017-02-16] MEDS: SYNTHROID PO SCH (05:53)
[2017-02-16] MEDS: VANCOMYCIN 500 MG in SODIUM CHLORIDE 100 ML IV SCH ×2 (06:06→21:18)
[2017-02-16] MEDS ORDERED: DRISDOL PO SCH (09:00)
[2017-02-16] MEDS: LIPITOR PO SCH (09:01)
[2017-02-16] MEDS: PRISTIQ ER PO SCH (09:01)
[2017-02-16] MEDS: OMEGA-3 FISH OIL PO SCH ×2 (09:01→20:57)
[2017-02-16] MEDS: KEPPRA PO SCH ×2 (09:02→20:57)
[2017-02-16] MEDS: MIRALAX PO SCH (09:02)
[2017-02-16] MEDS: ROCEPHIN 1 GM in SODIUM CHLORIDE 50 ML IV SCH (09:02)
--- NOTE | 2017-02-16 10:03 | CT ---
EXAM: CT head without contrast. HISTORY: Lethargy. Altered level of consciousness. COMPARISON: 09/08/2014. TECHNIQUE: Multiple axial images of the brain were obtained from the skull base through the vertex w ithout intravenous contrast. Multiplanar reformats were provided. FINDINGS: There is no intracranial hemorrhage or extraaxial collection. The land-white differentiat ion is maintained without evidence for acute large vascular territory infarction. There are areas of periventricular and subcortical white matter low attenuation. The cortical sulci and cerebral ventr icles are symmetrically enlarged. The basal cisterns are well visualized. There is no hydrocephalus , mass effect, or midline shift. The paranasal sinuses and mastoid air cells are clear. The calvari um is intact. Since the prior study, there has been no significant interval change. IMPRESSION: 1. No acute intracranial abnormality. 2. Chronic small vessel ischemic changes and atrophy.
--- NOTE | 2017-02-16 15:35 | PN ---
DATE OF SERVICE: 02/14/17 SUBJECTIVE: The patient was admitted with bilateral lower extremity cellulitis circumferential. Pain and redness is somewhat better but still has a lot of redness, seeping has improved. Tender to touch. REVIEW OF SYSTEMS: CONSTITUTIONAL: No fever, no chills. HEENT: Normal. ENDOCRINE: No weight gain, no weight loss. CVS: No angina symptoms. No CHF symptoms. No palpitations. No atypical chest pain for CAD. No shortness of breath. No PND, no orthopnea. RESPIRATORY: No cough, no hemoptysis. GI: No nausea, no vomiting. No abdominal pain. : No hematuria. No polyuria. MUSCULOSKELETAL:. No joint swelling. PSYCHIATRIC: Not anxious. No depression. No suicidal thoughts. No homicidal thoughts. SKIN: Intact. No rash. PHYSICAL EXAMINATION: V/S: Blood pressure 112/68, respiratory rate 18, heart rate 67, temperature 97.9 with saturation 92%. HEENT: Normocephalic, atraumatic. Mucosa dry. NECK: Supple. No JVD, no carotid bruit. No lymphadenopathy. LUNGS: Bilateral entry is decreased. Clear to auscultation. No rales or rhonchi. HEART: S1, S2 normal. No S3. No murmur, gallop or regurgitation. ABDOMEN: Soft, nontender. Bowel sounds active. No rigidity. No rebound or guarding. No CVA tenderness. EXTREMITIES: No clubbing, cyanosis. 2+ edema in both lower extremity. Redness circumferential is present. Some skin cracks all seen in the right lower extremity. MUSCULOSKELETAL: No joint swelling. NEUROLOGIC: Awake, alert, oriented times three. No focal deficit. LYMPHATIC: No lymph nodes palpable. SKIN: Intact. LABS: WBC 7.30, hgb 12.0, hct 37.5, plt count 413, sodium 142, potassium 4.4, chloride 104, bicarb 25, BUN 17, creatinine 0.97 and glucose 144. ASSESSMENT: 1. Bilateral lower extremity circumferential cellulitis, 2+ edema 2. CAD, status post angioplasty in December 3. Diabetes 4. Hypertension 5. Dyslipidemia 6. DJD spine 7. Chronic pain syndrome 8. Depression 9. Anxiety PLAN: 1. Continue Rocephin 1 gram daily 2. Keep the legs elevated 3. Vancomycin 1 gram daily 4. Lasix 5. Demerol for the pain 6. Accu-checks with coverage 7. IV fluids at 35ml per hour TIME SPENT: More than 35 minutes MTDD
[2017-02-16] MEDS ORDERED: PERCOCET 10-325 ONE (20:22)
[2017-02-16] MEDS ORDERED: FLEXERIL ONE (20:23)
[2017-02-16] MEDS: XALATAN OP SCH (20:57)
[2017-02-16] MEDS: ASPIRIN EC PO SCH (20:57)
[2017-02-16] MEDS: PLAVIX PO SCH (20:58)
[2017-02-16] MEDS: LANTUS SUBCUT SCH (20:59)
[2017-02-16] MEDS: HUMALOG SUBCUT PRN (21:18)
[2017-02-17 05:23] VITALS: BP 167/68; TEMP 99.2
[2017-02-17] MEDS: LASIX TAB PO SCH (06:08)
[2017-02-17] MEDS: SYNTHROID PO SCH (06:08)
[2017-02-17] MEDS: PROTONIX PO SCH (06:08)
[2017-02-17] MEDS: OMEGA-3 FISH OIL PO SCH (09:07)
[2017-02-17] MEDS: KEPPRA PO SCH (09:07)
[2017-02-17] MEDS: LIPITOR PO SCH (09:07)
[2017-02-17] MEDS: MIRALAX PO SCH (09:08)
[2017-02-17] MEDS: ROCEPHIN 1 GM in SODIUM CHLORIDE 50 ML IV SCH (09:08)
[2017-02-17] MEDS: PRISTIQ ER PO SCH (09:08)
[2017-02-17] MEDS: VANCOMYCIN 500 MG in SODIUM CHLORIDE 100 ML IV SCH (09:48)
[2017-02-17] MEDS: SODIUM CHLORIDE 1,000 ML IV SCH (09:48)
[2017-02-17] MEDS ORDERED: PERCOCET 10-325 PO STA (11:47)
--- NOTE | 2017-02-18 11:07 | PN ---
DATE OF SERVICE: 02/13/17 SUBJECTIVE: The patient was admitted with bilateral lower extremity cellulitis and acute on chronic heart failure. She is getting IV Rocephin and Vancomycin. Swelling is still present. It is warm to touch and hard to touch. Drainage of the clear fluid from the right leg more than the left. REVIEW OF SYSTEMS: CONSTITUTIONAL: No fever, no chills. HEENT: Normal. ENDOCRINE: No weight gain, no weight loss. CVS: No angina symptoms. No CHF symptoms. No palpitations. No atypical chest pain for CAD. No shortness of breath. No PND, no orthopnea. RESPIRATORY: No cough, no hemoptysis. GI: No nausea, no vomiting. No abdominal pain. : No hematuria. No polyuria. MUSCULOSKELETAL:. No joint swelling. PSYCHIATRIC: Not anxious. No depression. No suicidal thoughts. No homicidal thoughts. SKIN: Intact. No rash. PHYSICAL EXAMINATION: V/S: Blood pressure 137/67, respiratory rate 16, heart rate 74, temperature 97.8 , saturation is 97. HEENT: Normocephalic, atraumatic. Mucosa dry. Pallor positive. No icterus. NECK: Supple. No JVD, no carotid bruit. No lymphadenopathy. LUNGS: Clear to auscultation. No rales or rhonchi. HEART: S1, S2 normal. No S3. No murmur, gallop or regurgitation. ABDOMEN: Soft, nontender. Bowel sounds active. No rigidity. No rebound or guarding. No CVA tenderness. EXTREMITIES: Bilateral lower extremities edema 2+ in both extremities. Circumferential redness mid shaft area tender to touch. Cracked skin. Left leg tender to touch, warm to touch, redness and swelling is present. MUSCULOSKELETAL: No joint swelling. NEUROLOGIC: Awake, alert, oriented times three. No focal deficit. LYMPHATIC: No lymph nodes palpable. SKIN: Intact. LABS: White count 10.17, hemoglobin 12.2, hematocrit 37.9, platelet count 431, sodium 141, potassium 4.5, chloride 106, bicarb 26, BUN 15, creatinine 0.77, glucose 137. ASSESSMENT: 1. BILATERAL LOWER EXTREMITY CELLULITIS WITH CIRCUMFERENTIAL CELLULITIS 2. WORSENING DEPENDENT EDEMA 3. CORONARY ARTERY DISEASE 4. CONGESTIVE HEART FAILURE 5. RECENT ANGIOPLASTY IN JANUARY 05. DEPRESSION 7. DIABETES 8. OSTEOARTHRITIS 9. CHRONIC PAIN SYNDROME PLAN: 1. Will start the patient on Demerol 25 every 12 hours. 2. Keep the legs elevated. 3. Rocephin and Vancomycin. 4. IV fluids. 5. Accuchecks with coverage. TIME SPENT: More than 35 minutes today DAVID
[2017-02-19] MEDS ORDERED: NON-FORMULARY MEDICATION (Cholecalciferol (Vitamin D3) [Vitamin D3] 50,000 UNIT) PO SCH (09:00)
--- NOTE | 2017-03-06 10:29 | PN ---
DATE OF SERVICE: 02/15/17 SUBJECTIVE: The patient was admitted with bilateral lower extremity cellulitis and the patient is getting the Rocephin and Vancomycin and is feeling better. The patient is walking more. The leg edema is a little bit better, but no obvious change. Otherwise, no fever or chills. REVIEW OF SYSTEMS: CONSTITUTIONAL: No fever, no chills. HEENT: Normal. ENDOCRINE: No weight gain, no weight loss. CVS: No angina symptoms. No CHF symptoms. No palpitations. No atypical chest pain for CAD. No shortness of breath. No PND, no orthopnea. RESPIRATORY: No cough, no hemoptysis. GI: No nausea, no vomiting. No abdominal pain. : No hematuria. No polyuria. MUSCULOSKELETAL: No joint swelling. PSYCHIATRIC: Not anxious. No depression. No suicidal thoughts. No homicidal thoughts. SKIN: Cellulitis of bilateral lower extremities. PHYSICAL EXAMINATION: V/S: Blood pressure 96/59, respiratory rate 18, heart rate is 74, temperature 97.8, saturation is 96 on 2 liters. HEENT: Normocephalic, atraumatic. Mucosa dry. Pallor positive. No icterus. NECK: Supple. No JVD, no carotid bruit. No lymphadenopathy. LUNGS: Bilateral air entry is decreased and basilar crackles. No rales or rhonchi. HEART: S1, S2 normal. No S3. Systolic murmur positive. No gallop or regurgitation. ABDOMEN: Soft, nontender. Bowel sounds active. No rigidity. No rebound or guarding. No CVA tenderness. EXTREMITIES: 1+ edema, redness of circumferential areas on the right lower and left lower extremities. No the right lower extremity there is more excoriations and oozing sites are seen. Otherwise, no other findings. MUSCULOSKELETAL: No joint swelling. NEUROLOGIC: Awake, alert, oriented times three. No focal deficit. LYMPHATIC: No lymph nodes palpable. SKIN: Cellulitis of bilateral lower extremities. LABS: White count 9.03, hemoglobin 11.3, hematocrit 36.3, platelet count 362, sodium 139, potassium 4.8, chloride 104, bicarb 25, BUN 20, creatinine 1.15, glucose 148. ASSESSMENT: 1. BILATERAL LOWER EXTREMITY CELLULITIS, DIFFUSE 2. DIABETES MELLITUS 3. HYPERTENSION 4. DYSLIPIDEMIA 5. CORONARY ARTERY DISEASE 6. CONGESTIVE HEART FAILURE 7. CHRONIC PAIN SYNDROME 8. DEPRESSION 9. ANXIETY PLAN: 1. Continue Rocephin and Vancomycin. 2. Keep the legs elevated. 3. Fall risk. 4. Multiple medication and side effects were discussed. She verbalized understanding. TIME SPENT: More than 35 minutes today. DAVID
--- NOTE | 2017-03-06 10:51 | PN ---
DATE OF SERVICE: 02/16/17 SUBJECTIVE: The patient was admitted with bilateral lower extremity cellulitis. The patient, today, is more lethargy and responds to verbal stimuli and goes back to sleep. The patient's daughter is worried. REVIEW OF SYSTEMS: CONSTITUTIONAL: No fever, no chills. HEENT: Normal. ENDOCRINE: No weight gain, no weight loss. CVS: No angina symptoms. No CHF symptoms. No palpitations. No atypical chest pain for CAD. No shortness of breath. No PND, no orthopnea. RESPIRATORY: No cough, no hemoptysis. GI: No nausea, no vomiting. No abdominal pain. : No hematuria. No polyuria. MUSCULOSKELETAL: No joint swelling. PSYCHIATRIC: Not anxious. No depression. No suicidal thoughts. No homicidal thoughts. SKIN: Intact. No rash. PHYSICAL EXAMINATION: V/S: Blood pressure 117/71, respiratory rate 16, heart rate 78, saturation 94, temperature 97.8. HEENT: Normocephalic, atraumatic. Mucosa dry. Pallor positive. No icterus. NECK: Supple. No JVD, no carotid bruit. No lymphadenopathy. LUNGS: Clear to auscultation. No rales or rhonchi. HEART: S1, S2 normal. No S3. No murmur, gallop or regurgitation. ABDOMEN: Soft, nontender. Bowel sounds active. No rigidity. No rebound or guarding. No CVA tenderness. EXTREMITIES: 1+ edema. MUSCULOSKELETAL: No joint swelling. NEUROLOGIC: Responds to the painful and verbal stimuli and then goes back to sleep. Moving all four extremities. LYMPHATIC: No lymph nodes palpable. SKIN: Intact. LABS: Sodium 139, potassium 4.8, chloride 104, bicarb 25, BUN 20, creatinine 1.15. White count 9.03, hemoglobin 11.3, hematocrit 36.0, platelet count 362. ASSESSMENT: 1. BILATERAL LOWER EXTREMITY CELLULITIS CIRCUMFERENTIALLY 2. CHANGE IN MENTAL STATUS, RULE OUT STROKE 3. POLYSUBSTANCE USE. WE WILL GET A URINE DRUG SCREEN. 4. CORONARY ARTERIAL DISEASE 5. CONGESTIVE HEART FAILURE 6. DIABETES 7. DYSLIPIDEMIA 8. DJD OF THE SPINE 9. DEPRESSION 10. ANXIETY PLAN: 1. Continue the Rocephin and Vancomycin. 2. Keep the legs elevated. 3. Obtain a CT scan of the head. 4. Will continue to monitor the Keppra level. TIME SPENT: More than 35 minutes today. MTDD
--- NOTE | 2017-03-06 11:18 | DS ---
DATE OF SERVICE: 02/17/17 FINAL DIAGNOSIS: 1. BILATERAL LOWER EXTREMITY CELLULITIS, CIRCUMFERENTIAL WITH OOZING 2. ACUTE ON CHRONIC HEART FAILURE 3. CORONARY ARTERY DISEASE 4. RECENT ANGIOPLASTY IN DECEMBER 5. DIABETES 6. DJD OF THE SPINE 7. OSTEOARTHRITIS 8. GERD 9. CHRONIC PAIN SYNDROME 10. POLYSUBSTANCE USE PLAN: 1. Discharge the patient home. 2. Keflex 500 mg twice a day for five more days. 3. Keep the legs elevated when resting. 4. Probiotics and yogurt. 5. Decrease the dose of the Flexeril and Percocet, as the patient is groggy and not more awake or active during this whole time. 6. Diet: Cardiac and healthy. 7. Activity: As much as tolerated. HOME MEDICATIONS: Atorvastatin, Keflex, ProAir, Aspirin, Lipitor, Vitamin D3, Plavix, Lasix, Oxycodone, NovoLog, Insulin Glargine, Latanoprost, Keppra, Levothyroxine, Zestril, Metoprolol, Miralax, Polyvinyl. DISEASE SPECIFIC EDUCATION: About the lower extremity cellulitis, deep wound and bone infection very discussed. She verbalized understanding. HOSPITAL COURSE: Cynthia Familia, who came to the office for worsening, swelling redness and pain in both lower extremities. The patient did have eczematous rashes and psoriatic rashes, which gets puffy or red and swollen and tender. At that time, the patient was admitted from the office directly for the IV antibiotics and treatment. BNP was negative, so it was not heart failure. She was started on the Rocephin and Vancomycin and kept the legs elevated. The patient had an incident where the patient was not herself and lethargic. Urine drug screen done which did not show anything acutely positive and only the patient's medications were shown. Meanwhile, the patient was up and about walking. Leg edema is a lot improved. She is doing better. At that time, she is being discharged to home. We will be contacting the patient for outpatient follow up in the [facility]. TIME SPENT: MORE THAN 35 MINUTES TODAY DAVID
== END 2017-02-17 12:20 | disposition home or self-care (01) | DRG 603 ==
LOC: MEDSURG B 12:41 → UNDOADMIN 12:41
PROVIDERS: ADMIT Emergency Medicine; ATTEND Emergency Medicine
DX: L03.116 Cellulitis of left lower limb (principal); L03.115 Cellulitis of right lower limb; I50.9 Heart failure, unspecified; I25.10 Atherosclerotic heart disease of native coronary artery without angina pectoris; E11.9 Type 2 diabetes mellitus without complications; F19.90 Other psychoactive substance use, unspecified, uncomplicated; G89.4 Chronic pain syndrome; M47.9 Spondylosis, unspecified; K21.9 Gastro-esophageal reflux disease without esophagitis; M19.90 Unspecified osteoarthritis, unspecified site; F41.8 Other specified anxiety disorders; R41.82 Altered mental status, unspecified; R53.83 Other fatigue; Z98.61 Coronary angioplasty status; Z79.891 Long term (current) use of opiate analgesic; Z79.4 Long term (current) use of insulin; Z79.02 Long term (current) use of antithrombotics/antiplatelets; Z79.899 Other long term (current) drug therapy
CPT/HCPCS: 36415; 80053; 80202; 80306; 81001; 82542; 82550; 82962; 83880; 84484; 85025; 87086; 93005; 93010

== ENCOUNTER 2017-02-18 00:20 | Outpatient (CLI) | payer OTHER | END 2017-02-18 00:21 | disposition short-term general hospital (02) | LOC: AMBL 00:20 | PROVIDERS: ATTEND Family Medicine | DX: R50.9 Fever, unspecified (principal); R40.4 Transient alteration of awareness; E11.9 Type 2 diabetes mellitus without complications ==

== ENCOUNTER 2017-04-10 12:40 | Inpatient (IN) | payer OTHER ==
[2017-04-10 13:22] VITALS: BMI 27.6
[2017-04-10] MEDS: PERCOCET 10-325 PO PRN ×2 (14:40→22:17)
[2017-04-10] MEDS ORDERED: VANCOMYCIN 1 GM in SODIUM CHLORIDE 250 ML IV ONE (15:00)
[2017-04-10] MEDS: ROCEPHIN 1 GM in SODIUM CHLORIDE 50 ML IV SCH (15:59)
[2017-04-10] MEDS ORDERED: TYLENOL PO SCH (18:00)
[2017-04-10] MEDS: TYLENOL PO SCH (18:32)
[2017-04-10] MEDS: OMEGA-3 FISH OIL PO SCH (20:54)
[2017-04-10] MEDS: LOPRESSOR PO SCH (20:55)
[2017-04-10] MEDS: ASPIRIN EC PO SCH (20:55)
[2017-04-10] MEDS ORDERED: OMEGA PO SCH (21:00)
[2017-04-10] MEDS ORDERED: DHA PO SCH (21:00)
[2017-04-10] MEDS ORDERED: D3 PO SCH (21:00)
[2017-04-10] MEDS ORDERED: FISH OIL PO SCH (21:00)
[2017-04-10] MEDS ORDERED: EPA PO SCH (21:00)
[2017-04-10] MEDS: HUMULIN R SUBCUT PRN (21:04)
[2017-04-11] MEDS: TYLENOL PO SCH ×4 (00:59→17:17)
[2017-04-11] MEDS: HUMULIN R SUBCUT PRN ×4 (05:28→21:09)
[2017-04-11] MEDS: PROTONIX PO SCH (05:31)
[2017-04-11] MEDS: PERCOCET 10-325 PO PRN ×3 (07:19→21:11)
[2017-04-11] MEDS: LOPRESSOR PO SCH ×2 (08:10→21:12)
[2017-04-11] MEDS: LIPITOR PO SCH (08:10)
[2017-04-11] MEDS: MIRALAX PO SCH (08:12)
[2017-04-11] MEDS: LYRICA PO SCH (08:12)
[2017-04-11] MEDS: OMEGA-3 FISH OIL PO SCH ×2 (08:12→21:12)
[2017-04-11] MEDS: ROCEPHIN 1 GM in SODIUM CHLORIDE 50 ML IV SCH (08:13)
[2017-04-11] MEDS: ZESTRIL PO SCH (08:13)
[2017-04-11] MEDS ORDERED: NON-FORMULARY MEDICATION (Atorvastatin Calcium [Lipitor] 40 MG) PO SCH (09:00)
[2017-04-11] MEDS: VANCOMYCIN 500 MG in SODIUM CHLORIDE 100 ML IV SCH ×2 (09:21→21:05)
[2017-04-11] MEDS: ASPIRIN EC PO SCH (21:11)
[2017-04-12] MEDS: TYLENOL PO SCH ×4 (00:04→17:08)
[2017-04-12] MEDS: PERCOCET 10-325 PO PRN ×3 (04:21→20:58)
[2017-04-12] MEDS: HUMULIN R SUBCUT PRN ×4 (05:34→20:58)
[2017-04-12] MEDS: PROTONIX PO SCH (05:35)
[2017-04-12] MEDS ORDERED: LASIX IVP STA (08:04)
[2017-04-12] MEDS: OMEGA-3 FISH OIL PO SCH ×2 (08:52→20:57)
[2017-04-12] MEDS: MIRALAX PO SCH (08:52)
[2017-04-12] MEDS: LYRICA PO SCH (08:52)
[2017-04-12] MEDS: LIPITOR PO SCH (08:52)
[2017-04-12] MEDS: ZESTRIL PO SCH (08:52)
[2017-04-12] MEDS: ROCEPHIN 1 GM in SODIUM CHLORIDE 50 ML IV SCH (08:53)
[2017-04-12] MEDS: LOPRESSOR PO SCH ×2 (08:53→20:57)
[2017-04-12] MEDS: VANCOMYCIN 500 MG in SODIUM CHLORIDE 100 ML IV SCH (10:32)
[2017-04-12] MEDS ORDERED: BACTRIM DS 800/160 MG PO STA (20:08)
[2017-04-12] MEDS: ASPIRIN EC PO SCH (20:57)
[2017-04-13] MEDS: TYLENOL PO SCH ×2 (00:46→05:35)
[2017-04-13] MEDS: PERCOCET 10-325 PO PRN ×2 (04:30→09:20)
[2017-04-13] MEDS: PROTONIX PO SCH (05:36)
[2017-04-13] MEDS: HUMULIN R SUBCUT PRN (05:45)
[2017-04-13] MEDS: MIRALAX PO SCH (09:14)
[2017-04-13] MEDS: LIPITOR PO SCH (09:15)
[2017-04-13] MEDS: LOPRESSOR PO SCH (09:15)
[2017-04-13] MEDS: OMEGA-3 FISH OIL PO SCH (09:16)
[2017-04-13] MEDS: LYRICA PO SCH (09:16)
[2017-04-13] MEDS: ZESTRIL PO SCH (09:17)
[2017-04-13] MEDS: ROCEPHIN 1 GM in SODIUM CHLORIDE 50 ML IV SCH (09:22)
[2017-04-13 10:18] VITALS: BP 153/73; TEMP 98.2
--- NOTE | 2017-04-13 13:15 | PN ---
DATE OF SERVICE: 04/11/17 SUBJECTIVE: Leg swelling is slightly improved. Redness and tenderness is still present. No fever or chills since admission. REVIEW OF SYSTEMS: CONSTITUTIONAL: No fever, no chills. HEENT: Normal. ENDOCRINE: No weight gain, no weight loss. CVS: No angina symptoms. No CHF symptoms. No palpitations. No atypical chest pain for CAD. No shortness of breath. No PND, no orthopnea. RESPIRATORY: No cough, no hemoptysis. GI: No nausea, no vomiting. No abdominal pain. : No hematuria. No polyuria. MUSCULOSKELETAL: Leg swelling, redness and tenderness. PSYCHIATRIC: Not anxious. No depression. No suicidal thoughts. No homicidal thoughts. SKIN: Intact. No rash. PHYSICAL EXAMINATION: V/S: BP 150/82, respiratory rate 18, heart rate 73, temperature 98.1. Saturation normal. HEENT: Normocephalic, atraumatic. NECK: Supple. No JVD, no carotid bruit. No lymphadenopathy. LUNGS: Decreased entry with clear to auscultation. No rales or rhonchi. HEART: S1, S2 normal. No S3. Systolic murmur positive. ABDOMEN: Soft, nontender. Bowel sounds active. No rigidity. No rebound or guarding. No CVA tenderness. EXTREMITIES: 1+ edema. Redness and tenderness in right leg present. Left leg redness and tenderness present but swelling is better than the right leg. No clubbing or cyanosis MUSCULOSKELETAL: No joint swelling. NEUROLOGIC: Awake, alert, oriented times three. No focal deficit. LYMPHATIC: No lymph nodes palpable. SKIN: Intact. LABS: White count 13.03, hemoglobin 14.0, hematocrit 41.5, platelet count 402. Sodium 140, potassium 30.8, chloride 102, bicarb 29, BUN 14, creatinine 0.86, glucose 311. Lactic acid 14.2. ASSESSMENT: 1. BILATERAL LOWER EXTREMITY EDEMA 2. BILATERAL LOWER EXTREMITY CELLULITIS 3. HISTORY OF CAD 4. ANGINA 5. CHF 6. DIABETES, POORLY CONTROLLED 7. HYPERTENSION 8. DYSLIPIDEMIA 9. ANXIETY DISORDER PLAN: 1. Continue the Rocephin and Vancomycin 2. Keep the legs elevated 3. Continue the home medication 4. Increase the Hydrocodone to three times a day TIME SPENT: More than 35 minutes MTDD
--- NOTE | 2017-04-13 14:47 | PN ---
DATE OF SERVICE: 04/12/17 SUBJECTIVE: The patient was admitted with the bilaterally lower extremity cellulitis. Been treating with the Rocephin and Vancomycin. Swelling and redness is getting better. REVIEW OF SYSTEMS: CONSTITUTIONAL: No fever, no chills. HEENT: Normal. ENDOCRINE: No weight gain, no weight loss. CVS: No angina symptoms. No CHF symptoms. No palpitations. No atypical chest pain for CAD. No shortness of breath. No PND, no orthopnea. RESPIRATORY: No cough, no hemoptysis. GI: No nausea, no vomiting. No abdominal pain. : No hematuria. No polyuria. MUSCULOSKELETAL: No joint swelling. PSYCHIATRIC: Not anxious. No depression. No suicidal thoughts. No homicidal thoughts. SKIN: Intact. No rash. PHYSICAL EXAMINATION: V/S: Blood pressure 147/72, respiratory rate 20, heart rate 79, temperature 98.1 with saturation 95%. HEENT: Normocephalic, atraumatic. Mucosa dry. NECK: Supple. No JVD, no carotid bruit. No lymphadenopathy. LUNGS: Decreased and clear to auscultation. No rales or rhonchi. HEART: S1, S2 normal. No S3. Systolic murmur positive, gallop or regurgitation. ABDOMEN: Soft, nontender. Bowel sounds active. No rigidity. No rebound or guarding. No CVA tenderness. EXTREMITIES: No pedal edema. No clubbing or cyanosis. Redness and swelling is present in both lower extremities. More redness and pain in the right lower extremity then the left lower extremity. MUSCULOSKELETAL: No joint swelling. NEUROLOGIC: Awake, alert, oriented times three. No focal deficit. LYMPHATIC: No lymph nodes palpable. SKIN: Intact. LABS: WBC 13.03, hgb 14.2, hct 41.5, plt count 402, sodium 140, potassium 3.8, chloride 102, bicarb 29, BUN 14, creatinine 0.86 and glucose 311. ASSESSMENT: 1. Bilateral extremity cellulitis 2. History of coronary artery disease 3. Angina 4. Congestive heart failure 5. Hypertension 6. Dyslipidemia 7. Dependant edema 8. Osteoarthritis 9. DJD spine 10.Diabetes Labile PLAN: 1. Lasix 40mg IV push 2. Continue the Rocephin and Vancomycin 3. Keep the legs elevated. TIME SPENT: More than 35 minutes MTDD
--- NOTE | 2017-04-28 07:57 | DS ---
DATE OF SERVICE: 04/13/17 FINAL DIAGNOSIS: 1. Bilateral lower extremity cellulitis with chronic history of Psoriasis in the legs 2. Coronary artery disease 3. Congestive heart failure 4. Angina 5. Depression 6. DJD spine 7. Diabetes, Labile 8. History of polysubstance use 9. Depression 10.Anxiety 11.senior living pain medication use. DISCHARGE INSTRUCTIONS: Discharge the patient home. Keep the legs elevated when rest. We will see the patient in the office within one week to 10 days. Continue the home medications. MEDICATIONS AT DISCHARGE: Tylenol ProAir Aspirin Lipitor Vitamin D3 Plavix Cyclobenzaprine Pristiq Lasix Insulin Lantus Keppra Levothyroxine Lisinopril Lopressor [place] 3 Oxycodone Pantoprazole Miralax Lyrica NEW PRESCRIPTIONS: Bactrim DS twice a day for 5 days DIET INSTRUCTIONS: Diabetic and cardiac diet No salt diet Restrict the fluids to 1,000ml Probiotics and yogurt ACTIVITY: As much as tolerated. Keep the legs elevated when resting. SMOKING: Current every day smoker, light tobacco smoker. DISEASE SPECIFIC EDUCATION: Lower extremity edema Cellulitis Eczema and psoriatic rash been discussed and verbalized understanding Antibiotic use and diarrhea been discussed and verbalized understanding. HOSPITAL COURSE: Cynthia Barbosa 61 year old female with chronic leg edema with off and on cellulitis was seen initial in the office on 04/10/17 and started on some oral antibiotics and the swelling and redness in both lower extremities was not better so the patient was admitted to the hospital and started on the Rocephin and Vancomycin. Extra dose of Lasix was given. Gradually the redness and swelling in both lower extremity was getting better. Right leg was more swollen , red and warm to touch, hot to touch. WBC initially was 13,000 which came down to 10. Did not have any problems. Vancomycin trough levels were within normal limits by two to three days. By keeping the legs elevated could see some wrinkles in both lower extremities. At that time the patient is being discharged home on antibiotics Bactrim DS and advised to increase hydration. TIME SPENT: MORE THAN 65 MINUTES MTDD
== END 2017-04-13 11:55 | disposition home or self-care (01) | DRG 603 ==
LOC: UNDOADMIN 12:40 → MEDSURG A 12:40
PROVIDERS: ADMIT Emergency Medicine; ATTEND Emergency Medicine
DX: L03.116 Cellulitis of left lower limb (principal); E24.9 Cushing's syndrome, unspecified; L03.115 Cellulitis of right lower limb; I25.119 Atherosclerotic heart disease of native coronary artery with unspecified angina pectoris; F17.210 Nicotine dependence, cigarettes, uncomplicated; I50.9 Heart failure, unspecified; F32.9 Major depressive disorder, single episode, unspecified; M47.9 Spondylosis, unspecified; E11.9 Type 2 diabetes mellitus without complications; Z79.4 Long term (current) use of insulin; F19.11 Other psychoactive substance abuse, in remission; F41.9 Anxiety disorder, unspecified; Z79.891 Long term (current) use of opiate analgesic; Z79.899 Other long term (current) drug therapy; I12.9 Hypertensive chronic kidney disease with stage 1 through stage 4 chronic kidney disease, or unspecified chronic kidney disease; N18.9 Chronic kidney disease, unspecified; I25.2 Old myocardial infarction; K21.9 Gastro-esophageal reflux disease without esophagitis; G62.9 Polyneuropathy, unspecified; M48.00 Spinal stenosis, site unspecified
CPT/HCPCS: 36415; 80053; 80202; 82962; 83605; 83880; 84145; 85025

== ENCOUNTER 2017-06-01 08:45 | Outpatient (CLI) | payer OTHER ==
--- NOTE | 2017-06-01 12:42 | MRI ---
EXAM: MRI cervical spine without IV contrast. DATE: 01 June 2017. HISTORY: Cervical disc disease and facet joint arthropathy. TECHNIQUE: Sagittal and axial T1W and T2W sequences of the cervical spine along with sagittal IR and coronal T2W sequences were obtained using 1.2 Deepika magnet. No IV contrast. COMPARISON: C-spine series 08/07/2009. CT C-spine 08/07/2008. FINDINGS: There is no cervical scoliosis. No acute c-spine fracture, subluxation, osseous malignanc y, or jumped facet is evident. Cervical vertebra are normal in height. Areas of T2W/T1W bright sign al in the vertebra likely represent degenerative endplate changes and/or fatty infiltration. Tiny an terior osteophytes are seen at C5-6 and C6-7. Intervertebral discs are normal in height. Cervical s juanita cord reveals no syrinx, cord edema, myelomalacia, or neoplasm. Visible brainstem and cerebellum are unremarkable. A few inferior left mastoid air cells have T2W br ight signal suggesting minor disease. Bilateral parotid gland substantial fatty infiltration is obse rved. Right thyroid lobe appears to be surgically absent. Left thyroid lobe is large and lobulated, with heterogeneous signal suggesting multinodular goiter. No parotid or submandibular gland neoplas m is identified. Trachea, larynx, and epiglottis are normal. No suspicious neck mass, cervical lymp hadenopathy, apical lung mass, pneumonia, or pleural effusion is demonstrated. Segmental analysis: C1-2: Small notched appearance of the posterior aspect of the odontoid may represent arthritic relat ed cysts/geode. C2-3: Small posterior disc bulge (2.2 mm AP) contacts the cord anteriorly. There is ligamentum flav um hypertrophy. Canal is 6.9 mm AP. Each foramen is patent. C3-4: Broad posterior disc/osteophyte complex (3.2 mm AP) flattens the cord against the posterior wa ll of the canal. There is mild ligamentum flavum hypertrophy. Canal is 4.7 mm AP. Minor left derek inal narrowing is due to uncinate hypertrophy and minor left facet arthropathy. C4-5: Broad posterior disc/osteophyte complex (2 mm AP) does not contact the cord. There is mild to moderate ligamentum flavum hypertrophy. Canal is 7.8 mm AP. Moderate left foraminal stenosis is du e to uncinate hypertrophy and moderate left facet arthropathy. C5-6: Minor posterior disc/osteophyte complex (1.4 mm AP) does not contact the cord. There is mild ligamentum flavum hypertrophy. Canal is 7 mm AP. Each foramen is patent. There is mild left facet arthropathy. C6-7: Broad posterior disc/osteophyte complex (2.5 mm AP) does not contact the cord. Canal is 7.5 m m AP. Mild left foraminal stenosis is due to uncinate hypertrophy. C7-T1: Normal, so for bilateral foraminal T2W bright, T1W dark foci (4.4 mm right, 5.3 mm left) are likely perineural cysts. IMPRESSIONS: 1. C-spine minor spondylosis, minor/mild facet arthropathy, and multilevel DDD. 2. Multilevel central canal stenoses (C2-3: Marked. C3-4: Severe. C4-5: Moderate. C5-6: Moderate/ marked. C6-7: Moderate). 3. Multilevel cord flattening. No syrinx or myelomalacia. 4. Multilevel central canal stenoses, especially left C4-5. 5. Benign appearing bone marrow fatty infiltration. 6. Minor left mastoid air cell disease.
== END 2017-06-01 08:46 | disposition home or self-care (01) ==
LOC: RAD 08:45
PROVIDERS: ATTEND Nurse Practitioner
DX: M47.812 Spondylosis without myelopathy or radiculopathy, cervical region (principal); M47.813 Spondylosis without myelopathy or radiculopathy, cervicothoracic region; M50.31 Other cervical disc degeneration, high cervical region; M50.321 Other cervical disc degeneration at C4-C5 level; M50.322 Other cervical disc degeneration at C5-C6 level; M50.323 Other cervical disc degeneration at C6-C7 level; M50.33 Other cervical disc degeneration, cervicothoracic region

== ENCOUNTER 2017-06-01 19:51 | Inpatient (IN) ==
--- NOTE | 2017-06-01 20:26 | CT ---
EXAM: CT chest without intravenous contrast 06/02/2017. Sagittal and coronal reformatted images obt ained HISTORY: Cough COMPARISON: 02/12/2017, 05/17/2013 FINDINGS: The heart size appears within normal limits. There is no pericardial effusion. There is no pulmonary consolidation, effusion or pneumothorax. There is complete or near complete oc clusion of multiple right lower lobe airways. This could be due to infectious/inflammatory process o r possible mucous plugging. Ground-glass density within the posterior aspect of the right lower lobe may represent pneumonitis. Atherosclerotic vascular calcification of the aorta Limited views of the upper abdomen shows surgical changes within the left upper quadrant. Status pos t cholecystectomy. IMPRESSION: 1. Complete or near complete occlusion of multiple right lower lobe airways. This can be seen on axia l series images 37 and 38. This may relate to infectious/inflammatory process as well as possible mu cous plugging. 2. Ground-glass density within the right lower lobe may represent pneumonitis.
[2017-06-01] MEDS ORDERED: SODIUM CHLORIDE 1,000 ML IV STA (20:51)
--- NOTE | 2017-06-01 21:00 | ED.PDOC ---
General ED Provider: Dr. RUFUS GIFFORD-ER Chief Complaint: Diabetes Stated Complaint: im coughing up green sputum and my fsbs are over 400 Time Seen by Physician: 19:55 Mode of Arrival: Walk-In Information Source: Patient Exam Limitations: No limitations Primary Care Provider: AMANDA GONZALEZ-[facility] Nursing and Triage Documentation Reviewed and Agree: Yes Reviewed sepsis parameters & appropriate labs ordered?: Yes System Inflammatory Response Syndrome: Not Applicable Sepsis Protocol: For patient's 13 years and over: Temp is 96.8 and below OR 101 and greater Pulse >90 BPM Resp >20/minute Acutely Altered Mental Status Are patient's symptoms suggestive of a new infection, such as: -Pneumonia -Skin, Soft Tissue -Endocarditis -UTI -Bone, Joint Infection -Implantable Device -Acute Abdominal Infection -Wound Infection -Meningitis -Blood Stream Catheter Infection -Unknown Respiratory Complaint Exam - Respiratory Complaint/Exam Onset/Duration: 5 days Symptoms Are: Still present Timing: Intermittent Initial Severity: Mild Current Severity: Moderate Location: Chest Character: Reports: Productive cough Aggravating: Reports: URI Alleviating: Reports: None Associated Signs and Symptoms: Reports: URI, Nasal congestion. Denies: Rapid breathing, Dyspnea, Fever, Chills, Chest pain, Pleuritic chest pain, Wheezing, Hemoptysis, Dizziness, Calf pain, Calf swelling, Edema, Sinus discomfort, Vomiting, Sore throat, Weight loss, Decreased oral intake, Increased thirst, Increased appetite, Increased urination Related History: Reports: Similar episode History of Healthcare-Acquired Pneumonia: No Home Oxygen Use: Yes Recent Stress Test: No Recent Echo/LV Function: No Current Antibiotic Use: No Current Asthma Medication Use: No Respiratory Distress: Mild Inadequate Respiratory Effort: Yes Dysphagia Present: No Stridor Present: No JVD Present: No Accessory Muscle Use: No Retractions: Not Present Diminished Breath Sounds: No Sinus Tenderness: None Grunting Respirations: No Kussmaul Respirations: No Differential Diagnoses: Pneumonia, Diabetic Ketoacidosis Non-Traumatic Chest Pain Syncope: EKG Performed Review of Systems - Review Of Systems Constitutional: Reports: Chills, Fever, Weakness, Loss of appetite Eyes: Reports: No symptoms Ears, Nose, Mouth, Throat: Reports: No symptoms Respiratory: Reports: Cough Cardiac: Reports: No symptoms GI: Reports: No symptoms : Reports: No symptoms Musculoskeletal: Reports: No symptoms Skin: Reports: No symptoms Neurological: Reports: No symptoms Endocrine: Reports: No symptoms Hematologic/Lymphatic: Reports: No symptoms All Other Systems: Reviewed and Negative Past Medical History - Past Medical History Previously Healthy: No Endocrine: Reports: DM 2, Hypothyroid, Dyslipidemia Cardiovascular: Reports: CAD, NH, Hypertension, CHF Respiratory: Reports: COPD Hematological: Reports: Anemia Gastrointestinal: Reports: GERD, Pancreatitis Genitourinary: Reports: CKD Neuro/Psych: Reports: Seizure, Anxiety, Depression Musculoskeletal: Reports: None Cancer: Reports: Other (kidney) Last Menstrual Period: N/A Other Pertinent Past Medical History: 1 kidney, Ayden's disease, Glaucoma - Surgical History General Surgical History: Reports: Hysterectomy, Appendectomy, Cholecystectomy, Back Surgery, Other (nephrectomy,spleenectomy, partial pancreas,thyroidectomy, perforated colon,3 stents in heart) - Family History Family History: Reports: None - Social History Smoking Status: Current every day smoker, Light tobacco smoker Hx Substance Use: No Alcohol Screening: None - Immunizations Tetanus Shot up to Date: No Influenza Vaccine within 12 Months: No Pneumococcal Vaccine up to Date: No Physical Exam - Physical Exam Appearance: Well-appearing, No pain distress, Well-nourished Eyes: DONY, EOMI, Conjunctiva clear ENT: Ears normal, Nose normal, Oropharynx normal Neck: Supple Respiratory: Airway patent, Crackles, Rhonchi Cardiovascular: RRR, Pulses normal, No rub, No murmur GI/: Soft, Nontender, No masses, Bowel sounds normal, No Organomegaly Musculoskeletal: Normal strength, ROM intact, No edema, No calf tenderness Skin: Warm, Dry, Normal color Neurological: Sensation intact, Motor intact, Reflexes intact, Cranial nerves intact, Alert, Oriented Psychiatric: Affect appropriate, Mood appropriate Interpretation - Radiology Interpretation Radiology Interpretation By: Radiologist Radiology Results: Positive Exam Interpreted: CT Scan - EKG Interpretation Time of EKG #1: 21:00 Rate: Normal Rhythm: Sinus Ectopy: None [place]: NL ST Segment: Normal Physician Notification - Case Discussed Physician Notified: dr duarte Time of Notification: 21:00 Critical Care Note - Critical Care Note Total Time (mins): 0 Course - Course Hematology/Chemistry: 06/01/17 20:11 06/01/17 20:11 Orders, Labs, Meds: Lab Review 06/01/17 06/01/17 06/01/17 19:53 20:11 20:11 WBC 12.21 H RBC 3.85 L Hgb 12.5 Hct 36.7 L MCV 95.3 MCH 32.5 H MCHC 34.1 RDW Coeff of Manoj 13.2 Plt Count 346 Immature Gran % (Auto) 0.4 Neut % (Auto) 62.4 Lymph % (Auto) 26.6 [place] % (Auto) 6.0 Eos % (Auto) 3.9 Baso % (Auto) 0.7 Immature Gran # (Auto) 0.1 Neut # (Auto) 7.6 H Lymph # (Auto) 3.3 [place] # (Auto) 0.7 Eos # (Auto) 0.5 Baso # (Auto) 0.1 Puncture Site Rr O2 Saturation 93.0 L ABG pH 7.323 L ABG pCO2 46.1 H ABG pO2 73.0 L ABG HCO3 23.9 ABG Total CO2 25 ABG Base Excess -2 Dawson Test + FiO2 % 21.0 Sodium 134 L Potassium 4.7 Chloride 101 Carbon Dioxide 20 L Anion Gap 17.7 BUN 33 H Creatinine 1.38 H Estimated GFR (MDRD) 39.00 BUN/Creatinine Ratio 23.91 Glucose 467 H Calcium 9.2 Total Bilirubin 0.2 AST 11 L ALT 19 Alkaline Phosphatase 154 H B-Natriuretic Peptide Total Protein 7.8 Albumin 2.9 L Globulin 4.9 Albumin/Globulin Ratio 0.59 Influ A Molecular Assay Influ B Molecular Assay 06/01/17 06/01/17 20:11 20:22 WBC RBC Hgb Hct MCV MCH MCHC RDW Coeff of Manoj Plt Count Immature Gran % (Auto) Neut % (Auto) Lymph % (Auto) [place] % (Auto) Eos % (Auto) Baso % (Auto) Immature Gran # (Auto) Neut # (Auto) Lymph # (Auto) [place] # (Auto) Eos # (Auto) Baso # (Auto) Puncture Site O2 Saturation ABG pH ABG pCO2 ABG pO2 ABG HCO3 ABG Total CO2 ABG Base Excess Dawson Test FiO2 % Sodium Potassium Chloride Carbon Dioxide Anion Gap BUN Creatinine Estimated GFR (MDRD) BUN/Creatinine Ratio Glucose Calcium Total Bilirubin AST ALT Alkaline Phosphatase B-Natriuretic Peptide 30 Total Protein Albumin Globulin Albumin/Globulin Ratio Influ A Molecular Assay Negative by naat Influ B Molecular Assay Negative by naat Orders Category Date Time Status ABG DRAW REQUEST Stat CARDIO 06/01/17 19:53 Completed EKG-(ED ONLY) Stat CARDIO 06/01/17 19:53 Completed ACCUCHECK (MED/SURG, SCU) [BLOOD GLUCOSE MONITORING] CARE 06/01/17 20:53 Active Q1HR IV [ED IV/MEDIPORT/POWERPORT] .ONCE EMERGENCY 06/01/17 19:54 Active ABG Stat LAB 06/01/17 19:53 Completed B-TYPE NATRIURETIC PEPTIDE Stat LAB 06/01/17 20:11 Completed BLOOD CULTURE (ED ONLY) Stat LAB 06/01/17 20:11 Received CBC W/ AUTO DIFF Stat LAB 06/01/17 20:11 Completed COMPREHENSIVE METABOLIC PANEL Stat LAB 06/01/17 20:11 Completed FLU A/B MOLECULAR Stat LAB 06/01/17 20:22 Completed 0.9 % Sodium Chloride [Saline Flush] MEDS 06/01/17 19:54 Ordered 1 syr IVF PRN PRN 0.9 % Sodium Chloride [Sodium Chloride] 100 ml MEDS 06/01/17 21:00 Ordered Insulin Regular, Human [Humulin R] 100 unit IV 2 unit/hr Sodium Chloride 0.9% [Sodium Chloride] 1,000 ml MEDS 06/01/17 20:51 Active IV 125 mls/hr CT CHEST W/O CONTRAST Stat RADS 06/01/17 19:54 Completed Medications Generic Name Dose Route Start Last Admin Trade Name Freq PRN Reason Stop Dose Admin Insulin Human Regular 100 unit 100 mls @ 2 mls/hr 06/01/17 21:00 / Sodium Chloride IV .Q24H FRANCISCO J Protocol 2 UNIT/HR Sodium Chloride 1,000 mls @ 125 mls/hr 06/01/17 20:51 Sodium Chloride IV 06/02/17 04:50 .Q8H STA Sodium Chloride 1 syr 06/01/17 19:54 Saline Flush IVF PRN PRN To flush IV Vital Signs: Temp Pulse Resp BP Pulse Ox 06/01/17 19:52 98.1 F 102 H 19 132/81 96 Departure - Departure Time of Disposition: 21:00 Disposition: ADMITTED INPATIENT Discharge Problem: Acute respiratory failure Qualifiers: Respiratory failure complication: hypoxia Qualified Code(s): J96.01 - Acute respiratory failure with hypoxia DKA (diabetic ketoacidoses) Qualifiers: Diabetes mellitus type: type 2 Diabetes mellitus complication detail: without coma Qualified Code(s): E11.10 - Type 2 diabetes mellitus with ketoacidosis without coma Instructions: Pneumonitis (ED) Condition: Fair Pt referred to PMD for follow-up: Yes IPMP verified?: No Allergies/Adverse Reactions: Allergies duloxetine HCl [From Cymbalta] Allergy (Severe, Verified 0418 19:56) unable to sleep hydrogen peroxide Allergy (Severe, Verified 06/01/17 19:56) rash, skin swells Patient to notify drugstore levofloxacin [From Levaquin] Allergy (Mild, Verified 06/01/17 19:56) Unknown Per patient she states she was on IV Levaquin in hospital for 5 days, then sent home with oral Levaquin. She c/o after 3 doses, she had blisters in her mouth penicillin G Adverse Reaction (Severe, Verified 06/01/17 19:56) Difficulty Breathing aripiprazole [From Abilify] Adverse Reaction (Verified 06/01/17 19:56) cefaclor [From Ceclor] Adverse Reaction (Verified 06/01/17 19:56) ciprofloxacin [From Cipro] Adverse Reaction (Verified 06/01/17 19:56) Rash clarithromycin [From Biaxin] Adverse Reaction (Verified 06/01/17 19:56) Rash ketorolac tromethamine [From Toradol] Adverse Reaction (Verified 06/01/17 19:56) Vomiting loperamide HCl [From Imodium A-D] Adverse Reaction (Verified 06/01/17 19:56) affects glaucoma Penicillins Adverse Reaction (Verified 06/01/17 19:56) Difficulty Breathing sumatriptan [From Imitrex] Adverse Reaction (Verified 06/01/17 19:56) heart attack sumatriptan succinate [From Imitrex] Adverse Reaction (Verified 06/01/17 19:56) heart attack Home Medications: Ambulatory Orders Albuterol Sulfate [Proair Hfa] 2 puff IH Q4H PRN 08/23/14 Insulin Glargine,Hum.rec.anlog [Lantus] 25 unit SQ BEDTIME 01/21/17 Metoprolol Tartrate [Lopressor] 12.5 mg PO BID 01/21/17 Cyclobenzaprine HCl [Flexeril] 10 mg PO BID PRN #60 tablet 02/17/17 Acetaminophen [Tylenol] 1,000 mg PO Q6H 04/10/17 Oxycodone HCl/Acetaminophen [Percocet 10-325 mg Tablet] 1 each PO TID PRN Atorvastatin Calcium 80 mg PO BEDTIME tab-cap 04/30/17 Isosorbide Mononitrate [Isosorbide Mononitrate Er] 30 mg PO d 05/19/17 Disposition Discussed With: Patient
[2017-06-01] MEDS ORDERED: PERCOCET 10-325 PO PRN (21:09)
[2017-06-01] MEDS ORDERED: FLEXERIL PO PRN (21:09)
[2017-06-01] MEDS ORDERED: INSULIN ASPART 8 UNIT SQ PRN (21:09)
[2017-06-01] MEDS ORDERED: HUMULIN R 100 UNIT in SODIUM CHLORIDE 100 ML IV SCH (21:15)
[2017-06-01] MEDS ORDERED: HUMULIN R ONE (21:17)
[2017-06-01] MEDS: HUMULIN R 100 UNIT in SODIUM CHLORIDE 100 ML IV SCH (21:21)
[2017-06-01] MEDS ORDERED: SODIUM CHLORIDE 1,000 ML IV SCH (21:30)
[2017-06-01] MEDS ORDERED: VANCOMYCIN 1 GM in SODIUM CHLORIDE 250 ML IV SCH (21:30)
[2017-06-01] MEDS: PERCOCET 10-325 PO PRN (22:27)
[2017-06-01 22:40] VITALS: BMI 27.9
[2017-06-01] MEDS: DUONEB NEB SCH (23:50)
[2017-06-02] MEDS: PROTONIX PO SCH (05:42)
[2017-06-02] MEDS: SYNTHROID PO SCH (05:42)
[2017-06-02] MEDS: LASIX TAB PO SCH (05:42)
[2017-06-02] MEDS: DUONEB NEB SCH ×4 (05:45→22:13)
[2017-06-02] MEDS: IMDUR PO SCH (08:48)
[2017-06-02] MEDS: AZACTAM 1 GM in SODIUM CHLORIDE 50 ML IV SCH ×3 (08:48→21:28)
[2017-06-02] MEDS: PERCOCET 10-325 PO PRN ×3 (08:48→22:39)
[2017-06-02] MEDS: KEPPRA PO SCH ×2 (08:49→21:28)
[2017-06-02] MEDS: LOPRESSOR PO SCH ×2 (08:49→21:28)
[2017-06-02] MEDS: MIRALAX PO SCH (08:49)
[2017-06-02] MEDS: PRISTIQ ER PO SCH (08:49)
[2017-06-02] MEDS: BUSPAR PO SCH ×2 (08:49→21:28)
[2017-06-02] MEDS: SODIUM CHLORIDE 1,000 ML IV SCH (08:50)
[2017-06-02] MEDS: LYRICA PO SCH (08:51)
[2017-06-02] MEDS ORDERED: LASIX TAB PO SCH (09:00)
[2017-06-02] MEDS ORDERED: NON-FORMULARY MEDICATION (Levetiracetam [Keppra] 1,000 MG) PO SCH (09:00)
[2017-06-02] MEDS ORDERED: NON-FORMULARY MEDICATION (Desvenlafaxine Succinate [Pristiq] 100 MG) PO SCH (09:00)
[2017-06-02] MEDS ORDERED: AZACTAM 1 GM in SODIUM CHLORIDE 50 ML IV SCH (09:00)
[2017-06-02] MEDS: LOVENOX SUBCUT SCH (09:15)
[2017-06-02] MEDS: VANCOMYCIN 750 MG in SODIUM CHLORIDE 250 ML IV SCH ×2 (09:56→22:39)
[2017-06-02] MEDS ORDERED: NON-FORMULARY MEDICATION (Atorvastatin Calcium [Atorvastatin Calcium] 80 MG) PO SCH (21:00)
[2017-06-02] MEDS: XALATAN OP SCH (21:28)
[2017-06-02] MEDS: LANTUS SUBCUT SCH (21:28)
[2017-06-02] MEDS: PLAVIX PO SCH (21:28)
[2017-06-02] MEDS: LIPITOR PO SCH (21:30)
[2017-06-02] MEDS ORDERED: HUMULIN R ONE (22:34)
[2017-06-02] MEDS: HUMULIN R 100 UNIT in SODIUM CHLORIDE 100 ML IV SCH (22:39)
[2017-06-03] MEDS: SODIUM CHLORIDE 1,000 ML IV SCH (02:22)
[2017-06-03] MEDS: DUONEB NEB SCH ×4 (04:35→23:50)
[2017-06-03] MEDS: LASIX TAB PO SCH (05:43)
[2017-06-03] MEDS: SYNTHROID PO SCH (05:43)
[2017-06-03] MEDS: PROTONIX PO SCH (05:43)
[2017-06-03] MEDS: AZACTAM 1 GM in SODIUM CHLORIDE 50 ML IV SCH ×3 (05:43→20:37)
[2017-06-03] MEDS: VANCOMYCIN 750 MG in SODIUM CHLORIDE 250 ML IV SCH ×2 (09:01→22:05)
[2017-06-03] MEDS: KEPPRA PO SCH ×2 (09:03→20:38)
[2017-06-03] MEDS: LOPRESSOR PO SCH ×2 (09:04→20:38)
[2017-06-03] MEDS: BUSPAR PO SCH ×2 (09:06→20:38)
[2017-06-03] MEDS: LYRICA PO SCH (09:06)
[2017-06-03] MEDS: PRISTIQ ER PO SCH (09:06)
[2017-06-03] MEDS: PERCOCET 10-325 PO PRN ×3 (09:06→22:05)
[2017-06-03] MEDS: IMDUR PO SCH (09:06)
[2017-06-03] MEDS: MIRALAX PO SCH (09:07)
[2017-06-03] MEDS: LOVENOX SUBCUT SCH (09:08)
--- NOTE | 2017-06-03 14:41 | HP ---
DATE OF SERVICE: 06/01/17 CHIEF COMPLAINT: Diabetes and elevated sugars. HISTORY OF PRESENT ILLNESS: This is 61 year old female with a history of CAD, CHF, Angina with poorly controlled diabetes came to the emergency room as patient been having the elevated blood sugars for 3-4 days. Normally 160's but the sugars are 400-500. Some coughing, congestion and shortness of breath and leg edema and swelling is present. The patient was seen by Dr. Lange in the emergency room. WBC was 12, 000, initial pH 7.32, pCo2 46.1, pO2 73, sodium 140, potassium 4.7, chloride 101 , bicarb 20, BUN 33 and creatinine 1.38 and sugars are 467. Serology negative. At that time the patient is admitted to the hospital with DKA for IV insulin and IV fluids. REVIEW OF SYSTEMS: CONSTITUTIONAL: No fever, no chills. Weakness and tiredness. HEENT: Normal. ENDOCRINE: No weight gain; no weight loss. Sugars been high. CVS: No chest pain. No PND, no orthopnea. Shortness of breath. No PND, no orthopnea. RESPIRATORY: Cough, Congestion. No hemoptysis. GI: No nausea, no vomiting. No abdominal pain. No melena. : No hematuria. No polyuria. MUSCULOSKELETAL: No joint swelling. PSYCHIATRIC: Not anxious. No depression. No suicidal thoughts. No homicidal thoughts. SKIN: Intact, no open lesions. PAST MEDICAL HISTORY: CAD CHF Chronic angina Aortic valve leaking Status post stents in 2011 Angioplasty COPD Hypertension Dyslipidemia Anxiety disorder Depression Diabetes poorly controlled Hypothyroidism History of substance use Sleep apnea on CPAP PAST SURGICAL HISTORY: Cholecystectomy Appendectomy Left kidney removed in 2006 Hysterectomy Spleen removed Partial pancreas been removed Cataract surgery PERSONAL HISTORY: The patient does not smoke or drink alcohol at this time. Family history is significant for high blood pressure and diabetes. MEDICATIONS: Albuterol Vitamin D 3 Polyethylene Glycol Aspirin Latanoprost Keppra Insulin Metoprolol Pregabalin Cyclobenzaprine Pantoprazole Lisinopril Plavix Pristiq [place] 3 Oxycodone Levothyroxine Isosorbide Buspar Insulin Lasix ALLERGIES: Duloxetine HCl Hydrogen peroxide Levofloxacin Penicillin PHYSICAL EXAMINATION: V/S: Blood pressure 132/81, respiratory rate 19, heart rate 96, temperature 98.1. GENERAL: Sick looking lady laying in a bed and not in any distress. HEENT: Atraumatic, normocephalic. No scleral icterus. Pallor positive. Mucosa dry NECK: Supple. No JVD, no bruit. No lymphadenopathy. No thyromegaly. HEART: S1, S2 normal. No murmur. No cyanosis or clubbing. No ascites. LUNGS:Decreased and clear to auscultation. No rales or rhonchi. ABDOMEN: Soft, nontender. Bowel sounds are active. No CVA tenderness. No rigidity or guarding. EXTREMITIES: 1+ edema. No cyanosis or clubbing. Redness in both legs were present. MUSCULOSKELETAL: Normal joints, no swelling. NEUROLOGIC: The patient is awake and alert. SKIN: Intact; no open lesions. LYMPHATIC: No lymph nodes palpable. LABS: WBC 12.21, hgb 12.5, hct 36.7, plt count 346, ABG pH 7.323, pCO2 46.9, pO2 73, Sodium 134, potassium 4.7, chloride 101, bicarb 20, BUN 33, creatinine 1.38. Sugar 467 ASSESSMENT: 1. Acute DKA 2. Dehydration 3. Acute on chronic renal failure 4. Bilateral lower extremity chronic cellulitis 5. CAD 6. CHF 7. Angina 8. Dyslipidemia 9. 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 Admit patient to the regular floor 2. IV fluids 3. Insulin drip Titrate to keep the sugars below 200 4. Vancomycin Q 12 hours 5. IV fluids at 50ml per hour 6. Daily I&O's 7. DUO NEBS TIME SPENT: MORE THAN 75 minutes critical care time. [facility]Jose
--- NOTE | 2017-06-03 15:29 | PN ---
DATE OF SERVICE: 06/02/17 SUBJECTIVE: The patient was admitted with DKA. The patient is on the Insulin drip. Still having trouble with sugars; 386 latest one on the 4 units. REVIEW OF SYSTEMS: CONSTITUTIONAL: No fever, no chills. HEENT: Normal. ENDOCRINE: No weight gain, no weight loss. CVS: No angina symptoms. No CHF symptoms. No palpitations. No atypical chest pain for CAD. No shortness of breath. No PND, no orthopnea. RESPIRATORY: No cough, no hemoptysis. GI: No nausea, no vomiting. No abdominal pain. : No hematuria. No polyuria. MUSCULOSKELETAL: No joint swelling. PSYCHIATRIC: Not anxious. No depression. No suicidal thoughts. No homicidal thoughts. SKIN: Intact. No rash. PHYSICAL EXAMINATION: V/S: Blood pressure 117/63, respiratory 20, heart rate 85, temperature 98.5 and saturation 98%. HEENT: Normocephalic, atraumatic. Mucosa dry. Pallor positive. No icterus. NECK: Supple. No JVD, no carotid bruit. No lymphadenopathy. LUNGS: Decreased and basilar crackles. Clear to auscultation. No rales or rhonchi. HEART: S1, S2 normal. No S3. No murmur, gallop or regurgitation. ABDOMEN: Soft, nontender. Bowel sounds active. No rigidity. No rebound or guarding. No CVA tenderness. EXTREMITIES: 1+ edema with red skin both lower extremities. No clubbing or cyanosis MUSCULOSKELETAL: No joint swelling. NEUROLOGIC: Awake, alert, oriented times three. No focal deficit. LYMPHATIC: No lymph nodes palpable. SKIN: Intact. LABS: Sodium 138, potassium 4.9, chloride 106, bicarb 21, BUN 27, creatinine 1.03, glucose 286, WBC 1253, hgb 11.7, hct 35.2, plt count 328. ASSESSMENT: 1. DKA 2. Coronary artery disease 3. Congestive heart failure 4. Bilateral lower extremity cellulitis 5. Bibasilar atelectasis right lower lobe more than the left lower lobe. 6. Diabetes Mellitus 7. Hypertension 8. Dyslipidemia PLAN: 1. Azactam 2. Vancomycin 3. Duo NEBS 4. Insulin drip TIME SPENT: More than 35 minutes which is critical care time. [facility]
[2017-06-03] MEDS ORDERED: INSULIN ASPART 8 UNIT SQ SCH (17:30)
[2017-06-03] MEDS: HUMALOG SUBCUT SCH (17:59)
[2017-06-03] MEDS: LANTUS SUBCUT SCH (20:37)
[2017-06-03] MEDS: PLAVIX PO SCH (20:38)
[2017-06-03] MEDS: LIPITOR PO SCH (20:38)
[2017-06-03] MEDS: XALATAN OP SCH (20:38)
[2017-06-03] MEDS: HUMULIN R 100 UNIT in SODIUM CHLORIDE 100 ML IV SCH (22:02)
[2017-06-04] MEDS: AZACTAM 1 GM in SODIUM CHLORIDE 50 ML IV SCH ×3 (04:14→20:37)
[2017-06-04] MEDS: DUONEB NEB SCH ×4 (04:54→22:05)
[2017-06-04] MEDS: SODIUM CHLORIDE 1,000 ML IV SCH (05:25)
[2017-06-04] MEDS: PROTONIX PO SCH (05:45)
[2017-06-04] MEDS: LASIX TAB PO SCH (05:45)
[2017-06-04] MEDS: SYNTHROID PO SCH (05:45)
[2017-06-04] MEDS: PERCOCET 10-325 PO PRN ×3 (07:42→23:53)
[2017-06-04] MEDS: PRISTIQ ER PO SCH (08:36)
[2017-06-04] MEDS: MIRALAX PO SCH (08:36)
[2017-06-04] MEDS: IMDUR PO SCH (08:36)
[2017-06-04] MEDS: LOPRESSOR PO SCH ×2 (08:37→20:37)
[2017-06-04] MEDS: KEPPRA PO SCH ×2 (08:37→20:36)
[2017-06-04] MEDS: BUSPAR PO SCH ×2 (08:37→20:37)
[2017-06-04] MEDS: VANCOMYCIN 750 MG in SODIUM CHLORIDE 250 ML IV SCH (08:38)
[2017-06-04] MEDS: HUMALOG SUBCUT SCH ×3 (08:42→17:40)
[2017-06-04] MEDS: LOVENOX SUBCUT SCH (08:43)
[2017-06-04] MEDS: LYRICA PO SCH (08:45)
--- NOTE | 2017-06-04 09:56 | PN ---
DATE OF SERVICE: 06/03/17 SUBJECTIVE: The patient was admitted with DKA and bilateral lower extremity cellulitis and pneumonia. The patient been getting IV antibiotics. She is still getting the IV insulin drip. It was stopped yesterday night but the sugars went up to again 300 -400 and was started again at 5 units per hour in the morning by the nurse Anna Marie. Up and about walking REVIEW OF SYSTEMS: CONSTITUTIONAL: No fever, no chills. HEENT: Normal. ENDOCRINE: No weight gain, no weight loss. CVS: No angina symptoms. No CHF symptoms. No palpitations. No atypical chest pain for CAD. No shortness of breath. No PND, no orthopnea. RESPIRATORY: Still coughing and congested, no hemoptysis. GI: No nausea, no vomiting. No abdominal pain. : No hematuria. No polyuria. MUSCULOSKELETAL: No joint swelling. PSYCHIATRIC: Not anxious. No depression. No suicidal thoughts. No homicidal thoughts. SKIN: Intact. No rash. PHYSICAL EXAMINATION: V/S: blood pressure 132/67, respiratory rate 16, heart rate 96, temperature 98.2 and saturation 96% on 2 liters. GENERAL: Sick looking lady laying in a bed not in any distress. HEENT: Normocephalic, atraumatic. Mucosa dry. Pallor positive, no icterus. NECK: Supple. No JVD, no carotid bruit. No lymphadenopathy. LUNGS: Decreased and basilar crackles. Clear to auscultation. No rales or rhonchi. HEART: S1, S2 normal. No S3. No murmur, gallop or regurgitation. ABDOMEN: Soft, nontender. Bowel sounds active. No rigidity. No rebound or guarding. No CVA tenderness. EXTREMITIES: 1+ edema in lower extremity with multiple areas of redness of psoriatic skin lesions. No clubbing or cyanosis MUSCULOSKELETAL: No joint swelling. NEUROLOGIC: Awake, alert, oriented times three. No focal deficit. LYMPHATIC: No lymph nodes palpable. SKIN: Intact. LABS: WBC 10.51, hgb 11.1, hct 34.2, plt count 304, sodium 139, potassium 5.3, chloride 108, bicarb 22, BUN 27, creatinine 0.96, glucose 174. ASSESSMENT: 1. DKA 2. Bibasilar pneumonia 3. Lower extremity cellulitis 4. Hyperkalemia 5. Dehydration 6. Diabetes 7. Dyslipidemia 8. Osteoarthritis 9. DJD spine 10.Coronary artery disease 11.Congestive heart failure 12.Stable angina 13.Depression 14.Anxiety PLAN: 1. Continue the Vancomycin 2. Rocephin 3. Insulin drip at 5 units and titrate to decrease it 4. IV fluids at 50ml per hour TIME SPENT: More than 35 minutes MTDD
[2017-06-04] MEDS: MUCOMYST 20% NEB NEB SCH (16:37)
[2017-06-04] MEDS: XALATAN OP SCH (20:36)
[2017-06-04] MEDS: LIPITOR PO SCH (20:36)
[2017-06-04] MEDS: LANTUS SUBCUT SCH (20:37)
[2017-06-04] MEDS: PLAVIX PO SCH (20:37)
[2017-06-04] MEDS: VANCOMYCIN 500 MG in SODIUM CHLORIDE 100 ML IV SCH (21:45)
[2017-06-05] MEDS: MUCOMYST 20% NEB NEB SCH ×2 (04:32→18:21)
[2017-06-05] MEDS: DUONEB NEB SCH ×4 (04:32→22:07)
[2017-06-05] MEDS: AZACTAM 1 GM in SODIUM CHLORIDE 50 ML IV SCH ×3 (06:11→22:05)
[2017-06-05] MEDS: PROTONIX PO SCH (06:11)
[2017-06-05] MEDS: SYNTHROID PO SCH (06:11)
[2017-06-05] MEDS: LASIX TAB PO SCH (06:11)
[2017-06-05] MEDS: PERCOCET 10-325 PO PRN ×3 (08:23→22:12)
[2017-06-05] MEDS: BUSPAR PO SCH ×2 (09:49→22:05)
[2017-06-05] MEDS: VANCOMYCIN 500 MG in SODIUM CHLORIDE 100 ML IV SCH (09:49)
[2017-06-05] MEDS: IMDUR PO SCH (09:50)
[2017-06-05] MEDS: KEPPRA PO SCH ×2 (09:50→22:07)
--- NOTE | 2017-06-05 09:50 | DI ---
EXAM: Two-view chest HISTORY: Cough COMPARISON: Two-view chest 02/12/2017 FINDINGS: The heart is normal in size. Atherosclerotic changes are seen involving the aortic arch. Clips are seen at the base of the neck on the right. There is minimal blunting of the left lateral costophrenic angle. IMPRESSION: Questionable small left effusion without consolidation. Normal cardiac silhouette
[2017-06-05] MEDS: LOPRESSOR PO SCH ×2 (09:51→22:06)
[2017-06-05] MEDS: PRISTIQ ER PO SCH (09:51)
[2017-06-05] MEDS: LYRICA PO SCH (09:59)
[2017-06-05] MEDS: MIRALAX PO SCH (10:05)
[2017-06-05] MEDS: LOVENOX SUBCUT SCH (10:13)
[2017-06-05] MEDS: HUMALOG SUBCUT SCH ×3 (10:15→16:51)
[2017-06-05] MEDS: SODIUM CHLORIDE 1,000 ML IV SCH (10:50)
[2017-06-05] MEDS: XALATAN OP SCH (22:05)
[2017-06-05] MEDS: PLAVIX PO SCH (22:06)
[2017-06-05] MEDS: LIPITOR PO SCH (22:07)
[2017-06-05] MEDS: LANTUS SUBCUT SCH (22:12)
[2017-06-06] MEDS: VANCOMYCIN 500 MG in SODIUM CHLORIDE 100 ML IV SCH ×3 (01:45→23:03)
[2017-06-06] MEDS: MUCOMYST 20% NEB NEB SCH ×2 (04:30→18:04)
[2017-06-06] MEDS: DUONEB NEB SCH ×4 (04:30→23:03)
[2017-06-06] MEDS: AZACTAM 1 GM in SODIUM CHLORIDE 50 ML IV SCH ×3 (04:42→21:47)
[2017-06-06] MEDS: PERCOCET 10-325 PO PRN ×3 (04:48→19:05)
[2017-06-06] MEDS: PROTONIX PO SCH (05:49)
[2017-06-06] MEDS: SYNTHROID PO SCH (05:49)
[2017-06-06] MEDS: LASIX TAB PO SCH (05:49)
[2017-06-06] MEDS: IMDUR PO SCH (09:38)
[2017-06-06] MEDS: LYRICA PO SCH (09:39)
[2017-06-06] MEDS: KEPPRA PO SCH ×2 (09:39→21:48)
[2017-06-06] MEDS: BUSPAR PO SCH ×2 (09:40→21:48)
[2017-06-06] MEDS: LOPRESSOR PO SCH ×2 (09:40→21:47)
[2017-06-06] MEDS: PRISTIQ ER PO SCH (09:41)
[2017-06-06] MEDS: MIRALAX PO SCH (09:42)
[2017-06-06] MEDS: HUMALOG SUBCUT SCH ×3 (09:45→18:34)
[2017-06-06] MEDS: LOVENOX SUBCUT SCH (09:49)
[2017-06-06] MEDS: SODIUM CHLORIDE 1,000 ML IV SCH (09:54)
[2017-06-06] MEDS: DEMEROL 25 MG/ML VIAL IVP PRN (20:32)
[2017-06-06] MEDS: LIPITOR PO SCH (21:48)
[2017-06-06] MEDS: PLAVIX PO SCH (21:48)
[2017-06-06] MEDS: XALATAN OP SCH (21:49)
[2017-06-06] MEDS: LANTUS SUBCUT SCH (21:55)
[2017-06-07] MEDS: PERCOCET 10-325 PO PRN ×3 (00:45→18:39)
[2017-06-07] MEDS: AZACTAM 1 GM in SODIUM CHLORIDE 50 ML IV SCH ×3 (04:22→21:30)
[2017-06-07] MEDS: DEMEROL 25 MG/ML VIAL IVP PRN ×3 (04:40→22:21)
[2017-06-07] MEDS: DUONEB NEB SCH ×4 (04:46→22:43)
[2017-06-07] MEDS: MUCOMYST 20% NEB NEB SCH ×2 (04:46→17:10)
[2017-06-07] MEDS: SYNTHROID PO SCH (05:40)
[2017-06-07] MEDS: PROTONIX PO SCH (05:40)
[2017-06-07] MEDS: LASIX TAB PO SCH (05:40)
[2017-06-07] MEDS: HUMALOG SUBCUT SCH ×3 (08:36→18:35)
[2017-06-07] MEDS: LYRICA PO SCH (08:45)
[2017-06-07] MEDS: BUSPAR PO SCH ×2 (08:45→21:32)
[2017-06-07] MEDS: VANCOMYCIN 500 MG in SODIUM CHLORIDE 100 ML IV SCH ×2 (08:45→22:36)
[2017-06-07] MEDS: KEPPRA PO SCH ×2 (08:45→21:32)
[2017-06-07] MEDS: PRISTIQ ER PO SCH (08:45)
[2017-06-07] MEDS: LOPRESSOR PO SCH ×2 (08:46→21:32)
[2017-06-07] MEDS: MIRALAX PO SCH (08:46)
[2017-06-07] MEDS: LOVENOX SUBCUT SCH (08:46)
[2017-06-07] MEDS: IMDUR PO SCH (08:46)
[2017-06-07] MEDS ORDERED: CITRATE OF MAGNESIA PO STA (15:05)
[2017-06-07] MEDS: SODIUM CHLORIDE 1,000 ML IV SCH (19:21)
[2017-06-07] MEDS: XALATAN OP SCH (21:31)
[2017-06-07] MEDS: PLAVIX PO SCH (21:32)
[2017-06-07] MEDS: LIPITOR PO SCH (21:33)
[2017-06-07] MEDS: LANTUS SUBCUT SCH (21:35)
[2017-06-08] MEDS: PERCOCET 10-325 PO PRN ×3 (03:30→17:06)
[2017-06-08] MEDS: AZACTAM 1 GM in SODIUM CHLORIDE 50 ML IV SCH ×3 (04:35→21:05)
[2017-06-08] MEDS: MUCOMYST 20% NEB NEB SCH ×2 (04:43→20:05)
[2017-06-08] MEDS: DUONEB NEB SCH ×3 (04:43→20:05)
[2017-06-08] MEDS: SYNTHROID PO SCH (05:43)
[2017-06-08] MEDS: LASIX TAB PO SCH (05:43)
[2017-06-08] MEDS: PROTONIX PO SCH (05:43)
[2017-06-08] MEDS ORDERED: NON-FORMULARY MEDICATION (Cholecalciferol (Vitamin D3) [Vitamin D3] 50,000 UNIT) PO SCH (09:00)
[2017-06-08] MEDS ORDERED: DRISDOL PO SCH (09:00)
[2017-06-08] MEDS: KEPPRA PO SCH ×2 (09:40→21:07)
[2017-06-08] MEDS: LYRICA PO SCH (09:40)
[2017-06-08] MEDS: BUSPAR PO SCH ×2 (09:41→21:08)
[2017-06-08] MEDS: IMDUR PO SCH (09:41)
[2017-06-08] MEDS: VANCOMYCIN 500 MG in SODIUM CHLORIDE 100 ML IV SCH ×2 (09:41→22:37)
[2017-06-08] MEDS: PRISTIQ ER PO SCH (09:41)
[2017-06-08] MEDS: LOPRESSOR PO SCH ×2 (09:41→21:07)
[2017-06-08] MEDS: HUMALOG SUBCUT SCH ×3 (09:42→17:10)
[2017-06-08] MEDS: MIRALAX PO SCH (09:42)
[2017-06-08] MEDS: LOVENOX SUBCUT SCH (09:47)
[2017-06-08] MEDS: PLAVIX PO SCH (21:07)
[2017-06-08] MEDS: XALATAN OP SCH (21:07)
[2017-06-08] MEDS: LIPITOR PO SCH (21:08)
[2017-06-08] MEDS: LANTUS SUBCUT SCH (21:09)
[2017-06-08] MEDS ORDERED: DEMEROL 25 MG/ML VIAL IVP STA (22:47)
[2017-06-09] MEDS: AZACTAM 1 GM in SODIUM CHLORIDE 50 ML IV SCH (04:13)
[2017-06-09] MEDS: DUONEB NEB SCH ×2 (04:50→10:40)
[2017-06-09] MEDS: MUCOMYST 20% NEB NEB SCH (04:55)
[2017-06-09] MEDS: PROTONIX PO SCH (05:40)
[2017-06-09] MEDS: LASIX TAB PO SCH (05:40)
[2017-06-09] MEDS: SYNTHROID PO SCH (05:40)
[2017-06-09] MEDS: PERCOCET 10-325 PO PRN (05:54)
[2017-06-09] MEDS: HUMALOG SUBCUT SCH ×2 (07:53→12:20)
[2017-06-09] MEDS: BUSPAR PO SCH (08:47)
[2017-06-09] MEDS: LOPRESSOR PO SCH (08:47)
[2017-06-09] MEDS: PRISTIQ ER PO SCH (08:48)
[2017-06-09] MEDS: KEPPRA PO SCH (08:48)
[2017-06-09] MEDS: MIRALAX PO SCH (08:48)
[2017-06-09] MEDS: IMDUR PO SCH (08:48)
[2017-06-09] MEDS: LYRICA PO SCH (08:48)
[2017-06-09] MEDS: VANCOMYCIN 500 MG in SODIUM CHLORIDE 100 ML IV SCH (08:49)
[2017-06-09] MEDS: LOVENOX SUBCUT SCH (08:53)
[2017-06-09 09:18] VITALS: BP 106/61; TEMP 98.5
--- NOTE | 2017-06-16 09:56 | PN ---
DATE OF SERVICE: 06/04/17 SUBJECTIVE: The patient was admitted with diabetic ketoacidosis and bibasilar pneumonia. Insulin drip stopped in the morning. She is up and about walking. Still coughing with congestion. Leg edema is better. Redness and swelling of both lower extremities is improved. REVIEW OF SYSTEMS: CONSTITUTIONAL: No fever, no chills. HEENT: Normal. ENDOCRINE: No weight gain, no weight loss. CVS: No angina symptoms. No CHF symptoms. No palpitations. No atypical chest pain for CAD. No shortness of breath. No PND, no orthopnea. RESPIRATORY: Cough and congestion, no hemoptysis. GI: No nausea, no vomiting. No abdominal pain. : No hematuria. No polyuria. MUSCULOSKELETAL: Leg edema is better. No joint swelling. PSYCHIATRIC: Not anxious. No depression. No suicidal thoughts. No homicidal thoughts. SKIN: Intact. No rash. PHYSICAL EXAMINATION: V/S: Blood pressure 121/68, respiratory rate 20, heart rate 82, temperature 97.9 , saturation 99 on 2 liters. HEENT: Normocephalic, atraumatic. Mucosa dry. Pallor positive. No icterus. NECK: Supple. No JVD, no carotid bruit. No lymphadenopathy. LUNGS: Decreased and basilar crackles. No rales or rhonchi. HEART: S1, S2 normal. No S3. No murmur, gallop or regurgitation. ABDOMEN: Soft, nontender. Bowel sounds active. No rigidity. No rebound or guarding. No CVA tenderness. EXTREMITIES: No pedal edema. No clubbing or cyanosis MUSCULOSKELETAL: No joint swelling. NEUROLOGIC: Awake, alert, oriented times three. No focal deficit. LYMPHATIC: No lymph nodes palpable. SKIN: Lower extremity redness and excoriated lesions are present. LABS: Sodium 142, potassium 4.7, chloride 111, bicarb 22, BUN 21, creatinine 0.80, glucose 110, white count 10.5, hemoglobin 11.1, hematocrit 34.2, platelet count 305. ASSESSMENT: 1. STATUS POST DIABETIC KETOACIDOSIS 2. BIBASILAR PNEUMONIA 3. LOWER EXTREMITY CELLULITIS 4. DIABETES 5. CORONARY ARTERY DISEASE 6. CONGESTIVE HEART FAILURE 7. ANGINA 8. DEPRESSION PLAN: 1. Continue the home Insulin. 2. Continue Rocephin and Vancomycin. 3. DuoNebs, breathing treatments. 4. Daily I & O's. TIME SPENT: More than 35 minutes MTDD
--- NOTE | 2017-06-17 07:44 | PN ---
DATE OF SERVICE: 06/06/17 SUBJECTIVE: The patient was admitted with bibasilar pneumonia, DKA been better. Still coughing and congestion. Right lower extremity cellulitis and redness and swelling is getting better. She is able to walk out of the room and go smoke. REVIEW OF SYSTEMS: CONSTITUTIONAL: No fever, no chills. HEENT: Normal. ENDOCRINE: No weight gain, no weight loss. CVS: No angina symptoms. No CHF symptoms. No palpitations. No atypical chest pain for CAD. No shortness of breath. No PND, no orthopnea. RESPIRATORY: No cough, no hemoptysis. GI: No nausea, no vomiting. No abdominal pain. : No hematuria. No polyuria. MUSCULOSKELETAL: No joint swelling. PSYCHIATRIC: Not anxious. No depression. No suicidal thoughts. No homicidal thoughts. SKIN: Intact. No rash. PHYSICAL EXAMINATION: V/S: Blood pressure 137/70, respiratory rate 17, heart rate 26, temperature 98.5 with saturation 94%. HEENT: Normocephalic, atraumatic. Mucosa dry. Pallor positive. No icterus. NECK: Supple. No JVD, no carotid bruit. No lymphadenopathy. LUNGS: Bilateral crackles. Clear to auscultation. No rales or rhonchi. HEART: S1, S2 normal. No S3. No murmur, gallop or regurgitation. ABDOMEN: Soft, nontender. Bowel sounds active. No rigidity. No rebound or guarding. No CVA tenderness. EXTREMITIES: No pedal edema. No clubbing or cyanosis. Redness and swelling is present in both lower extremity, slightly tender. MUSCULOSKELETAL: No joint swelling. NEUROLOGIC: Awake, alert, oriented times three. No focal deficit. LYMPHATIC: No lymph nodes palpable. SKIN: Intact. LABS: WBC 10.81, hgb 11.1, hct 34.5, plt count 307, sodium 141, potassium 4.7, chloride 111, bicarb 21, BUN 16, creatinine 0.80, glucose 208. AST 38, ALT 112. ASSESSMENT: 1. Status DKA 2. Bilateral pneumonia, community acquired 3. Status post metabolic acidosis 4. Right lower extremity cellulitis which is getting better 5. Elevated liver enzymes which are improving 6. CAD status post multiple stents 7. CHF 8. Angina 9. Depression 10.Anxiety 11.Diabetes 12.Dyslipidemia 13.Osteoarthritis 14.DJD spine PLAN: 1. Continue Azactam 2. Lovenox for DVT prophylax 3. Daily I&O 4. Keep the legs elevated 5. Will move the patient to the regular floor TIME SPENT: More than 35 minutes MTDD
--- NOTE | 2017-06-17 07:53 | PN ---
DATE OF SERVICE: 06/07/17 SUBJECTIVE: The patient complains about the lower extremity more pain. Demerol been given. There was some oozing area today but the oozing has stopped now. Still able to walk and go to the smoking. REVIEW OF SYSTEMS: CONSTITUTIONAL: No fever, no chills. HEENT: Normal. ENDOCRINE: No weight gain, no weight loss. CVS: No angina symptoms. No CHF symptoms. No palpitations. No atypical chest pain for CAD. No shortness of breath. No PND, no orthopnea. RESPIRATORY: No cough, no hemoptysis. GI: No nausea, no vomiting. No abdominal pain. : No hematuria. No polyuria. MUSCULOSKELETAL: No joint swelling. PSYCHIATRIC: Not anxious. No depression. No suicidal thoughts. No homicidal thoughts. SKIN: Intact. No rash. PHYSICAL EXAMINATION: V/S: Blood pressure 132/70, respiratory 20, heart rate 96, temperature 98.7 and saturation 95% on 2 liters. HEENT: Normocephalic, atraumatic. Mucosa dry. Pallor positive. No icterus. NECK: Supple. No JVD, no carotid bruit. No lymphadenopathy. LUNGS: Basilar crackles which are a lot improved. Clear to auscultation. No rales or rhonchi. HEART: S1, S2 normal. No S3. No murmur, gallop or regurgitation. ABDOMEN: Soft, nontender. Bowel sounds active. No rigidity. No rebound or guarding. No CVA tenderness. EXTREMITIES: No pedal edema. No clubbing or cyanosis. Left lower extremity 1+ edema with red dry scaly lesions from her skin condition. Eczema. MUSCULOSKELETAL: No joint swelling. NEUROLOGIC: Awake, alert, oriented times three. No focal deficit. LYMPHATIC: No lymph nodes palpable. SKIN: Intact. LABS: WBC 9.48, hgb 11.1, hct 34.0, plt count 322, sodium 143, potassium 4.5, chloride 109, bicarb 25, BUN 14, creatinine 0.77, glucose 141. ASSESSMENT: 1. Status post DKA 2. Bibasilar community acquired pneumonia 3. Right lower extremity cellulitis which is better 4. Status post metabolic acidosis 5. CAD status post stents 6. CHF 7. Angina 8. Depression PLAN: 1. Continue the Azactam, Vancomycin 2. Daily I&O's 3. Keep the legs elevated 4. Demerol for the pain. TIME SPENT: More than 35 minutes MTDD
--- NOTE | 2017-08-12 14:51 | DS ---
DATE OF SERVICE: 06/09/17 FINAL DIAGNOSIS: 1. S/P UPPER RESPIRATORY FAILURE 2. S/P DIABETIC KETOACIDOSIS 3. BIBASILAR COMMUNITY ACQUIRED PNEUMONIA 4. RIGHT LOWER EXTREMITY CELLULITIS WHICH IS BETTER 5. S/P METABOLIC ACIDOSIS STATUS POST STENTS, MULTIPLE 6. CHF 7. ANGINA 8. DYSLIPIDEMIA 9. 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 CHRONIC PAIN SYNDROME DISCHARGE INSTRUCTIONS: Discharge the patient home. Followup appointment in [facility], Dr. Joseph, on Saturday, June 17, 2017 at 10:30 a.m. Keep legs elevated when resting. MEDICATIONS AT DISCHARGE: Aspirin BuSpar Vitamin D3 Plavix Pristiq Lasix Novolog Latanoprost Keppra Levothyroxine Lisinopril Pantoprazole Lyrica Zofran Albuterol Metoprolol NEW PRESCRIPTIONS: Keflex 500 mg twice a day for 5 days Clindamycin 300 mg p.o. t.i.d times five days DIET INSTRUCTIONS: 1800 ADA diet. Monitor blood sugars. Take list of blood sugar to M.D. appointment. ACTIVITY: As tolerated. Keep legs elevated as much as possible. SMOKING: N/A DISEASE SPECIFIC EDUCATION: DKA, dehydration discussed. Any infection can precipitate DKA, please keep in mind. Increase hydration. Pneumonia and Pneumonia vaccination have been discussed, verbalized understanding. HOSPITAL COURSE: This is a 61-year-old female with multiple medical problems came to the emergency room. The patient three days ago began having blood sugars running in the 400 to 500 range. Coughing and congestion, shortness of breath getting up yellow-green phlegm. The patient came to the emergency room, seen by Dr. Lange in the emergency room. Initial white count 12.21. ABGs showed pH 7.323, pc02 46.0, p02 73. Potassium 5.9, BUN 25, Bilirubin 8.1. Toxicology negative. Serology negative. BUN 33, creatinine 1.38, glucose 476. At that time, CT chest was done showed near complete occlusion of multiple right lower lobe airways with mucus plugging and pneumonia. At that time the patient was admitted to the hospital with acute DKA, started on insulin drip, admitted to SCU. She was started on Azactam, Vancomycin, breathing treatments. Keppra levels were done. Accu-cheks with coverage were done. The patient was started on insulin drip. Gradually the insulin drip was titrated and cut off. Lasix was given IV push, Lovenox for DVT prophylaxis. BUN and creatinine became better. Leg edema was getting better. Breathing was improving. Shortness of breath getting better. She did not have any complications during the hospital stay. Hemoglobin and hematocrit have been stable. Up and about walking with home medication insulin coverage. She felt better and at that time, the patient was successfully discharged home on 06/09/17. TIME SPENT: MORE THAN 65 MINUTES MTDD
--- NOTE | 2017-08-13 10:00 | PN ---
DATE OF SERVICE: 06/05/17 SUBJECTIVE: The patient is admitted with respiratory failure, DKA, pneumonia. She is receiving IV fluids and breathing treatments. The patient is feeling better. The legs have been cracking open and draining some. REVIEW OF SYSTEMS: CONSTITUTIONAL: No fever, no chills. HEENT: Normal. ENDOCRINE: No weight gain, no weight loss. CVS: No angina symptoms. No CHF symptoms. No palpitations. No atypical chest pain for CAD. No shortness of breath. No PND, no orthopnea. RESPIRATORY: Cough and congestion. No hemoptysis. GI: No nausea, no vomiting. No abdominal pain. : No hematuria. No polyuria. MUSCULOSKELETAL: No joint swelling. PSYCHIATRIC: Not anxious. No depression. No suicidal thoughts. No homicidal thoughts. SKIN: Intact. Skin on legs cracking and draining some. PHYSICAL EXAMINATION: V/S: BP 132/64, respiratory rate 20, heart rate 74, temperature 98.0. Saturation 98. HEENT: Normocephalic, atraumatic. Mucosa dry, pallor positive. No icterus. NECK: Supple. No JVD, no carotid bruit. No lymphadenopathy. LUNGS: Decreased entry with basilar crackles. No rales or rhonchi. HEART: S1, S2 normal. No S3. No murmur, gallop or regurgitation. ABDOMEN: Soft, nontender. Bowel sounds active. No rigidity. No rebound or guarding. No CVA tenderness. EXTREMITIES: No cyanosis, clubbing or pedal edema. Lower extremities are painful to touch. Ankles are red, shiny and dry skin, appears psoriatic. No drainage at this time. MUSCULOSKELETAL: No joint swelling. NEUROLOGIC: Awake, alert, oriented times three. No focal deficit. LYMPHATIC: No lymph nodes palpable. SKIN: Intact. LABS: Sodium 142, potassium 4.6, chloride 111, bicarb 22, BUN 16, creatinine 0.81, glucose 167. White count 11.01, hemoglobin 10.8, hematocrit 33.9, platelet count 307. ASSESSMENT: 1. DKA 2. COMMUNITY ACQUIRED PNEUMONIA 3. STATUS POST CHOLECYSTECT 4. STATUS POST APPENDECTOMY 5. DEPRESSION 6. ANXIETY 7. SPINAL STENOSIS 8. CAD STATUS POST MULTIPLE STENTS 9. ENDOMETRIAL CYSTS 10. OSTEOARTHRITIS 11. CHRONIC PAIN SYNDROME PLAN: 1. The insulin drip was discontinued 2. Duonebs 3. Oxygen 4. Azactam 5. Lovenox 6. Telemetry 7. Normal Saline 8. Vancomycin 9. Diabetic management 10. Accu-Checks with coverage TIME SPENT: More than 35 minutes MTDD
--- NOTE | 2017-08-13 10:11 | PN ---
DATE OF SERVICE: 06/08/17 SUBJECTIVE: The patient was admitted on 06/01 for community acquired pneumonia, DKA. She is still having a lot of pain in the legs. REVIEW OF SYSTEMS: CONSTITUTIONAL: No fever, no chills. HEENT: Normal. ENDOCRINE: No weight gain, no weight loss. CVS: No angina symptoms. No CHF symptoms. No palpitations. No atypical chest pain for CAD. No shortness of breath. No PND, no orthopnea. RESPIRATORY: Cough and congestion. No hemoptysis. GI: No nausea, no vomiting. No abdominal pain. : No hematuria. No polyuria. MUSCULOSKELETAL: No joint swelling. PSYCHIATRIC: Not anxious. No depression. No suicidal thoughts. No homicidal thoughts. SKIN: Intact. No rash. PHYSICAL EXAMINATION: V/S: BP 177/83, respiratory rate 20, heart rate 89, temperature 98.1, saturation 93. HEENT: Normocephalic, atraumatic. NECK: Supple. No JVD, no carotid bruit. No lymphadenopathy. LUNGS: Clear to auscultation with diminished breath sounds at the bases. No rales or rhonchi. Positive for green to yellow sputum. HEART: S1, S2 normal. No S3. No murmur, gallop or regurgitation. ABDOMEN: Soft, nontender. Bowel sounds active. No rigidity. No rebound or guarding. No CVA tenderness. EXTREMITIES: +2 leg edema. No cyanosis or clubbing. MUSCULOSKELETAL: No joint swelling. NEUROLOGIC: Awake, alert, oriented times three. No focal deficit. LYMPHATIC: No lymph nodes palpable. SKIN: Areas are red in the right lower extremity, betts and above ankle. LABS: Sodium 141, potassium 4.6, chloride 105, bicarb 26, BUN 15, creatinine 0.81, glucose 181. White count 11.06, hemoglobin 11.3, hematocrit 34.2, platelet count 361. ASSESSMENT: 1. ACUTE DKA 2. COMMUNITY ACQUIRED PNEUMONIA 3. RIGHT LOWER EXTREMITY CELLULITIS 4. HYPERTENSION 5. DYSLIPIDEMIA 6. CAD WITH MULTIPLE STENTS 7. BYPASS SURGERY 8. SUBSTANCE USE 9. 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 Continue Duonebs, Azactam, Lovenox, Vancomycin 2. Keep legs elevated 3. Daily I & O's TIME SPENT: More than 35 minutes MTDD
== END 2017-06-09 12:15 | disposition home or self-care (01) | DRG 189 ==
LOC: ED 19:51 → SCU 21:01 → MEDSURG B 06-06 17:18
PROVIDERS: ADMIT Emergency Medicine; ATTEND Emergency Medicine
DX: J96.01 Acute respiratory failure with hypoxia (principal); J18.9 Pneumonia, unspecified organism; I13.0 Hypertensive heart and chronic kidney disease with heart failure and stage 1 through stage 4 chronic kidney disease, or unspecified chronic kidney disease; L03.115 Cellulitis of right lower limb; N17.9 Acute kidney failure, unspecified; E03.9 Hypothyroidism, unspecified; E78.5 Hyperlipidemia, unspecified; I25.10 Atherosclerotic heart disease of native coronary artery without angina pectoris; I25.2 Old myocardial infarction; I10 Essential (primary) hypertension; I50.9 Heart failure, unspecified; J44.9 Chronic obstructive pulmonary disease, unspecified; D64.9 Anemia, unspecified; K21.9 Gastro-esophageal reflux disease without esophagitis; E11.22 Type 2 diabetes mellitus with diabetic chronic kidney disease; E11.65 Type 2 diabetes mellitus with hyperglycemia; N18.9 Chronic kidney disease, unspecified; Z87.891 Personal history of nicotine dependence; Z79.4 Long term (current) use of insulin; Z95.1 Presence of aortocoronary bypass graft; F19.90 Other psychoactive substance use, unspecified, uncomplicated; M19.90 Unspecified osteoarthritis, unspecified site; M47.9 Spondylosis, unspecified; F41.8 Other specified anxiety disorders; I25.709 Atherosclerosis of coronary artery bypass graft(s), unspecified, with unspecified angina pectoris; G47.30 Sleep apnea, unspecified; E86.0 Dehydration; G89.4 Chronic pain syndrome
CPT/HCPCS: 36415; 80048; 80053; 80061; 80202; 82542; 82803; 82962; 83880; 85025; 87040; 87070; 87081; 87502; 93005; 93010; 94640; 99223; 99232; 99233; 99239; 99284; 99285

== ENCOUNTER 2017-06-24 11:49 | Outpatient (CLI) | payer OTHER | END 2017-06-24 11:50 | disposition home or self-care (01) | LOC: LAB 11:49 | PROVIDERS: ATTEND Emergency Medicine | DX: E11.9 Type 2 diabetes mellitus without complications (principal); R60.0 Localized edema; L03.119 Cellulitis of unspecified part of limb | CPT/HCPCS: 36415; 80053; 85025; 85651 ==

== ENCOUNTER 2017-06-26 07:27 | Outpatient (CLI) | payer OTHER ==
--- NOTE | 2017-06-26 16:59 | NM ---
EXAM: Bone scan, three-phase . HISTORY: Redness and swelling of the bilateral lower legs for 1 year. COMPARISON: None of this type. PROCEDURE: The patient was injected with 24.9 mCi of 99m technetium HDP intravenously. A flow study w as performed followed by immediate blood pool phase images. After an appropriate interval, delayed lanre ne phase images were obtained. FINDINGS: Anterior perfusion phase images of the lower extremities from about the knee to the ankle l evel demonstrates symmetric normal activity. Immediate blood pool phase images similarly demonstrate symmetric normal activity. The images cover the lower extremities from the level of the ischial tub erosities to the ankles. There is modest increased activity along the anterior margin of the proximal tibia on the left. Delayed bone phase images demonstrate normal activity in the femurs, tibias and f ibulas and increased activity in the knees, greater on the right, compatible with degenerative joint disease. Additional delayed images of the ankles and feet in anterior projection demonstrate modest i ncreased activity in the mid foot region bilaterally most probably due to degenerative joint disease or repetitive stress. IMPRESSION: 1.The three-phase examination demonstrates normal findings on the perfusion and blood pool phase port ions of the examination. In particular, there is no evidence of hyperemia or soft tissue inflammator y process. 2.The delayed bone phase images similarly demonstrate normal activity in the femoral, tibial and fibu lar diaphyses. 3.There is increased activity in the knees bilaterally compatible with degenerative joint disease and more severe in the right knee along its lateral aspect and in the right patella. 4.Limited images of the ankles and feet show modest increased activity primarily in the ankles and do rsal mid feet, typical locations for degenerative joint disease and/or repetitive stress injury. 5. There are no findings to suggest an osteomyelitis associated with the persistent redness and swell ing seen in the lower legs.
== END 2017-06-26 07:28 | disposition home or self-care (01) ==
LOC: RAD 07:27
PROVIDERS: ATTEND Emergency Medicine
DX: L03.119 Cellulitis of unspecified part of limb (principal); R60.0 Localized edema; E11.9 Type 2 diabetes mellitus without complications

== ENCOUNTER 2017-06-29 00:20 | Inpatient (IN) | payer OTHER ==
--- NOTE | 2017-06-29 01:09 | ED.PDOC ---
General ED Provider: Dr. RUFUS GIFFORD-ER Chief Complaint: Extremity Pain/Injury Stated Complaint: my legs are killing me--they are more red and weeping--- percocet is not helping me Time Seen by Physician: 00:35 Mode of Arrival: Walk-In Information Source: Patient Exam Limitations: No limitations Primary Care Provider: AMANDA GONZALEZ-[facility] Nursing and Triage Documentation Reviewed and Agree: Yes Reviewed sepsis parameters & appropriate labs ordered?: Yes System Inflammatory Response Syndrome: Not Applicable Sepsis Protocol: For patient's 13 years and over: Temp is 96.8 and below OR 101 and greater Pulse >90 BPM Resp >20/minute Acutely Altered Mental Status Are patient's symptoms suggestive of a new infection, such as: -Pneumonia -Skin, Soft Tissue -Endocarditis -UTI -Bone, Joint Infection -Implantable Device -Acute Abdominal Infection -Wound Infection -Meningitis -Blood Stream Catheter Infection -Unknown Skin Complaint Exam - Skin Rash/Itching Complaint/Exam Onset/Duration: several days Symptoms Are: Still present Initial Severity: Moderate Current Severity: Severe Location: lower extremities below the knee Potential Exposures: Reports: Unknown Aggravating: Reports: None Alleviating: Reports: None Associated Signs and Symptoms: Denies: Difficulty breathing, Fever, Chills Skin Findings: Present: Lesions, Weeping skin Differential Diagnoses: Allergic Reaction, Impetigo, Other Review of Systems - Review Of Systems Constitutional: Reports: No symptoms Eyes: Reports: No symptoms Ears, Nose, Mouth, Throat: Reports: No symptoms Respiratory: Reports: No symptoms Cardiac: Reports: No symptoms GI: Reports: No symptoms : Reports: No symptoms Musculoskeletal: Reports: No symptoms Skin: Reports: Rash Neurological: Reports: No symptoms Endocrine: Reports: No symptoms Hematologic/Lymphatic: Reports: No symptoms All Other Systems: Reviewed and Negative Past Medical History - Past Medical History Previously Healthy: No Endocrine: Reports: DM 2, Hypothyroid, Dyslipidemia Cardiovascular: Reports: CAD, VT, Hypertension, CHF Respiratory: Reports: COPD Hematological: Reports: Anemia Gastrointestinal: Reports: GERD, Pancreatitis Genitourinary: Reports: CKD Neuro/Psych: Reports: Seizure, Anxiety, Depression Musculoskeletal: Reports: None Cancer: Reports: Other (kidney) Last Menstrual Period: 30 years ago - hysterectomy Other Pertinent Past Medical History: 1 kidney, Chase's disease, Glaucoma - Surgical History General Surgical History: Reports: Hysterectomy, Appendectomy, Cholecystectomy, Back Surgery, Other (nephrectomy,spleenectomy, partial pancreas,thyroidectomy, perforated colon,3 stents in heart) - Family History Family History: Reports: None - Social History Smoking Status: Current every day smoker, Light tobacco smoker Hx Substance Use: No Alcohol Screening: None - Immunizations Tetanus Shot up to Date: Yes Influenza Vaccine within 12 Months: No Pneumococcal Vaccine up to Date: No Physical Exam - Physical Exam Appearance: Well-appearing, No pain distress, Well-nourished Eyes: DONY, EOMI, Conjunctiva clear ENT: Ears normal, Nose normal, Oropharynx normal Respiratory: Airway patent, Breath sounds clear, Breath sounds equal, Respirations nonlabored Cardiovascular: RRR, Pulses normal, No rub, No murmur GI/: Soft, Nontender, No masses, Bowel sounds normal, No Organomegaly Musculoskeletal: Normal strength, ROM intact, No edema, No calf tenderness Skin: Warm, Dry (exam does confirm erythema over lower extremities with tenderness ) Neurological: Sensation intact, Motor intact, Reflexes intact, Cranial nerves intact, Alert, Oriented Psychiatric: Affect appropriate, Mood appropriate Physician Notification - Case Discussed Physician Notified: dr duarte Time of Notification: 02:41 Critical Care Note - Critical Care Note Total Time (mins): 0 Course - Course Hematology/Chemistry: 06/29/17 01:00 06/29/17 01:00 Orders, Labs, Meds: Lab Review 06/29/17 06/29/17 06/29/17 01:00 01:00 01:00 WBC 9.95 RBC 3.94 L Hgb 12.4 Hct 38.2 MCV 97.0 MCH 31.5 H MCHC 32.5 RDW Coeff of Manoj 13.9 Plt Count 395 Immature Gran % (Auto) 0.4 Neut % (Auto) 56.1 Lymph % (Auto) 29.1 Benson % (Auto) 8.4 Eos % (Auto) 5.3 Baso % (Auto) 0.7 Immature Gran # (Auto) 0.0 Neut # (Auto) 5.6 Lymph # (Auto) 2.9 Benson # (Auto) 0.8 Eos # (Auto) 0.5 Baso # (Auto) 0.1 ESR 69 H Sodium 137 Potassium 4.1 Chloride 105 Carbon Dioxide 23 Anion Gap 13.1 BUN 20 H Creatinine 0.97 Estimated GFR (MDRD) 58.00 BUN/Creatinine Ratio 20.61 Glucose 354 H Calcium 8.9 Orders Category Date Time Status IV [ED IV/MEDIPORT/POWERPORT] .ONCE EMERGENCY 06/29/17 01:33 Active BASIC METABOLIC PANEL Stat LAB 06/29/17 01:00 Completed BLOOD CULTURE (ED ONLY) Stat LAB 06/29/17 01:00 Received CBC W/ AUTO DIFF Stat LAB 06/29/17 01:00 Completed ESR Stat LAB 06/29/17 01:00 Completed 0.9 % Sodium Chloride [Saline Flush] MEDS 06/29/17 01:33 Ordered 1 syr IVF PRN PRN Morphine Sulfate [Morphine 4 mg/ml Syringe] MEDS 06/29/17 01:34 Discontinued 2 mg IVP ONCE STA Medications Generic Name Dose Route Start Last Admin Trade Name Freq PRN Reason Stop Dose Admin Sodium Chloride 1 syr 06/29/17 01:33 06/29/17 01:51 Saline Flush IVF 1 syr PRN PRN Administration To flush IV Discontinued Medications Generic Name Dose Route Start Last Admin Trade Name Freq PRN Reason Stop Dose Admin Morphine Sulfate 2 mg 06/29/17 01:34 06/29/17 01:50 Morphine 4 Mg/Ml Syringe IVP 06/29/17 01:35 2 mg ONCE STA Administration Vital Signs: Temp Pulse Resp BP Pulse Ox 06/29/17 02:07 159/79 H 06/29/17 00:28 97.6 F 84 20 180/94 H 97 Departure - Departure Time of Disposition: 02:41 Disposition: ADMITTED INPATIENT Discharge Problem: Cellulitis Instructions: Cellulitis (ED) Condition: Stable Pt referred to PMD for follow-up: Yes IPMP verified?: No Allergies/Adverse Reactions: Allergies duloxetine HCl [From Cymbalta] Allergy (Severe, Verified 06/29/17 00:34) unable to sleep hydrogen peroxide Allergy (Severe, Verified 06/29/17 00:34) rash, skin swells Patient to notify drugstore levofloxacin [From Levaquin] Allergy (Mild, Verified 06/29/17 00:34) Unknown Per patient she states she was on IV Levaquin in hospital for 5 days, then sent home with oral Levaquin. She c/o after 3 doses, she had blisters in her mouth penicillin G Adverse Reaction (Severe, Verified 06/29/17 00:34) Difficulty Breathing aripiprazole [From Abilify] Adverse Reaction (Verified 06/29/17 00:34) cefaclor [From Ceclor] Adverse Reaction (Verified 06/29/17 00:34) ciprofloxacin [From Cipro] Adverse Reaction (Verified 06/29/17 00:34) Rash clarithromycin [From Biaxin] Adverse Reaction (Verified 06/29/17 00:34) Rash ketorolac tromethamine [From Toradol] Adverse Reaction (Verified 06/29/17 00:34) Vomiting loperamide HCl [From Imodium A-D] Adverse Reaction (Verified 06/29/17 00:34) affects glaucoma Penicillins Adverse Reaction (Verified 06/29/17 00:34) Difficulty Breathing sumatriptan [From Imitrex] Adverse Reaction (Verified 06/29/17 00:34) heart attack sumatriptan succinate [From Imitrex] Adverse Reaction (Verified 06/29/17 00:34) heart attack Home Medications: Ambulatory Orders Albuterol Sulfate [Proair Hfa] 2 puff IH Q4H PRN 08/23/14 Insulin Glargine,Hum.rec.anlog [Lantus] 25 unit SQ BEDTIME 01/21/17 Metoprolol Tartrate [Lopressor] 12.5 mg PO BID 01/21/17 Acetaminophen [Tylenol] 1,000 mg PO Q6H 04/10/17 Oxycodone HCl/Acetaminophen [Percocet 10-325 mg Tablet] 1 each PO TID PRN Atorvastatin Calcium 80 mg PO BEDTIME tab-cap 04/30/17 Isosorbide Mononitrate [Isosorbide Mononitrate Er] 30 mg PO d 05/19/17 Cyclobenzaprine HCl 10 mg PO TID PRN 06/23/17 Nitroglycerin 0.4 mg SL DIRECTED PRN 06/29/17
[2017-06-29] MEDS ORDERED: MORPHINE 4 MG/ML SYRINGE IVP STA ×3 (01:34→16:35)
[2017-06-29] MEDS ORDERED: MORPHINE 4 MG/ML SYRINGE IVP PRN ×2 (02:45→09:44)
[2017-06-29] MEDS ORDERED: ZOFRAN 4 MG/2 ML IVP PRN (02:46)
[2017-06-29] MEDS ORDERED: NITROSTAT SL PRN (02:48)
[2017-06-29] MEDS ORDERED: ZESTRIL PO PRN (02:48)
[2017-06-29] MEDS ORDERED: PROAIR HFA IH PRN (02:48)
[2017-06-29] MEDS ORDERED: INSULIN ASPART 8 UNIT SQ PRN (02:48)
[2017-06-29] MEDS ORDERED: CLEOCIN ONE (03:56)
[2017-06-29] MEDS ORDERED: SODIUM CHLORIDE 50 ML IV ONE (04:09)
[2017-06-29 04:24] VITALS: BMI 28.2
[2017-06-29] MEDS ORDERED: CLEOCIN 600 MG in SODIUM CHLORIDE 50 ML IV SCH (05:00)
[2017-06-29] MEDS ORDERED: MORPHINE 4 MG/ML VIAL ONE ×2 (05:19→11:18)
[2017-06-29] MEDS: PROTONIX PO SCH (05:31)
[2017-06-29] MEDS: SYNTHROID PO SCH (05:31)
[2017-06-29] MEDS: HUMULIN R SUBCUT PRN ×4 (06:01→22:07)
[2017-06-29] MEDS ORDERED: HUMALOG SUBCUT PRN (07:09)
[2017-06-29] MEDS ORDERED: DRISDOL PO SCH (09:00)
[2017-06-29] MEDS ORDERED: NON-FORMULARY MEDICATION (Cholecalciferol (Vitamin D3) [Vitamin D3] 50,000 UNIT) PO SCH (09:00)
[2017-06-29] MEDS ORDERED: NON-FORMULARY MEDICATION (Desvenlafaxine Succinate [Pristiq] 100 MG) PO SCH (09:00)
[2017-06-29] MEDS ORDERED: NON-FORMULARY MEDICATION (Levetiracetam [Keppra] 1,000 MG) PO SCH (09:00)
[2017-06-29] MEDS ORDERED: VANCOMYCIN 1 GM in SODIUM CHLORIDE 250 ML IV SCH (09:00)
[2017-06-29] MEDS ORDERED: FLEXERIL PO PRN (09:00)
[2017-06-29] MEDS: PERCOCET 10-325 PO PRN ×3 (09:17→21:48)
[2017-06-29] MEDS: LYRICA PO SCH (09:18)
[2017-06-29] MEDS: PRISTIQ ER PO SCH (09:18)
[2017-06-29] MEDS: MIRALAX PO SCH (09:18)
[2017-06-29] MEDS: VANCOMYCIN 1 GM in SODIUM CHLORIDE 250 ML IV SCH ×2 (09:18→21:40)
[2017-06-29] MEDS: KEPPRA PO SCH ×2 (09:19→21:48)
[2017-06-29] MEDS: IMDUR PO SCH ×2 (09:19→14:25)
[2017-06-29] MEDS: LOPRESSOR PO SCH ×2 (09:19→21:47)
[2017-06-29] MEDS: BUSPAR PO SCH ×2 (09:19→21:48)
[2017-06-29] MEDS: LOVENOX SUBCUT SCH (09:22)
[2017-06-29] MEDS ORDERED: MORPHINE 4 MG/ML VIAL IVP PRN (11:07)
[2017-06-29] MEDS: MORPHINE 4 MG/ML VIAL IVP PRN (11:28)
[2017-06-29] MEDS ORDERED: NON-FORMULARY MEDICATION (Atorvastatin Calcium [Atorvastatin Calcium] 80 MG) PO SCH (21:00)
[2017-06-29] MEDS: XALATAN OP SCH (21:40)
[2017-06-29] MEDS: ASPIRIN EC PO SCH (21:48)
[2017-06-29] MEDS: PLAVIX PO SCH (21:48)
[2017-06-29] MEDS: LIPITOR PO SCH (21:49)
[2017-06-29] MEDS: LANTUS SUBCUT SCH (22:08)
[2017-06-30] MEDS: PROTONIX PO SCH (05:42)
[2017-06-30] MEDS: SYNTHROID PO SCH (05:42)
[2017-06-30] MEDS: LASIX TAB PO SCH (05:42)
[2017-06-30] MEDS: HUMULIN R SUBCUT PRN ×4 (05:49→22:03)
[2017-06-30] MEDS: PERCOCET 10-325 PO PRN ×2 (06:58→14:23)
[2017-06-30] MEDS: BUSPAR PO SCH ×2 (09:30→21:58)
[2017-06-30] MEDS: PRISTIQ ER PO SCH (09:30)
[2017-06-30] MEDS: LYRICA PO SCH (09:30)
[2017-06-30] MEDS: KEPPRA PO SCH ×2 (09:31→21:58)
[2017-06-30] MEDS: LOPRESSOR PO SCH ×2 (09:31→21:59)
[2017-06-30] MEDS: VANCOMYCIN 1 GM in SODIUM CHLORIDE 250 ML IV SCH ×2 (09:33→22:05)
[2017-06-30] MEDS: IMDUR PO SCH (09:33)
[2017-06-30] MEDS: MIRALAX PO SCH (09:33)
[2017-06-30] MEDS: LOVENOX SUBCUT SCH (09:45)
[2017-06-30] MEDS: MORPHINE 4 MG/ML VIAL IVP PRN ×2 (10:03→19:38)
--- NOTE | 2017-06-30 13:28 | RS.PTINEVL ---
Subjective - Patient information Date of Evaluation: 06/30/17 Date of Arrival on Unit: 06/28/17 Admitted From:: Home Diagnosis: cellulitis BLE Usual Living Arrangement: with daughter Home Environment: House, Stairs (few), Rail Medical History: Hypertension, COPD, Diabetes, CHF Medical History Comments:: CAD, GERD Surgical History: Hysterectomy Surgical History Comments:: splenectomy, pancreatectomy Medications: see chart Subjective Information/ Patient Comments:: pt states she does not feel she needs PT. States she just finished PT with home care prior to admit. pt states she has been amb independently in the hallway. - Level of function Prior to this admission, the patient could do the following:: Independent ADL's , Independent Ambulation Current Level of Function: Independent Current Equipment Used at Home: rollator, hospital bed, bath chair, glucometer, BP cuff, Oxygen Pain Assessement - Location BLE Description: Burning Pain Behavior: Facial Grimacing Pain Alleviating Factors: Medication Interventions - Objective Patient Orientation: Person, Place, Time, Situation Current Interventions: IV's Range of Motion - ROM Right Upper Extremity AROM: WFL's Left Upper Extremity AROM: WFL's Right Lower Extremity AROM: WFL's Left Lower Extremity AROM: WFL's Muscle Strength - Muscle Strength Right Upper Extremity Strength: Mild Weakness (grossly 4+/5) Left Upper Extremity Strength: Mild Weakness (grossly 4+/5) Right Lower Extremity Strength: Mild Weakness (grossly 4/5) Left Lower Extremity Strength: Mild Weakness (grossly 4/5) Sensation - Sensation Right Upper Extremity Sensation: Intact/Normal Left Upper Extremity Sensation: Intact/Normal Right Lower Extremity Sensation: Impaired Left Lower Extremity Sensation: Impaired (n/t BLE) Palpation Palpation Findings: Tenderness (BLE tender to touch) Balance - Sitting Balance and Reactions Static Sitting Balance: Normal Dynamic Sitting Balance: Normal - Standing Balance and Reactions Static Standing Balance: Good Dynamic Standing Balance: Fair Functional Mobility - Bed Mobility Rolling R/L: Independent Scooting: Independent Supine to Sit: Independent Sit to Supine: Independent - Transfers Sit to Stand: Independent Stand to Sit: Independent NIKKI INDEX SCORE: n/a Ambulation - Ambulation Assistive Device Used: Straight Cane Orthotic/Prosthetic Device: No Assistance needed with Ambulation: Supervision Gait Deviations: Short stride Ambulation Comments: pt amb with no LOB with cane and pushing IV pole. Treatment time - Time with patient Total treatment time: 25 Patient Education - Education Patient Education: Home Safety, Activity Modification Teaching Recipient: Patient Teaching Methods: Discussion (discussion regarding safety with amb ) Assessment - Assessment Problem List:: Weakness Further Therapy Indicated?: No Comments: pt refuses need for skilled PT at this time. Evaluation Complexity: HISTORY: Medium (CHF, COPD, CAD, HTN, DM), EXAM OF BODY SYSTEMS: Low, CLINICAL PRESENTATION: Low, CLINICAL DECISION MAKING: Low Plan Other:: eval only Frequency of Treatment: One time treatment Duration of Treatment: One Time Treatment Anticipated Discharge Destination: Home Treatment Diagnosis (ICD 10 Codes): muscle weakness m62.81 Has the Physician been added for Co-signature?: Yes
[2017-06-30] MEDS: LIPITOR PO SCH (21:58)
[2017-06-30] MEDS: ASPIRIN EC PO SCH (21:58)
[2017-06-30] MEDS: PLAVIX PO SCH (21:58)
[2017-06-30] MEDS: XALATAN OP SCH (21:58)
[2017-06-30] MEDS: LANTUS SUBCUT SCH (22:00)
[2017-07-01] MEDS: MORPHINE 4 MG/ML VIAL IVP PRN ×3 (05:30→21:33)
[2017-07-01] MEDS: SYNTHROID PO SCH (05:31)
[2017-07-01] MEDS: LASIX TAB PO SCH (05:31)
[2017-07-01] MEDS: PROTONIX PO SCH (05:31)
[2017-07-01] MEDS: BUSPAR PO SCH ×2 (08:23→20:39)
[2017-07-01] MEDS: IMDUR PO SCH (08:23)
[2017-07-01] MEDS: PRISTIQ ER PO SCH (08:23)
[2017-07-01] MEDS: MIRALAX PO SCH (08:23)
[2017-07-01] MEDS: KEPPRA PO SCH ×2 (08:24→20:40)
[2017-07-01] MEDS: LYRICA PO SCH (08:24)
[2017-07-01] MEDS: LOPRESSOR PO SCH ×2 (08:24→20:38)
[2017-07-01] MEDS: PERCOCET 10-325 PO PRN ×2 (08:27→16:16)
[2017-07-01] MEDS: VANCOMYCIN 1 GM in SODIUM CHLORIDE 250 ML IV SCH ×2 (08:28→20:37)
[2017-07-01] MEDS: LOVENOX SUBCUT SCH (08:28)
--- NOTE | 2017-07-01 09:44 | HP ---
DATE OF SERVICE: 06/29/17 CHIEF COMPLAINT: Bilateral extremity swelling and redness. HISTORY OF PRESENT ILLNESS: This is a 61 year old female who comes to the emergency room in the middle of the night for the severe pain in the lower extremities. She was seen by Dr. Lange. The patient has a chronic dermatitis which gets the flare up on and off. The patient been hurting more the last two days. Blood pressure has been high. 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 Seen by Dr. Lange in the emergency room. He gave a dose of Morphine. WBC was normal. ESR was 69 and at that time he admitted the patient to the hospital for the IV antibiotics and pain control. REVIEW OF SYSTEMS: CONSTITUTIONAL: No fever, no chills. HEENT: Normal. ENDOCRINE: No weight gain; no weight loss. CVS: No chest pain. No PND, no orthopnea. No shortness of breath. No PND, no orthopnea. RESPIRATORY: No cough, no congestion. No hemoptysis. GI: No nausea, no vomiting. No abdominal pain. No melena. : No hematuria. No polyuria. MUSCULOSKELETAL: No joint swelling. Lower extremity swelling, redness and warm to touch. Chronic back pain. PSYCHIATRIC: Anxious. No depression. No suicidal thoughts. No homicidal thoughts. SKIN: Intact, no open lesions. PAST MEDICAL HISTORY: Diabetes Hypertension Dyslipidemia Osteoarthritis DJD spine Coronary artery disease, Status post stents. CHF Seizure disorder Chronic obstructive pulmonary disease Sleep apnea on CPAP GERD Anxiety Depression Chronic back pain Pain syndrome PAST SURGICAL HISTORY: Left kidney removed 2007 Hysterectomy Splenectomy Cholecystectomy Appendectomy PERSONAL HISTORY: The patient does smoke, no alcohol and no drugs. Family history is significant for the mechanical valves, diabetes, breast cancer. MEDICATIONS: ProAir Vitamin D 3 Polyethylene Glycol Aspirin Latanoprost Keppra Insulin Glargine 25 units at bedtime Metoprolol Lyrica Lisinopril [place] 3 Tylenol Oxycodone Atorvastatin Levothyroxine Isosorbide Buspar Cyclobenzaprine Lasix Novolog Plavix Pantoprazole Pristiq Nitroglycerin ALLERGIES: Duloxetine Hydrogen peroxide Levofloxacin Penicillin PHYSICAL EXAMINATION: V/S: Blood pressure 128/72, respiratory rate 20, heart rate 66, temperature 97.6 and saturation 96%. GENERAL: Sick looking lady laying in a bed, not in any distress. HEENT: Atraumatic, normocephalic. No scleral icterus. Pallor positive. Mucosa dry. NECK: Supple. No JVD, no bruit. No lymphadenopathy. No thyromegaly. HEART: S1, S2 normal. No murmur. No cyanosis or clubbing. No ascites. LUNGS: Decreased and clear to auscultation. No rales or rhonchi. ABDOMEN: Soft, nontender. Bowel sounds are active. No CVA tenderness. No rigidity or guarding. EXTREMITIES: 1+ leg edema. No cyanosis or clubbing. Right scaly erythematous lesions up to the knees. Warm to touch, very tender to touch. MUSCULOSKELETAL: Normal joints, no swelling. NEUROLOGIC: The patient is awake and alert. SKIN: Intact; no open lesions. LYMPHATIC: No lymph nodes palpable. LABS: Sodium 138, potassium 4.1, chloride 106, bicarb 23, BUN 16, creatinine 0.77, glucose 248, WBC 9.46, hgb 11.2, hct 34.5, plt count 315. ASSESSMENT: 1. Bilateral lower extremity cellulitis, diffused 2. CAD status post multiple stents 3. CHF 4. Aortic valve leaking 5. Hypertension 6. Dyslipidemia 7. Diabetes 8. Osteoarthritis 9. DJD spine 10.Chronic back pain 11.Only 1 kidney PLAN: 1. Admit the patient to the regular floor 2. CBC and CMP today and daily 3. Cardiac enzymes and Troponin 4. Vancomycin daily 5. Lovenox 6. Accu-checks with coverage 7. Daily I&O's 8. Morphine PRN for the pain TIME SPENT: MORE THAN 75 minutes MTDD
[2017-07-01] MEDS: HUMULIN R SUBCUT PRN ×2 (11:18→16:17)
[2017-07-01] MEDS: XALATAN OP SCH (20:37)
[2017-07-01] MEDS: LANTUS SUBCUT SCH (20:37)
[2017-07-01] MEDS: LIPITOR PO SCH (20:38)
[2017-07-01] MEDS: ASPIRIN EC PO SCH (20:38)
[2017-07-01] MEDS: PLAVIX PO SCH (20:39)
[2017-07-02] MEDS: LASIX TAB PO SCH (05:38)
[2017-07-02] MEDS: SYNTHROID PO SCH (05:38)
[2017-07-02] MEDS: PROTONIX PO SCH (05:38)
[2017-07-02] MEDS: MORPHINE 4 MG/ML VIAL IVP PRN (05:39)
[2017-07-02] MEDS: HUMULIN R SUBCUT PRN ×2 (05:49→12:36)
[2017-07-02 09:55] VITALS: BP 137/69; TEMP 98.3
[2017-07-02] MEDS: VANCOMYCIN 1 GM in SODIUM CHLORIDE 250 ML IV SCH ×2 (10:05→10:27)
[2017-07-02] MEDS: PRISTIQ ER PO SCH (10:06)
[2017-07-02] MEDS: LOPRESSOR PO SCH (10:06)
[2017-07-02] MEDS: KEPPRA PO SCH (10:06)
[2017-07-02] MEDS: IMDUR PO SCH (10:06)
[2017-07-02] MEDS: BUSPAR PO SCH (10:06)
[2017-07-02] MEDS: MIRALAX PO SCH (10:07)
[2017-07-02] MEDS: LOVENOX SUBCUT SCH (10:09)
[2017-07-02] MEDS: PERCOCET 10-325 PO PRN (10:19)
[2017-07-02] MEDS: LYRICA PO SCH (10:19)
--- NOTE | 2017-07-02 14:02 | PN ---
DATE OF SERVICE: 06/30/17 SUBJECTIVE: The patient is admitted with bilateral lower extremity cellulitis, acute on chronic. The patient did have a bone scan as outpatient which was negative however her ESR is 69. The patient is getting IV antibiotics. Swelling is a little better but patient is still having pain 8 to 9 out of 10. Morphine is helping. REVIEW OF SYSTEMS: CONSTITUTIONAL: No fever, no chills. HEENT: Normal. ENDOCRINE: No weight gain, no weight loss. CVS: No angina symptoms. No CHF symptoms. No palpitations. No atypical chest pain for CAD. No shortness of breath. No PND, no orthopnea. RESPIRATORY: No cough, no hemoptysis. GI: No nausea, no vomiting. No abdominal pain. : No hematuria. No polyuria. MUSCULOSKELETAL: No joint swelling. PSYCHIATRIC: Not anxious. No depression. No suicidal thoughts. No homicidal thoughts. SKIN: Redness, scaly lesions below the knee lower extremities. PHYSICAL EXAMINATION: V/S: BP 151/75, respiratory rate 20, heart rate 80, temperature 97.9, saturation 94. HEENT: Normocephalic, atraumatic. Mucosa dry. Pallor positive. No icterus. NECK: Supple. No JVD, no carotid bruit. No lymphadenopathy. LUNGS: Clear to auscultation. No rales or rhonchi. HEART: S1, S2 normal. No S3. No murmur, gallop or regurgitation. ABDOMEN: Soft, nontender. Bowel sounds active. No rigidity. No rebound or guarding. No CVA tenderness. EXTREMITIES: 1+ edema. Diffuse redness and scaly lesions on the lower extremities below the knee, circumferential redness, swelling and tender to touch. No clubbing or cyanosis MUSCULOSKELETAL: No joint swelling. NEUROLOGIC: Awake, alert, oriented times three. No focal deficit. LYMPHATIC: No lymph nodes palpable. SKIN: As above. LABS: White count 9.46, hemoglobin 11.2, hematocrit 34.5, platelet count 315. Sodium 138, potassium 3.8, chloride 106, bicarb 22, BUN 20, creatinine 0.84, glucose 190. ASSESSMENT: 1. BILATERAL LOWER EXTREMITY CELLULITIS, DIFFUSE AND CIRCUMFERENTIAL WITH ACUTE ON CHRONIC DERMATITIS 2. CAD STATUS POST STENT 3. CHF 4. HYPERTENSION 5. DIABETES, LABILE WITH A1C 9.9 6. OSTEOARTHRITIS 7. DJD SPINE 8. CHRONIC PAIN SYNDROME 9. DEPRESSION PLAN: 1. Continue Morphine 2. Will decrease the Morphine from every 2 hours to every 8 hours p.r.n. 3. Lovenox for DVT prophylaxis 4. Lasix 5. Accu-Cheks with coverage 6. Vancomycin 7. Daily I & O's TIME SPENT: More than 55 minutes MTDD
--- NOTE | 2017-07-02 14:08 | PN ---
DATE OF SERVICE: 07/01/17 SUBJECTIVE: The patient was admitted with diffuse circumferential cellulitis in both lower extremities. Leg edema is a little better. The patient is still hurting. REVIEW OF SYSTEMS: CONSTITUTIONAL: No fever, no chills. HEENT: Normal. ENDOCRINE: No weight gain, no weight loss. CVS: No angina symptoms. No CHF symptoms. No palpitations. No atypical chest pain for CAD. No shortness of breath. No PND, no orthopnea. RESPIRATORY: No cough, no hemoptysis. GI: No nausea, no vomiting. No abdominal pain. : No hematuria. No polyuria. MUSCULOSKELETAL: No joint swelling. PSYCHIATRIC: Not anxious. No depression. No suicidal thoughts. No homicidal thoughts. SKIN: Intact. PHYSICAL EXAMINATION: V/S: BP 148/68, respiratory rate 20, heart rate 78, temperature 99.1, saturation 95. HEENT: Normocephalic, atraumatic. Mucosa dry. NECK: Supple. No JVD, no carotid bruit. No lymphadenopathy. LUNGS: Decreased air entry, clear to auscultation. No rales or rhonchi. HEART: S1, S2 normal. No S3. Systolic murmur. ABDOMEN: Soft, nontender. Bowel sounds active. No rigidity. No rebound or guarding. No CVA tenderness. EXTREMITIES: 1+ edema with some wrinkles on the skin, redness and warm and tender to touch both lower extremities, circumferential redness, scaly lesions. No clubbing or cyanosis. MUSCULOSKELETAL: No joint swelling. NEUROLOGIC: Awake, alert, oriented times three. No focal deficit. LYMPHATIC: No lymph nodes palpable. SKIN: Intact. LABS: Sodium 138, potassium 4.3, chloride 106, bicarb 22, BUN 20, creatinine 0.8, glucose 190. A1C 9.9. White count 8.82, hemoglobin 11.0, hematocrit 34.1, platelet count 365. ASSESSMENT: 1. BILATERAL LOWER EXTREMITY DIFFUSE CIRCUMFERENTIAL CELLULITIS, CHRONIC DERMATITIS FROM DEPENDENT EDEMA 2. CAD STATUS POST STENT 3. CHF 4. HYPERTENSION 5. DYSLIPIDEMIA 6. OSTEOARTHRITIS 7. DIABETES WITH A1C 9.9 8. DEPRESSION 9. ANXIETY 10. CHRONIC PAIN SYNDROME PLAN: 1. Continue Morphine q.8hr 2. Daily I & O 3. Keep legs elevated 4. Vancomycin 1 gm daily 5. Lovenox for DVT prophylaxis TIME SPENT: More than 35 minutes MTDD
[2017-07-02] MEDS ORDERED: VANCOMYCIN 500 MG in SODIUM CHLORIDE 100 ML IV SCH (21:00)
--- NOTE | 2017-08-12 09:42 | DS ---
DATE OF SERVICE: 07/02/17 FINAL DIAGNOSIS: 1. CELLULITIS BILATERAL LOWER EXTREMITY 2. NEUROPATHY BILATERAL LOWER EXTREMITIES 3. CAD 4. STATUS POST ANGIOPLASTY AND STENT 2011; ANGIOPLASTY AGAIN IN 2016 AND 2017 5. CHF 6. CHRONIC ANGINA 7. AORTIC VALVE INSUFFICIENCY 8. COPD 9. HYPERTENSION 10. DYSLIPIDEMIA 11. ANXIETY DISORDER 12. DEPRESSION 13. DIABETES 14. HYPOTHYROIDISM 15. SLEEP APNEA 16. HISTORY OF SUBSTANCE USE 17. CHOLECYSTECTOMY 18. APPENDECTOMY 19. LEFT MASTECTOMY 20. HYSTERECTOMY 21. SPLENECTOMY 22. PARTIAL PANCREATECTOMY 23. CATARACT SURGERY DISCHARGE INSTRUCTIONS: 1. Discharge the patient home 2. Followup appointment at the [facility] within 5 to 7 days MEDICATIONS AT DISCHARGE: Aspirin BuSpar Vitamin D3 Plavix Pristiq Lasix Lisinopril NovoLog Latanoprost Keppra Levothyroxine Lisinopril Pantoprazole Polyethylene Glycol Lyrica Zofran Albuterol Atorvastatin Cyclobenzaprine Fluticasone Insulin Lantus 25 units Isosorbide Lopressor Nitroglycerin p.r.n. NEW PRESCRIPTIONS: Clindamycin 300 mg take one capsule by mouth twice daily for 3 days DIET INSTRUCTIONS: Cardiac and Healthy ACTIVITY: As much as tolerated; keep legs elevated when resting. DISEASE SPECIFIC EDUCATION: Recurrent leg cellulitis and risk of osteomyelitis discussed, verbalized understanding. HOSPITAL COURSE: The patient is a 61-year-old female, who came to the emergency room with increased redness, weeping both lower extremities, cellulitis and pain, was seen by ER physician, Dr. Lange. White count was normal. Temperature was normal. Blood pressure 180/94. She was admitted to the hospital started on Morphine, Clindamycin. Clindamycin was stopped and Vancomycin started. Keep legs elevated. Continued home medication, Accu-cheks with coverage was done. Breathing treatments were given. Lovenox for DVT prophylaxis given. Morphine for pain was given. The patient did have outpatient evaluation for ruling out osteomyelitis which was negative for both lower extremities. ESR elevated at 69. She did see senior ui ux developer recently as outpatient. She did not think it was psoriatic skin lesions. It was more osteomyelitis but the tests for the bone scan was negative for osteomyelitis. With giving steroids and steroid cream on the lower extremities, the patient's legs were feeling better, swelling and redness getting better, we could see the betts of the tibia, which was not seen in a long time on the patient. No open wounds. She is up and about walking. At that time, the patient was discharged home. TIME SPENT: MORE THAN 65 MINUTES MTDD
== END 2017-07-02 12:00 | disposition home or self-care (01) | DRG 603 ==
LOC: ED 00:20 → MEDSURG B 03:42
PROVIDERS: ADMIT Emergency Medicine; ATTEND Emergency Medicine
DX: L03.116 Cellulitis of left lower limb (principal); L03.115 Cellulitis of right lower limb; R60.0 Localized edema; L30.8 Other specified dermatitis; G57.93 Unspecified mononeuropathy of bilateral lower limbs; I25.119 Atherosclerotic heart disease of native coronary artery with unspecified angina pectoris; I35.1 Nonrheumatic aortic (valve) insufficiency; R70.0 Elevated erythrocyte sedimentation rate; E11.9 Type 2 diabetes mellitus without complications; J44.9 Chronic obstructive pulmonary disease, unspecified; I10 Essential (primary) hypertension; E78.5 Hyperlipidemia, unspecified; F41.9 Anxiety disorder, unspecified; F32.9 Major depressive disorder, single episode, unspecified; G89.4 Chronic pain syndrome; M19.90 Unspecified osteoarthritis, unspecified site; M47.9 Spondylosis, unspecified; E03.9 Hypothyroidism, unspecified; M79.662 Pain in left lower leg; M79.661 Pain in right lower leg; R26.2 Difficulty in walking, not elsewhere classified; G47.30 Sleep apnea, unspecified; Z79.02 Long term (current) use of antithrombotics/antiplatelets; Z79.4 Long term (current) use of insulin; Z95.5 Presence of coronary angioplasty implant and graft
CPT/HCPCS: 36415; 80048; 80053; 80202; 82962; 83036; 85025; 85651; 87040; 87081; 96372; 97802; 99223; 99233; 99239; 99285

== ENCOUNTER 2017-07-24 12:25 | Outpatient (CLI) | payer OTHER ==
--- NOTE | 2017-07-24 14:09 | DI ---
EXAM: Lumbar spine; AP, lateral neutral, lateral flexion, lateral extension,, bilateral oblique, and magnified lateral lumbosacral views. HISTORY: Degenerative disc disease FINDINGS: The bones are osteopenic. The aorta is atherosclerotic. There multiple surgical clips in the abdomen. There is moderate to severe narrowing of the L3-L4 through L5-S1 intervertebral joint sp aces. The L1-L2 intervertebral joint space is also moderately to severely narrowed. No listhesis is induced with flexion or extension. No acute fracture or lithesis are detected. OPINION: 1. No acute fracture or lithesis. 2. No segmental motion/listhesis with positioning. 3. Moderate to severe degenerative disc disease at L1-L2 and between L3-L4 and L5-S1. 4. Osteopenia and ASCVD.
--- NOTE | 2017-07-24 20:15 | MRI ---
EXAM: Lumbar spine MRI without contrast. HISTORY: Degenerative disc disease. COMPARISON: Lumbar spine radiographs 07/24/2017 TECHNIQUE: Multiplanar, multisequence MR images were acquired of the lumbar spine without contrast. FINDINGS: Conus medullaris ends at L1-2 and is normal signal intensity. Five [id number] lumbar vertebra are present. There is minor chronic concavity of the L1 superior endplate with moderate mo dic type 2 endplate changes. At L4, there is a chronic mild to moderate superior endplate compressio n fracture with 1.5 mm retropulsion and irregular concavity of the superior endplate. Bone marrow si gnal is mildly heterogeneous. There is mild disc space narrowing and disc desiccation at L4-5 and L5 -S1. The partially visualized liver, and spleen are unremarkable. Metallic artifact is present in the lef t renal fossa consistent with surgical clips. The left kidney is absent. There is compensatory hype rtrophy of the right kidney. L1-2: The intervertebral disc is normal. There is no central canal stenosis or foraminal stenosis. L2-3: The intervertebral disc is normal. There is a minor disc bulge that minimally narrows inferio r neural foramina and mild bilateral hypertrophic facet arthropathy and ligamentum flavum hypertrophy . This causes minor bilateral foraminal stenosis. There is no central canal stenosis. L3-4: There is a mild to moderate chronic superior endplate compression fracture of L4 with 1.5 mm r etropulsion of the posterior-superior L4 endplate and L3-4 intervertebral disc. Moderate bilateral f acet and ligamentum flavum hypertrophy is present. This produces mild spinal stenosis and mild bilat eral neural foraminal stenosis. AP diameter of the thecal sac is 7.8 mm. L4-5: There is a mild disc bulge that is asymmetric to the right and bilateral hypertrophic facet ar thropathy and ligamentum flavum hypertrophy, greater on the right. There is minor left and mild to m oderate right neural foraminal stenosis. There is no central canal stenosis. L5-S1: There is a minor disc bulge with small bilateral far lateral endplate osteophytes that may en croach on the L5 nerves exiting the neural foramina. Moderate right and mild left hypertrophic facet arthropathy and ligamentum flavum hypertrophy is present. There is mild left and minor right neural foraminal stenosis. IMPRESSION: 1. Mild lumbar degenerative spondylosis. 2. Mild to moderate chronic superior endplate compression fracture L4 with 1.5 mm retropulsion of th e L4 superior endplate and L3-4 intervertebral disc which causes mild spinal stenosis. 3. Mild to moderate right L4-5 neural foraminal stenosis. 4. Post left nephrectomy with compensatory hypertrophy of the right kidney.
== END 2017-07-24 12:26 | disposition home or self-care (01) ==
LOC: RAD 12:25
PROVIDERS: ATTEND Pain Medicine Interventional Pain Medicine
DX: M51.16 Intervertebral disc disorders with radiculopathy, lumbar region (principal); M51.17 Intervertebral disc disorders with radiculopathy, lumbosacral region; M51.36 Other intervertebral disc degeneration, lumbar region; M51.37 Other intervertebral disc degeneration, lumbosacral region

== ENCOUNTER 2017-08-26 14:43 | Outpatient (CLI) | END 2017-08-26 15:04 | disposition short-term general hospital (02) | LOC: AMBL 14:43 | PROVIDERS: ATTEND Internal Medicine | DX: R07.9 Chest pain, unspecified (principal); E11.9 Type 2 diabetes mellitus without complications; I25.2 Old myocardial infarction; R53.1 Weakness ==

== ENCOUNTER 2017-09-16 12:01 | Emergency (ER) ==
[2017-09-16 12:19] VITALS: BP 136/61; TEMP 98.1; BMI 29.9
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
--- NOTE | 2017-09-16 13:05 | DI ---
Exam: Single view of the chest with four views of the left ribs. Comparison: Chest x-ray performed 06/05/2017. Reason for exam: Left rib pain. FINDINGS: No pneumothorax, pleural effusion, or focal consolidation. The cardiac silhouette is not enlarged and unchanged from the previous study. No displaced left-sided rib fractures are seen. Ope rative changes are seen in the upper abdomen. Impression: 1. No acute cardiopulmonary process. 2. No displaced left-sided rib fractures
== END 2017-09-16 13:33 | disposition home or self-care (01) ==
LOC: ED 12:01
DX: R07.89 Other chest pain (principal); W19.XXXA Unspecified fall, initial encounter; F17.210 Nicotine dependence, cigarettes, uncomplicated
CPT/HCPCS: 99282

== ENCOUNTER 2017-09-18 19:11 | Emergency (ER) ==
[2017-09-18 19:16] VITALS: BP 157/75; TEMP 97.9; BMI 26.4
[2017-09-18] MEDS ORDERED: SODIUM CHLORIDE 1,000 ML IV STA (19:31)
[2017-09-18] MEDS ORDERED: ZOFRAN 4 MG/2 ML IVP STA (19:53)
[2017-09-18] MEDS ORDERED: MORPHINE 2 MG/ML SYRINGE IVP STA (19:53)
--- NOTE | 2017-09-18 20:05 | ED.PDOC ---
General ED Provider: Dr. WILIAN JUAREZ Chief Complaint: Abdominal Pain Stated Complaint: Patient is a 61 year old patient who comes to the ER with 1 day history of lower abdominal pain. Then today she started having bloody urine but no clots Time Seen by Physician: 19:54 Mode of Arrival: Walk-In Information Source: Patient, Family Exam Limitations: No limitations Primary [facility] Nursing and Triage Documentation Reviewed and Agree: Yes Does patient meet sepsis criteria?: No System Inflammatory Response Syndrome: Not Applicable Sepsis Protocol: For patient's 13 years and over: Temp is 96.8 and below OR 101 and greater Pulse >90 BPM Resp >20/minute Acutely Altered Mental Status Are patient's symptoms suggestive of a new infection, such as: -Pneumonia -Skin, Soft Tissue -Endocarditis -UTI -Bone, Joint Infection -Implantable Device -Acute Abdominal Infection -Wound Infection -Meningitis -Blood Stream Catheter Infection -Unknown GI Complaint Exam - Abdominal Pain Complaint/Exam Onset: Gradual Duration: 2 days Symptoms Are: Still present Timing: Constant Initial Severity: Moderate Current Severity: Moderate Location of Pain: Diffuse Radiates To: Reports: Flank Character: Reports: Dull, Aching Aggravating: Reports: Food Alleviating: Reports: None Associated Signs and Symptoms: Reports: Constipation, Dysuria, Nausea. Denies: Diaphoresis, Fever, Cough, Chest pain, Back pain, Blood in stool, Vaginal bleeding, Vaginal discharge, Vomiting, Diarrhea AAA Risk Factors: Reports: None Cardiac Risk Factors: Reports: None Ectopic Risk Factors: Reports: None Ovarian Torsion Risk Factors: Reports: None Surgical Obstruction Risk Factors: Reports: None Related Surgical History: Reports: Cholecystectomy, Appendectomy, Kidney Stones Patient Rh Status: Negative Abdominal Findings: Present: Other (diffuse tenderness to palpation. ). Absent : McBurney's Point tender Differential Diagnoses: Bowel Obstruction, Diverticulitis, Gastroenteritis, UTI Review of Systems - Review Of Systems Constitutional: Reports: No symptoms Eyes: Reports: No symptoms Ears, Nose, Mouth, Throat: Reports: No symptoms Respiratory: Reports: No symptoms Cardiac: Reports: No symptoms GI: Reports: Abdominal pain, Nausea. Denies: Vomiting : Reports: Dysuria, Flank pain, Hematuria, Pain Musculoskeletal: Reports: Back pain Skin: Reports: No symptoms Neurological: Reports: Anxiety Endocrine: Reports: No symptoms Hematologic/Lymphatic: Reports: No symptoms All Other Systems: Reviewed and Negative Past Medical History - Past Medical History Previously Healthy: No Endocrine: Reports: DM 2, Hypothyroid, Dyslipidemia Cardiovascular: Reports: CAD, [place], Hypertension, CHF Respiratory: Reports: COPD Hematological: Reports: Anemia Gastrointestinal: Reports: GERD, Pancreatitis Genitourinary: Reports: CKD Neuro/Psych: Reports: Seizure, Anxiety, Depression Musculoskeletal: Reports: None Cancer: Reports: Other (kidney) Last Menstrual Period: HYSTERECTOMY Other Pertinent Past Medical History: 1 kidney, Hale's disease, Glaucoma - Surgical History General Surgical History: Reports: Hysterectomy, Appendectomy, Cholecystectomy, Back Surgery, Other (nephrectomy,spleenectomy, partial pancreas,thyroidectomy, perforated colon,3 stents in heart) - Family History Family History: Reports: None - Social History Smoking Status: Current every day smoker, Light tobacco smoker Hx Substance Use: No Alcohol Screening: None - Immunizations Tetanus Shot up to Date: Yes Influenza Vaccine within 12 Months: No Pneumococcal Vaccine up to Date: No Physical Exam - Physical Exam Appearance: Ill-appearing Ill-appearing: Moderate Pain Distress: Moderate Eyes: DONY, EOMI, Conjunctiva clear Neck: Supple Respiratory: Airway patent, Breath sounds clear, Breath sounds equal, Breath sounds diminished, Respirations nonlabored, Wheezes (mil d scattared ) Cardiovascular: RRR, Pulses normal, No rub, No murmur GI/: Soft, Tender (diffusely ) Musculoskeletal: Normal strength, ROM intact, No edema, No calf tenderness Skin: Warm, Dry, Normal color Neurological: Sensation intact, Alert, Oriented Psychiatric: Anxious Interpretation - Radiology Interpretation Radiology Interpretation By: Radiologist Radiology Results: No acute changes Exam Interpreted: CT Scan Critical Care Note - Critical Care Note Total Time (mins): 0 Course - Course Hematology/Chemistry: 09/18/17 19:47 09/18/17 19:47 Orders, Labs, Meds: Lab Review 09/18/17 09/18/17 09/18/17 19:47 19:47 21:13 WBC 8.76 RBC 4.17 L Hgb 13.0 Hct 39.2 MCV 94.0 MCH 31.2 H MCHC 33.2 RDW Coeff of Manoj 13.4 Plt Count 272 Neutrophils % (Manual) 53.0 Lymphocytes % (Manual) 30.0 Monocytes % (Manual) 7.0 Eosinophils % (Manual) 5.0 Reactive Lymphocytes 5.0 Anisocytosis Not present Sodium 138 Potassium 5.4 H Chloride 110 H Carbon Dioxide 19 L Anion Gap 14.4 BUN 28 H Creatinine 1.35 H Estimated GFR (MDRD) 40.00 BUN/Creatinine Ratio 20.74 Glucose 151 H Calcium 8.9 Total Bilirubin 0.2 AST 12 L ALT 12 Alkaline Phosphatase 126 Total Protein 7.9 Albumin 3.0 L Globulin 4.9 Albumin/Globulin Ratio 0.61 Amylase 13 L Lipase 32 Urine Color Yellow Urine Clarity Slightly Urine pH 5.5 Ur Specific [place] 1.020 Urine Protein 2+ Urine Glucose (UA) Negative Urine Ketones Negative Urine Blood 1+ Urine Nitrite Negative Urine Bilirubin Negative Urine Urobilinogen 0.2 Ur Leukocyte Esterase 1+ Urine Microscopic RBC 10-20 Urine Microscopic WBC 10-20 Ur Squamous Epith Cells 5-10 Urine Bacteria 1+ Urine Mucus 1+ Orders Category Date Time Status ED IV/MEDIPORT/POWERPORT .ONCE EMERGENCY 09/18/17 19:31 Active AMYLASE Stat LAB 09/18/17 19:47 Completed CBC W/ AUTO DIFF Stat LAB 09/18/17 19:47 Completed COMPREHENSIVE METABOLIC PANEL Stat LAB 09/18/17 19:47 Completed LIPASE Stat LAB 09/18/17 19:47 Completed MANUAL DIFFERENTIAL Stat LAB 09/18/17 19:47 Completed URINALYSIS C & S IF INDICATED Stat LAB 09/18/17 21:13 Completed URINE CULTURE Stat LAB 09/18/17 21:13 Received 0.9 % Sodium Chloride [Saline Flush] MEDS 09/18/17 19:31 Ordered 1 syr IVF PRN PRN Morphine Sulfate [Morphine 2 mg/ml Syringe] MEDS 09/18/17 19:53 Discontinued 2 mg IVP ONCE STA Ondansetron HCl/Pf [Zofran 4 mg/2 ml] MEDS 09/18/17 19:53 Discontinued 4 mg IVP ONCE STA Sodium Chloride 0.9% [Sodium Chloride] 1,000 ml MEDS 09/18/17 19:[address] ABD/PEL WO RENAL STONE PROT Stat RADS 09/18/17 19:31 Completed Medications Generic Name Dose Route Start Last Admin Trade Name Freq PRN Reason Stop Dose Admin Sodium Chloride 1,000 mls @ 250 mls/hr 09/18/17 19:31 09/18/17 19:52 Sodium Chloride IV 09/18/17 23:30 250 mls/hr BOLUS STA Administration Sodium Chloride 1 syr 09/18/17 19:31 Saline Flush IVF PRN PRN To flush IV Discontinued Medications Generic Name Dose Route Start Last Admin Trade Name Freq PRN Reason Stop Dose Admin Morphine Sulfate 2 mg 09/18/17 19:53 09/18/17 19:58 Morphine 2 Mg/Ml Syringe IVP 09/18/17 19:54 2 mg ONCE STA Administration Ondansetron HCl 4 mg 09/18/17 19:53 09/18/17 19:59 Zofran 4 Mg/2 Ml IVP 09/18/17 19:54 4 mg ONCE STA Administration Vital Signs: Temp Pulse Resp BP Pulse Ox 09/18/17 19:13 97.9 F 81 18 157/75 H 94 L Departure - Departure Time of Disposition: 21:58 Disposition: HOME SELF-CARE Discharge Problem: Abdominal pain Hematuria Qualifiers: Hematuria type: benign essential microscopic Qualified Code(s): R31.1 - Benign essential microscopic hematuria Instructions: Abdominal Pain (ED) Condition: Stable Pt referred to PMD for follow-up: Yes IPMP verified?: No Additional Instructions: Follow up with PCP in 2-3 days continue home mediations. Allergies/Adverse Reactions: Allergies duloxetine HCl [From Cymbalta] Allergy (Severe, Verified 09/18/17 19:16) unable to sleep hydrogen peroxide Allergy (Severe, Verified 09/18/17 19:16) rash, skin swells Patient to notify drugstore levofloxacin [From Levaquin] Allergy (Mild, Verified 09/18/17 19:16) Unknown Per patient she states she was on IV Levaquin in hospital for 5 days, then sent home with oral Levaquin. She c/o after 3 doses, she had blisters in her mouth penicillin G Adverse Reaction (Severe, Verified 09/18/17 19:16) Difficulty Breathing aripiprazole [From Abilify] Adverse Reaction (Verified 09/18/17 19:16) cefaclor [From Ceclor] Adverse Reaction (Verified 09/18/17 19:16) ciprofloxacin [From Cipro] Adverse Reaction (Verified 09/18/17 19:16) Rash clarithromycin [From Biaxin] Adverse Reaction (Verified 09/18/17 19:16) Rash ketorolac tromethamine [From Toradol] Adverse Reaction (Verified 09/18/17 19:16) Vomiting loperamide HCl [From Imodium A-D] Adverse Reaction (Verified 09/18/17 19:16) affects glaucoma Penicillins Adverse Reaction (Verified 09/18/17 19:16) Difficulty Breathing sumatriptan [From Imitrex] Adverse Reaction (Verified 09/18/17 19:16) heart attack sumatriptan succinate [From Imitrex] Adverse Reaction (Verified 09/18/17 19:16) heart attack Home Medications: Ambulatory Orders Albuterol Sulfate [Proair Hfa] 2 puff IH Q4H PRN 08/23/14 Insulin Glargine,Hum.rec.anlog [Lantus] 25 unit SQ BEDTIME 01/21/17 Atorvastatin Calcium 80 mg PO BEDTIME tab-cap 04/30/17 Isosorbide Mononitrate [Isosorbide Mononitrate Er] 30 mg PO d 05/19/17 Nitroglycerin 0.4 mg SL DIRECTED PRN 06/29/17 Cyclobenzaprine HCl 10 mg PO QID PRN 08/04/17 Oxycodone HCl/Acetaminophen [Oxycodone-Acetaminophen 10-325] 1 each PO QID PRN 08/04/17 Cephalexin [Keflex] 500 mg PO DAILY 09/04/17 Disposition Discussed With: Patient, Family
--- NOTE | 2017-09-18 20:25 | CT ---
EXAM: CT abdomen and pelvis without contrast HISTORY: Diffuse abdominal pain and history of abdominal surgery TECHNIQUE: Multi-slice transaxial helical with coronal and sagittal reformed images COMPARISON: CT abdomen/pelvis from 12/06/2015 FINDINGS: A trace left pleural effusion is detected with subjacent opacities in the left lower lobe. No pericardial or right pleural fluid are detected. The heart size is normal. The hepatic attenuation is normal. The gallbladder is surgically absent without biliary dilatation. The gallbladder surgically absent without biliary dilatation. The pancreas is mildly atrophic. The re are surgical clips atthe pancreatic tail and 90 with probable granulation tissue and dislocation t hat is unchanged. A left adrenalectomy and left nephrectomy are suspected. There is a right adrenal nodule measuring 3 cm with average Hounsfield attenuation of zero. The right kidney maintains gely l attenuation. There is no right ureteral pelvicaliectasis. The nonopacified bladder is normal. Th e uterus is absent and there are no adnexal masses. The intestines have normal caliber without evidence of obstruction or acute inflammation. The append ix is not visualized. The appendix may be surgically absent. There are no secondary features of acu te appendicitis. No lymphadenopathy or ascites are appreciated. The abdominal aorta has normal nahomi mark with calcified atheromatous plaque noted diffusely. The bones are free of suspicious osteolytic or osteoblastic lesions. A mild chronic compression fract ure is noted at the superior endplate L4. IMPRESSION: 1. Trace left pleural effusion with subjacent atelectasis and/or pneumonia. 2. Stable postsurgical changes at the tail of pancreas, prior splenectomy, left adrenalectomy, and l eft nephrectomy. 3. Right adrenal adenoma. 4. ASCVD.
== END 2017-09-18 21:55 | disposition home or self-care (01) ==
LOC: ED 19:11
DX: R10.9 Unspecified abdominal pain (principal); R31.1 Benign essential microscopic hematuria; E11.9 Type 2 diabetes mellitus without complications; N18.9 Chronic kidney disease, unspecified; D63.1 Anemia in chronic kidney disease; E27.1 Primary adrenocortical insufficiency; I10 Essential (primary) hypertension; I25.10 Atherosclerotic heart disease of native coronary artery without angina pectoris; E78.5 Hyperlipidemia, unspecified; E03.9 Hypothyroidism, unspecified; I25.2 Old myocardial infarction; F17.210 Nicotine dependence, cigarettes, uncomplicated; Z90.5 Acquired absence of kidney; Z79.899 Other long term (current) drug therapy; Z87.19 Personal history of other diseases of the digestive system
CPT/HCPCS: 36415; 74176; 80053; 81001; 82150; 83690; 85007; 85025; 87086; 96361; 96374; 96375; 99283

== ENCOUNTER 2017-10-16 13:06 | Outpatient (CLI) | payer OTHER | END 2017-10-16 13:07 | disposition home or self-care (01) | LOC: RHC-LAB 13:06 | PROVIDERS: ATTEND Emergency Medicine | DX: E11.9 Type 2 diabetes mellitus without complications (principal); E78.5 Hyperlipidemia, unspecified; I10 Essential (primary) hypertension | CPT/HCPCS: 36415; 80053; 80061; 83036; 84443; 85025 ==

== ENCOUNTER 2017-11-24 00:16 | Emergency (ER) | payer OTHER ==
[2017-11-24 00:26] VITALS: BP 161/73; TEMP 97.4; BMI 28.5
--- NOTE | 2017-11-24 00:38 | ED.PDOC ---
General ED Provider: Dr. WILIAN JUAREZ Chief Complaint: Allergic Reaction Stated Complaint: patient states that she started using a new cream of psoriais and started deveolping rash that is red and feels like fire. Daughter called this ER was given instructions for mother to clean area immediatly. However patient did not. Took 2 benadryl tabs at home but pain is not better. She is allergic to prednisone. Time Seen by Physician: 00:36 Mode of Arrival: Walk-In Information Source: Patient Primary Care Provider: CARLOS HERNANDEZ Nursing and Triage Documentation Reviewed and Agree: Yes Does patient meet sepsis criteria?: No System Inflammatory Response Syndrome: Not Applicable Sepsis Protocol: For patient's 13 years and over: Temp is 96.8 and below OR 101 and greater Pulse >90 BPM Resp >20/minute Acutely Altered Mental Status Are patient's symptoms suggestive of a new infection, such as: -Pneumonia -Skin, Soft Tissue -Endocarditis -UTI -Bone, Joint Infection -Implantable Device -Acute Abdominal Infection -Wound Infection -Meningitis -Blood Stream Catheter Infection -Unknown Skin Complaint Exam - Skin Rash/Itching Complaint/Exam Onset/Duration: 1 day Symptoms Are: Still present Initial Severity: Moderate Current Severity: Moderate Location: Lower extremiteis Potential Exposures: Reports: Medicines Prior Treatment: benadryl Alleviating: Reports: None Associated Signs and Symptoms: Denies: Difficulty breathing, Fever, Chills Skin Findings: Present: Urticaria (mild erythema to the legs ) Differential Diagnoses: Allergic Reaction Review of Systems - Review Of Systems Constitutional: Reports: No symptoms Eyes: Reports: No symptoms Ears, Nose, Mouth, Throat: Reports: No symptoms Respiratory: Reports: No symptoms Cardiac: Reports: No symptoms GI: Reports: No symptoms : Reports: No symptoms Musculoskeletal: Reports: No symptoms Skin: Reports: Rash Neurological: Reports: Anxiety Endocrine: Reports: No symptoms Hematologic/Lymphatic: Reports: No symptoms All Other Systems: Reviewed and Negative Past Medical History - Past Medical History Previously Healthy: No Endocrine: Reports: DM 2, Hypothyroid, Dyslipidemia Cardiovascular: Reports: CAD, [place], Hypertension, CHF Respiratory: Reports: COPD Hematological: Reports: Anemia Gastrointestinal: Reports: GERD, Pancreatitis Genitourinary: Reports: CKD Neuro/Psych: Reports: Seizure, Anxiety, Depression Musculoskeletal: Reports: None Cancer: Reports: Other (kidney) Last Menstrual Period: 1996 hyst Other Pertinent Past Medical History: 1 kidney, Ayden's disease, Glaucoma - Surgical History General Surgical History: Reports: Hysterectomy, Appendectomy, Cholecystectomy, Back Surgery, Other (nephrectomy,spleenectomy, partial pancreas,thyroidectomy, perforated colon,3 stents in heart) - Family History Family History: Reports: None - Social History Smoking Status: Current every day smoker, Light tobacco smoker Hx Substance Use: No Alcohol Screening: None - Immunizations Tetanus Shot up to Date: Yes Influenza Vaccine within 12 Months: No Pneumococcal Vaccine up to Date: No Physical Exam - Physical Exam Appearance: Well-appearing Pain Distress: Mild Respiratory: Airway patent Cardiovascular: RRR, Pulses normal, No rub, No murmur Musculoskeletal: Normal strength, ROM intact, No edema Skin: Warm, Dry Neurological: Alert, Oriented Psychiatric: Anxious Critical Care Note - Critical Care Note Total Time (mins): 0 Course - Course Orders, Labs, Meds: Orders Category Date Time Status Ranitidine HCl [Zantac] MEDS 11/24/17 00:36 Discontinued 300 mg PO ONCE STA Medications Discontinued Medications Generic Name Dose Route Start Last Admin Trade Name Elena PRN Reason Stop Dose Admin Ranitidine HCl 300 mg 11/24/17 00:36 11/24/17 00:42 Zantac PO 11/24/17 00:37 300 mg ONCE STA Administration Vital Signs: Temp Pulse Resp BP Pulse Ox 11/24/17 00:17 97.4 F L 88 18 161/73 H 96 Departure - Departure Time of Disposition: 00:38 Disposition: HOME SELF-CARE Discharge Problem: Drug allergy Instructions: Adverse Drug Reaction (ED) Condition: Fair Pt referred to PMD for follow-up: Yes IPMP verified?: No Additional Instructions: clean off the medication from your skin that could be causing allergic reaction continue home Benadryl as needed Return to [facility] in the morning. Allergies/Adverse Reactions: Allergies duloxetine HCl [From Cymbalta] Allergy (Severe, Verified 11/24/17 00:26) unable to sleep hydrogen peroxide Allergy (Severe, Verified 11/24/17 00:26) rash, skin swells Patient to notify drugstore levofloxacin [From Levaquin] Allergy (Mild, Verified 11/24/17 00:26) Unknown Per patient she states she was on IV Levaquin in hospital for 5 days, then sent home with oral Levaquin. She c/o after 3 doses, she had blisters in her mouth penicillin G Adverse Reaction (Severe, Verified 11/24/17 00:26) Difficulty Breathing aripiprazole [From Abilify] Adverse Reaction (Verified 11/24/17 00:26) cefaclor [From Ceclor] Adverse Reaction (Verified 11/24/17 00:26) ciprofloxacin [From Cipro] Adverse Reaction (Verified 11/24/17 00:) Rash clarithromycin [From Biaxin] Adverse Reaction (Verified 11/24/17:) Rash ketorolac tromethamine [From Toradol] Adverse Reaction (Verified 11/24/17 00:) Vomiting loperamide HCl [From Imodium A-D] Adverse Reaction (Verified 11/24/17:) affects glaucoma Penicillins Adverse Reaction (Verified 11/24/17 00:) Difficulty Breathing sumatriptan [From Imitrex] Adverse Reaction (Verified 11/24/17 00:26) heart attack sumatriptan succinate [From Imitrex] Adverse Reaction (Verified 11/24/17 00:) heart attack Home Medications: Ambulatory Orders Albuterol Sulfate [Proair Hfa] 2 puff IH Q4H PRN 08/23/14 Insulin Glargine,Hum.rec.anlog [Lantus] 25 unit SQ BEDTIME 01/21/17 Atorvastatin Calcium 80 mg PO BEDTIME tab-cap 04/30/17 Isosorbide Mononitrate [Isosorbide Mononitrate Er] 30 mg PO d 05/19/17 Nitroglycerin 0.4 mg SL DIRECTED PRN 06/29/17 Cyclobenzaprine HCl 10 mg PO QID PRN 08/04/17 Oxycodone HCl/Acetaminophen [Oxycodone-Acetaminophen 10-325] 1 each PO QID PRN 08/04/17 Cephalexin [Keflex] 500 mg PO DAILY 09/04/17 Crisaborole [Eucrisa] 60 gm TP BID 11/24/17 Disposition Discussed With: Patient, Family
[2017-11-24] MEDS: ZANTAC PO STA (00:42)
== END 2017-11-24 00:50 | disposition home or self-care (01) ==
LOC: ED 00:16
DX: L23.3 Allergic contact dermatitis due to drugs in contact with skin (principal); T50.905A Adverse effect of unspecified drugs, medicaments and biological substances, initial encounter; F17.210 Nicotine dependence, cigarettes, uncomplicated
CPT/HCPCS: 99282

== ENCOUNTER 2017-11-30 12:09 | Emergency (ER) | payer OTHER ==
[2017-11-30 12:25] VITALS: BP 155/82; TEMP 98.2; BMI 27.3
[2017-11-30] MEDS ORDERED: ZOFRAN 4 MG/2 ML IM STA (12:54)
[2017-11-30] MEDS ORDERED: MORPHINE 4 MG/ML SYRINGE IM STA (12:54)
--- NOTE | 2017-11-30 13:48 | CT ---
EXAM: CT abdomen pelvis without contrast HISTORY: Lower abdominal pain with vomiting for 1 day. Patient with history of partial pancreatecto my, splenectomy, cholecystectomy, hysterectomy, thyroidectomy and left nephrectomy. COMPARISON: CT abdomen pelvis 12/06/2015 and numerous priors TECHNIQUE: Serial axial images of the abdomen pelvis were performed from the lung bases through the inferior pelvis without contrast. These were viewed in multiple planes. FINDINGS: The lung bases demonstrate mild bibasilar atelectasis. Evaluation is limited due to lack of contrast. The liver is unremarkable. The gallbladder has been resected. A round low attenuation lesion in the right adrenal gland measures 3.6 cm in diameter on i mage 30, with Hounsfield units suggestive of an adenoma. The right kidney is unremarkable in appeara nce. There has been a left nephrectomy. The left adrenal gland is not visualized. There are multip le surgical clips in this region. Spleen is been removed. The pancreas demonstrates postsurgical ch anges of the pancreatic tail. The stomach is unremarkable. Partially distended. The small bowel in the abdomen pelvis is normal. The colon is unremarkable. There has been a appendectomy. There is no free air, pathologically enl arged lymph nodes or free fluid. There is hazy nodular ground-glass in the subcutaneous fat in the p josselyn. Urinary bladder is distended. There has been a prior hysterectomy. The osseous structures d emonstrates no focal lytic or blastic lesion with superior endplate compression deformity at L4. Ther e is scattered atherosclerotic disease. IMPRESSION: 1. No acute intra-abdominal or pelvic process to account for patient's symptoms. 2. Numerous postsurgical changes in the abdomen which are unchanged from prior exam. 3. Mild measured increase in size of presumed right adrenal adenoma. 4. Degenerative disease of the spine and atherosclerotic disease.
--- NOTE | 2017-11-30 14:22 | ED.PDOC ---
General ED Provider: Dr. LUCAS TURCIOS Chief Complaint: Abdominal Pain Stated Complaint: chronic abdominal pain with same character / distribution no inury Time Seen by Physician: 12:22 (seen with pt's nurse at all times ) Information Source: Patient Exam Limitations: No limitations Primary Care Provider: CARLOS HERNANDEZ Nursing and Triage Documentation Reviewed and Agree: Yes Does patient meet sepsis criteria?: No System Inflammatory Response Syndrome: Not Applicable (has history of chronic pancreatitis) Sepsis Protocol: For patient's 13 years and over: Temp is 96.8 and below OR 101 and greater Pulse >90 BPM Resp >20/minute Acutely Altered Mental Status Are patient's symptoms suggestive of a new infection, such as: -Pneumonia -Skin, Soft Tissue -Endocarditis -UTI -Bone, Joint Infection -Implantable Device -Acute Abdominal Infection -Wound Infection -Meningitis -Blood Stream Catheter Infection -Unknown GI Complaint Exam - Abdominal Pain Complaint/Exam Onset: Gradual Duration: today Symptoms Are: Still present Timing: Constant Initial Severity: Moderate Current Severity: Moderate Location of Pain: Diffuse Character: Reports: Dull Aggravating: Reports: None Alleviating: Reports: None Associated Signs and Symptoms: Denies: Diaphoresis, Fever, Cough, Chest pain, Dizziness, Back pain, Constipation, Blood in stool, Dysuria, Urinary frequency, Decreased urine output, Decreased appetite, Vaginal bleeding, Vaginal discharge , Nausea, Vomiting, Diarrhea, Sore throat, Decreased activity Related History: Reports: Similar episode AAA Risk Factors: Reports: None Cardiac Risk Factors: Reports: Hypertension Ectopic Risk Factors: Reports: None Ovarian Torsion Risk Factors: Reports: None Surgical Obstruction Risk Factors: Reports: None Related Surgical History: Reports: None Patient Rh Status: Unknown Abdominal Findings: Present: None Differential Diagnoses: Appendicitis, Bowel Obstruction, Constipation, Gastroenteritis, Hepatitis, Pancreatitis, Renal Colic, UTI Review of Systems - Review Of Systems Constitutional: Reports: No symptoms Eyes: Reports: No symptoms Ears, Nose, Mouth, Throat: Reports: No symptoms Respiratory: Reports: No symptoms Cardiac: Reports: No symptoms GI: Reports: Abdominal pain : Reports: No symptoms Musculoskeletal: Reports: No symptoms Skin: Reports: No symptoms Neurological: Reports: No symptoms Endocrine: Reports: No symptoms Hematologic/Lymphatic: Reports: No symptoms All Other Systems: Reviewed and Negative Past Medical History - Past Medical History Previously Healthy: No Endocrine: Reports: DM 2, Hypothyroid, Dyslipidemia Cardiovascular: Reports: CAD, [place], Hypertension, CHF Respiratory: Reports: COPD Hematological: Reports: Anemia Gastrointestinal: Reports: GERD, Pancreatitis Genitourinary: Reports: CKD Neuro/Psych: Reports: Seizure, Anxiety, Depression Musculoskeletal: Reports: None Cancer: Reports: Other (kidney) Last Menstrual Period: na Other Pertinent Past Medical History: 1 kidney, Ayden's disease, Glaucoma - Surgical History General Surgical History: Reports: Hysterectomy, Appendectomy, Cholecystectomy, Back Surgery, Other (nephrectomy,spleenectomy, partial pancreas,thyroidectomy, perforated colon,3 stents in heart) - Family History Family History: Reports: None - Social History Smoking Status: Current every day smoker, Light tobacco smoker Hx Substance Use: No Alcohol Screening: None - Immunizations Influenza Vaccine within 12 Months: No Pneumococcal Vaccine up to Date: No Physical Exam - Physical Exam Appearance: Well-appearing, No pain distress, Well-nourished Eyes: DONY, EOMI, Conjunctiva clear ENT: Ears normal, Nose normal, Oropharynx normal Respiratory: Airway patent, Breath sounds clear, Breath sounds equal, Respirations nonlabored Cardiovascular: RRR, Pulses normal, No rub, No murmur GI/: Soft, Nontender, No masses, Bowel sounds normal, No Organomegaly Musculoskeletal: Normal strength, ROM intact, No edema, No calf tenderness Skin: Warm, Dry, Normal color Neurological: Sensation intact, Motor intact, Reflexes intact, Cranial nerves intact, Alert, Oriented Psychiatric: Affect appropriate, Mood appropriate Interpretation - Radiology Interpretation Radiology Interpretation By: Radiologist Radiology Results: No acute changes Re-Evaluation - Re-Evaluation Time of Re-Evaluation: 12:15 Status: Improved Vital Signs Stable: Yes Pain Level: 0 Appearance: NAD Lungs: Clear Skin: Warm and Dry Neuro: Alert and Oriented X3 CV: RRR - Re-Evaluation Time of Re-Evaluation: 14:22 Status: Improved Vital Signs Stable: Yes Appearance: NAD Skin: Warm and Dry Neuro: Alert and Oriented X3 CV: RRR Critical Care Note - Critical Care Note Total Time (mins): 0 Course - Course Hematology/Chemistry: 11/30/17 13:05 11/30/17 13:05 Orders, Labs, Meds: Lab Review 11/30/17 11/30/17 11/30/17 12:55 13:05 13:05 WBC 11.62 H RBC 4.16 L Hgb 13.1 Hct 39.8 MCV 95.7 MCH 31.5 H MCHC 32.9 RDW Coeff of Manoj 14.8 Plt Count 338 Immature Gran % (Auto) 0.3 Neut % (Auto) 66.0 Lymph % (Auto) 25.0 Lee % (Auto) 6.8 Eos % (Auto) 1.5 Baso % (Auto) 0.4 Immature Gran # (Auto) 0.0 Neut # (Auto) 7.7 H Lymph # (Auto) 2.9 Lee # (Auto) 0.8 Eos # (Auto) 0.2 Baso # (Auto) 0.1 Sodium 139.1 Potassium 4.33 Chloride 105.0 Carbon Dioxide 29.4 Anion Gap 9.03 BUN 18.5 H Creatinine 0.95 Estimated GFR (MDRD) 59.00 BUN/Creatinine Ratio 19.47 Glucose 173.3 H Calcium 8.80 Total Bilirubin 0.27 AST 25.2 ALT 18.6 Alkaline Phosphatase 110.2 Total Protein 7.90 Albumin 4.03 Globulin 3.87 Albumin/Globulin Ratio 1.04 Amylase 36.2 Lipase 45.7 Urine Color Yellow Urine Clarity Clear Urine pH 6.0 Ur Specific [place] 1.025 Urine Protein 3+ Urine Glucose (UA) Negative Urine Ketones Negative Urine Blood 1+ Urine Nitrite Negative Urine Bilirubin Negative Urine Urobilinogen 0.2 Ur Leukocyte Esterase Negative Urine Microscopic RBC 5-10 Urine Microscopic WBC 2-5 Ur Squamous Epith Cells 2-5 Urine Bacteria 1+ Orders Category Date Time Status AMYLASE Stat LAB 11/30/17 13:05 Completed CBC W/ AUTO DIFF Stat LAB 11/30/17 13:05 Completed COMPREHENSIVE METABOLIC PANEL Stat LAB 11/30/17 13:05 Completed LIPASE Stat LAB 11/30/17 13:05 Completed URINALYSIS C & S IF INDICATED Stat LAB 11/30/17 12:55 Completed URINE CULTURE Stat LAB 11/30/17 12:55 Received Morphine Sulfate [Morphine 4 mg/ml Syringe] MEDS 11/30/17 12:54 Discontinued 4 mg IM ONCE STA Ondansetron HCl/Pf [Zofran 4 mg/2 ml] MEDS 11/30/17 12:54 Discontinued 4 mg IM ONCE STA CT ABDOMEN/PELVIS WO CONTRAST Stat RADS 11/30/17 12:54 Completed Medications Discontinued Medications Generic Name Dose Route Start Last Admin Trade Name Freq PRN Reason Stop Dose Admin Morphine Sulfate 4 mg 11/30/17 12:54 11/30/17 13:08 Morphine 4 Mg/Ml Syringe IM 11/30/17 12:55 4 mg ONCE STA Administration Ondansetron HCl 4 mg 11/30/17 12:54 11/30/17 13:10 Zofran 4 Mg/2 Ml IM 11/30/17 12:55 4 mg ONCE STA Administration Vital Signs: Temp Pulse Resp BP Pulse Ox 11/30/17 12:19 98.2 F 81 16 155/82 H 95 Departure - Departure Time of Disposition: 14:23 Disposition: HOME SELF-CARE Discharge Problem: Abdominal pain Instructions: Abdominal Pain (ED) Condition: Good Pt referred to PMD for follow-up: Yes IPMP verified?: No Additional Instructions: Please call your Family Physician as soon as possible to schedule a follow-up appointment. Allergies/Adverse Reactions: Allergies duloxetine HCl [From Cymbalta] Allergy (Severe, Verified 11/30/17 12:17) unable to sleep hydrogen peroxide Allergy (Severe, Verified 11/30/17 12:17) rash, skin swells Patient to notify drugstore levofloxacin [From Levaquin] Allergy (Mild, Verified 11/30/17 12:17) Unknown Per patient she states she was on IV Levaquin in hospital for 5 days, then sent home with oral Levaquin. She c/o after 3 doses, she had blisters in her mouth penicillin G Adverse Reaction (Severe, Verified 11/30/17 12:17) Difficulty Breathing aripiprazole [From Abilify] Adverse Reaction (Verified 11/30/17 12:17) cefaclor [From Ceclor] Adverse Reaction (Verified 11/30/17 12:17) ciprofloxacin [From Cipro] Adverse Reaction (Verified 11/30/17 12:17) Rash clarithromycin [From Biaxin] Adverse Reaction (Verified 11/30/17 12:17) Rash ketorolac tromethamine [From Toradol] Adverse Reaction (Verified 11/30/17 12:17) Vomiting loperamide HCl [From Imodium A-D] Adverse Reaction (Verified 11/30/17 12:17) affects glaucoma Penicillins Adverse Reaction (Verified 11/30/17 12:17) Difficulty Breathing sumatriptan [From Imitrex] Adverse Reaction (Verified 11/30/17 12:17) heart attack sumatriptan succinate [From Imitrex] Adverse Reaction (Verified 11/30/17 12:17) heart attack Home Medications: Ambulatory Orders Albuterol Sulfate [Proair Hfa] 2 puff IH Q4H PRN 08/23/14 Insulin Glargine,Hum.rec.anlog [Lantus] 25 unit SQ BEDTIME 01/21/17 Atorvastatin Calcium 80 mg PO BEDTIME tab-cap 04/30/17 Isosorbide Mononitrate [Isosorbide Mononitrate Er] 30 mg PO d 05/19/17 Nitroglycerin 0.4 mg SL DIRECTED PRN 06/29/17 Cyclobenzaprine HCl 10 mg PO QID PRN 08/04/17 Oxycodone HCl/Acetaminophen [Oxycodone-Acetaminophen 10-325] 1 each PO QID PRN 08/04/17 Cephalexin [Keflex] 500 mg PO DAILY 09/04/17 Crisaborole [Eucrisa] 60 gm TP BID 11/24/17
== END 2017-11-30 14:38 | disposition home or self-care (01) ==
LOC: ED 12:09
DX: R10.9 Unspecified abdominal pain (principal); R80.9 Proteinuria, unspecified
CPT/HCPCS: 36415; 80053; 81001; 82150; 83690; 85025; 87086; 96372; 99283

== ENCOUNTER 2017-12-03 12:11 | Emergency (ER) | payer OTHER ==
[2017-12-03 12:18] VITALS: BP 164/78; TEMP 97.6; BMI 27.6
--- NOTE | 2017-12-03 13:42 | ED.PDOC ---
General ED Provider: Dr. LUCAS TURCIOS Chief Complaint: Hypertension Stated Complaint: hypertension, constipation Time Seen by Physician: 12:11 Mode of Arrival: Walk-In Information Source: Patient Exam Limitations: No limitations Primary Care Provider: CARLOS HERNANDEZ Nursing and Triage Documentation Reviewed and Agree: Yes Does patient meet sepsis criteria?: No If yes, has appropriate treatment been initiated?: No System Inflammatory Response Syndrome: Not Applicable Sepsis Protocol: For patient's 13 years and over: Temp is 96.8 and below OR 101 and greater Pulse >90 BPM Resp >20/minute Acutely Altered Mental Status Are patient's symptoms suggestive of a new infection, such as: -Pneumonia -Skin, Soft Tissue -Endocarditis -UTI -Bone, Joint Infection -Implantable Device -Acute Abdominal Infection -Wound Infection -Meningitis -Blood Stream Catheter Infection -Unknown Review of Systems - Review Of Systems Constitutional: Reports: No symptoms Eyes: Reports: No symptoms Ears, Nose, Mouth, Throat: Reports: No symptoms Respiratory: Reports: No symptoms Cardiac: Reports: No symptoms GI: Reports: Abdominal pain, Constipated : Reports: No symptoms Musculoskeletal: Reports: No symptoms Skin: Reports: No symptoms Neurological: Reports: No symptoms Endocrine: Reports: No symptoms Hematologic/Lymphatic: Reports: No symptoms All Other Systems: Reviewed and Negative Past Medical History - Past Medical History Previously Healthy: No Endocrine: Reports: DM 2, Hypothyroid, Dyslipidemia Cardiovascular: Reports: CAD, [place], Hypertension, CHF Respiratory: Reports: COPD Hematological: Reports: Anemia Gastrointestinal: Reports: GERD, Pancreatitis Genitourinary: Reports: CKD Neuro/Psych: Reports: Seizure, Anxiety, Depression Musculoskeletal: Reports: None Cancer: Reports: Other (kidney) Last Menstrual Period: hysterectomy Other Pertinent Past Medical History: 1 kidney, Coleman's disease, Glaucoma - Surgical History General Surgical History: Reports: Hysterectomy, Appendectomy, Cholecystectomy, Back Surgery, Other (nephrectomy,spleenectomy, partial pancreas,thyroidectomy, perforated colon,3 stents in heart) - Family History Family History: Reports: None - Social History Smoking Status: Current every day smoker, Light tobacco smoker Hx Substance Use: No Alcohol Screening: None - Immunizations Influenza Vaccine within 12 Months: No Pneumococcal Vaccine up to Date: No Physical Exam - Physical Exam Appearance: Well-appearing, No pain distress, Well-nourished Eyes: DONY, EOMI, Conjunctiva clear ENT: Ears normal, Nose normal, Oropharynx normal Respiratory: Airway patent, Breath sounds clear, Breath sounds equal, Respirations nonlabored Cardiovascular: RRR, Pulses normal, No rub, No murmur GI/: Soft, Nontender, No masses, Bowel sounds normal, No Organomegaly Musculoskeletal: Normal strength, ROM intact, No edema, No calf tenderness Skin: Warm, Dry Neurological: Sensation intact, Motor intact, Reflexes intact, Cranial nerves intact, Alert, Oriented Psychiatric: Affect appropriate, Mood appropriate Interpretation - Radiology Interpretation Radiology Interpretation By: Radiologist Radiology Results: No acute changes Radiology Interpretation By: Radiologist Radiology Results: Positive (FECAL RETENTION) - Grinder Set Up Operator Centerless Rate: Normal Rhythm: Sinus Ectopy: None - EKG Interpretation Rate: Normal Rhythm: Sinus Ectopy: None [place]: Left (LVH AXIS IS LEFTWARDS MOST LIKELY DUE TO LVH) ST Segment: Normal Re-Evaluation - Re-Evaluation Time of Re-Evaluation: 13:00 Status: Improved Vital Signs Stable: Yes Appearance: NAD Lungs: Clear Skin: Warm and Dry Neuro: Alert and Oriented X3 CV: RRR - Re-Evaluation Time of Re-Evaluation: 15:01 (PT) Status: Unchanged Vital Signs Stable: Yes Appearance: NAD Skin: Warm and Dry Neuro: Alert and Oriented X3 CV: RRR (PT HAD A MASSIVE BOWEL MOVEMENT FEELS GOOD) Critical Care Note - Critical Care Note Total Time (mins): 0 Course - Course Hematology/Chemistry: 12/03/17 13:00 12/03/17 13:00 Orders, Labs, Meds: Lab Review 12/03/17 12/03/17 12/03/17 12:50 13:00 13:00 WBC 11.40 H RBC 4.06 L Hgb 13.1 Hct 38.9 MCV 95.8 MCH 32.3 H MCHC 33.7 RDW Coeff of Manoj 14.7 Plt Count 333 Immature Gran % (Auto) 0.4 Neut % (Auto) 64.4 Lymph % (Auto) 26.1 [place] % (Auto) 6.6 Eos % (Auto) 2.0 Baso % (Auto) 0.5 Immature Gran # (Auto) 0.1 Neut # (Auto) 7.3 H Lymph # (Auto) 3.0 [place] # (Auto) 0.8 Eos # (Auto) 0.2 Baso # (Auto) 0.1 Sodium 140.8 Potassium 4.59 Chloride 106.0 Carbon Dioxide 26.7 Anion Gap 12.69 BUN 19.5 H Creatinine 0.86 Estimated GFR (MDRD) 66.00 BUN/Creatinine Ratio 22.67 Glucose 173.4 H Calcium 8.89 Total Bilirubin 0.42 AST 23.5 ALT 22.3 Alkaline Phosphatase 117.3 Total Protein 7.72 Albumin 4.05 Globulin 3.67 Albumin/Globulin Ratio 1.10 Amylase Lipase Stl Occult Blood (IFOB) Positive Stool Occult Blood #2 No specimen received Stool Occult Blood #3 No specimen received 12/03/17 13:00 WBC RBC Hgb Hct MCV MCH MCHC RDW Coeff of Manoj Plt Count Immature Gran % (Auto) Neut % (Auto) Lymph % (Auto) [place] % (Auto) Eos % (Auto) Baso % (Auto) Immature Gran # (Auto) Neut # (Auto) Lymph # (Auto) [place] # (Auto) Eos # (Auto) Baso # (Auto) Sodium Potassium Chloride Carbon Dioxide Anion Gap BUN Creatinine Estimated GFR (MDRD) BUN/Creatinine Ratio Glucose Calcium Total Bilirubin AST ALT Alkaline Phosphatase Total Protein Albumin Globulin Albumin/Globulin Ratio Amylase 43.1 Lipase 45.1 Stl Occult Blood (IFOB) Stool Occult Blood #2 Stool Occult Blood #3 Orders Category Date Time Status EKG-(ED ONLY) Stat CARDIO 12/03/17 12:53 Completed Enema [ED ENEMA/RECTAL TUBE] .ONCE EMERGENCY 12/03/17 12:53 Active AMYLASE Stat LAB 12/03/17 13:00 Completed CBC W/ AUTO DIFF Stat LAB 12/03/17 13:00 Completed COMPREHENSIVE METABOLIC PANEL Stat LAB 12/03/17 13:00 Completed LIPASE Stat LAB 12/03/17 13:00 Completed OCCULT BLOOD, STOOL Stat LAB 12/03/17 12:[address] ABDOMEN/PELVIS WO CONTRAST Stat RADS 12/03/17 12:52 Completed Vital Signs: Temp Pulse Resp BP Pulse Ox 12/03/17 12:11 97.6 F 91 H 16 164/78 H 94 L Departure - Departure Time of Disposition: 15:03 Disposition: HOME SELF-CARE Discharge Problem: Abdominal pain Fecal retention Qualifiers: Constipation type: other constipation type Qualified Code(s): K59.09 - Other constipation Instructions: Constipation (ED), Fleet Enema (ED), High Fiber Diet (ED), Constipation (DC) Condition: Good Pt referred to PMD for follow-up: Yes IPMP verified?: No Additional Instructions: Please call your Family Physician as soon as possible to schedule a follow-up appointment. Allergies/Adverse Reactions: Allergies duloxetine HCl [From Cymbalta] Allergy (Severe, Verified 12/03/17 12:19) unable to sleep hydrogen peroxide Allergy (Severe, Verified 12/03/17 12:19) rash, skin swells Patient to notify drugstore levofloxacin [From Levaquin] Allergy (Mild, Verified 12/03/17 12:19) Unknown Per patient she states she was on IV Levaquin in hospital for 5 days, then sent home with oral Levaquin. She c/o after 3 doses, she had blisters in her mouth penicillin G Adverse Reaction (Severe, Verified 12/03/17 12:19) Difficulty Breathing aripiprazole [From Abilify] Adverse Reaction (Verified 12/03/17 12:19) cefaclor [From Ceclor] Adverse Reaction (Verified 12/03/17 12:19) ciprofloxacin [From Cipro] Adverse Reaction (Verified 12/03/17 12:19) Rash clarithromycin [From Biaxin] Adverse Reaction (Verified 12/03/17 12:19) Rash ketorolac tromethamine [From Toradol] Adverse Reaction (Verified 12/03/17 12:19) Vomiting loperamide HCl [From Imodium A-D] Adverse Reaction (Verified 12/03/17 12:19) affects glaucoma Penicillins Adverse Reaction (Verified 12/03/17 12:19) Difficulty Breathing sumatriptan [From Imitrex] Adverse Reaction (Verified 12/03/17 12:19) heart attack sumatriptan succinate [From Imitrex] Adverse Reaction (Verified 12/03/17 12:19) heart attack Home Medications: Ambulatory Orders Albuterol Sulfate [Proair Hfa] 2 puff IH Q4H PRN 08/23/14 Insulin Glargine,Hum.rec.anlog [Lantus] 25 unit SQ BEDTIME 01/21/17 Atorvastatin Calcium 80 mg PO BEDTIME tab-cap 04/30/17 Isosorbide Mononitrate [Isosorbide Mononitrate Er] 30 mg PO d 05/19/17 Nitroglycerin 0.4 mg SL DIRECTED PRN 06/29/17 Cyclobenzaprine HCl 10 mg PO QID PRN 08/04/17 Oxycodone HCl/Acetaminophen [Oxycodone-Acetaminophen 10-325] 1 each PO QID PRN 08/04/17 Cephalexin [Keflex] 500 mg PO DAILY 09/04/17 Crisaborole [Eucrisa] 60 gm TP BID 11/24/17 Disposition Discussed With: Patient
--- NOTE | 2017-12-03 13:56 | CT ---
EXAM: CT ABDOMEN AND PELVIS HISTORY: Left flank pain, worsening. Constipation. TECHNIQUE: CT abdomen and pelvis without intravenous contrast. Images were reconstructed using 3 mm section thickness. Reformations were prepared. COMPARISON: 11/30/2017 FINDINGS: Diagnostic limitations exist without including contrast enhanced images. No focal hepatic lesion. N o spleen is seen. Surgical clips left upper quadrant. Gallbladder appears to be absent. Visualized pancreas has no evidence of acute abnormality. There are surgical clips near the pancreatic tail. R edemonstration of a 2.8 cm fatty mass of the right adrenal gland most consistent with an adenoma. No left adrenal gland is seen. No left kidney is identified. There are surgical clips in the left hany al fossa. The right kidney and ureter are unremarkable. There is mild to moderate atherosclerotic di sease. No aneurysmal caliber of the aorta. Stomach is unremarkable. An appendix, if present is not seen. There is a slight excess fecal retenti on throughout most of the colon especially in the rectosigmoid level. There is no evidence of bowel obstruction. No uterus is seen. Urinary bladder is grossly unremarkable. There is no ascites. No ventral hernia is identified. The bones appear demineralized. Bridging osteophytic spurs of the spine are present. Probable chronic compression deformity superior endplate L4. Moderate diffuse de generative disc and facet disease. Lung bases reveal trace pleural effusion on the left with mild ad jacent scarring or atelectasis. No pneumoperitoneum IMPRESSION: 1. Previous splenectomy and left nephrectomy. Surgical clips are also seen near the pancreatic tail . Probable left upper quadrant scarring in these regions. 2. Excess fecal retention especially in the rectosigmoid. Pending fecal impaction could be considere d although apparently bowel gas pattern is nonobstructive. 3. Trace left pleural effusion with adjacent scarring or atelectasis, stable.
== END 2017-12-03 15:11 | disposition home or self-care (01) ==
LOC: ED 12:11 → UNDOADMIN 14:09 → SCU 14:09 → ED 15:11
DX: R10.9 Unspecified abdominal pain (principal); K59.09 Other constipation; I10 Essential (primary) hypertension; E11.9 Type 2 diabetes mellitus without complications; E78.5 Hyperlipidemia, unspecified; I25.10 Atherosclerotic heart disease of native coronary artery without angina pectoris; N18.9 Chronic kidney disease, unspecified; D63.1 Anemia in chronic kidney disease; E27.1 Primary adrenocortical insufficiency; E03.9 Hypothyroidism, unspecified; F17.210 Nicotine dependence, cigarettes, uncomplicated; I25.2 Old myocardial infarction; Z79.899 Other long term (current) drug therapy; Z87.19 Personal history of other diseases of the digestive system; Z95.5 Presence of coronary angioplasty implant and graft
CPT/HCPCS: 36415; 80053; 82150; 82272; 83690; 85025; 93005; 93010; 99283

== ENCOUNTER 2017-12-15 11:30 | Outpatient (CLI) | END 2017-12-15 11:31 | disposition home or self-care (01) | LOC: LAB 11:30 | DX: E03.9 Hypothyroidism, unspecified (principal) | CPT/HCPCS: 36415; 84443; 86800 ==

== ENCOUNTER 2018-01-01 19:19 | Emergency (ER) | payer OTHER ==
--- NOTE | 2018-01-01 19:25 | ED.PDOC ---
General ED Provider: Dr. RUFUS GIFFORD-ER Chief Complaint: Knee Pain/Injury Stated Complaint: i fell on my knee Time Seen by Physician: 19:23 Mode of Arrival: Wheelchair Information Source: Patient, Family Exam Limitations: No limitations Primary Care Provider: CARLOS NEWSOMELE Nursing and Triage Documentation Reviewed and Agree: Yes Does patient meet sepsis criteria?: No System Inflammatory Response Syndrome: Not Applicable Sepsis Protocol: For patient's 13 years and over: Temp is 96.8 and below OR 101 and greater Pulse >90 BPM Resp >20/minute Acutely Altered Mental Status Are patient's symptoms suggestive of a new infection, such as: -Pneumonia -Skin, Soft Tissue -Endocarditis -UTI -Bone, Joint Infection -Implantable Device -Acute Abdominal Infection -Wound Infection -Meningitis -Blood Stream Catheter Infection -Unknown Musculoskeletal Complaint Exam - Knee Pain Complaint/Exam Mechanism of Injury: Reports: Trauma Onset/Duration: 5 hrs ago Symptoms Are: Still present Onset of Pain: Reports: Immediate Initial Severity: Mild Current Severity: Mild Location: Reports: Discrete Character: Reports: Dull, Aching, Throbbing Alleviating: Reports: Rest, Position Aggravating: Reports: Movement, Weight bearing, Prolonged standing Associated Signs and Symptoms: Denies: Swelling, Redness, Bruising, Fever, Weakness, Numbness, Tingling Able to Bear Weight: Yes Knee Findings: Present: Tenderness, Limited range of motion Paulette Test Positive: No Hannah Test Positive: No Differential Diagnoses: Closed Fracture Review of Systems - Review Of Systems Constitutional: Reports: No symptoms Eyes: Reports: No symptoms Ears, Nose, Mouth, Throat: Reports: No symptoms Respiratory: Reports: No symptoms Cardiac: Reports: No symptoms GI: Reports: No symptoms : Reports: No symptoms Musculoskeletal: Reports: Joint pain Skin: Reports: No symptoms Neurological: Reports: No symptoms Endocrine: Reports: No symptoms Hematologic/Lymphatic: Reports: No symptoms All Other Systems: Reviewed and Negative Past Medical History - Past Medical History Previously Healthy: No Endocrine: Reports: DM 2, Hypothyroid, Dyslipidemia Cardiovascular: Reports: CAD, [place], Hypertension, CHF Respiratory: Reports: COPD Hematological: Reports: Anemia Gastrointestinal: Reports: GERD, Pancreatitis Genitourinary: Reports: CKD Neuro/Psych: Reports: Seizure, Anxiety, Depression Musculoskeletal: Reports: None Cancer: Reports: Other (kidney) Other Pertinent Past Medical History: 1 kidney, [place]'s disease, Glaucoma - Surgical History General Surgical History: Reports: Hysterectomy, Appendectomy, Cholecystectomy, Back Surgery, Other (nephrectomy,spleenectomy, partial pancreas,thyroidectomy, perforated colon,3 stents in heart) - Family History Family History: Reports: None - Social History Smoking Status: Current every day smoker, Light tobacco smoker Hx Substance Use: No Alcohol Screening: None - Immunizations Influenza Vaccine within 12 Months: No Pneumococcal Vaccine up to Date: No Physical Exam - Physical Exam Appearance: Well-appearing, No pain distress, Well-nourished Pain Distress: Mild Eyes: DONY, EOMI, Conjunctiva clear ENT: Ears normal, Nose normal, Oropharynx normal Neck: Supple Respiratory: Airway patent, Breath sounds clear, Breath sounds equal, Respirations nonlabored Cardiovascular: RRR GI/: Soft, Nontender, No masses, Bowel sounds normal, No Organomegaly Musculoskeletal: Limited ROM Skin: Warm, Dry, Normal color Neurological: Sensation intact, Motor intact, Reflexes intact, Cranial nerves intact, Alert, Oriented Psychiatric: Affect appropriate, Mood appropriate Interpretation - Radiology Interpretation Radiology Interpretation By: ED Physician Radiology Results: Negative Critical Care Note - Critical Care Note Total Time (mins): 0 Course - Course Orders, Labs, Meds: Orders Category Date Time Status KNEE, RIGHT 4 VIEWS Stat RADS 01/01/18 19:21 Taken Vital Signs: Temp Pulse Resp BP Pulse Ox 01/01/18 19:21 97.3 F L 93 H 20 131/78 97 Departure - Departure Time of Disposition: 19:45 Disposition: HOME SELF-CARE Discharge Problem: Injury of knee Instructions: Knee Pain (ED) Condition: Good Pt referred to PMD for follow-up: Yes IPMP verified?: No Additional Instructions: keep knee iced---use your pain meds at home///-f/u with pcp next week if still hurting Allergies/Adverse Reactions: Allergies duloxetine HCl [From Cymbalta] Allergy (Severe, Verified 18 19:31) unable to sleep hydrogen peroxide Allergy (Severe, Verified 01/01/18 19:31) rash, skin swells Patient to notify drugstore levofloxacin [From Levaquin] Allergy (Mild, Verified 01/01/18 19:31) Unknown Per patient she states she was on IV Levaquin in hospital for 5 days, then sent home with oral Levaquin. She c/o after 3 doses, she had blisters in her mouth penicillin G Adverse Reaction (Severe, Verified 01/01/18 19:31) Difficulty Breathing aripiprazole [From Abilify] Adverse Reaction (Verified 01/01/18 19:31) cefaclor [From Ceclor] Adverse Reaction (Verified 01/01/18 19:31) ciprofloxacin [From Cipro] Adverse Reaction (Verified 01/01/18 19:31) Rash clarithromycin [From Biaxin] Adverse Reaction (Verified 01/01/18 19:31) Rash ketorolac tromethamine [From Toradol] Adverse Reaction (Verified 01/01/18 19:31) Vomiting loperamide HCl [From Imodium A-D] Adverse Reaction (Verified 01/01/18 19:31) affects glaucoma Penicillins Adverse Reaction (Verified 01/01/18 19:31) Difficulty Breathing sumatriptan [From Imitrex] Adverse Reaction (Verified 01/01/18 19:31) heart attack sumatriptan succinate [From Imitrex] Adverse Reaction (Verified 01/01/18 19:31) heart attack Home Medications: Ambulatory Orders Albuterol Sulfate [Proair Hfa] 2 puff IH Q4H PRN 08/23/14 Atorvastatin Calcium 80 mg PO BEDTIME tab-cap 04/30/17 Isosorbide Mononitrate [Isosorbide Mononitrate Er] 30 mg PO d 05/19/17 Nitroglycerin 0.4 mg SL DIRECTED PRN 06/29/17 Cyclobenzaprine HCl 10 mg PO QID PRN 08/04/17 Oxycodone HCl/Acetaminophen [Oxycodone-Acetaminophen 10-325] 1 each PO QID PRN 08/04/17 Cephalexin [Keflex] 500 mg PO DAILY 09/04/17 Crisaborole [Eucrisa] 60 gm TP BID 11/24/17 Disposition Discussed With: Patient, Family
[2018-01-01 19:33] VITALS: BP 131/78; TEMP 97.3; BMI 27.0
--- NOTE | 2018-01-02 07:36 | DI ---
EXAM: Right knee four views HISTORY: Injury COMPARISON: 07/28/2016 FINDINGS: No fracture or dislocation. Small tricompartmental osteophytes. Mild narrowing medial co mpartment. Calcification of the medial knee in the region of the medial collateral ligament may be d ue to old trauma or soft tissue injury. No joint effusion. Mild quadriceps tendon enthesopathy. IMPERSSION: 1. No fracture or dislocation. 2. Mild osteoarthritis.
== END 2018-01-01 19:55 | disposition home or self-care (01) ==
LOC: ED 19:19
DX: M25.561 Pain in right knee (principal); W19.XXXA Unspecified fall, initial encounter; F17.210 Nicotine dependence, cigarettes, uncomplicated
CPT/HCPCS: 99283

== ENCOUNTER 2018-01-18 11:52 | Emergency (ER) | payer OTHER ==
[2018-01-18 12:00] VITALS: BP 169/87; TEMP 98.2; BMI 27.3
--- NOTE | 2018-01-18 13:30 | US ---
EXAM: Bilateral lower extremity venous Doppler History: Bilateral lower extremity pain. Technique: Multiple sonographic images through the bilateral lower extremities were obtained. Color duplex Doppler was used to interrogate vascular flow. Findings: The bilateral common femoral, greater saphenous, profunda, superficial femoral, popliteal, peroneal, posterior tibial and anterior tibial veins demonstrate spontaneous flow with normal compre ssion and normal augmentation. Impression: No sonographic evidence for deep venous thrombosis.
--- NOTE | 2018-01-18 13:51 | ED.PDOC ---
General ED Provider: Dr. LUCAS TURCIOS Chief Complaint: Extremity Swelling/Pain Stated Complaint: lower leg edema and pain bilateral Time Seen by Physician: 12:00 Mode of Arrival: Walk-In Information Source: Patient Exam Limitations: No limitations Primary Care Provider: CARLOS HERNANDEZ Nursing and Triage Documentation Reviewed and Agree: Yes Does patient meet sepsis criteria?: No If yes, has appropriate treatment been initiated?: No System Inflammatory Response Syndrome: Not Applicable Sepsis Protocol: For patient's 13 years and over: Temp is 96.8 and below OR 101 and greater Pulse >90 BPM Resp >20/minute Acutely Altered Mental Status Are patient's symptoms suggestive of a new infection, such as: -Pneumonia -Skin, Soft Tissue -Endocarditis -UTI -Bone, Joint Infection -Implantable Device -Acute Abdominal Infection -Wound Infection -Meningitis -Blood Stream Catheter Infection -Unknown Musculoskeletal Complaint Exam - Lower Extremity Complaint/Exam Location of Pain: Reports: Right, Left, Leg Mechanism of Injury: Reports: No known trauma Onset/Duration: chronic Symptoms Are: Still present Onset of Pain: Reports: Weeks Initial Severity: Moderate Current Severity: Mild Location: Reports: Discrete Character: Reports: Aching Alleviating: Reports: Rest, Position Aggravating: Reports: Movement Able to Bear Weight: Yes Associated Signs and Symptoms: Denies: Swelling, Redness, Bruising, Fever, Weakness, Numbness, Tingling DVT Risk Factors: Reports: None Septic Arthritis Risk Factors: Reports: None Related Surgical History: Reports: None Lower Extremity Findings: Present: Swelling. Absent: Abnormal contour, Rotation , Ligamentous instability, Laceration, Erythema, Warmth, Blisters Differential Diagnoses: Arthritis, DVT Review of Systems - Review Of Systems Constitutional: Reports: No symptoms Eyes: Reports: No symptoms Ears, Nose, Mouth, Throat: Reports: No symptoms Respiratory: Reports: No symptoms Cardiac: Reports: No symptoms GI: Reports: No symptoms : Reports: No symptoms Musculoskeletal: Reports: Other (led pain) Skin: Reports: No symptoms Neurological: Reports: No symptoms Endocrine: Reports: No symptoms Hematologic/Lymphatic: Reports: No symptoms All Other Systems: Reviewed and Negative Past Medical History - Past Medical History Previously Healthy: No Endocrine: Reports: DM 2, Hypothyroid, Dyslipidemia Cardiovascular: Reports: CAD, [place], Hypertension, CHF Respiratory: Reports: COPD Hematological: Reports: Anemia Gastrointestinal: Reports: GERD, Pancreatitis Genitourinary: Reports: CKD Neuro/Psych: Reports: Seizure, Anxiety, Depression Musculoskeletal: Reports: None Cancer: Reports: Other (kidney) Last Menstrual Period: NA Other Pertinent Past Medical History: 1 kidney, [place]'s disease, Glaucoma - Surgical History General Surgical History: Reports: Hysterectomy, Appendectomy, Cholecystectomy, Back Surgery, Other (nephrectomy,spleenectomy, partial pancreas,thyroidectomy, perforated colon,3 stents in heart) - Family History Family History: Reports: None - Social History Smoking Status: Current every day smoker, Light tobacco smoker Hx Substance Use: No Alcohol Screening: None - Immunizations Influenza Vaccine within 12 Months: No Pneumococcal Vaccine up to Date: No Physical Exam - Physical Exam Appearance: Well-appearing, No pain distress, Well-nourished Eyes: DONY, EOMI, Conjunctiva clear ENT: Ears normal, Nose normal, Oropharynx normal Respiratory: Airway patent, Breath sounds clear, Breath sounds equal, Respirations nonlabored Cardiovascular: RRR, Pulses normal, No rub, No murmur GI/: Soft, Nontender, No masses, Bowel sounds normal, No Organomegaly Musculoskeletal: Normal strength, ROM intact, No edema, No calf tenderness Skin: Warm, Dry, Normal color Neurological: Sensation intact, Motor intact, Reflexes intact, Cranial nerves intact, Alert, Oriented Psychiatric: Affect appropriate, Mood appropriate Interpretation - Radiology Interpretation Radiology Interpretation By: Radiologist Radiology Results: No acute changes Critical Care Note - Critical Care Note Total Time (mins): 0 Course - Course Hematology/Chemistry: 01/18/18 12:15 01/18/18 12:15 Orders, Labs, Meds: Lab Review 01/18/18 01/18/18 12:15 12:15 WBC 10.37 H RBC 3.92 L Hgb 12.7 Hct 38.0 MCV 96.9 MCH 32.4 H MCHC 33.4 RDW Coeff of Manoj 13.2 Plt Count 337 Immature Gran % (Auto) 0.3 Neut % (Auto) 56.3 Lymph % (Auto) 33.6 [place] % (Auto) 6.4 Eos % (Auto) 2.9 Baso % (Auto) 0.5 Immature Gran # (Auto) 0.0 Neut # (Auto) 5.9 Lymph # (Auto) 3.5 H [place] # (Auto) 0.7 Eos # (Auto) 0.3 Baso # (Auto) 0.1 Sodium 137.8 Potassium 4.59 Chloride 107.9 H Carbon Dioxide 25.4 Anion Gap 9.09 BUN 12.8 Creatinine 1.04 Estimated GFR (MDRD) 53.00 BUN/Creatinine Ratio 12.30 Glucose 138.4 H Calcium 8.60 Total Bilirubin 0.20 AST 18.8 ALT 16.8 Alkaline Phosphatase 110.0 Total Protein 7.44 Albumin 3.82 Globulin 3.62 Albumin/Globulin Ratio 1.05 Orders Category Date Time Status CBC W/ AUTO DIFF Stat LAB 01/18/18 12:15 Completed COMPREHENSIVE METABOLIC PANEL Stat LAB 01/18/18 12:15 Completed U/S VENOUS SCAN NATHAN LEGS Stat RADS 01/18/18 12:07 Completed Vital Signs: Temp Pulse Resp BP Pulse Ox 01/18/18 11:56 98.2 F 99 H 20 169/87 H 94 L Departure - Departure Time of Disposition: 13:51 Disposition: HOME SELF-CARE Discharge Problem: Edema of lower extremity Lower leg pain Qualifiers: Laterality: bilateral Qualified Code(s): M79.661 - Pain in right lower leg; M79.662 - Pain in left lower leg Instructions: Leg Pain (ED) Condition: Good Pt referred to PMD for follow-up: Yes IPMP verified?: No Additional Instructions: Please call your Family Physician as soon as possible to schedule a follow-up appointment. Allergies/Adverse Reactions: Allergies duloxetine HCl [From Cymbalta] Allergy (Severe, Verified 01/18/18 11:54) unable to sleep hydrogen peroxide Allergy (Severe, Verified 01/18/18 11:54) rash, skin swells Patient to notify drugstore levofloxacin [From Levaquin] Allergy (Mild, Verified 01/18/18 11:54) Unknown Per patient she states she was on IV Levaquin in hospital for 5 days, then sent home with oral Levaquin. She c/o after 3 doses, she had blisters in her mouth penicillin G Adverse Reaction (Severe, Verified 01/18/18 11:54) Difficulty Breathing aripiprazole [From Abilify] Adverse Reaction (Verified 01/18/18 11:54) cefaclor [From Ceclor] Adverse Reaction (Verified 01/18/18 11:54) ciprofloxacin [From Cipro] Adverse Reaction (Verified 01/18/18 11:54) Rash clarithromycin [From Biaxin] Adverse Reaction (Verified 01/18/18 11:54) Rash ketorolac tromethamine [From Toradol] Adverse Reaction (Verified 01/18/18 11:54) Vomiting loperamide HCl [From Imodium A-D] Adverse Reaction (Verified 01/18/18 11:54) affects glaucoma Penicillins Adverse Reaction (Verified 01/18/18 11:54) Difficulty Breathing sumatriptan [From Imitrex] Adverse Reaction (Verified 01/18/18 11:54) heart attack sumatriptan succinate [From Imitrex] Adverse Reaction (Verified 01/18/18 11:54) heart attack Home Medications: Ambulatory Orders Albuterol Sulfate [Proair Hfa] 2 puff IH Q4H PRN 08/23/14 Atorvastatin Calcium 80 mg PO BEDTIME tab-cap 04/30/17 Isosorbide Mononitrate [Isosorbide Mononitrate Er] 30 mg PO d 05/19/17 Nitroglycerin 0.4 mg SL DIRECTED PRN 06/29/17 Cyclobenzaprine HCl 10 mg PO QID PRN 08/04/17 Oxycodone HCl/Acetaminophen [Oxycodone-Acetaminophen 10-325] 1 each PO QID PRN 08/04/17 Crisaborole [Eucrisa] 60 gm TP BID 11/24/17 Disposition Discussed With: Patient
== END 2018-01-18 14:06 | disposition home or self-care (01) ==
LOC: ED 11:52
DX: M79.605 Pain in left leg (principal); M79.604 Pain in right leg; R60.9 Edema, unspecified; E11.9 Type 2 diabetes mellitus without complications; E03.9 Hypothyroidism, unspecified; E78.5 Hyperlipidemia, unspecified; I25.2 Old myocardial infarction; I25.10 Atherosclerotic heart disease of native coronary artery without angina pectoris; I50.9 Heart failure, unspecified; N18.9 Chronic kidney disease, unspecified; D63.1 Anemia in chronic kidney disease; E27.1 Primary adrenocortical insufficiency; Z79.899 Other long term (current) drug therapy; Z95.5 Presence of coronary angioplasty implant and graft; F17.210 Nicotine dependence, cigarettes, uncomplicated
CPT/HCPCS: 36415; 80053; 85025; 99283

== ENCOUNTER 2018-03-05 20:54 | Inpatient (IN) ==
--- NOTE | 2018-03-05 21:56 | CT ---
EXAM: CT of the chest without contrast. HISTORY: Cough. PROCEDURE: Contiguous axial CT images of the chest without contrast with coronal and sagittal reform ats. FINDINGS: The heart is within normal limits in size. The thoracic aorta is within normal limits in d iameter. The mediastinum is normal in appearance. There is a small layering left pleural effusion. There is left basilar consolidation. There are degenerative changes in the spine. There is a 3.7 cm right benign adrenal adenoma. The left kidney is surgically absent. Impression: Left basilar consolidation, consistent with atelectasis and/or pneumonia. Small left pleural effusion.
--- NOTE | 2018-03-05 22:38 | ED.PDOC ---
General ED Provider: Dr. RUFUS GIFFORD-ER Chief Complaint: Respiratory Complaint Stated Complaint: 3 days of fever, chills, prod cough and occ hemoptysis Time Seen by Physician: 20:55 Mode of Arrival: Ambulance Information Source: Patient, EMT Exam Limitations: No limitations Primary Care Provider: CARLOS HERNANDEZ Nursing and Triage Documentation Reviewed and Agree: Yes Does patient meet sepsis criteria?: No System Inflammatory Response Syndrome: Not Applicable Sepsis Protocol: For patient's 13 years and over: Temp is 96.8 and below OR 101 and greater Pulse >90 BPM Resp >20/minute Acutely Altered Mental Status Are patient's symptoms suggestive of a new infection, such as: -Pneumonia -Skin, Soft Tissue -Endocarditis -UTI -Bone, Joint Infection -Implantable Device -Acute Abdominal Infection -Wound Infection -Meningitis -Blood Stream Catheter Infection -Unknown Respiratory Complaint Exam - Respiratory Complaint/Exam Onset/Duration: 3 days Symptoms Are: Still present Timing: Constant Initial Severity: Mild Current Severity: Moderate Location: Chest Character: Reports: Productive cough Aggravating: Reports: URI Alleviating: Reports: None Associated Signs and Symptoms: Reports: Dyspnea, Fever, Chills, URI Related History: Reports: Similar episode History of Healthcare-Acquired Pneumonia: No Cardiac Risk Factors: Reports: None Pseudomonas Risk Factors: Reports: Chronic Lung Disease Tuberculosis Risk Factors: Reports: Chronic Resp. Faliure Status Asthmaticus Risk Factors: Reports: None Home Oxygen Use: No Recent Stress Test: No Recent Echo/LV Function: No Current Antibiotic Use: No Current Asthma Medication Use: No Respiratory Distress: None Inadequate Respiratory Effort: No Dysphagia Present: No Stridor Present: No JVD Present: No Accessory Muscle Use: No Retractions: Not Present Diminished Breath Sounds: No Sinus Tenderness: None Grunting Respirations: No Kussmaul Respirations: No Differential Diagnoses: Pneumonia Non-Traumatic Chest Pain Syncope: EKG Performed Review of Systems - Review Of Systems Constitutional: Reports: No symptoms Eyes: Reports: No symptoms Ears, Nose, Mouth, Throat: Reports: No symptoms Respiratory: Reports: Cough, Short of air Cardiac: Reports: No symptoms GI: Reports: No symptoms : Reports: No symptoms Musculoskeletal: Reports: No symptoms Skin: Reports: No symptoms Neurological: Reports: No symptoms Endocrine: Reports: No symptoms Hematologic/Lymphatic: Reports: No symptoms All Other Systems: Reviewed and Negative Past Medical History - Past Medical History Previously Healthy: No Endocrine: Reports: DM 2, Hypothyroid, Dyslipidemia Cardiovascular: Reports: CAD, [place], Hypertension, CHF Respiratory: Reports: COPD Hematological: Reports: Anemia Gastrointestinal: Reports: GERD, Pancreatitis Genitourinary: Reports: CKD Neuro/Psych: Reports: Seizure, Anxiety, Depression Musculoskeletal: Reports: None Cancer: Reports: Other (kidney) Last Menstrual Period: na Other Pertinent Past Medical History: 1 kidney, Ayden's disease, Glaucoma - Surgical History General Surgical History: Reports: Hysterectomy, Appendectomy, Cholecystectomy, Back Surgery, Other (nephrectomy,spleenectomy, partial pancreas,thyroidectomy, perforated colon,3 stents in heart) - Family History Family History: Reports: None - Social History Smoking Status: Current every day smoker, Light tobacco smoker Hx Substance Use: No Alcohol Screening: None - Immunizations Tetanus Shot up to Date: Yes Influenza Vaccine within 12 Months: No Pneumococcal Vaccine up to Date: No Physical Exam - Physical Exam Appearance: Well-appearing Eyes: DONY, EOMI, Conjunctiva clear ENT: Ears normal, Nose normal, Oropharynx normal Neck: Supple Respiratory: Crackles, Rhonchi Cardiovascular: RRR, Pulses normal, No rub, No murmur GI/: Soft, Nontender, No masses, Bowel sounds normal, No Organomegaly Musculoskeletal: Normal strength Skin: Warm, Dry, Normal color Neurological: Sensation intact, Motor intact, Reflexes intact, Cranial nerves intact, Alert, Oriented Psychiatric: Affect appropriate, Mood appropriate Interpretation - Radiology Interpretation Radiology Interpretation By: Radiologist Radiology Results: Positive Exam Interpreted: CT Scan - EKG Interpretation Time of EKG #1: 22:38 Rate: Normal Rhythm: Sinus Ectopy: None [place]: NL ST Segment: Normal Interpretation: nsr Physician Notification - Case Discussed Physician Notified: dr duarte Time of Notification: 22:39 Critical Care Note - Critical Care Note Total Time (mins): 0 Course - Course Hematology/Chemistry: 03/05/18 21:11 03/05/18 21:11 Orders, Labs, Meds: Lab Review 03/05/18 03/05/18 03/05/18 20:55 20:56 21:11 WBC 14.16 H RBC 4.00 L Hgb 13.0 Hct 39.5 MCV 98.8 MCH 32.5 H MCHC 32.9 RDW Coeff of Manoj 13.2 Plt Count 378 Immature Gran % (Auto) 0.4 Neut % (Auto) 56.9 Lymph % (Auto) 33.3 [place] % (Auto) 5.3 Eos % (Auto) 3.6 Baso % (Auto) 0.5 Immature Gran # (Auto) 0.1 Neut # (Auto) 8.1 H Lymph # (Auto) 4.7 H [place] # (Auto) 0.8 Eos # (Auto) 0.5 Baso # (Auto) 0.1 Puncture Site Lbrach O2 Saturation 95.0 ABG pH 7.347 L ABG pCO2 38.3 ABG pO2 77.0 L ABG HCO3 21 L ABG Total CO2 22 ABG Base Excess -5 L Dawson Test + FiO2 % 21.0 Sodium Potassium Chloride Carbon Dioxide Anion Gap BUN Creatinine Estimated GFR (MDRD) BUN/Creatinine Ratio Glucose Lactic Acid 0.87 Calcium Total Bilirubin AST ALT Alkaline Phosphatase Total Protein Albumin Globulin Albumin/Globulin Ratio Procalcitonin Influ A Molecular Assay Influ B Molecular Assay 03/05/18 03/05/18 03/05/18 21:11 21:11 21:11 WBC RBC Hgb Hct MCV MCH MCHC RDW Coeff of Manoj Plt Count Immature Gran % (Auto) Neut % (Auto) Lymph % (Auto) [place] % (Auto) Eos % (Auto) Baso % (Auto) Immature Gran # (Auto) Neut # (Auto) Lymph # (Auto) [place] # (Auto) Eos # (Auto) Baso # (Auto) Puncture Site O2 Saturation ABG pH ABG pCO2 ABG pO2 ABG HCO3 ABG Total CO2 ABG Base Excess Dawson Test FiO2 % Sodium 137.1 Potassium 4.28 Chloride 104.9 Carbon Dioxide 23.7 Anion Gap 12.78 BUN 17.3 H Creatinine 0.95 Estimated GFR (MDRD) 59.00 BUN/Creatinine Ratio 18.21 Glucose 169.1 H Lactic Acid Calcium 8.80 Total Bilirubin 0.27 AST 22.6 ALT 41.2 H Alkaline Phosphatase 145.1 H Total Protein 8.28 H Albumin 4.14 Globulin 4.14 Albumin/Globulin Ratio 1.00 Procalcitonin < 0.05 Influ A Molecular Assay Negative by naat Influ B Molecular Assay Negative by naat Orders Category Date Time Status ABG DRAW REQUEST Stat CARDIO 03/05/18 20:56 Completed EKG-(ED ONLY) Stat CARDIO 03/05/18 20:57 Completed [employer] [ED PHYSICIAN EXTENDER APPLIED] .ONCE EMERGENCY 03/05/18 20:57 Active ABG Stat LAB 03/05/18 20:55 Completed BLOOD CULTURE (ED ONLY) Stat LAB 03/05/18 21:11 Received CBC W/ AUTO DIFF Stat LAB 03/05/18 21:11 Completed COMPREHENSIVE METABOLIC PANEL Stat LAB 03/05/18 21:11 Completed FLU A/B MOLECULAR Stat LAB 03/05/18 21:11 Completed LACTIC ACID Stat LAB 03/05/18 20:56 Completed MOLECULAR GROUP A STREP Stat LAB 03/05/18 21:11 Completed PROCALCITONIN Stat LAB 03/05/18 21:[address] CHEST W/O CONTRAST Stat RADS 03/05/18 20:57 Completed Vital Signs: Temp Pulse Resp BP Pulse Ox 03/05/18 20:55 98.1 F 87 24 154/81 H 98 Departure - Departure Time of Disposition: 22:39 Disposition: ADMITTED INPATIENT Discharge Problem: Pneumonia Qualifiers: Pneumonia type: due to unspecified organism Laterality: unspecified laterality Lung location: unspecified part of lung Qualified Code(s): J18.9 - Pneumonia, unspecified organism Instructions: Pneumonitis (ED) Condition: Good Pt referred to PMD for follow-up: Yes IPMP verified?: No Allergies/Adverse Reactions: Allergies duloxetine HCl [From Cymbalta] Allergy (Severe, Verified 03/05/18 21:26) unable to sleep hydrogen peroxide Allergy (Severe, Verified 03/05/18 21:26) rash, skin swells Patient to notify drugstore levofloxacin [From Levaquin] Allergy (Mild, Verified 03/05/18 21:26) Unknown Per patient she states she was on IV Levaquin in hospital for 5 days, then sent home with oral Levaquin. She c/o after 3 doses, she had blisters in her mouth penicillin G Adverse Reaction (Severe, Verified 03/05/18 21:26) Difficulty Breathing clarithromycin [From Biaxin] Adverse Reaction (Mild, Verified 03/05/18 21:26) Rash loperamide HCl [From Imodium A-D] Adverse Reaction (Mild, Verified 03/05/18 21: 26) affects glaucoma aripiprazole [From Abilify] Adverse Reaction (Verified 03/05/18 21:26) cefaclor [From Ceclor] Adverse Reaction (Verified 03/05/18 21:26) ciprofloxacin [From Cipro] Adverse Reaction (Verified 03/05/18 21:26) Rash ketorolac tromethamine [From Toradol] Adverse Reaction (Verified 03/05/18 21:) Vomiting Penicillins Adverse Reaction (Verified 03/05/18 21:) Difficulty Breathing sumatriptan [From Imitrex] Adverse Reaction (Verified 03/05/18 21:) heart attack sumatriptan succinate [From Imitrex] Adverse Reaction (Verified 03/05/18 21:) heart attack Home Medications: Ambulatory Orders Albuterol Sulfate [Proair Hfa] 2 puff IH Q4H PRN 08/23/14 Atorvastatin Calcium 80 mg PO BEDTIME tab-cap 04/30/17 Isosorbide Mononitrate [Isosorbide Mononitrate Er] 30 mg PO d 05/19/17 Nitroglycerin 0.4 mg SL DIRECTED PRN 06/29/17 Cyclobenzaprine HCl 10 mg PO QID PRN 08/04/17 Oxycodone HCl/Acetaminophen [Oxycodone-Acetaminophen 10-325] 1 each PO QID PRN 08/04/17 Disposition Discussed With: Patient
[2018-03-05] MEDS ORDERED: AZACTAM 1 GM in SODIUM CHLORIDE 50 ML IV STA (22:41)
[2018-03-05] MEDS ORDERED: TYLENOL PO PRN (22:42)
[2018-03-05] MEDS ORDERED: NITROSTAT SL PRN (22:46)
[2018-03-05] MEDS ORDERED: INSULIN ASPART 8 UNIT SQ PRN (22:46)
[2018-03-05] MEDS ORDERED: PERCOCET 10-325 PO PRN (22:46)
[2018-03-05] MEDS ORDERED: FLEXERIL PO PRN (22:46)
[2018-03-05] MEDS: AZACTAM ONE ×2 (22:59→23:00)
[2018-03-05] MEDS ORDERED: SODIUM CHLORIDE 1,000 ML IV SCH (23:00)
[2018-03-05 23:49] VITALS: BMI 28.4
[2018-03-06] MEDS ORDERED: NON-FORMULARY MEDICATION (Levetiracetam [Keppra] 1,000 MG) PO SCH ×2 (00:38→09:00)
[2018-03-06] MEDS ORDERED: INSULIN ASPART 8 UNIT SQ PRN (00:56)
[2018-03-06] MEDS: PLAVIX PO SCH ×2 (01:13→20:54)
[2018-03-06] MEDS: PERCOCET 10-325 PO PRN ×4 (01:13→20:53)
[2018-03-06] MEDS: LANTUS SUBCUT SCH ×2 (01:14→20:58)
[2018-03-06] MEDS: LOPRESSOR PO SCH ×3 (01:14→20:55)
[2018-03-06] MEDS: ALBUTEROL 0.083% NEB NEB SCH ×4 (04:35→20:10)
[2018-03-06] MEDS ORDERED: AZACTAM 1 GM in SODIUM CHLORIDE 50 ML IV SCH (05:00)
[2018-03-06] MEDS ORDERED: ALBUTEROL 0.083% NEB NEB SCH (06:00)
[2018-03-06] MEDS: PROTONIX PO SCH (06:10)
[2018-03-06] MEDS: SYNTHROID PO SCH (06:10)
[2018-03-06] MEDS ORDERED: MIRALAX ONE (08:52)
[2018-03-06] MEDS ORDERED: LOPRESSOR ONE (08:52)
[2018-03-06] MEDS ORDERED: LASIX TAB ONE (08:52)
[2018-03-06] MEDS ORDERED: PERCOCET 10-325 ONE (08:53)
[2018-03-06] MEDS ORDERED: PRISTIQ ER ONE (08:53)
[2018-03-06] MEDS ORDERED: IMDUR ONE (08:54)
[2018-03-06] MEDS ORDERED: LYRICA ONE (08:54)
[2018-03-06] MEDS ORDERED: KEPPRA ONE (08:54)
[2018-03-06] MEDS ORDERED: ZESTRIL ONE (08:54)
[2018-03-06] MEDS: PRISTIQ ER PO SCH (08:57)
[2018-03-06] MEDS: LYRICA PO SCH (08:57)
[2018-03-06] MEDS: KEPPRA PO SCH ×2 (08:58→20:54)
[2018-03-06] MEDS: ZESTRIL PO SCH (08:58)
[2018-03-06] MEDS: IMDUR PO SCH (08:58)
[2018-03-06] MEDS: NON-FORMULARY MEDICATION (Icosapent Ethyl [Vascepa] 1 GM) PO SCH ×2 (08:59→21:01)
[2018-03-06] MEDS: MIRALAX PO SCH (08:59)
[2018-03-06] MEDS: LASIX TAB PO SCH (08:59)
[2018-03-06] MEDS ORDERED: LOVENOX SUBCUT SCH (09:00)
[2018-03-06] MEDS ORDERED: VANCOMYCIN 1 GM in SODIUM CHLORIDE 250 ML IV SCH (09:00)
[2018-03-06] MEDS ORDERED: LOPRESSOR PO SCH (09:00)
[2018-03-06] MEDS ORDERED: NON-FORMULARY MEDICATION (Desvenlafaxine Succinate [Pristiq] 100 MG) PO SCH (09:00)
[2018-03-06] MEDS ORDERED: ALBUTEROL 0.083% NEB NEB ONE (11:03)
[2018-03-06] MEDS ORDERED: HUMALOG SUBCUT ONE (11:49)
[2018-03-06] MEDS: HUMALOG SUBCUT PRN ×2 (11:53→17:14)
--- NOTE | 2018-03-06 16:08 | PCM ---
- Chief Complaint Chief Complaint: Shortness of breath, fever, cough. Community Acquired Pneumonia LLL, Diabetes, No spleen. - History of Present Illness History of Present Illness: 62 yo female presented to ER 03/05/18 via Ambulance at 20:55 w/ 3 day h/o fever, chills, productive cough and occasional hemoptysis. Patient was last seen in office by VISHNU Lee 02/18/2018 for 1 week f/u of productive cough/URI/wheezing /decreased appetite/poorly controlled BG w/ last A1C 8.98, continued tobacco and bilateral lower extremity edema. She was started on doxy at that time. High risk patient, tobacco user, splenectomy status, nephrectomy status, COPD status, CHF status. She came in did meet SIRS criteria, except WBC elevation of 14.16, temp was 98.1, hr 87, RR24 and BP 154/81 and 98 o2 on room air. SIRS CRITERIA RR >20 and WBC >12. 3 day history of URI, still present, flu negative , moderate severity [place], fever, chills and URI symptoms reproted. SImilar episode reported mid january 2018. Chronic lung disease/respiratory failure. No O2 at home. No recent echo. DDX pneumonia. EKG performed, CT performed and left lower lobe consolidation consistent with atelectasis vs pneumonia. Complicating/comorbid factors include dm2 hypothryoid, dyslipidemia, CAD, AR, HTN, CHF, COPD, anemia, GERD, Pancreatitis, partial removal of pancreas, splenectomy, CKD, anxiety/depression, history of addisons and glaucoma and continued tobacco use. EKG in ER 22:38 done and NSR. WBC 14.16, Hgb 13, plt 378. Sodium 137.1, K+ 4.28, CL 104.9, BUN 17.3, Cr 0.85 and glucose 169.1. ABG O2 95, pH 7.347, Pc02, 38.3, Po2 77, hc03 21, allens +/ Lactic acid was 0.87. ABG interpretation: Non Gap Metabolic Acidosis, primary metabolic acidosis w/ secondary resp acidosis. Flu negative. Dr. Aparicio was called by ER and accepted admission. I was called at 14:48 03/06/18 alerting me that the patient was in, previously seen by VISHNU Lee and that patient needed to be seen. I arrived at hospital at 15:30 and started evaluation as noted. Chart review completed, Er note reviewed/summarized, history d/w Dr. Aparicio, last notes reviewed. Patient high risk secondary to numerous abx allergies. On Aztreonam. Vitals since admit afebrile, BP stable, RR 20, O2 saturation 95-99% on RA. Sugars reviewed this am [id number], 185 at 11 am and 138 at 1617 today. She is on lantus and doing okay with this. Last A1C within 30 days of admit. Based on her history <8.5 A1C is likely okay for her. SSI, goal to keep her 120 -220 range. Port Score/PSI of 164 points class V 27-29% mortality, inpatient admission recommended. Again high risk secondary splenectomy status, tobacco, DM2, CHF, liver disease, renal disease. Patient was sleeping in room 119-1 calm , no respiratory distress, no accessory muscle usage and appears to be clinically stable. She was easily awoken. She notes 1 month of worsening URI, weight gain and edema in bilateral LE. She was able to answer questions, discussed allergies above and she noted them again. I discussed current abx is not adequate and we talked about Meropenem. I contacted [facility] pharmacist and they did not know if we had it but it would be a good choice. I talked with [facility] ED provider and alerted them as well as patient had allergy to PCN with regards to breathing problems. No merem was available and thus I chose to use primaxin and to stop the aztreonam. Patient has no new pain, chronic back pain and LE pain that is controlled with percocet. Again, sleeping comfortable, no distress, nothing to warrant transfer at this time. I talked with patient for about 10 minutes about abx, history and she feels quite poorly over last month progressively. URi, cough productive of yellow phlegm, fever at home. She has cough, congestion regularly, COPD regularly, this feels different to her. I checked last vitals in our system for outpatient and all afebrile. She has remained so in our hospital over last 24 hours, RR <20 as well. I discussed with her since she was stable that a change of abx would be helpful. We will watch weight, we will watch symptoms and reassess in am. - Review of Systems Constitutional: fever (reported), weakness, fatigue, loss of appetite. No: chills, sweats, other Eyes: other (+Lazy eye right). No: blurred vision, double-vision, discharge, itching, pain, redness, photophobia Ears: No: pain, bleeding, drainage, ringing, hearing loss, other Nose: congestion, discharge. No: bleeding, other Throat: pain. No: swelling, voice change, other Mouth: No: bleeding, pain, swelling, other Respiratory: cough, shortness of air, wheeze, hemoptysis (reported not observed. ). No: pain with breathing, other Cardiovascular: chest pain, edema (chronic peripheral. ). No: left arm pain, diaphoresis, PND, orthopnea, palpitations, syncope, other Gastrointestinal: No: abdominal pain, other, nausea, vomiting, diarrhea, melena , hematemesis, hematochezia, dysphagia, constipation Genitourinary: No: dysuria, hematuria, frequency, incontinence, flank pain, vaginal discharge, abnormal bleeding, pelvic pain, other Neurological: No: headache, other, dizziness, seizure, numbness, weakness, speech difficulty, problems with walking, tremor, fainting Musculoskeletal: pain (chronic) Skin: No: rash, pruritus, lacerations, wounds, bruising, other Immunology: frequent infections (asplenic.). No: hives, itching, difficulty healing, other Hematology: No: easy bruising, easy bleeding, swollen glands, other Endocrine: weight changes. No: cold intolerance, heat intolerance, excessive thirst, excessive hunger, polyuria, other Psychiatric: depression, anxiety, sleeplessness. No: hopelessness, suicidal, hallucinations, other Habits: tobacco use (not interested in cessation. ). No: substance use, alcohol use, other - Past Medical History Past Medical History: Anxiety, CKD, CHF, Cushings disease, depression, IDDM2 uncontrolled, GERD, Heart valve disease (aortic), HTN, AR 814/15, Neuropathy, Shingles 2012, Spinal stenosis. Tobacco use. Overweight. Numerous abx allergies (PCN, FQ, Cephalosporin). Has been on keflex through infectious disease per 2017 note. - Past Surgical History Past Surgical History: Appendectomy, cholecystectomy, subtotal colectomy, coronary stent, hysterectomy, nephrectomy, thyroidectomy, right knee arthroscopy , 1/2 pancreased removed, splenectomy. - Allergies Allergies/Adverse Reactions: Allergies Allergy/AdvReac Type Severity Reaction Status Date / Time duloxetine HCl Allergy Severe unable to Verified 03/05/18 21:26 [From Cymbalta] sleep hydrogen peroxide Allergy Severe rash, skin Verified 03/05/18 21:26 swells levofloxacin [From Levaquin] Allergy Mild Unknown Verified 03/05/18 21:26 penicillin G AdvReac Severe Difficulty Verified 03/05/18 21:26 Breathing clarithromycin [From Biaxin] AdvReac Mild Rash Verified 03/05/18 21:26 loperamide HCl AdvReac Mild affects Verified 03/05/18 21:26 [From Imodium A-D] glaucoma aripiprazole [From Abilify] AdvReac Verified 03/05/18 21:26 cefaclor [From Ceclor] AdvReac Verified 03/05/18 21:26 ciprofloxacin [From Cipro] AdvReac Rash Verified 03/05/18 21:26 ketorolac tromethamine AdvReac Vomiting Verified 03/05/18 21:26 [From Toradol] Penicillins AdvReac Difficulty Verified 03/05/18 21:26 Breathing sumatriptan [From Imitrex] AdvReac heart Verified 03/05/18 21:26 attack sumatriptan succinate AdvReac heart Verified 03/05/18 21:26 [From Imitrex] attack - Medications Medications: Medications Generic Name Dose Route Start Last Admin Trade Name Freq PRN Reason Stop Dose Admin Albuterol Sulfate 1 vial 03/06/18 06:00 03/06/18 14:15 Albuterol 0.083% Neb NEB 1 vial RTQID FRANCISCO J Administration Aspirin 81 mg 03/06/18 21:00 Aspirin Ec PO BEDTIME FRANCISCO J Atorvastatin Calcium 80 mg 03/06/18 21:00 Lipitor PO BEDTIME FRANCISCO J Clopidogrel Bisulfate 75 mg 03/06/18 00:34 03/06/18 01:13 Plavix PO 75 mg BEDTIME FRANCISCO J Administration Cyclobenzaprine HCl 10 mg 03/05/18 22:46 Flexeril PO QID PRN Spasms Desvenlafaxine Succinate 100 mg 03/06/18 09:00 03/06/18 08:57 Pristiq Er PO 100 mg DAILY FRANCISCO J Administration Furosemide 20 mg 03/06/18 09:00 03/06/18 08:59 Lasix Tab PO 20 mg QDAC FRANCISCO J Administration Insulin Glargine 25 unit 03/06/18 00:36 03/06/18 01:14 Lantus SUBCUT 25 unit BEDTIME [facility] Administration Insulin Human Lispro 8 unit 03/06/18 07:05 03/06/18 11:53 Humalog SUBCUT 8 unit TID PRN Administration HYPERGLYCEMIA Isosorbide Mononitrate 30 mg 03/06/18 09:00 03/06/18 08:58 Imdur PO 30 mg DAILY [facility] Administration Latanoprost 1 drop 03/06/18 21:00 Xalatan OP BEDTIME FRANCISCO J Levetiracetam 1,000 mg 03/06/18 09:00 03/06/18 08:58 Keppra PO 1,000 mg BID [facility] Administration Levothyroxine Sodium 88 mcg 03/06/18 06:30 03/06/18 06:10 Synthroid PO 88 mcg QDAC [facility] Administration Lisinopril 5 mg 03/06/18 09:00 03/06/18 08:58 Zestril PO 5 mg DAILY [facility] Administration Metoprolol Tartrate 12.5 mg 03/06/18 00:41 03/06/18 08:58 Lopressor PO 12.5 mg BID [facility] Administration Nitroglycerin 0.4 mg 03/05/18 22:46 Nitrostat SL Q5MIN X 3 DOSES PRN Chest Pain Non-Formulary Medication 1 gm 03/06/18 09:00 03/06/18 08:59 Icosapent Ethyl [Vascepa] PO Not Given BID [facility] Oxycodone/Acetaminophen 1 tab 03/06/18 00:33 03/06/18 14:14 Percocet 10-325 PO 1 tab QID PRN Administration MODERATE PAIN Pantoprazole Sodium 40 mg 03/06/18 06:30 03/06/18 06:10 Protonix PO 40 mg QDAC [facility] Administration Polyethylene Glycol 17 gm 03/06/18 09:00 03/06/18 08:59 Miralax PO 17 gm DAILY [facility] Administration Pregabalin 50 mg 03/06/18 09:00 03/06/18 08:57 Lyrica PO 50 mg DAILY [facility] Administration Sodium Chloride 1 syr 03/06/18 13:00 03/06/18 12:46 Saline Flush IVF 1 syr Q8HR FRANCISCO J Administration - Family History Past Family History: Pancreatic cancer in brother/sister. Lung cancer in mother and father. Colon cancer brother. Children adopted #5, . - Social History Past Social History: Every day smoker 1/2-1 ppd not interested. Smoking 40+ years. Lives with daughter and son. . - Vital Signs Temperature: 99 F Pulse Rate: 90 Respiratory Rate: 20 Blood Pressure: 110/46 O2 Sat by Pulse Oximetry: 99 - Body Composition Height: 5 ft 8 in Weight: 186 lb 15.232 oz Body Mass Index (BMI): 28.4 - Physical Examination HEENT: Constitutional: Appearance-Shortness of breath, no accessory muscle usage at this time. Asleep upon entry, easily aroused. 2+ edema to mid shins. Dependent. No acute distress, Appears consistent with stated age. Orientation- Oriented x 3, alert Build and Nutrition-[Mildly overweight] General- Patient is pleasant and cooperative with the interview and exam. Talks in complete sentences. I:E About 1:2. Integumentary: General-No rashes, ulcers or lesions. Palpation- Normal skin moisture/turgor. Skin is warm to touch, appropriate. Capillary refill is normal bilateral Upper and lower extremity. No skin breakdown, foot health average, sacrum without rash/breakdown. Head/Neck: Head- normocephalic and atraumatic. Neck- without visible/palpable lumps or pulsations. Palpation- No bony tenderness about head/neck along frontal, occipital, temporal, parietal, mastoid, jawline, zygoma, orbit or any other location. NO temporal artery tenderness. No TMJ tenderness. Neck Supple. Thyroid-No thyromegaly, no nodules Eye: Bilaterally PERRLA, EOMI. No discharge. Upper and lower eyelids are normal. Sclera/conjunctiva normal without discharge. Cornea is normal and clear. Lens is normal. Eyeball appears normal. No ciliary flushing, no conjunctival injection. Lazy eye on right. ENMT: Pinna- normal without tenderness or erythema. External auditory canal Left- normal without erythema or discharge, no excessive cerumen. External auditory canal Right-normal without erythema or discharge, no excessive cerumen. TM left- Figueroa/pearly, normal light reflex and anatomy TM Right- Figueroa/ pearly, normal light reflex and anatomy Hearing Assessment-normal to loud conversational speech. Nose and sinus- No sinus tenderness along frontal/ maxillary region. External appearance normal and midline. Nares- bilateral quiet airflow, no discharge. Nasal mucosa- No bleeding noted and no ulcerations observed. Turbinates boggy, erythematous. Lips- normal color, moist without cracks/lesions Oral Cavity/Palate- hard/soft palate intact without lesions, oral mucosa pink and moist. Tongue normal midline. Oropharynx- Mild pharyngeal erythema, +post nasal drainage, missing teeth. Uvula midline. No post nasal drip. No exudate. Salivary glands- Non tender to palpation CHEST/LUNG: Palpation- nontender sternum, ribline. No abnormal pulsations. Auscultation- Breath sounds decreased and coarse throughout all lung sampson. Tracheal sounds, bronchial sounds overlying sternum, Bronchovessicular sounds between scapulae posteriorly, and vessicular breath sounds heard throughout periphery coarse. Lungs with rhonchi and wheezes. Bibasilar crackles, no accessory muscle use. CARDIOVASCULAR: Palpation/Percussion- Normal PMI, no palpable thrill Auscultation- Regular rate and rhythm. No murmur noted in sitting, supine positions. Extremities- no digital clubbing, cyanosis, edema, increased warmth. ABDOMEN: Inspection- normal and no visible pulsations. Normal contour. Auscultation- Bowel sounds normal, no abdominal bruits. Palpation/Percussion- soft, non-tender, no rebound tenderness, no rigidity (guarding), no jar tenderness, no masses. Peripheral Vascular: Upper extremity Left- Normal temperature with pink nailbeds and no ulcerations. Upper extremity Right- Normal temperature with pink nailbeds and no ulcerations. Lower extremity- Normal temperature with pink nailbeds and no ulcerations. DP pulses 1+ bilaterally. She has reduced Pedal hair. Cap refill is okay. 2+ pitting edema to mid betts bilaterally, symmetrically and chronically. Dependent. Musculoskeletal: Generalized-No generalized swelling or edema of upper extremities. LE edema as listed. Neurovascularly intact all four extremities. Fur Weigher 5/5, ROM along bilateral UE appears maintained. Decreased hip ROM. Hip flexion 4/5 bilaterally, knee extension 5/5 bilaterally, dorsi/plantarflexion 5/ 5 bilaterally. She has edema bilateral LE. Tenderness along T and Lspine paraspinal muscles and along SI region. She has mild increased sx with SABRINA biletarally, no e/o hip impingement. She is supposed to ambulate with walker, not in room. She is having family bring this. Chronic Lumbar pain, on percocet chronically. Neurological: General- Moves all 4 extremities symmetrically. Symmetrical face and body posture. Cranial nerves- individually evaluated II-XII and intact. PERRLA, (LAZY eye right) Normal EOMI, visual/special senses appear intact, Face is symmetrical and normal sensation/movement, normal tongue, normal strength/ posture of neck musculature. Reflexes- intact with DTR 2+ patellar, achiles Soft touch- intact bilateral UE and LE. Temperature sensation- intact bilateral UE and LE. Neuropsych: Oriented- Person, place, time. (AAOx3), Mood/affect- normal and congruent. Able to articulate well. Speech-Normal speech, normal rate, normal tone, normal use of language, volume and coherence. Thought content- normal with ability to perform basic computations and apply abstract thought/reason. Associations- intact, no SI/HI, no hallucinations, delusions, obsessions. Judgment/insight- Appropriate. Memory-Recall intact, remote and recent memory intact. Knowledge- Age appropriate fund of knowledge, concentration and attention span normal. Lymphatic: Head/Neck- normal size and non tender to palpation. Axillary- normal size and non tender to palpation. Femoral and Inguinal- normal size and non tender to palpation. - Lab/Tests/Diagnostic Imaging Lab/Tests/Diagnostic Imaging: Laboratory Last Values WBC 14.16 K/ul (4.6-10.2) H 03/05/18 21:11 RBC 4.00 10^6/ul (4.20-5.40) L 03/05/18 21:11 Hgb 13.0 g/dl (12.0-16.0) 03/05/18 21:11 Hct 39.5 % (37.0-47.0) 03/05/18 21:11 MCV 98.8 fl (81.0-99.0) 03/05/18 21:11 MCH 32.5 pg (27.0-31.0) H 03/05/18 21:11 MCHC 32.9 (31.8-35.4) 03/05/18 21:11 RDW Coeff of Manoj 13.2 % (11.6-14.8) 03/05/18 21:11 Plt Count 378 10^3/uL (140-440) 03/05/18 21:11 Immature Gran % (Auto) 0.4 % (0.0-5.0) 03/05/18 21:11 Neut % (Auto) 56.9 03/05/18 21:11 Lymph % (Auto) 33.3 (10.0-50.0) 03/05/18 21:11 Bollinger % (Auto) 5.3 (0-10) 03/05/18 21:11 Eos % (Auto) 3.6 % (0.0-7.0) 03/05/18 21:11 Baso % (Auto) 0.5 % (0.0-3.0) 03/05/18 21:11 Immature Gran # (Auto) 0.1 (0.0-1.0) 03/05/18 21:11 Neut # (Auto) 8.1 K/ul (2.0-6.9) H 03/05/18 21:11 Lymph # (Auto) 4.7 K/uL (0.60-3.4) H 03/05/18 21:11 Bollinger # (Auto) 0.8 K/uL (0.4-2.0) 03/05/18 21:11 Eos # (Auto) 0.5 K/ul (0.0-0.7) 03/05/18 21:11 Baso # (Auto) 0.1 K/uL (0-0.2) 03/05/18 21:11 Puncture Site Lbrach 03/05/18 20:55 O2 Saturation 95.0 % (95-100) 03/05/18 20:55 ABG pH 7.347 (7.35-7.45) L 03/05/18 20:55 ABG pCO2 38.3 mmHg (35-45) 03/05/18 20:55 ABG pO2 77.0 mmHg (85-100) L 03/05/18 20:55 ABG HCO3 21 (22.0-26.0) L 03/05/18 20:55 ABG Total CO2 22 (22.0-28.0) 03/05/18 20:55 ABG Base Excess -5 (-2.0-2.0) L 03/05/18 20:55 Dawson Test + 03/05/18 20:55 FiO2 % 21.0 % 03/05/18 20:55 Sodium 137.1 mmol/L (134.5-145) 03/05/18 21:11 Potassium 4.28 mmol/L (3.5-5.1) 03/05/18 21:11 Chloride 104.9 mmol/L (98-107) 03/05/18 21:11 Carbon Dioxide 23.7 mmol/L (22-30.0) 03/05/18 21:11 Anion Gap 12.78 03/05/18 21:11 BUN 17.3 mg/dL (7-17) H 03/05/18 21:11 Creatinine 0.95 mg/dL (0.60-1.30) 03/05/18 21:11 Estimated GFR (MDRD) 59.00 mL/min 03/05/18 21:11 BUN/Creatinine Ratio 18.21 03/05/18 21:11 Glucose 169.1 mg/dL (74-106) H 03/05/18 21:11 Hemoglobin A1c 9.76 (4.0-6.0) H 03/05/18 21:10 Lactic Acid 0.87 mmol/L (0.7-2.1) 03/05/18 20:56 Calcium 8.80 mg/dL (8.4-10.2) 03/05/18 21:11 Total Bilirubin 0.27 mg/dL (0.2-1.3) 03/05/18 21:11 AST 22.6 U/L (14-36) 03/05/18 21:11 ALT 41.2 U/L (0-35) H 03/05/18 21:11 Alkaline Phosphatase 145.1 U/L (53-141) H 03/05/18 21:11 Total Protein 8.28 g/dL (6.3-8.2) H 03/05/18 21:11 Albumin 4.14 g/dL (3.5-5.0) 03/05/18 21:11 Globulin 4.14 03/05/18 21:11 Albumin/Globulin Ratio 1.00 03/05/18 21:11 Procalcitonin < 0.05 ng/mL (0.09) 03/05/18 21:11 Influ A Molecular Assay Negative by naat (NEGATIVE) 03/05/18 21:11 Influ B Molecular Assay Negative by naat (NEGATIVE) 03/05/18 21:11 03/05/18 A1C 9.76 up from 8.98 02/18/18. CT chest: Left basilar consolidation atelectasis vs pneumonia. - Assessment (1) Left lower lobe pneumonia Status: Acute Code(s): J18.9 - PNEUMONIA, UNSPECIFIED ORGANISM SNOMED Code(s ): 192214606 (2) Status post splenectomy Status: Acute (3) Drug allergy, antibiotic Status: Acute Code(s): T36.95XA - ADVERSE EFFECT OF UNSP SYSTEMIC ANTIBIOTIC, INIT ENCNTR SNOMED Code(s): 54801759 (4) Type 2 diabetes mellitus with hemoglobin A1c goal of less than 8.5% Status: Acute Code(s): E11.9 - TYPE 2 DIABETES MELLITUS WITHOUT COMPLICATIONS SNOMED Code(s): 53460089 (5) Essential (primary) hypertension Status: Acute Code(s): I10 - ESSENTIAL (PRIMARY) HYPERTENSION SNOMED Code(s) : 19452002 (6) CHF (congestive heart failure) Status: Acute Code(s): I50.9 - HEART FAILURE, UNSPECIFIED SNOMED Code(s): 56735557 (7) GERD (gastroesophageal reflux disease) Status: Acute Code(s): K21.9 - GASTRO-ESOPHAGEAL REFLUX DISEASE WITHOUT ESOPHAGITIS SNOMED Code(s): 122453776 (8) SIRS (systemic inflammatory response syndrome) Status: Resolved Code(s): R65.10 - SIRS OF NON-INFECTIOUS ORIGIN W/O ACUTE ORGAN DYSFUNCTION SNOMED Code(s): 196290456 - Plan Plan: LLL Pneumonia/Acute respiratory failure (Acute): Admitted by Dr. Aparicio with PORT score 164 points. H+P completed on HD 2 as I was unaware she was admitted and patient was transferred to my care. She had markedly elevated port score as noted and inpatient hospital admission was warranted. IDSA guidelines reviewed and antibiotic regimens were reviewed. She was put on aztreonam due to allergy to PCN, 2nd gen cephalosporin, FQ cipro/levaquin, and macrolide biaxin. REviewed the actual results and she had some breathing issues and some rashes. We initially tried to get her on merem, but our hospital did not have this. Spent 30 minutes talking with pharmacy on floor, reviewing literature to see what would support this patient treatment. She has splenectomy and thus pseudomonal risk factors as well. Gent is not a good idea as she only has solitary kidney. I did not appreciate MRSA risk factors. We decided upon primaxin as reasonable option. With renal function, we will start her at 300 mg IV q 6 hours and see how she does over next 48-72 hours. She is afebrile now , vitals stable. We will hopefully complete 5 days of abx for her. - Admit inpatient status - Stop Aztreonam - Start primaxin 300 q 6 hours - Vitals q shift, call if fever >100.5. - Tylenol 500 TID PRN - INcentive spirometer - Neb/RT albuterol q 4 hours PRN - OOB as much as possible. - Expect d/c 03/11 pm vs 03/12/18 am. - CBC/CMP in am tomorrow. - Close monitoring 3 hours due to use of meds w/ patient allergy cross reaction. Numerous abx allergies: Trial of primaxin. - Monitor patient. Splenectomy status: She does not directly remember vaccinations. Discussed need for these. Will need prevnar at 63 and PPSV at 64. Menactra and HIB also to be considered in addition to TDAP. CHF (congestive heart failure) (Acute): Stable at this time, does not appear to be in acute exacerbation. - Daily weight - Continue diuretics. Essential (primary) hypertension (Chronic): Stable at this time. At goal <140/ 90. Continue vitals q shift. Continue home meds. GERD (gastroesophageal reflux disease) (Chronic): Type 2 diabetes mellitus with hemoglobin A1c goal of less than 8.5% (Acute): Last A1C 03/05/18 9.76. We will continue to monitor. Glargine 25 units qhs and 8 units meal time insulin w/ meals. Diet: ADA 1800 Kcal DVT PROPHY: - Lovenox 30mg subcut daily - UP ad david Activity: Up with assist - Needs to get walker from home - Monitor today and make sure no falls. Disposition: Today I spent >70 minutes talking with patient, reviewing history , telemetry, talking with nursing, reviewing history with Dr. Aparicio, talking with pharmacy and reviewing guidelines and alternative treatment protocols for this patient. Expect to use 5 days of abx. We will make sure she does okay w/ close monitoring over next shift to make sure that she has no reaction to abx. We will continue with 5 days of IV therapy. - Home meds - Vitals q shift - OOB as much as possible.
[2018-03-06] MEDS ORDERED: MERREM 1 GM in SODIUM CHLORIDE 100 ML IV SCH (17:30)
[2018-03-06] MEDS: PRIMAXIN 300 MG in SODIUM CHLORIDE 100 ML IV SCH (18:04)
[2018-03-06] MEDS: LOVENOX SUBCUT SCH (18:06)
[2018-03-06] MEDS: XALATAN OP SCH (20:52)
[2018-03-06] MEDS: LIPITOR PO SCH (20:53)
[2018-03-06] MEDS: ASPIRIN EC PO SCH (20:54)
[2018-03-06] MEDS ORDERED: LANTUS SUBCUT SCH (21:00)
[2018-03-06] MEDS ORDERED: PLAVIX PO SCH (21:00)
[2018-03-06] MEDS ORDERED: NON-FORMULARY MEDICATION (Atorvastatin Calcium [Atorvastatin Calcium] 80 MG) PO SCH (21:00)
[2018-03-07] MEDS: PRIMAXIN 300 MG in SODIUM CHLORIDE 100 ML IV SCH ×4 (01:20→17:18)
[2018-03-07] MEDS: ALBUTEROL 0.083% NEB NEB SCH ×4 (04:25→19:35)
[2018-03-07] MEDS: PERCOCET 10-325 PO PRN ×3 (04:53→21:41)
[2018-03-07] MEDS: SYNTHROID PO SCH (05:49)
[2018-03-07] MEDS: LASIX TAB PO SCH (05:50)
[2018-03-07] MEDS: PROTONIX PO SCH (05:50)
[2018-03-07] MEDS: ZESTRIL PO SCH (09:25)
[2018-03-07] MEDS: MIRALAX PO SCH (09:25)
[2018-03-07] MEDS: PRISTIQ ER PO SCH (09:25)
[2018-03-07] MEDS: LYRICA PO SCH (09:26)
[2018-03-07] MEDS: LOPRESSOR PO SCH ×2 (09:26→21:40)
[2018-03-07] MEDS: IMDUR PO SCH (09:26)
[2018-03-07] MEDS: KEPPRA PO SCH ×2 (09:26→21:40)
[2018-03-07] MEDS: LOVENOX SUBCUT SCH (09:27)
[2018-03-07] MEDS: NON-FORMULARY MEDICATION (Icosapent Ethyl [Vascepa] 1 GM) PO SCH ×2 (09:27→21:42)
[2018-03-07] MEDS: HUMALOG SUBCUT PRN ×3 (09:32→17:19)
--- NOTE | 2018-03-07 11:05 | PCM.PROG ---
Subjective: 62 yr old CF HD 3 admitted 03/05/[address] 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 Yesterday afternoon I talked with pharmacy, consulted literature and reviewed patient history. She has allergy to FQ (levaquin and cipro), PCN G and other PCN's, 2nd gen cephalopsorin, but tolerating 1st gen ceph Keflex chronically through ID, Macrolide Biaxin. She has been on Doxycycline recently and now has pneumonia, concerning for failure of abx. She was started on aztreonam by ER. Reviewed literature and found this to be not likely adequate. I considered Merem but we did not have this agent. After discussion with instructor physical education pharmacist we decided upon primaxin and with renal function 300 q 6 hours x 5 days. Reviewed overnight tele personally and normal SR. Vitals stable, afebrile since admit, she is doing much better, feeling better. 4 urine void 03/06/18, #1 void on , no listed BM. Pain apears to be her primary issue, with back pain and generalized pain as problem. Nothing focal. She has asked for her percocet yesterday 0113, 858, 1414 and 2053. Today 0543. Labs this am showed white count has dropped from 14.16 to 12.14, hgb 13 down to 11 and plt has decreased form 378 to 348. Talked with am nurse and discussed history. Her edema in legs 1+ to mid betts better this am. Glucose yesterday 167, 185, 138, 138, 188. I checked on her at 9 am today, she feels her breathing is improving, feels her legs are doing better and feels her energy levels are doing well. Enjoying albuterol q 4 hours. REVIEW OF SYMPTOMS: (Positives bolded) General: weight loss, fever, chills, night sweats, fatigue, appetite loss HEENT: blurry vision, eye pain, eye discharge, dry eyes, decreased vision, sore throat tinnitus, bloody nose, nasal drainage, hearing loss CHRONIC, sinus pain, sinus pressure, ear pain/pressure. Respiratory: shortness of breath, cough, hemoptysis, wheezing, pleurisy, Cardiovascular: chest pain, PND, palpitation, edema (improving), orthopnea, syncope, swelling of extremities Gastro: Nausea, vomiting, diarrhea, hematemesis, abdominal pain, constipation Genito: hematuria, dysuria, glycosuria, hesitancy, frequency, incontinence Musckelo: Arthralgia, myalgia, muscle weakness, joint swelling, NSAID use Skin: rash, pruritis, sores, nail changes, skin thickening, change in wart/mole , itching, rash, new lesions, pruritus, nail changes Neuro: Migraine, numbness, ataxia, tremor, vertigo, weakness, memory loss ( chronic), Irritability, dizziness Endocrine: excessive thirst, polyuria, cold intolerance, heat intolerance, goiter Psychiatric: depression (chronic), anxiety (chronic), alcohol abuse, drug abuse , insomnia, change in sleep pattern and mood changes Heme/lymph: easy bruising, bleeding gums, blood clots, swollen glands, lymphedema, Allergic/immune: allergic rhinitis, hay fever, asthma, hives Objective: Vital Signs - 24 hr 03/06/18 03/06/18 03/06/18 14:00 17:55 20:00 Temperature 99 F 99 F Pulse Rate 90 90 Respiratory 20 20 17 Rate Blood Pressure 110/46 L 110/46 L O2 Sat by Pulse 99 99 Oximetry 03/06/18 03/07/18 03/07/18 22:00 05:28 09:38 Temperature 97.8 F 98.1 F Pulse Rate 72 84 Respiratory 18 18 Rate Blood Pressure 124/63 121/61 O2 Sat by Pulse 97 96 95 Oximetry Constitutional: Appearance-No acute distress, Consistent with stated age. Orientation- Oriented x 3, alert Build and Nutrition-Minimally overweight BMI 27 General- Patient is pleasant and cooperative with the interview and exam, sitting upright and doing neb tx this am. Integumentary: General-No rashes, ulcers or lesions. Palpation- Normal skin moisture/turgor. Skin is warm to touch, appropriate. Capillary refill is normal bilateral Upper and lower extremity. Edema 1+ edema to mid shins bilaterally. Head/Neck: Head- normocephalic and atraumatic. Neck- without visible/palpable lumps or pulsations. Palpation- No bony tenderness about head/neck along frontal, occipital, temporal, parietal, mastoid, jawline, zygoma, orbit or any other location. NO temporal artery tenderness. No TMJ tenderness. Neck Supple. Thyroid-No thyromegaly, no nodules Eye: Bilaterally PERRLA, EOMI. No discharge. Right eye lazy eye. Upper and lower eyelids are normal. Sclera/conjunctiva normal without discharge. Cornea is normal and clear. Lens is normal. Eyeball appears normal. No ciliary flushing, no conjunctival injection. ENMT: Pinna- normal without tenderness or erythema. External auditory canal Left- normal without erythema or discharge, no excessive cerumen. External auditory canal Right-normal without erythema or discharge, no excessive cerumen. TM left- Figueroa/pearly, normal light reflex and anatomy Scarring TM Right - Figueroa/pearly, normal light reflex and anatomy Hearing Assessment-normal to loud conversational speech. Nose and sinus- No sinus tenderness along frontal/ maxillary region. External appearance normal and midline. Nares- bilateral quiet airflow, mild clear discharge. Nasal mucosa- No bleeding noted and no ulcerations observed. Mildly erythematous Turbinates, boggy. Lips- normal color , moist without cracks/lesions Oral Cavity/Palate- hard/soft palate intact without lesions, oral mucosa pink and moist. Oropharynx- no pharyngeal erythema , Uvula midline. No post nasal drip. No exudate. Salivary glands- Non tender to palpation CHEST/LUNG: Palpation- nontender sternum, ribline. No abnormal pulsations. Auscultation- Breath sounds decreased and coarse throughout all lung sampson. Tracheal sounds, bronchial sounds overlying sternum, Bronchovessicular sounds between scapulae posteriorly, and vessicular breath sounds heard throughout periphery coarse. Lungs with rhonchi and wheezes. Bibasilar crackles, seem to be improved from previous day. CARDIOVASCULAR: Auscultation- Regular rate and rhythm. No murmur noted in sitting, supine positions. Extremities- 1+ edema to mid shins. ABDOMEN: Inspection- normal and no visible pulsations. Auscultation- Bowel sounds normal, no abdominal bruits. Palpation/Percussion- soft, non-tender, no rebound tenderness, no rigidity (guarding), no jar tenderness, no masses. Peripheral Vascular: Upper extremity Left- Normal temperature with pink nailbeds and no ulcerations. Upper extremity Right- Normal temperature with pink nailbeds and no ulcerations. Lower extremity- Normal temperature with pink nailbeds and no ulcerations. DP pulses 1+ bilaterally. Edema- 1+ pitting edema to mid shins. Musculoskeletal: Moves all 4 extremities. Tenderness along the thoracic/lumbar spine paraspinal muscles without spinous process tenderness. SI joint tenderness bilaterally. Straight leg raise negative. Limited ROM bilateral shoulders/hips. Distance Learning Program Coordinator 5/5, wrist ROM normal, hallux strength 5/5 bilaterally, dorsiflexion/plantar flexion 5/5 bilaterally. Neurological: General- Moves all 4 extremities symmetrically. Symmetrical face and body posture. Cranial nerves- individually evaluated II-XII and intact. PERRLA, Normal EOMI, visual/special senses appear intact, Face is symmetrical and normal sensation/movement, normal tongue, normal strength/posture of neck musculature. Reflexes- intact with DTR 2+ patellar, Achilles, bicep, brachial, tricep. Ankle clonus normal with 2 beats. Strength- 5/5 bilateral UE and LE. Soft touch- intact bilateral UE and LE. Neuropsych: Oriented- Person, place, time. (AAOx3), Mood/affect- normal and congruent. Able to articulate well. Speech-Normal speech, normal rate, normal tone, normal use of language, volume and coherence. Thought content- normal with ability to perform basic computations and apply abstract thought/reason. Associations- intact, no SI/HI, no hallucinations, delusions, obsessions. Judgment/insight- Appropriate. Lymphatic: Head/Neck- normal size and non tender to palpation. Axillary- normal size and non tender to palpation. Femoral and Inguinal- normal size and non tender to palpation. Laboratory Last Values WBC 12.14 K/ul (4.6-10.2) H 03/07/18 05:35 RBC 3.47 10^6/ul (4.20-5.40) L 03/07/18 05:35 Hgb 11.0 g/dl (12.0-16.0) L 03/07/18 05:35 Hct 34.7 % (37.0-47.0) L 03/07/18 05:35 MCV 100.0 fl (81.0-99.0) H 03/07/18 05:35 MCH 31.7 pg (27.0-31.0) H 03/07/18 05:35 MCHC 31.7 (31.8-35.4) L 03/07/18 05:35 RDW Coeff of Manoj 13.4 % (11.6-14.8) 03/07/18 05:35 Plt Count 348 10^3/uL (140-440) 03/07/18 05:35 Immature Gran % (Auto) 0.3 % (0.0-5.0) 03/07/18 05:35 Neut % (Auto) 69.3 03/07/18 05:35 Lymph % (Auto) 22.3 (10.0-50.0) 03/07/18 05:35 Marion % (Auto) 4.9 (0-10) 03/07/18 05:35 Eos % (Auto) 2.9 % (0.0-7.0) 03/07/18 05:35 Baso % (Auto) 0.3 % (0.0-3.0) 03/07/18 05:35 Immature Gran # (Auto) 0.0 (0.0-1.0) 03/07/18 05:35 Neut # (Auto) 8.4 K/ul (2.0-6.9) H 03/07/18 05:35 Lymph # (Auto) 2.7 K/uL (0.60-3.4) 03/07/18 05:35 Marion # (Auto) 0.6 K/uL (0.4-2.0) 03/07/18 05:35 Eos # (Auto) 0.4 K/ul (0.0-0.7) 03/07/18 05:35 Baso # (Auto) 0.0 K/uL (0-0.2) 03/07/18 05:35 Puncture Site Lbrach 03/05/18 20:55 O2 Saturation 95.0 % (95-100) 03/05/18 20:55 ABG pH 7.347 (7.35-7.45) L 03/05/18 20:55 ABG pCO2 38.3 mmHg (35-45) 03/05/18 20:55 ABG pO2 77.0 mmHg (85-100) L 03/05/18 20:55 ABG HCO3 21 (22.0-26.0) L 03/05/18 20:55 ABG Total CO2 22 (22.0-28.0) 03/05/18 20:55 ABG Base Excess -5 (-2.0-2.0) L 03/05/18 20:55 Dawson Test + 03/05/18 20:55 FiO2 % 21.0 % 03/05/18 20:55 Sodium 140.0 mmol/L (134.5-145) 03/07/18 05:35 Potassium 4.30 mmol/L (3.5-5.1) 03/07/18 05:35 Chloride 110.0 mmol/L (98-107) H 03/07/18 05:35 Carbon Dioxide 26.0 mmol/L (22-30.0) 03/07/18 05:35 Anion Gap 8.30 03/07/18 05:35 BUN 21.0 mg/dL (7-17) H 03/07/18 05:35 Creatinine 0.90 mg/dL (0.60-1.30) 03/07/18 05:35 Estimated GFR (MDRD) 63.00 mL/min 03/07/18 05:35 BUN/Creatinine Ratio 23.33 03/07/18 05:35 Glucose 190.0 mg/dL (74-106) H 03/07/18 05:35 Hemoglobin A1c 9.76 (4.0-6.0) H 03/05/18 21:10 Lactic Acid 0.87 mmol/L (0.7-2.1) 03/05/18 20:56 Calcium 8.10 mg/dL (8.4-10.2) L 03/07/18 05:35 Total Bilirubin 0.10 mg/dL (0.2-1.3) L 03/07/18 05:35 AST 19.0 U/L (14-36) 03/07/18 05:35 ALT 24.0 U/L (0-35) 03/07/18 05:35 Alkaline Phosphatase 124.0 U/L (53-141) 03/07/18 05:35 Total Protein 6.60 g/dL (6.3-8.2) 03/07/18 05:35 Albumin 3.30 g/dL (3.5-5.0) L 03/07/18 05:35 Globulin 3.30 03/07/18 05:35 Albumin/Globulin Ratio 1.00 03/07/18 05:35 Procalcitonin < 0.05 ng/mL (0.09) 03/05/18 21:11 Influ A Molecular Assay Negative by naat (NEGATIVE) 03/05/18 21:11 Influ B Molecular Assay Negative by naat (NEGATIVE) 03/05/18 21:11 H/H Trends 03/05/18 03/07/18 Range/Units 21:11 05:35 Hgb 13.0 11.0 L (12.0-16.0) g/dl Hct 39.5 34.7 L (37.0-47.0) % WBC Trends 03/05/18 03/07/18 Range/Units 21:11 05:35 WBC 14.16 H 12.14 H (4.6-10.2) K/ul (1) Left lower lobe pneumonia Status: Acute Code(s): J18.9 - PNEUMONIA, UNSPECIFIED ORGANISM SNOMED Code(s ): 447779550 (2) Status post splenectomy Status: Acute (3) Drug allergy, antibiotic Status: Acute Code(s): T36.95XA - ADVERSE EFFECT OF UNSP SYSTEMIC ANTIBIOTIC, INIT ENCNTR SNOMED Code(s): 41556118 (4) Type 2 diabetes mellitus with hemoglobin A1c goal of less than 8.5% Status: Acute Code(s): E11.9 - TYPE 2 DIABETES MELLITUS WITHOUT COMPLICATIONS SNOMED Code(s): 79783520 (5) Essential (primary) hypertension Status: Acute Code(s): I10 - ESSENTIAL (PRIMARY) HYPERTENSION SNOMED Code(s) : 66411099 (6) CHF (congestive heart failure) Status: Acute Code(s): I50.9 - HEART FAILURE, UNSPECIFIED SNOMED Code(s): 97076281 (7) GERD (gastroesophageal reflux disease) Status: Acute Code(s): K21.9 - GASTRO-ESOPHAGEAL REFLUX DISEASE WITHOUT ESOPHAGITIS SNOMED Code(s): 341242658 (8) SIRS (systemic inflammatory response syndrome) Status: Acute Code(s): R65.10 - SIRS OF NON-INFECTIOUS ORIGIN W/O ACUTE ORGAN DYSFUNCTION SNOMED Code(s): 853946557 Plan: 1. Pneumonia w/ multiple drug allergies: HD 3. Aztreonam stopped 03/06/18. On primaxin doing very well. WBC improving. Vitals stable, remains afebrile. She will remain in hospital until she completes 5 days of primaxin 300 q 6 hours. No SE, no reaction to the abx. Consider swing bed. - Continue primaxin 300 q6 hours - Daily CBC/CMP - Monitor for SE to the Primaxin Abx. - Incentive spirometer - OOB as much as possible. - Primaxin Day 04/06. - Expect d/c 03/10/18 After last dose of abx vs am of 03/11/18. 2. DM 2 A1C goal 7-8%: I am happy with her current sugars. Continue home medications. Glargin 25 and 8 TID of mealtime insulin. 9.76 A1C 03/05/18. - Monitor glucose. - Dietary indiscretion counseled. 3. Diet: -ADA 1800 kcal 4. Activity: up with assist. 5. DVT Prophy: - Lovenox 30subcut daily. 6. Disposition: Today I spent 35 minutes talking with patient, reviewing history, telemetry, talking with nursing, reviewing ON notes, glucose logs, I+ O. Weight is down from 189 9.5 oz to 183 6.79 oz. Daily weights being checked. She is down nearly 6 lb from initial hospital weight. 2ml void was actually #2 voids and not 2ml. Talked with nursing. This will be corrected. She feels markedly better overall. We will continue with 5 days of IV therapy. HOme IV not reasonable due to q6 hour nature of this agent. NO allergy sx, no SE so far to primaxin.
[2018-03-07] MEDS: XALATAN OP SCH (21:37)
[2018-03-07] MEDS: LANTUS SUBCUT SCH (21:38)
[2018-03-07] MEDS: LIPITOR PO SCH (21:39)
[2018-03-07] MEDS: ASPIRIN EC PO SCH (21:40)
[2018-03-07] MEDS: PLAVIX PO SCH (21:41)
[2018-03-08] MEDS: PRIMAXIN 300 MG in SODIUM CHLORIDE 100 ML IV SCH ×2 (00:05→05:56)
[2018-03-08] MEDS: ALBUTEROL 0.083% NEB NEB SCH (05:05)
[2018-03-08] MEDS: PROTONIX PO SCH (05:57)
[2018-03-08] MEDS: PERCOCET 10-325 PO PRN (05:57)
[2018-03-08] MEDS: SYNTHROID PO SCH (05:57)
[2018-03-08] MEDS: LASIX TAB PO SCH (05:57)
--- NOTE | 2018-03-08 07:55 | PCM.DC ---
Final Diagnosis: 1. Left Lower Lobe pneumonia 2. Diabetes 2 A1C goal <8.5 w/ hyperglycemia: not controlled 3. Nephrectomy 4. Splenectomy status 5. 1 ppd smoker 6. CHF not in acute exacerbation 7. Multiple antibiotic allergies. 8. Essential HTN. (1) Left lower lobe pneumonia Status: Acute Code(s): J18.9 - PNEUMONIA, UNSPECIFIED ORGANISM SNOMED Code(s ): 107575265 (2) Status post splenectomy Status: Acute (3) Drug allergy, antibiotic Status: Acute Code(s): T36.95XA - ADVERSE EFFECT OF UNSP SYSTEMIC ANTIBIOTIC, INIT ENCNTR SNOMED Code(s): 35409847 (4) Type 2 diabetes mellitus with hemoglobin A1c goal of less than 8.5% Status: Acute Code(s): E11.9 - TYPE 2 DIABETES MELLITUS WITHOUT COMPLICATIONS SNOMED Code(s): 38418453 (5) Essential (primary) hypertension Status: Acute Code(s): I10 - ESSENTIAL (PRIMARY) HYPERTENSION SNOMED Code(s) : 96772741 (6) CHF (congestive heart failure) Status: Acute Code(s): I50.9 - HEART FAILURE, UNSPECIFIED SNOMED Code(s): 41446313 (7) GERD (gastroesophageal reflux disease) Status: Acute Code(s): K21.9 - GASTRO-ESOPHAGEAL REFLUX DISEASE WITHOUT ESOPHAGITIS SNOMED Code(s): 137623327 (8) SIRS (systemic inflammatory response syndrome) Status: Resolved Code(s): R65.10 - SIRS OF NON-INFECTIOUS ORIGIN W/O ACUTE ORGAN DYSFUNCTION SNOMED Code(s): 944203524 Reason for Hospitalization: Left Lower Lobe Pneumonia, multiple drug allergies to antibiotics, multiple classes. Prognosis at Discharge: Markedly improved, weight down considerably since admit. Breathing stable, feels better, chronic back pain. Diabetes stable as well. Stable for transition for swing to complete another 3 days of IV antibiotics. Home health considered but unable to give q 6 hours. Condition at Discharge: Stable chronic problems, pneumonia markedly improved. Weight loss realized. She feels great. Medications at Discharge: Ambulatory Orders Medication Instructions Recorded Albuterol Sulfate [Proair Hfa] 2 puff IH Q4H PRN 08/23/14 Atorvastatin Calcium 80 mg PO BEDTIME tab-cap 04/30/17 Isosorbide Mononitrate [Isosorbide 30 mg PO d 05/19/17 Mononitrate ER] Nitroglycerin 0.4 mg SL DIRECTED PRN 06/29/17 Cyclobenzaprine HCl 10 mg PO QID PRN 08/04/17 Oxycodone HCl/Acetaminophen 10 mg PO QID PRN 08/04/17 [Oxycodone-Acetaminophen 10-325] Albuterol Sulfate 0.083% Neb 1 vial NEB RTQID vial.neb 03/08/18 [Albuterol 0.083% Neb] Imipenem/Cilastatin Sodium 300 mg IV Q6HR vial 03/08/18 [Primaxin] Lab/Diagnostics: Laboratory Last Values WBC 12.14 K/ul (4.6-10.2) H 03/07/18 05:35 RBC 3.47 10^6/ul (4.20-5.40) L 03/07/18 05:35 Hgb 11.0 g/dl (12.0-16.0) L 03/07/18 05:35 Hct 34.7 % (37.0-47.0) L 03/07/18 05:35 MCV 100.0 fl (81.0-99.0) H 03/07/18 05:35 MCH 31.7 pg (27.0-31.0) H 03/07/18 05:35 MCHC 31.7 (31.8-35.4) L 03/07/18 05:35 RDW Coeff of Manoj 13.4 % (11.6-14.8) 03/07/18 05:35 Plt Count 348 10^3/uL (140-440) 03/07/18 05:35 Immature Gran % (Auto) 0.3 % (0.0-5.0) 03/07/18 05:35 Neut % (Auto) 69.3 03/07/18 05:35 Lymph % (Auto) 22.3 (10.0-50.0) 03/07/18 05:35 Jay % (Auto) 4.9 (0-10) 03/07/18 05:35 Eos % (Auto) 2.9 % (0.0-7.0) 03/07/18 05:35 Baso % (Auto) 0.3 % (0.0-3.0) 03/07/18 05:35 Immature Gran # (Auto) 0.0 (0.0-1.0) 03/07/18 05:35 Neut # (Auto) 8.4 K/ul (2.0-6.9) H 03/07/18 05:35 Lymph # (Auto) 2.7 K/uL (0.60-3.4) 03/07/18 05:35 Jay # (Auto) 0.6 K/uL (0.4-2.0) 03/07/18 05:35 Eos # (Auto) 0.4 K/ul (0.0-0.7) 03/07/18 05:35 Baso # (Auto) 0.0 K/uL (0-0.2) 03/07/18 05:35 Puncture Site Lbrach 03/05/18 20:55 O2 Saturation 95.0 % (95-100) 03/05/18 20:55 ABG pH 7.347 (7.35-7.45) L 03/05/18 20:55 ABG pCO2 38.3 mmHg (35-45) 03/05/18 20:55 ABG pO2 77.0 mmHg (85-100) L 03/05/18 20:55 ABG HCO3 21 (22.0-26.0) L 03/05/18 20:55 ABG Total CO2 22 (22.0-28.0) 03/05/18 20:55 ABG Base Excess -5 (-2.0-2.0) L 03/05/18 20:55 Dawson Test + 03/05/18 20:55 FiO2 % 21.0 % 03/05/18 20:55 Sodium 140.0 mmol/L (134.5-145) 03/07/18 05:35 Potassium 4.30 mmol/L (3.5-5.1) 03/07/18 05:35 Chloride 110.0 mmol/L (98-107) H 03/07/18 05:35 Carbon Dioxide 26.0 mmol/L (22-30.0) 03/07/18 05:35 Anion Gap 8.30 03/07/18 05:35 BUN 21.0 mg/dL (7-17) H 03/07/18 05:35 Creatinine 0.90 mg/dL (0.60-1.30) 03/07/18 05:35 Estimated GFR (MDRD) 63.00 mL/min 03/07/18 05:35 BUN/Creatinine Ratio 23.33 03/07/18 05:35 Glucose 190.0 mg/dL (74-106) H 03/07/18 05:35 Hemoglobin A1c 9.76 (4.0-6.0) H 03/05/18 21:10 Lactic Acid 0.87 mmol/L (0.7-2.1) 03/05/18 20:56 Calcium 8.10 mg/dL (8.4-10.2) L 03/07/18 05:35 Total Bilirubin 0.10 mg/dL (0.2-1.3) L 03/07/18 05:35 AST 19.0 U/L (14-36) 03/07/18 05:35 ALT 24.0 U/L (0-35) 03/07/18 05:35 Alkaline Phosphatase 124.0 U/L (53-141) 03/07/18 05:35 Total Protein 6.60 g/dL (6.3-8.2) 03/07/18 05:35 Albumin 3.30 g/dL (3.5-5.0) L 03/07/18 05:35 Globulin 3.30 03/07/18 05:35 Albumin/Globulin Ratio 1.00 03/07/18 05:35 Procalcitonin < 0.05 ng/mL (0.09) 03/05/18 21:11 Influ A Molecular Assay Negative by naat (NEGATIVE) 03/05/18 21:11 Influ B Molecular Assay Negative by naat (NEGATIVE) 03/05/18 21:11 CT CHest 03/05: Left basilar consolidation consistent with atelectasis vs pneumonia. BC: Negative x 2 days Sputum culture collected yesterday pending. Urine antigen testing legionella and S. Pneumo pending. Education Provided to Patient and Family: 1. Smoking Cessation: Tobacco Cessation discussed today for 2 minutes. We reviewed lifestyle choices and discussed quitting. Ready to quit status discussed. The risks and hazards of continued tobacco abuse were discussed with the patient today and total tobacco cessation as recommended. It was clearly and unambiguously explained that continued tobacco usage will adversely affect overall morbidity and mortality of the patient. Patient was informed that tobacco use can lead to numerous cancers, worsening of cardiovascular and pulmonary systems and that lung damage is often permanent and irreversible. I advised the patient to inform me if any further assistance is requested, as we can offer counseling services, nicotine replacement inhaled, patch, lozenge, gum , or prescription medications to include Chantix or Wellbutrin for assistance. I will reassess the interest in tobacco cessation at the next and all subsequent visits. - Declined patches/gum today. 2. Pneumonia: We may consider sending for skin testing after discharge w/ journeyman carpenter to make sure these are true allergies. Danger with allergy to so many classes. 3. CHF management 4. Weight management 5. Dietary choices regarding above. DASH diet encouraged. 6. Using Rollator, Recommended she ambulate with caution using assistive device. 7. Diet resume ADA 1800kcal diet. 8. Activity resume normal daily activities. Follow-ups: 1. Discharge and readmit to swing to complete IV abx. NO good oral choice to cover for her based on her allergy profile: - Allergy to PCN (doing okay on primaxin), allergy to macrolide biaxin, 2nd gen cephalosporin and PCN and FQ (cipro and levaquin). - Potentially failed doxycycline. Disposition: HOME SELF-CARE Hospital Course: Ms. Barbosa is a 62 year old CF who presented evening of 03/05/18 with s/sx of pneumonia. She presented to ER via ambulance 20:55 w/ 3 days h/o fever/chills/ productive cough and worsening SOA. On home O2, trial of doxy within previous 2 weeks, apparently failed. Seen in office by VISHNU Lee 02/18/2018 for 1 week f/u of productive cough/URI/wheezing/decreased appetite/poorly controlled BG w/ last A1C 8.98, continued tobacco and bilateral lower extremity edema. She was started on doxy at that time. The patient is high risk based on tobacco user, splenectomy status, nephrectomy status, COPD status, CHF status. She met SIRS criteria, BC were ordered. Abx options reviewed. PCN allergy, cephalosporin (2nd gen) allergy, macrolide allergy (biaxin), FQ allergy (cipro and levaquin) noted. Labs/CT completed and she showed s/sx of LLL pneumonia. The patient was accepted by Dr. Aparicio who placed orders for aztreonam, appropriate care of other problems was started. EKG in ER 22:38 done and NSR. WBC 14.16, Hgb 13, plt 378. Sodium 137.1, K+ 4.28, CL 104.9, BUN 17.3, Cr 0.85 and glucose 169.1. ABG O2 95, pH 7.347, Pc02, 38.3, Po2 77, hc03 21, allens +/ Lactic acid was 0.87. ABG interpretation by me personally: Non Gap Metabolic Acidosis, primary metabolic acidosis w/ secondary resp acidosis. Flu negative. Dr. Aparicio was called by ER and accepted admission. I was called at 14:48 on 03/06/18, alerting me that the patient was in hospital, previously seen by AUTOMATIC WINDER OPERATOR Rosa and that patient needed to be seen. I arrived at hospital at 15:30 03/06 and assumed care for patient. Chart review completed, Er note reviewed/ summarized, history d/w Dr. Aparicio, last notes reviewed. Patient high risk secondary to numerous abx allergies. She was on Aztreonam, this was not reasonable as monotherapy. Vitals since admit afebrile, BP stable, RR 20, O2 saturation 95-99% on RA-2L. Sugars reviewed and stable. Last A1C within 30 days of admit but redrawn in hospital and 9.76. Based on her history <8.5 A1C is our goal. Her Port Score/PSI in hospital was 164 points represtented a class V 27-29% mortality, inpatient admission recommended. Again high risk secondary splenectomy status, tobacco, DM2, CHF, liver disease, renal disease. We talked about changing abx to Meropenem. This was not availabe at [facility] and after discussion with pharmacy, we changed her abx to primaxin. She has now had 7 doses with yesterday 03/07/18 as first full day of abx. Weight is down still about a pound but up a few over last day. She swings in her weight. Urine output reviewed and they listed 2ml and 4 ml over last few days but these should have been # of voids and not volume. Patient notes some issues urinating but she has more than the listed volume output each time. Labs reviewed, vitals reviewed and she is improving daily. She has tolerated abx. At this time My suspicion is that she will get her last dose of abx on evening of 03/11/18 and then home 03/12/18. I have considered home care with IV abx but I would be concerned with q 6 hour status. I will get a CBC/CMP QOD. Monitor daily weights, resume home meds. She feels abx has helped markedly. She had no reaction to this agent. Detailed discussion of vaccination against encapsulated organisms provided. Prevnar at 65, PPSV23 at 64, consider HIB and meninigitis too, she will check her records. Admitted originally on 03/05/18 and now discharged on 03/08/18 to SWING status to complete IV abx. Day of Discharge Physical Exam: Constitutional: Appearance-No acute distress, Consistent with stated age. Orientation- Oriented x 3, alert Build and Nutrition-Minimally overweight BMI 27 , weight is stable General- Patient is pleasant and cooperative with the interview and exam, sitting upright and doing neb tx this am. Integumentary: General-No rashes, ulcers or lesions. Palpation- Normal skin moisture/turgor. Skin is warm to touch, appropriate. Capillary refill is normal bilateral Upper and lower extremity. Edema 1+ edema to mid shins bilaterally, now more dependent. Legs are doing well at this time. Head/Neck: Head- normocephalic and atraumatic. Neck- without visible/palpable lumps or pulsations. Palpation- No bony tenderness about head/neck along frontal, occipital, temporal, parietal, mastoid, jawline, zygoma, orbit or any other location. NO temporal artery tenderness. No TMJ tenderness. Neck Supple. Thyroid-No thyromegaly, no nodules Eye: Lazy eye right ENMT: Hearing Assessment-normal to loud conversational speech. Nose and sinus - No sinus tenderness along frontal/maxillary region. External appearance normal and midline. Nares- bilateral quiet airflow, mild clear discharge. Nasal mucosa- No bleeding noted and no ulcerations observed. Mildly erythematous Turbinates, boggy. Lips- normal color, moist without cracks/lesions Oral Cavity/ Palate- hard/soft palate intact without lesions, oral mucosa pink and moist. Oropharynx- no pharyngeal erythema, Uvula midline. No post nasal drip. No exudate. Salivary glands- Non tender to palpation CHEST/LUNG: Palpation- nontender sternum, ribline. No abnormal pulsations. Auscultation- Breath sounds decreased and coarse throughout all lung sampson. Tracheal sounds, bronchial sounds overlying sternum, Bronchovessicular sounds between scapulae posteriorly, and vessicular breath sounds heard throughout periphery coarse. Lungs with rhonchi and wheezes. Bibasilar crackles, scattered rhonchi. She feels she is breathing better than she has in a while. CARDIOVASCULAR: Auscultation- Regular rate and rhythm. No murmur noted in sitting, supine positions. Extremities- 1+ edema to mid shins. ABDOMEN: Inspection- normal and no visible pulsations. Auscultation- Bowel sounds normal, no abdominal bruits. Palpation/Percussion- soft, non-tender, no rebound tenderness, no rigidity (guarding), no jar tenderness, no masses. Peripheral Vascular: Lower extremity- Normal temperature with pink nailbeds and no ulcerations. DP pulses 1+ bilaterally. Edema- 1+ pitting edema to mid shins. Musculoskeletal: Moves all 4 extremities. Tenderness along the thoracic/lumbar spine paraspinal muscles without spinous process tenderness. SI joint tenderness bilaterally. Straight leg raise negative. Limited ROM bilateral shoulders/hips. Structural Layout Worker 5/5, wrist ROM normal, hallux strength 5/5 bilaterally, dorsiflexion/plantar flexion 5/5 bilaterally. Neurological: General- Moves all 4 extremities symmetrically. Symmetrical face and body posture. Cranial nerves- individually evaluated II-XII and intact. PERRLA, Normal EOMI, visual/special senses appear intact, Face is symmetrical and normal sensation/movement, normal tongue, normal strength/posture of neck musculature. Reflexes- intact with DTR 2+ patellar, Achilles, bicep, brachial, tricep. Ankle clonus normal with 2 beats. Strength- 5/5 bilateral UE and LE. Soft touch- intact bilateral UE and LE. Neuropsych: Oriented- Person, place, time. (AAOx3), Mood/affect- normal and congruent. Able to articulate well. Speech-Normal speech, normal rate, normal tone, normal use of language, volume and coherence. Thought content- normal with ability to perform basic computations and apply abstract thought/reason. Associations- intact, no SI/HI, no hallucinations, delusions, obsessions. Judgment/insight- Appropriate. Lymphatic: Head/Neck- normal size and non tender to palpation. Plan: 1. D/C from hospital, readmit to swing 2. REsume primaxin 300mg IV q 6 hours. This should be completed late 03/10/18 with possible d/c 03/11/18. 3. Resume home meds 4. Smoking cessation. 5. CBC/CMP tomorrow 6. Watch daily weights 7. ADA 1800 kcal diet 8. Ambulate with walker 9. Suspect d/c home pm 03/11/18 vs thursday am 03/12/18. Last day of abx >30 minutes spent in discharging patient/counseling/coordination of care.
[2018-03-08 08:21] VITALS: BP 110/46; TEMP 99
[2018-03-08] MEDS: NON-FORMULARY MEDICATION (Icosapent Ethyl [Vascepa] 1 GM) PO SCH (08:28)
[2018-03-08] MEDS: LOPRESSOR PO SCH (08:28)
[2018-03-08] MEDS: PRISTIQ ER PO SCH (08:29)
[2018-03-08] MEDS: IMDUR PO SCH (08:29)
[2018-03-08] MEDS: LYRICA PO SCH (08:30)
[2018-03-08] MEDS: ZESTRIL PO SCH (08:30)
[2018-03-08] MEDS: KEPPRA PO SCH (08:31)
[2018-03-08] MEDS: MIRALAX PO SCH (08:31)
[2018-03-08] MEDS: LOVENOX SUBCUT SCH (08:32)
== END 2018-03-08 08:49 | disposition swing bed (61) | DRG 194 ==
LOC: ED 20:54 → MEDSURG B 22:55
PROVIDERS: ADMIT Family Medicine; ATTEND Family Medicine
DX: J18.9 Pneumonia, unspecified organism (principal); R65.10 Systemic inflammatory response syndrome (SIRS) of non-infectious origin without acute organ dysfunction; E11.9 Type 2 diabetes mellitus without complications; I10 Essential (primary) hypertension; I50.9 Heart failure, unspecified; K21.9 Gastro-esophageal reflux disease without esophagitis; R50.9 Fever, unspecified; J06.9 Acute upper respiratory infection, unspecified; R06.00 Dyspnea, unspecified; R06.02 Shortness of breath
CPT/HCPCS: 36415; 80053; 82803; 82962; 82977; 83036; 83605; 84145; 85025; 87040; 87070; 87502; 87651; 93005; 93010; 94640; 96365; 99223; 99233; 99239; 99284

== ENCOUNTER 2018-03-08 09:13 | Inpatient (IN) | payer OTHER ==
[2018-03-08] MEDS ORDERED: NITROSTAT SL PRN (10:02)
[2018-03-08] MEDS: PERCOCET 10-325 PO PRN ×3 (10:31→21:10)
[2018-03-08 10:33] VITALS: BMI 28.3
[2018-03-08] MEDS ORDERED: INSULIN ASPART 8 UNIT SQ SCH (12:00)
[2018-03-08] MEDS: ALBUTEROL 0.083% NEB NEB SCH ×2 (14:24→20:05)
[2018-03-08] MEDS: PRIMAXIN 300 MG in SODIUM CHLORIDE 100 ML IV SCH ×2 (15:19→16:59)
[2018-03-08] MEDS: FLEXERIL PO PRN ×2 (15:21→21:10)
[2018-03-08] MEDS: HUMALOG SUBCUT SCH ×2 (15:23→17:01)
[2018-03-08] MEDS ORDERED: NON-FORMULARY MEDICATION (Atorvastatin Calcium [Atorvastatin Calcium] 80 MG) PO SCH (21:00)
[2018-03-08] MEDS ORDERED: NON-FORMULARY MEDICATION (Levetiracetam [Keppra] 1,000 MG) PO SCH (21:00)
[2018-03-08] MEDS: XALATAN OP SCH (21:06)
[2018-03-08] MEDS: ASPIRIN EC PO SCH (21:08)
[2018-03-08] MEDS: LOPRESSOR PO SCH (21:08)
[2018-03-08] MEDS: KEPPRA PO SCH (21:09)
[2018-03-08] MEDS: LIPITOR PO SCH (21:09)
[2018-03-08] MEDS: PLAVIX PO SCH (21:10)
[2018-03-08] MEDS: LANTUS SUBCUT SCH (21:23)
[2018-03-08] MEDS: NON-FORMULARY MEDICATION (Icosapent Ethyl [Vascepa] 1 GM) PO SCH (21:29)
[2018-03-09] MEDS: PRIMAXIN 300 MG in SODIUM CHLORIDE 100 ML IV SCH ×5 (00:46→23:54)
[2018-03-09] MEDS: ALBUTEROL 0.083% NEB NEB SCH ×4 (04:42→21:34)
[2018-03-09] MEDS: LASIX TAB PO SCH (06:00)
[2018-03-09] MEDS: SYNTHROID PO SCH (06:00)
[2018-03-09] MEDS: PROTONIX PO SCH (06:00)
[2018-03-09] MEDS: PERCOCET 10-325 PO PRN ×4 (06:01→21:59)
--- NOTE | 2018-03-09 07:29 | PCM ---
- Chief Complaint Chief Complaint: LLL Pneumonia. Admitted to Swing 119-1 for completion of IV abx. - History of Present Illness History of Present Illness: 62 yo CF admitted 03/05/18-03/08/18 [facility] for LLL Pneumonia, h/o splenectomy, h/o nephrectomy, CHF, CAD, HTN, DM2 and multiple abx allergies was discharged and admitted to Swing bed status. She is doing well, WBC stable, cough decreasing, sputum decreasing. She is ambulating with rollator walker, she is not smoking and has not since 03/06/18. Nicotine patches offered/declined. We had some issues finding a regimen of abx that would work for her. We considered merem, did not have this at the hospital and chose primaxin. Allergy/SE/Risks/Benefits /alternatives d/w patient, cross reaction with PCN d/w patient. The patient and I talked and felt it would be the best option. The patient has had labs this am, which remains stable. WBC normal at 9.45, mild anemia w/ hgb 11 and hct 35.2, plt 368. CMP showed sodium 142.2, K+ 5.08, cl 110.5, Co2 29.6, BUN 25.1, cr 1.12 and glucose 140. Her A1C was collected 03/05/18 and 9.76. No new imaging since date of admission CT chest showed pneumonia. The patient remained on telemetery entire hospital stay and looked good. She was given lovenox for DVT prophy and her home meds were continued. Her sugars appeared to remain stable, weight dropped about 3 lb throughout hospital stay and today she is at 186 lb. She has no complaints now. In Swing bed status secondary to q 6 hour IV antibiotics. We have continued most of the orders. She is on diabetic diet. We are continuing meds and monitoring chronic medical problems. Suspected day of d/c 03/11/18 pm. - Review of Systems Constitutional: weakness, fatigue. No: fever, chills, sweats, loss of appetite , other Eyes: No: blurred vision, double-vision, discharge, itching, pain, redness, photophobia, other Ears: No: pain, bleeding, drainage, ringing, hearing loss, other Nose: No: bleeding, congestion, discharge, other Throat: No: pain, swelling, voice change, other Mouth: No: bleeding, pain, swelling, other Respiratory: cough (improving. ), shortness of air, wheeze, other (using O2. ). No: hemoptysis, pain with breathing Cardiovascular: No: chest pain, left arm pain, diaphoresis, PND, orthopnea, edema, palpitations, syncope, other Gastrointestinal: No: abdominal pain, other, nausea, vomiting, diarrhea, melena , hematemesis, hematochezia, dysphagia, constipation Genitourinary: No: dysuria, hematuria, frequency, incontinence, flank pain, vaginal discharge, abnormal bleeding, pelvic pain, other Neurological: headache. No: other, dizziness, seizure, numbness, weakness, speech difficulty, problems with walking, tremor, fainting Musculoskeletal: pain (chronic), swelling in joints Skin: No: rash, pruritus, lacerations, wounds, bruising, other Hematology: No: easy bruising, easy bleeding, swollen glands, other Endocrine: weight changes (daily fluctuation w/ history of CHF. ). No: cold intolerance, heat intolerance, excessive thirst, excessive hunger, polyuria, other Psychiatric: depression (stable no SI/HI), anxiety (Stable). No: sleeplessness , hopelessness, suicidal, hallucinations, other Habits: tobacco use (declined patches. ). No: substance use, alcohol use, other - Past Medical History Past Medical History: Anxiety, CKD, CHF, Cushings disease, depression, IDDM2 uncontrolled, GERD, Heart valve disease (aortic), HTN, UT 814/15, Neuropathy, Shingles 2012, Spinal stenosis. Tobacco use. Overweight. Numerous abx allergies (PCN, FQ, Cephalosporin). Has been on keflex through infectious disease per 2017 note. - Past Surgical History Past Surgical History: Appendectomy, cholecystectomy, subtotal colectomy, coronary stent, hysterectomy, nephrectomy, thyroidectomy, right knee arthroscopy , 1/2 pancreased removed, splenectomy. - Allergies Allergies/Adverse Reactions: Allergies Allergy/AdvReac Type Severity Reaction Status Date / Time duloxetine HCl Allergy Severe unable to Verified 03/05/18 21:26 [From Cymbalta] sleep hydrogen peroxide Allergy Severe rash, skin Verified 03/05/18 21:26 swells levofloxacin [From Levaquin] Allergy Mild Unknown Verified 03/05/18 21:26 penicillin G AdvReac Severe Difficulty Verified 03/05/18 21:26 Breathing clarithromycin [From Biaxin] AdvReac Mild Rash Verified 03/05/18 21:26 loperamide HCl AdvReac Mild affects Verified 03/05/18 21:26 [From Imodium A-D] glaucoma aripiprazole [From Abilify] AdvReac Verified 03/05/18 21:26 cefaclor [From Ceclor] AdvReac Verified 03/05/18 21:26 ciprofloxacin [From Cipro] AdvReac Rash Verified 03/05/18 21:26 ketorolac tromethamine AdvReac Vomiting Verified 03/05/18 21:26 [From Toradol] Penicillins AdvReac Difficulty Verified 03/05/18 21:26 Breathing sumatriptan [From Imitrex] AdvReac heart Verified 03/05/18 21:26 attack sumatriptan succinate AdvReac heart Verified 03/05/18 21:26 [From Imitrex] attack - Medications Medications: Medications Generic Name Dose Route Start Last Admin Trade Name Freq PRN Reason Stop Dose Admin Albuterol Sulfate 1 vial 03/08/18 14:00 03/09/18 04:42 Albuterol 0.083% Neb NEB 1 vial RTQID FRANCISCO J Administration Aspirin 81 mg 03/08/18 21:00 03/08/18 21:08 Aspirin Ec PO 81 mg BEDTIME FRANCISCO J Administration Atorvastatin Calcium 80 mg 03/08/18 21:00 03/08/18 21:09 Lipitor PO 80 mg BEDTIME FRANCISCO J Administration Clopidogrel Bisulfate 75 mg 03/08/18 21:00 03/08/18 21:10 Plavix PO 75 mg BEDTIME FRANCISCO J Administration Cyclobenzaprine HCl 10 mg 03/08/18 10:02 03/08/18 21:10 Flexeril PO 10 mg QID PRN Administration Spasms Desvenlafaxine Succinate 100 mg 03/09/18 09:00 Pristiq Er PO DAILY FRANCISCO J Enoxaparin Sodium 40 mg 03/09/18 09:00 Lovenox SUBCUT DAILY FRANCISCO J Furosemide 20 mg 03/09/18 06:30 03/09/18 06:00 Lasix Tab PO 20 mg QDAC FRANCISCO J Administration Imipenem/Cilastatin Sodium 300 100 mls @ 100 mls/hr 03/08/18 12:00 03/09/18 06:00 mg/ Sodium Chloride IV 100 mls/hr Q6HR FRANCISCO J Administration Insulin Glargine 25 unit 03/08/18 21:00 03/08/18 21:23 Lantus SUBCUT 25 unit BEDTIME FRANCISCO J Administration Insulin Human Lispro 8 unit 03/08/18 12:00 03/08/18 17:01 Humalog SUBCUT 8 unit TIDWM FRANCISCO J Administration Isosorbide Mononitrate 30 mg 03/09/18 09:00 Imdur PO DAILY FRANCISCO J Latanoprost 1 drop 03/08/18 21:00 03/08/18 21:06 Xalatan OP 1 drop BEDTIME FRANCISCO J Administration Levetiracetam 1,000 mg 03/08/18 21:00 03/08/18 21:09 Keppra PO 1,000 mg BID FRANCISCO J Administration Levothyroxine Sodium 88 mcg 03/09/18 06:30 03/09/18 06:00 Synthroid PO 88 mcg QDAC FRANCISCO J Administration Lisinopril 5 mg 03/09/18 09:00 Zestril PO DAILY [facility] Metoprolol Tartrate 12.5 mg 03/08/18 21:00 03/08/18 21:08 Lopressor PO 12.5 mg BID FRANCISCO J Administration Nitroglycerin 0.4 mg 03/08/18 10:02 Nitrostat SL Q5MIN X 3 DOSES PRN Angina Non-Formulary Medication 1 gm 03/08/18 21:00 03/08/18 21:29 Icosapent Ethyl [Vascepa] PO 1 gm BID FRANCISCO J Administration Oxycodone/Acetaminophen 1 tab 03/08/18 10:02 03/09/18 06:01 Percocet 10-325 PO 1 tab QID PRN Administration MODERATE PAIN Pantoprazole Sodium 40 mg 03/09/18 06:30 03/09/18 06:00 Protonix PO 40 mg QDAC [facility] Administration Polyethylene Glycol 17 gm 03/09/18 09:00 Miralax PO DAILY [facility] Pregabalin 50 mg 03/09/18 09:00 Lyrica PO DAILY [facility] Sodium Chloride 1 syr 03/08/18 13:00 03/09/18 06:00 Saline Flush IVF 1 syr Q8HR FRANCISCO J Administration - Family History Past Family History: Pancreatic cancer in brother/sister. Lung cancer in mother and father. Colon cancer brother. Children adopted #5, . - Social History Past Social History: Every day smoker 1/2-1 ppd not interested. Smoking 40+ years. Lives with daughter and son. . - Vital Signs Temperature: 97.2 F Pulse Rate: 82 Respiratory Rate: 20 Blood Pressure: 111/60 O2 Sat by Pulse Oximetry: 97 - Body Composition Height: 5 ft 8 in Weight: 186 lb Body Mass Index (BMI): 28.3 - Physical Examination HEENT: Constitutional: Appearance-Shortness of breath markedly improved, no accessory muscle usage at this time. Asleep upon entry, easily aroused. 1+ edema to mid shins. Face is visibly thinner. Mostly dependent non pitting edema of legs to distal betts today. No acute distress, Appears consistent with stated age. Orientation- Oriented x 3, alert Build and Nutrition-[Mildly overweight] General- Patient is pleasant and cooperative with the interview and exam. Talks in complete sentences. I:E About 1:1.5. Integumentary: General-No rashes, ulcers or lesions. Palpation- Normal skin moisture/turgor. Skin is warm to touch, appropriate. Capillary refill is normal bilateral Upper and lower extremity. Head/Neck: Head- normocephalic and atraumatic. Neck- without visible/palpable lumps or pulsations. Palpation- No bony tenderness about head/neck along frontal, occipital, temporal, parietal, mastoid, jawline, zygoma, orbit or any other location. NO temporal artery tenderness. No TMJ tenderness. Neck Supple. Thyroid-No thyromegaly, no nodules Eye: Bilaterally PERRLA, EOMI. No discharge. Upper and lower eyelids are normal. Sclera/conjunctiva normal without discharge. Cornea is normal and clear. Lens is normal. Eyeball appears normal. No ciliary flushing, no conjunctival injection. Lazy eye on right. ENMT: Pinna- normal without tenderness or erythema. External auditory canal Left- normal without erythema or discharge, no excessive cerumen. External auditory canal Right-normal without erythema or discharge, no excessive cerumen. TM left- Figueroa/pearly, normal light reflex and anatomy TM Right- Figueroa/ pearly, normal light reflex and anatomy Hearing Assessment-normal to loud conversational speech. Nose and sinus- No sinus tenderness along frontal/ maxillary region. External appearance normal and midline. Nares- bilateral quiet airflow, no discharge. Nasal mucosa- No bleeding noted and no ulcerations observed. Turbinates boggy, palor is present. Lips- normal color, moist without cracks/lesions Oral Cavity/Palate- hard/soft palate intact without lesions, oral mucosa pink and moist. Tongue normal midline. Oropharynx- No pharyngeal erythema, NO obviouspost nasal drainage, missing teeth. Uvula midline. No post nasal drip. No exudate. Salivary glands- Non tender to palpation CHEST/LUNG: Palpation- nontender sternum, ribline. No abnormal pulsations. Auscultation- Breath sounds improving, more sound throughout. Still with decreased and coarse throughout all lung sampson. This may be her baseline. Not in exacerbation of COPD. Tracheal sounds, bronchial sounds overlying sternum, Bronchovessicular sounds between scapulae posteriorly, and vessicular breath sounds heard throughout periphery coarse. Lungs with rhonchi and wheezes. Bibasilar crackles, no accessory muscle use. CARDIOVASCULAR: Palpation/Percussion- Normal PMI, no palpable thrill Auscultation- Regular rate and rhythm. No murmur noted in sitting, supine positions. Extremities- no digital clubbing, cyanosis, edema, increased warmth. ABDOMEN: Inspection- normal and no visible pulsations. Normal contour. Auscultation- Bowel sounds normal, no abdominal bruits. Palpation/Percussion- soft, non-tender, no rebound tenderness, no rigidity (guarding), no jar tenderness, no masses. Peripheral Vascular: Upper extremity Left- Normal temperature with pink nailbeds and no ulcerations. Upper extremity Right- Normal temperature with pink nailbeds and no ulcerations. Lower extremity- Normal temperature with pink nailbeds and no ulcerations. DP pulses 1+ bilaterally. She has reduced Pedal hair. Cap refill is okay. 1+ nonpitting edema to distal betts bilaterally , symmetrically and chronically. Dependent edema at this time. Musculoskeletal: Generalized-No generalized swelling or edema of upper extremities. LE edema minimal compared to admit 03/05/18. Neurovascularly intact all four extremities. Essentially unchanged MSK exam. Sack Lifter 5/5, ROM along bilateral UE appears maintained. Decreased hip ROM. Hip flexion 4/5 bilaterally, knee extension 5/5 bilaterally, dorsiflexion and plantarflexion 5/ 5 bilaterally. Tenderness along T and L spine paraspinal muscles persists and along SI region persists. Straight leg raise negative. . She has mild increased sx with SABRINA biletarally, no e/o hip impingement. She is supposed to ambulate with walker, not in room. She is having family bring this. Chronic Lumbar pain, on percocet chronically. Neurological: General- Moves all 4 extremities symmetrically. Symmetrical face and body posture. Cranial nerves- individually evaluated II-XII and intact. PERRLA, (LAZY eye right) Normal EOMI, visual/special senses appear intact, Face is symmetrical and normal sensation/movement, normal tongue, normal strength/ posture of neck musculature. Reflexes- intact with DTR 2+ patellar, achiles Soft touch- intact bilateral UE and LE. Temperature sensation- intact bilateral UE and LE. Neuropsych: Oriented- Person, place, time. (AAOx3), Mood/affect- normal and congruent. Able to articulate well. Speech-Normal speech, normal rate, normal tone, normal use of language, volume and coherence. Thought content- normal with ability to perform basic computations and apply abstract thought/reason. Associations- intact, no SI/HI, no hallucinations, delusions, obsessions. Judgment/insight- Appropriate. Memory-Recall intact, remote and recent memory intact. Knowledge- Age appropriate fund of knowledge, concentration and attention span normal. Lymphatic: Head/Neck- normal size and non tender to palpation. Axillary- normal size and non tender to palpation. Femoral and Inguinal- normal size and non tender to palpation. - Lab/Tests/Diagnostic Imaging Lab/Tests/Diagnostic Imaging: Laboratory Last Values WBC 9.45 K/ul (4.6-10.2) 03/09/18 04:20 RBC 3.46 10^6/ul (4.20-5.40) L 03/09/18 04:20 Hgb 11.0 g/dl (12.0-16.0) L 03/09/18 04:20 Hct 35.2 % (37.0-47.0) L 03/09/18 04:20 MCV 101.7 fl (81.0-99.0) H 03/09/18 04:20 MCH 31.8 pg (27.0-31.0) H 03/09/18 04:20 MCHC 31.3 (31.8-35.4) L 03/09/18 04:20 RDW Coeff of Manoj 13.7 % (11.6-14.8) 03/09/18 04:20 Plt Count 368 10^3/uL (140-440) 03/09/18 04:20 Immature Gran % (Auto) 0.5 % (0.0-5.0) 03/09/18 04:20 Neut % (Auto) 63.2 03/09/18 04:20 Lymph % (Auto) 23.8 (10.0-50.0) 03/09/18 04:20 [place] % (Auto) 6.2 (0-10) 03/09/18 04:20 Eos % (Auto) 5.7 % (0.0-7.0) 03/09/18 04:20 Baso % (Auto) 0.6 % (0.0-3.0) 03/09/18 04:20 Immature Gran # (Auto) 0.1 (0.0-1.0) 03/09/18 04:20 Neut # (Auto) 6.0 K/ul (2.0-6.9) 03/09/18 04:20 Lymph # (Auto) 2.3 K/uL (0.60-3.4) 03/09/18 04:20 [place] # (Auto) 0.6 K/uL (0.4-2.0) 03/09/18 04:20 Eos # (Auto) 0.5 K/ul (0.0-0.7) 03/09/18 04:20 Baso # (Auto) 0.1 K/uL (0-0.2) 03/09/18 04:20 Sodium 142.2 mmol/L (134.5-145) 03/09/18 04:20 Potassium 5.08 mmol/L (3.5-5.1) 03/09/18 04:20 Chloride 110.5 mmol/L (98-107) H 03/09/18 04:20 Carbon Dioxide 29.6 mmol/L (22-30.0) 03/09/18 04:20 Anion Gap 7.18 03/09/18 04:20 BUN 25.1 mg/dL (7-17) H 03/09/18 04:20 Creatinine 1.12 mg/dL (0.60-1.30) 03/09/18 04:20 Estimated GFR (MDRD) 49.00 mL/min 03/09/18 04:20 BUN/Creatinine Ratio 22.41 03/09/18 04:20 Glucose 140.5 mg/dL (74-106) H 03/09/18 04:20 Calcium 8.37 mg/dL (8.4-10.2) L 03/09/18 04:20 Total Bilirubin 0.23 mg/dL (0.2-1.3) 03/09/18 04:20 AST 26.7 U/L (14-36) 03/09/18 04:20 ALT 23.8 U/L (0-35) 03/09/18 04:20 Alkaline Phosphatase 109.2 U/L (53-141) 03/09/18 04:20 Total Protein 6.74 g/dL (6.3-8.2) 03/09/18 04:20 Albumin 3.29 g/dL (3.5-5.0) L 03/09/18 04:20 Globulin 3.45 03/09/18 04:20 Albumin/Globulin Ratio 0.95 03/09/18 04:20 - Plan Plan: LLL Pneumonia/Acute respiratory failure (Acute): Discharged from hospital and admitted to TCU on 03/08/18. Markedly improved, stable. She is admitted back to TCU for continuation of IV abx primaxin due to problems above. Nebs q 4 hours. Primaxin 300 q 6 hours to end evening of 03/11/18 and d/c home 03/11/18. - Admit TCU - Primaxin 300 Q 6 hours - Daily weight - Vitals q12 hours. . - Tylenol 500 TID PRN - Continue home meds. - Incentive spirometer - OOB as much as possible. - Still expect d/c 03/11/18 - CBC/CMP in am tomorrow. - Close monitoring 3 hours due to use of meds w/ patient allergy cross reaction. Numerous abx allergies: Tolerating primaxin. - Continue to Monitor patient. Splenectomy status: Needs f/u outpatient for vaccinations. . CHF (congestive heart failure) (Acute): Stable at this time, does not appear to be in acute exacerbation. - Daily weight - Continue diuretics. Essential (primary) hypertension (Chronic): Stable at this time. At goal <140/ 90. Continue vitals q shift. Continue home meds. GERD (gastroesophageal reflux disease) (Chronic): Continue home meds. Tolerating well. Type 2 diabetes mellitus with hemoglobin A1c goal of less than 8.5% (Acute): Last A1C 03/05/18 9.76. We will continue to monitor. Glargine 25 units qhs and 8 units meal time insulin w/ meals. - Address more formally as outpatient. - A1C 9.76 03/05/18. Diet: ADA 1800 Kcal DVT PROPHY: Continue lovenox. - Lovenox 30mg subcut daily - UP ad david Activity: Up with assist - Needs to get walker from home - Monitor today and make sure no falls. Disposition: Today I spent 35 minutes talking with patient, reviewing history, telemetry, talking with nursing. Expect to use 5 days total of abx. We will make sure she does okay w/ close monitoring. We will continue with 5 days of IV therapy. - Home meds - Vitals q 12 hours - OOB as much as possible. - Primaxin 300 Q 6 hours.
[2018-03-09] MEDS: NON-FORMULARY MEDICATION (Icosapent Ethyl [Vascepa] 1 GM) PO SCH ×2 (08:38→22:15)
[2018-03-09] MEDS: MIRALAX PO SCH (08:39)
[2018-03-09] MEDS: KEPPRA PO SCH ×2 (08:40→22:00)
[2018-03-09] MEDS: PRISTIQ ER PO SCH (08:40)
[2018-03-09] MEDS: IMDUR PO SCH (08:40)
[2018-03-09] MEDS: LYRICA PO SCH (08:41)
[2018-03-09] MEDS: LOPRESSOR PO SCH ×2 (08:41→22:00)
[2018-03-09] MEDS: ZESTRIL PO SCH (08:41)
[2018-03-09] MEDS: HUMALOG SUBCUT SCH ×3 (08:44→18:16)
[2018-03-09] MEDS: LOVENOX SUBCUT SCH (08:50)
[2018-03-09] MEDS ORDERED: NON-FORMULARY MEDICATION (Desvenlafaxine Succinate [Pristiq] 100 MG) PO SCH (09:00)
[2018-03-09] MEDS: PLAVIX PO SCH (21:59)
[2018-03-09] MEDS: ASPIRIN EC PO SCH (21:59)
[2018-03-09] MEDS: FLEXERIL PO PRN (22:00)
[2018-03-09] MEDS: LIPITOR PO SCH (22:01)
[2018-03-09] MEDS: LANTUS SUBCUT SCH (22:14)
[2018-03-09] MEDS: XALATAN OP SCH (22:15)
[2018-03-10] MEDS: ALBUTEROL 0.083% NEB NEB SCH ×4 (04:44→19:35)
[2018-03-10] MEDS: PERCOCET 10-325 PO PRN ×4 (06:05→21:09)
[2018-03-10] MEDS: LASIX TAB PO SCH (06:06)
[2018-03-10] MEDS: PRIMAXIN 300 MG in SODIUM CHLORIDE 100 ML IV SCH ×4 (06:06→23:03)
[2018-03-10] MEDS: PROTONIX PO SCH (06:06)
[2018-03-10] MEDS: SYNTHROID PO SCH (06:06)
[2018-03-10] MEDS: PRISTIQ ER PO SCH (08:09)
[2018-03-10] MEDS: NON-FORMULARY MEDICATION (Icosapent Ethyl [Vascepa] 1 GM) PO SCH ×2 (08:09→21:03)
[2018-03-10] MEDS: KEPPRA PO SCH ×2 (08:09→21:03)
[2018-03-10] MEDS: MIRALAX PO SCH (08:09)
[2018-03-10] MEDS: LYRICA PO SCH (08:10)
[2018-03-10] MEDS: LOPRESSOR PO SCH ×2 (08:10→21:03)
[2018-03-10] MEDS: ZESTRIL PO SCH (08:10)
[2018-03-10] MEDS: IMDUR PO SCH (08:10)
[2018-03-10] MEDS: LOVENOX SUBCUT SCH (08:13)
[2018-03-10] MEDS: HUMALOG SUBCUT SCH ×3 (08:15→17:27)
[2018-03-10] MEDS: XALATAN OP SCH (21:02)
[2018-03-10] MEDS: PLAVIX PO SCH (21:04)
[2018-03-10] MEDS: LIPITOR PO SCH (21:04)
[2018-03-10] MEDS: ASPIRIN EC PO SCH (21:05)
[2018-03-10] MEDS: LANTUS SUBCUT SCH (21:05)
[2018-03-11] MEDS: PERCOCET 10-325 PO PRN ×2 (04:58→10:31)
[2018-03-11] MEDS: PRIMAXIN 300 MG in SODIUM CHLORIDE 100 ML IV SCH (05:55)
[2018-03-11] MEDS: SYNTHROID PO SCH (05:55)
[2018-03-11] MEDS: PROTONIX PO SCH (05:56)
[2018-03-11] MEDS: LASIX TAB PO SCH (05:56)
[2018-03-11] MEDS: ALBUTEROL 0.083% NEB NEB SCH ×2 (06:43→09:25)
[2018-03-11] MEDS: MIRALAX PO SCH (08:10)
[2018-03-11] MEDS: LYRICA PO SCH (08:10)
[2018-03-11] MEDS: PRISTIQ ER PO SCH (08:10)
[2018-03-11] MEDS: KEPPRA PO SCH (08:10)
[2018-03-11] MEDS: LOPRESSOR PO SCH (08:11)
[2018-03-11] MEDS: IMDUR PO SCH (08:11)
[2018-03-11] MEDS: ZESTRIL PO SCH (08:11)
[2018-03-11] MEDS: HUMALOG SUBCUT SCH (08:12)
[2018-03-11] MEDS: NON-FORMULARY MEDICATION (Icosapent Ethyl [Vascepa] 1 GM) PO SCH (08:13)
[2018-03-11] MEDS: LOVENOX SUBCUT SCH (08:14)
--- NOTE | 2018-03-11 10:51 | PCM.DC ---
Final Diagnosis: LLL Pneumonia S/P Splenectomy S/P nephrectomy CHF CKD COPD Tobacco use DM 2 uncontrolled insulin dependent Essential HTN Ambulates w/ walker. Reason for Hospitalization: 62 yo CF admitted to Transitional Care for continuation/completion of 5 days of IV abx. Last dose pm 03/10/18. Status markedly improved, d/c home today. She was admitted to TCU on evening 03/08/18 and d/c am of 03/11/18. Markedly improved per patient report. Prognosis at Discharge: Prognosis is good, completed 5 days of IV abx without issues. Tolerated Primaxin well despite numerous allergies to abx. Condition at Discharge: Markedly improved from admit. Medications at Discharge: Ambulatory Orders Medication Instructions Recorded Albuterol Sulfate [Proair Hfa] 2 puff IH Q4H PRN 08/23/14 Atorvastatin Calcium 80 mg PO BEDTIME tab-cap 04/30/17 Isosorbide Mononitrate [Isosorbide 30 mg PO d 05/19/17 Mononitrate ER] Nitroglycerin 0.4 mg SL DIRECTED PRN 06/29/17 Cyclobenzaprine HCl 10 mg PO QID PRN 08/04/17 Oxycodone HCl/Acetaminophen 10 mg PO QID PRN 08/04/17 [Oxycodone-Acetaminophen 10-325] Albuterol Sulfate 0.083% Neb 1 vial NEB RTQID vial.neb 03/08/18 [Albuterol 0.083% Neb] Furosemide [Lasix Tab] 20 mg PO QDAC tablet 03/11/18 Lab/Diagnostics: Laboratory Last Values WBC 9.45 K/ul (4.6-10.2) 03/09/18 04:20 RBC 3.46 10^6/ul (4.20-5.40) L 03/09/18 04:20 Hgb 11.0 g/dl (12.0-16.0) L 03/09/18 04:20 Hct 35.2 % (37.0-47.0) L 03/09/18 04:20 MCV 101.7 fl (81.0-99.0) H 03/09/18 04:20 MCH 31.8 pg (27.0-31.0) H 03/09/18 04:20 MCHC 31.3 (31.8-35.4) L 03/09/18 04:20 RDW Coeff of Manoj 13.7 % (11.6-14.8) 03/09/18 04:20 Plt Count 368 10^3/uL (140-440) 03/09/18 04:20 Immature Gran % (Auto) 0.5 % (0.0-5.0) 03/09/18 04:20 Neut % (Auto) 63.2 03/09/18 04:20 Lymph % (Auto) 23.8 (10.0-50.0) 03/09/18 04:20 [place] % (Auto) 6.2 (0-10) 03/09/18 04:20 Eos % (Auto) 5.7 % (0.0-7.0) 03/09/18 04:20 Baso % (Auto) 0.6 % (0.0-3.0) 03/09/18 04:20 Immature Gran # (Auto) 0.1 (0.0-1.0) 03/09/18 04:20 Neut # (Auto) 6.0 K/ul (2.0-6.9) 03/09/18 04:20 Lymph # (Auto) 2.3 K/uL (0.60-3.4) 03/09/18 04:20 [place] # (Auto) 0.6 K/uL (0.4-2.0) 03/09/18 04:20 Eos # (Auto) 0.5 K/ul (0.0-0.7) 03/09/18 04:20 Baso # (Auto) 0.1 K/uL (0-0.2) 03/09/18 04:20 Sodium 142.2 mmol/L (134.5-145) 03/09/18 04:20 Potassium 5.08 mmol/L (3.5-5.1) 03/09/18 04:20 Chloride 110.5 mmol/L (98-107) H 03/09/18 04:20 Carbon Dioxide 29.6 mmol/L (22-30.0) 03/09/18 04:20 Anion Gap 7.18 03/09/18 04:20 BUN 25.1 mg/dL (7-17) H 03/09/18 04:20 Creatinine 1.12 mg/dL (0.60-1.30) 03/09/18 04:20 Estimated GFR (MDRD) 49.00 mL/min 03/09/18 04:20 BUN/Creatinine Ratio 22.41 03/09/18 04:20 Glucose 140.5 mg/dL (74-106) H 03/09/18 04:20 Calcium 8.37 mg/dL (8.4-10.2) L 03/09/18 04:20 Total Bilirubin 0.23 mg/dL (0.2-1.3) 03/09/18 04:20 AST 26.7 U/L (14-36) 03/09/18 04:20 ALT 23.8 U/L (0-35) 03/09/18 04:20 Alkaline Phosphatase 109.2 U/L (53-141) 03/09/18 04:20 Total Protein 6.74 g/dL (6.3-8.2) 03/09/18 04:20 Albumin 3.29 g/dL (3.5-5.0) L 03/09/18 04:20 Globulin 3.45 03/09/18 04:20 Albumin/Globulin Ratio 0.95 03/09/18 04:20 Education Provided to Patient and Family: 1. Smoking Cessation: 2 minutes today, she did not want patches/gum/chantix. 2. Pneumonia: Finished abx in TCU. No abx at d/c. 3. COPD: Resume home meds 4. DM: Resume home meds 5. CHF: Resume home meds 6. f/U: VISHNU Lee in 1 week 7. Activity: Ad david 8. Diet: Diabeted ADA 1800kcal. Follow-ups: 1. VISHNU Lee 1 week. Disposition: HOME SELF-CARE Hospital Course: Patient was admitted to hospital on 03/05/18 and seen by me initially 03/06/18. She was dx with LLL pneumonia and started on aztreonam secondary to numerous abx allergies. Asplenic, nephrectomy status, COPD, DM uncontrolled. I changed her abx to primaxin and she had first day of this on 03/07/18 and was admitted to TCU on 03/08/18 to complete 5 day course. WE talked about home health but 4x per day was not going to work, we talked about outpatient infusion but 4x a day would not work. We decided upon TCU after she was in hospital. She was admitted to TCU on 03/08/18 and labs looked great, vitals looked great. Biggest issue for her is chronic pain in back. Lungs improved, breathing improved, ambulated throughout hospital with walker. Good uout, weight remained stable. This am, she is ready to go, she feels better than the weeks leading up to hospital stay and has not felt this good in a long time. Feels lungs are stronger, body is stronger and other than chronic back pain, she was very pleased with her stay. Despite allergy to PCN, she tolerated primaxin well. I would recommend f/u w/ AIRLINE ATTENDANT Larrison 1 week and to consider repeat CXR in 4-6 weeks. She will resume home meds, home activities, Diabetic diet. She will not be d/c on any home meds. I cautioned her about abx in the future and potential for causes of allergy. Would like to consider her meeting with patternmaker hand for skin testing as well. We need to make sure that her listed allergies are real. Plan: 1. D/C home status markedly improved. 2. See AIRLINE ATTENDANT Larrison in 1 week 3. Resume home meds 4. Smoking Cessation encouraged 5. Activity as able. 6. Diet: Diabetic 1800 kcal diet. 7. Call or f/u with clinic as needed/changes in medical problems. 8. Contnue to ambulate with assistive devices.
[2018-03-11 11:05] VITALS: BP 111/60; TEMP 97.2
== END 2018-03-11 11:20 | disposition home or self-care (01) | DRG 293 ==
LOC: MEDSURG B 09:13
PROVIDERS: ADMIT Family Medicine; ATTEND Family Medicine
DX: I50.9 Heart failure, unspecified (principal); N18.9 Chronic kidney disease, unspecified; J44.9 Chronic obstructive pulmonary disease, unspecified; Z72.0 Tobacco use; E11.9 Type 2 diabetes mellitus without complications; I10 Essential (primary) hypertension; Z79.4 Long term (current) use of insulin
CPT/HCPCS: 36415; 80053; 82962; 85025; 94640; 97802; 99310; 99316

== ENCOUNTER 2018-04-02 16:04 | Outpatient (CLI) | payer OTHER | END 2018-04-02 16:05 | disposition home or self-care (01) | LOC: RHC-LAB 16:04 → FCC-LAB 16:05 | PROVIDERS: ATTEND Nurse Practitioner Family | DX: D64.9 Anemia, unspecified (principal); E87.8 Other disorders of electrolyte and fluid balance, not elsewhere classified | CPT/HCPCS: 36415; 80053; 85027 ==

== ENCOUNTER 2018-04-21 14:24 | Outpatient (CLI) ==
--- NOTE | 2018-04-21 15:47 | DI ---
EXAM: CHEST FRONTAL AND LATERAL VIEWS HISTORY: Shortness of breath. COMPARISON: 09/16/2017 FINDINGS: Mildly prominent heart size is stable. There is a tiny left pleural effusion which is new since the prior exam. No consolidations are identified. Normal vascularity. No pneumothorax. Natalie gical clips over the thyroid fossa IMPRESSION: 1. Tiny left pleural effusion. Otherwise the lungs appear clear.
== END 2018-04-21 14:25 | disposition home or self-care (01) ==
LOC: RAD 14:24
PROVIDERS: ATTEND Nurse Practitioner Family
DX: R06.02 Shortness of breath (principal); J44.9 Chronic obstructive pulmonary disease, unspecified

== ENCOUNTER 2018-04-22 03:39 | Emergency (ER) | payer OTHER ==
[2018-04-22 03:59] VITALS: BP 173/88; BMI 26.7
[2018-04-22 04:04] VITALS: TEMP 98.1
[2018-04-22] MEDS ORDERED: DUONEB NEB STA (04:24)
--- NOTE | 2018-04-22 04:27 | ED.PDOC ---
General ED Provider: Dr. WILIAN JUAREZ Chief Complaint: Hypertension Stated Complaint: shortness of breath with cough. States she has been feeling poorly since march after discharge. Was seen in the clinic yesterday had a Rocephine shot and a prescription Cefnidir which she has not picked up yet. She denies any fever or chills. Last breathing treatment was last night. Time Seen by Physician: 04:25 Mode of Arrival: Ambulance Information Source: Patient Exam Limitations: No limitations Primary Care Provider: KRISTIN MAKI Nursing and Triage Documentation Reviewed and Agree: Yes Does patient meet sepsis criteria?: No System Inflammatory Response Syndrome: Not Applicable Sepsis Protocol: For patient's 13 years and over: Temp is 96.8 and below OR 101 and greater Pulse >90 BPM Resp >20/minute Acutely Altered Mental Status Are patient's symptoms suggestive of a new infection, such as: -Pneumonia -Skin, Soft Tissue -Endocarditis -UTI -Bone, Joint Infection -Implantable Device -Acute Abdominal Infection -Wound Infection -Meningitis -Blood Stream Catheter Infection -Unknown Respiratory Complaint Exam - Shortness of Air Complaint/Exam Onset/Duration: weeks Symptoms Are: Still present Timing: Constant Initial Severity: Mild Current Severity: Moderate Character: Reports: Dyspnea at rest Aggravating: Reports: URI, Smoke exposure, Weather Alleviating: Reports: Bronchodilators Associated Signs and Symptoms: Reports: Cough, Wheezing History of Healthcare-Acquired Pneumonia: No Pulmonary Embolism Risk Factors: Reports: None Cardiac Risk Factors: Reports: Smoking, Hypertension Pseudomonas Risk Factors: Reports: Chronic Lung Disease Tuberculosis Risk Factors: Reports: Smoking Home Oxygen Use: No Recent Stress Test: No Recent Echo/LV Function: No Respiratory Distress: None Stridor Present: No Tracheal Deviation: No Subcutaneous Emphysema: No Accessory Muscle Use: No Retractions: Not Present Diminished Breath Sounds: Yes Prolonged Expiratory Phase: No Unable to Speak Full Sentences: No Fatigue: No Leg Swelling: No Differential Diagnoses: COPD Exacerbation, Bronchitis, URI Review of Systems - Review Of Systems Constitutional: Reports: Malaise, Weakness Eyes: Reports: No symptoms Ears, Nose, Mouth, Throat: Reports: No symptoms Respiratory: Reports: Cough, Short of air, Wheezing Cardiac: Reports: No symptoms GI: Reports: No symptoms : Reports: No symptoms Musculoskeletal: Reports: No symptoms Skin: Reports: No symptoms Neurological: Reports: No symptoms Endocrine: Reports: No symptoms Hematologic/Lymphatic: Reports: No symptoms All Other Systems: Reviewed and Negative Past Medical History - Past Medical History Previously Healthy: No Endocrine: Reports: DM 2, Hypothyroid, Dyslipidemia Cardiovascular: Reports: CAD, [place], Hypertension, CHF Respiratory: Reports: COPD Hematological: Reports: Anemia Gastrointestinal: Reports: GERD, Pancreatitis Genitourinary: Reports: CKD Neuro/Psych: Reports: Seizure, Anxiety, Depression Musculoskeletal: Reports: None Cancer: Reports: Other (kidney) Last Menstrual Period: HAS HAD A HYSTERECTOMY Other Pertinent Past Medical History: 1 kidney, Ayden's disease, Glaucoma - Surgical History General Surgical History: Reports: Hysterectomy, Appendectomy, Cholecystectomy, Back Surgery, Other (nephrectomy,spleenectomy, partial pancreas,thyroidectomy, perforated colon,3 stents in heart) - Family History Family History: Reports: None - Social History Smoking Status: Current every day smoker, Light tobacco smoker Hx Substance Use: No Alcohol Screening: None - Immunizations Tetanus Shot up to Date: Yes Influenza Vaccine within 12 Months: No Pneumococcal Vaccine up to Date: No Physical Exam - Physical Exam Appearance: Well-appearing Pain Distress: None Eyes: DONY ENT: Ears normal Respiratory: Breath sounds diminished, Wheezes (minimal ) Cardiovascular: RRR, Pulses normal, No rub, No murmur Musculoskeletal: Normal strength Skin: Warm, Dry, Normal color Neurological: Alert, Oriented Psychiatric: Anxious Interpretation - Radiology Interpretation Radiology Interpretation By: Radiologist Radiology Results: Negative (only Tiny left pleural effusion ( done 04/21/2018) in the clinic) Exam Interpreted: CXR Re-Evaluation - Re-Evaluation Time of Re-Evaluation: 05:00 Status: Improved Critical Care Note - Critical Care Note Total Time (mins): 0 Course - Course Orders, Labs, Meds: Orders Category Date Time Status NEBULIZER TREATMENT Stat CARDIO 04/22/18 04:24 Ordered Ipratropium/Albuterol Neb [Duoneb] MEDS 04/22/18 04:24 Stat 1 vial NEB ONCE STA Medications Generic Name Dose Route Start Last Admin Trade Name Freq PRN Reason Stop Dose Admin Albuterol/Ipratropium 1 vial 04/22/18 04:24 Duoneb NEB 04/22/18 04:25 ONCE STA Vital Signs: Temp Pulse Resp BP Pulse Ox 04/22/18 03:40 98.1 F 94 H 20 173/88 H 97 Departure - Departure Time of Disposition: 05:00 Disposition: HOME SELF-CARE Discharge Problem: Bronchitis Instructions: COPD (Chronic Obstructive Pulmonary Disease) (ED), Chronic Bronchitis (ED) Condition: Stable Pt referred to PMD for follow-up: Yes IPMP verified?: No Additional Instructions: Follow up with PCP in 3 days Get you antibiotics filled and take as prescribed QUIT smoking. Allergies/Adverse Reactions: Allergies duloxetine HCl [From Cymbalta] Allergy (Severe, Verified 04/22/18 03:59) unable to sleep hydrogen peroxide Allergy (Severe, Verified 04/22/18 03:59) rash, skin swells Patient to notify drugstore levofloxacin [From Levaquin] Allergy (Mild, Verified 04/22/18 03:59) Unknown Per patient she states she was on IV Levaquin in hospital for 5 days, then sent home with oral Levaquin. She c/o after 3 doses, she had blisters in her mouth penicillin G Adverse Reaction (Severe, Verified 04/22/18 03:59) Difficulty Breathing clarithromycin [From Biaxin] Adverse Reaction (Mild, Verified 04/22/18 03:59) Rash loperamide HCl [From Imodium A-D] Adverse Reaction (Mild, Verified 04/22/18 03: 59) affects glaucoma aripiprazole [From Abilify] Adverse Reaction (Verified 04/22/18 03:59) cefaclor [From Ceclor] Adverse Reaction (Verified 04/22/18 03:59) ciprofloxacin [From Cipro] Adverse Reaction (Verified 04/22/18 03:59) Rash ketorolac tromethamine [From Toradol] Adverse Reaction (Verified 04/22/18 03:59) Vomiting Penicillins Adverse Reaction (Verified 03/05/18 21:26) Difficulty Breathing sumatriptan [From Imitrex] Adverse Reaction (Verified 03/05/18 21:26) heart attack sumatriptan succinate [From Imitrex] Adverse Reaction (Verified 03/05/18 21:26) heart attack Home Medications: Ambulatory Orders Albuterol Sulfate [Proair Hfa] 2 puff IH Q4H PRN 08/23/14 Atorvastatin Calcium 80 mg PO BEDTIME tab-cap 04/30/17 Isosorbide Mononitrate [Isosorbide Mononitrate ER] 30 mg PO d 05/19/17 Nitroglycerin 0.4 mg SL DIRECTED PRN 06/29/17 Cyclobenzaprine HCl 10 mg PO QID PRN 08/04/17 Oxycodone HCl/Acetaminophen [Oxycodone-Acetaminophen 10-325] 10 mg PO QID PRN Albuterol Sulfate 0.083% Neb [Albuterol 0.083% Neb] 1 vial NEB RTQID vial.neb 03/08/18
== END 2018-04-22 05:35 | disposition home or self-care (01) ==
LOC: ED 03:39
DX: J40 Bronchitis, not specified as acute or chronic (principal); J44.9 Chronic obstructive pulmonary disease, unspecified; F17.210 Nicotine dependence, cigarettes, uncomplicated; I10 Essential (primary) hypertension; I25.10 Atherosclerotic heart disease of native coronary artery without angina pectoris; I25.2 Old myocardial infarction; Z95.5 Presence of coronary angioplasty implant and graft
CPT/HCPCS: 94640; 99283

== ENCOUNTER 2018-04-28 10:00 | Outpatient (RCR) | END 2018-04-29 23:59 | LOC: NEWBEG 10:00 | PROVIDERS: ATTEND Psychiatry & Neurology Psychiatry | DX: F33.2 Major depressive disorder, recurrent severe without psychotic features (principal); F41.1 Generalized anxiety disorder | CPT/HCPCS: 90792; 90853 ==

== ENCOUNTER 2018-04-30 10:00 | Outpatient (RCR) | END 2018-05-30 23:59 | LOC: NEWBEG 10:00 | PROVIDERS: ATTEND Psychiatry & Neurology Psychiatry | DX: F33.2 Major depressive disorder, recurrent severe without psychotic features (principal); F41.1 Generalized anxiety disorder | CPT/HCPCS: 90853; 99214 ==

== ENCOUNTER 2018-05-02 21:31 | Outpatient (CLI) | payer OTHER | END 2018-05-02 21:54 | disposition short-term general hospital (02) | LOC: AMBL 21:31 | PROVIDERS: ATTEND Family Medicine | DX: M54.9 Dorsalgia, unspecified (principal); M54.2 Cervicalgia; M62.838 Other muscle spasm; M48.00 Spinal stenosis, site unspecified; E11.9 Type 2 diabetes mellitus without complications ==

== ENCOUNTER 2018-05-04 12:04 | Emergency (ER) ==
[2018-05-04 12:19] VITALS: BP 135/76; TEMP 96.3
[2018-05-04 12:23] VITALS: BMI 29.8
--- NOTE | 2018-05-04 13:41 | ED.PDOC ---
General ED Provider: Dr. RUFUS DUNLAP Chief Complaint: Fall Stated Complaint: Rt Shoulder and chest wall pain; Occured after fall at home this morning when she landed on her rt shoulder and chest wall Time Seen by Physician: 13:30 Mode of Arrival: Walk-In Information Source: Patient Exam Limitations: No limitations Primary Care Provider: KRISTIN MAKI Referred to ED by: Other (home caregiver) Nursing and Triage Documentation Reviewed and Agree: Yes Does patient meet sepsis criteria?: No System Inflammatory Response Syndrome: Not Applicable Sepsis Protocol: For patient's 13 years and over: Temp is 96.8 and below OR 101 and greater Pulse >90 BPM Resp >20/minute Acutely Altered Mental Status Are patient's symptoms suggestive of a new infection, such as: -Pneumonia -Skin, Soft Tissue -Endocarditis -UTI -Bone, Joint Infection -Implantable Device -Acute Abdominal Infection -Wound Infection -Meningitis -Blood Stream Catheter Infection -Unknown Musculoskeletal Complaint Exam - Shoulder Pain Complaint/Exam Mechanism of Injury: Reports: Trauma Onset/Duration: Earlier today Timing: Intermittent Initial Severity: Moderate Current Severity: Moderate Location: Reports: Discrete Character: Reports: Aching, Stiffness Alleviating: Reports: Rest Aggravating: Reports: Movement Associated Signs and Symptoms: Denies: Swelling, Redness, Bruising, Fever, Weakness, Numbness, Tingling Related History: Denies: Similar episode DVT Risk Factors: Reports: None Septic Arthritis Risk Factors: Reports: None Related Surgical History: Reports: None Shoulder Findings: Present: Swelling. Absent: Ecchymosis, Laceration, Erythema , Foreign body, Adson's Sign Tenderness: Present: Clavicle, AC joint Limited Range of Motion: Present: Abduction, External rotation Differential Diagnoses: AC Seperation, Arthritis, Burn, Rotator Cuff Injury, Sprain Quality Indicator For Non-Traumatic Chest Pain/Syncope: EKG Performed Review of Systems - Review Of Systems Constitutional: Reports: No symptoms Eyes: Reports: No symptoms Ears, Nose, Mouth, Throat: Reports: No symptoms Respiratory: Reports: No symptoms Cardiac: Reports: No symptoms GI: Reports: No symptoms : Reports: No symptoms Musculoskeletal: Reports: Back pain, Muscle pain Skin: Reports: No symptoms Neurological: Reports: No symptoms Endocrine: Reports: No symptoms Hematologic/Lymphatic: Reports: No symptoms All Other Systems: Reviewed and Negative Past Medical History - Past Medical History Previously Healthy: No Endocrine: Reports: DM 2, Hypothyroid, Dyslipidemia Cardiovascular: Reports: CAD, [place], Hypertension, CHF Respiratory: Reports: COPD Hematological: Reports: Anemia Gastrointestinal: Reports: GERD, Pancreatitis Genitourinary: Reports: CKD Neuro/Psych: Reports: Seizure, Anxiety, Depression Musculoskeletal: Reports: None Cancer: Reports: Other (kidney) Last Menstrual Period: NA Other Pertinent Past Medical History: 1 kidney, Bent's disease, Glaucoma - Surgical History General Surgical History: Reports: Hysterectomy, Appendectomy, Cholecystectomy, Back Surgery, Other (nephrectomy,spleenectomy, partial pancreas,thyroidectomy, perforated colon,3 stents in heart) - Family History Family History: Reports: None - Social History Smoking Status: Current every day smoker, Light tobacco smoker Hx Substance Use: No Alcohol Screening: None - Immunizations Influenza Vaccine within 12 Months: No Pneumococcal Vaccine up to Date: No Physical Exam - Physical Exam Appearance: Ill-appearing, Obese Ill-appearing: Mild Pain Distress: Mild Eyes: DONY, EOMI, Conjunctiva clear ENT: Ears normal, Nose normal, Oropharynx normal Neck: Supple Respiratory: Airway patent, Breath sounds clear, Breath sounds equal, Respirations nonlabored Cardiovascular: RRR, Pulses normal, No rub, No murmur GI/: Soft, Nontender, No masses, Bowel sounds normal, No Organomegaly Musculoskeletal: Normal strength, ROM intact, No edema, No calf tenderness Skin: Warm, Dry, Normal color Neurological: Sensation intact, Motor intact, Reflexes intact, Cranial nerves intact, Alert, Oriented Psychiatric: Affect appropriate Interpretation - Radiology Interpretation Radiology Interpretation By: Radiologist (No acute injuries noted) Critical Care Note - Critical Care Note Total Time (mins): 0 Course - Course Orders, Labs, Meds: Orders Category Date Time Status Ketorolac Tromethamine [Toradol] MEDS 05/04/18 13:48 Discontinued 30 mg IM ONCE STA CHEST, 2 VIEWS PA & LAT Stat RADS 05/04/18 13:[address] HEAD W/O CONTRAST Stat RADS 05/04/18 13:[address] SHOULDER RIGHT W/O CONTRAST Stat RADS 05/04/18 13:44 Completed Medications Discontinued Medications Generic Name Dose Route Start Last Admin Trade Name Freq PRN Reason Stop Dose Admin Ketorolac Tromethamine 30 mg 05/04/18 13:48 05/04/18 15:40 Toradol IM 05/04/18 13:49 Not Given ONCE STA Vital Signs: Temp Pulse Resp BP Pulse Ox 05/04/18 12:11 96.3 F L 82 20 135/76 92 L Departure - Departure Time of Disposition: 15:30 Disposition: HOME SELF-CARE Discharge Problem: Chest wall pain, Right shoulder strain, Contusion of right chest wall, Pleural effusion, left Instructions: Contusion in Adults (ED) Condition: Fair Pt referred to PMD for follow-up: Yes (1 week) IPMP verified?: No Additional Instructions: Apply ice to area of discomfort Take home meds for relief of discomfort as needed Discussed findings Sees dr Bolden in the office and aware of plerual effusion and states is being followed. Has has pneumonia since Mar See PCP in 1 week Allergies/Adverse Reactions: Allergies duloxetine HCl [From Cymbalta] Allergy (Severe, Verified 05/04/18 12:06) unable to sleep hydrogen peroxide Allergy (Severe, Verified 05/04/18 12:06) rash, skin swells Patient to notify drugstore levofloxacin [From Levaquin] Allergy (Mild, Verified 05/04/18 12:06) Unknown Per patient she states she was on IV Levaquin in hospital for 5 days, then sent home with oral Levaquin. She c/o after 3 doses, she had blisters in her mouth penicillin G Adverse Reaction (Severe, Verified 05/04/18 12:06) Difficulty Breathing clarithromycin [From Biaxin] Adverse Reaction (Mild, Verified 05/04/18 12:06) Rash loperamide HCl [From Imodium A-D] Adverse Reaction (Mild, Verified 05/04/18 12: 06) affects glaucoma aripiprazole [From Abilify] Adverse Reaction (Verified 05/04/18 12:06) cefaclor [From Ceclor] Adverse Reaction (Verified 05/04/18 12:06) ciprofloxacin [From Cipro] Adverse Reaction (Verified 05/04/18 12:06) Rash ketorolac tromethamine [From Toradol] Adverse Reaction (Verified 05/04/18 12:06) Vomiting Penicillins Adverse Reaction (Verified 05/04/18 12:06) Difficulty Breathing sumatriptan [From Imitrex] Adverse Reaction (Verified 05/04/18 12:06) heart attack sumatriptan succinate [From Imitrex] Adverse Reaction (Verified 05/04/18 12:06) heart attack Home Medications: Ambulatory Orders Albuterol Sulfate [Proair Hfa] 2 puff IH Q4H PRN 08/23/14 Atorvastatin Calcium 80 mg PO BEDTIME tab-cap 04/30/17 Isosorbide Mononitrate [Isosorbide Mononitrate ER] 30 mg PO d 05/19/17 Nitroglycerin 0.4 mg SL DIRECTED PRN 06/29/17 Cyclobenzaprine HCl 10 mg PO QID PRN 08/04/17 Oxycodone HCl/Acetaminophen [Oxycodone-Acetaminophen 10-325] 10 mg PO QID PRN Albuterol Sulfate 0.083% Neb [Albuterol 0.083% Neb] 1 vial NEB RTQID vial.neb 03/08/18 Buspirone HCl 10 mg PO TID 05/04/18 Disposition Discussed With: Patient
[2018-05-04] MEDS ORDERED: TORADOL IM STA (13:48)
--- NOTE | 2018-05-04 14:17 | DI ---
EXAM: CHEST FRONTAL AND LATERAL VIEWS HISTORY: Fall, hit right shoulder, pain. COMPARISON: 04/21/2018 FINDINGS: Mildly prominent heart size is stable. Redemonstration of a tiny left pleural effusion. Lungs are otherwise clear. Normal vascularity. No acute bony deformity or fracture is seen. Joints appear intact. Surgical clips over the thyroid fossa. IMPRESSION: 1. No acute injuries identified. Persistent tiny left pleural effusion.
--- NOTE | 2018-05-04 14:38 | CT ---
EXAM: CT head without contrast HISTORY: Trauma COMPARISON: CT head 02/16/2017 and multiple priors TECHNIQUE: Serial axial images of the brain were obtained from the skull base to the vertex without IV contrast. FINDINGS: The ventricles, cisterns and sulci are stable. The land-white matter junction is maintain ed. There is mild low attenuation in the periventricular white matter.No midline shift or mass is id entified. There is no abnormal intra or extra-axial fluid collection. The paranasal sinuses demonst rates scattered paranasal sinus mucosal thickening. The mastoid air cells are clear. The osseous ca lvarium is intact. IMPRESSION: 1. No acute intracranial abnormality or hemorrhage. 2. Scattered low attenuation in the periventricular white matter suggestive of microangiopathy.
--- NOTE | 2018-05-04 14:40 | CT ---
EXAM: CT right shoulder HISTORY: Blunt trauma. TECHNIQUE: CT right shoulder without contrast. Multiplanar images provided. FINDINGS: No fracture or dislocation is identified. There is mild arthropathy of the glenohumeral j oint and and moderate arthropathy of the AC joint. Soft tissues are within normal limits. No joint effusion is seen. Incidental findings include atherosclerotic disease and surgical clips in the thyr oid fossa. IMPRESSION: 1. No fracture or dislocation. 2. Osteoarthritis.
== END 2018-05-04 16:17 | disposition home or self-care (01) ==
LOC: ED 12:04
DX: R07.89 Other chest pain (principal); J90 Pleural effusion, not elsewhere classified; S46.911A Strain of unspecified muscle, fascia and tendon at shoulder and upper arm level, right arm, initial encounter; S20.211A Contusion of right front wall of thorax, initial encounter; W19.XXXA Unspecified fall, initial encounter; F17.210 Nicotine dependence, cigarettes, uncomplicated
CPT/HCPCS: 99283

== ENCOUNTER 2018-05-08 17:34 | Outpatient (CLI) | payer OTHER | END 2018-05-08 17:54 | disposition short-term general hospital (02) | LOC: AMBL 17:34 | PROVIDERS: ATTEND Internal Medicine | DX: S29.9XXA Unspecified injury of thorax, initial encounter (principal); R29.6 Repeated falls; W19.XXXA Unspecified fall, initial encounter; R05 Cough; J44.9 Chronic obstructive pulmonary disease, unspecified ==

== ENCOUNTER 2018-06-08 16:15 | Outpatient (CLI) | END 2018-06-08 16:16 | disposition home or self-care (01) | LOC: RHC-LAB 16:15 → FCC-LAB 16:16 | PROVIDERS: ATTEND Family Medicine | DX: E11.9 Type 2 diabetes mellitus without complications (principal); E55.9 Vitamin D deficiency, unspecified; E03.9 Hypothyroidism, unspecified; E83.51 Hypocalcemia | CPT/HCPCS: 36415; 80053; 82043; 82306; 83037; 84443 ==

== ENCOUNTER 2018-06-09 11:37 | Outpatient (CLI) ==
--- NOTE | 2018-06-09 12:06 | DI ---
EXAM: CHEST FRONTAL AND LATERAL VIEWS HISTORY: Crackles left lung, history of pneumonia. COMPARISON: 05/04/2018 FINDINGS: Prominent heart size is stable. Probable mild atherosclerotic disease. Small left pleura l effusion is stable. Lungs are otherwise grossly clear. Surgical clips over the right thyroid ana a. IMPRESSION: 1. Stable small left pleural effusion. Lungs are otherwise clear.
== END 2018-06-09 11:38 | disposition home or self-care (01) ==
LOC: RAD 11:37
PROVIDERS: ATTEND Nurse Practitioner Family
DX: R09.89 Other specified symptoms and signs involving the circulatory and respiratory systems (principal); R07.81 Pleurodynia

== ENCOUNTER 2018-07-06 14:09 | Outpatient (CLI) | payer OTHER ==
--- NOTE | 2018-07-06 14:51 | DI ---
EXAM: KUB upright and KUB supine. HISTORY: Constipation. FINDINGS: Slight excess fecal retention throughout most of the colon including within the rectal vaul t. Bowel gas pattern remains nonobstructive. There is no evidence of pneumoperitoneum or fluid leve ls within the bowel. Elongated right hepatic lobe. Multiple postop changes. IMPRESSION: Excess fecal retention without bowel obstruction or free air.
== END 2018-07-06 14:10 | disposition home or self-care (01) ==
LOC: RAD 14:09
PROVIDERS: ATTEND Nurse Practitioner Family
DX: K59.00 Constipation, unspecified (principal); R10.84 Generalized abdominal pain

== ENCOUNTER 2018-07-19 12:37 | Outpatient (CLI) | END 2018-07-19 12:38 | disposition home or self-care (01) | LOC: CAR 12:37 | PROVIDERS: ATTEND Nurse Practitioner Family | DX: R06.02 Shortness of breath (principal) | CPT/HCPCS: 94761 ==

== ENCOUNTER 2018-07-23 12:47 | Outpatient (CLI) | END 2018-07-23 12:48 | disposition home or self-care (01) | LOC: RHC-LAB 12:47 → FCC-LAB 12:48 | PROVIDERS: ATTEND Nurse Practitioner Family | DX: N39.0 Urinary tract infection, site not specified (principal); R10.13 Epigastric pain | CPT/HCPCS: 36415; 80053; 83690; 87086 ==

== ENCOUNTER 2018-09-04 18:12 | Emergency (ER) ==
[2018-09-04 18:19] VITALS: BP 148/72; TEMP 97.4; BMI 29.2
[2018-09-04] MEDS ORDERED: DUONEB NEB STA (18:19)
--- NOTE | 2018-09-04 19:09 | ED.PDOC ---
General ED Provider: Dr. WILIAN JUAREZ Chief Complaint: Cough Stated Complaint: Patient is a 62 year old female who comes to the ER with a 3 day history of cough that is productive of green sputum with mild shortness of breath. Time Seen by Physician: 19:07 Mode of Arrival: Walk-In Information Source: Patient Primary Care Provider: MARISOL QUINN Nursing and Triage Documentation Reviewed and Agree: Yes Does patient meet sepsis criteria?: No System Inflammatory Response Syndrome: Not Applicable Sepsis Protocol: For patient's 13 years and over: Temp is 96.8 and below OR 101 and greater Pulse >90 BPM Resp >20/minute Acutely Altered Mental Status Are patient's symptoms suggestive of a new infection, such as: -Pneumonia -Skin, Soft Tissue -Endocarditis -UTI -Bone, Joint Infection -Implantable Device -Acute Abdominal Infection -Wound Infection -Meningitis -Blood Stream Catheter Infection -Unknown Review of Systems - Review Of Systems Constitutional: Reports: No symptoms Eyes: Reports: No symptoms Ears, Nose, Mouth, Throat: Reports: No symptoms Respiratory: Reports: Cough, Short of air, Wheezing Cardiac: Reports: No symptoms GI: Reports: No symptoms : Reports: No symptoms Musculoskeletal: Reports: No symptoms Skin: Reports: No symptoms Neurological: Reports: No symptoms Endocrine: Reports: No symptoms Hematologic/Lymphatic: Reports: No symptoms All Other Systems: Reviewed and Negative Past Medical History - Past Medical History Previously Healthy: No Endocrine: Reports: DM 2, Hypothyroid, Dyslipidemia Cardiovascular: Reports: CAD, [place], Hypertension, CHF Respiratory: Reports: COPD, Bronchitis, Pneumonia Hematological: Reports: Anemia Gastrointestinal: Reports: GERD, Pancreatitis Genitourinary: Reports: CKD Neuro/Psych: Reports: Seizure, Anxiety, Depression Musculoskeletal: Reports: None Cancer: Reports: Other (kidney) Last Menstrual Period: unknown Other Pertinent Past Medical History: 1 kidney, [place]'s disease, Glaucoma - Surgical History General Surgical History: Reports: Hysterectomy, Appendectomy, Cholecystectomy, Back Surgery, Other (nephrectomy,spleenectomy, partial pancreas,thyroidectomy, perforated colon,3 stents in heart) - Family History Family History: Reports: None - Social History Smoking Status: Current every day smoker, Light tobacco smoker Hx Substance Use: No Alcohol Screening: None - Immunizations Influenza Vaccine within 12 Months: No Pneumococcal Vaccine up to Date: No Physical Exam - Physical Exam Appearance: Ill-appearing Ill-appearing: Mild Pain Distress: None Eyes: DONY, EOMI, Conjunctiva clear ENT: Ears normal, Nose normal, Oropharynx normal Respiratory: Airway patent, Breath sounds equal, Respirations nonlabored, Rhonchi (Left > right ) Cardiovascular: RRR, Pulses normal, No rub, Murmur GI/: Soft, Nontender, No masses, Bowel sounds normal, No Organomegaly Musculoskeletal: Normal strength, ROM intact, No edema, No calf tenderness Skin: Warm, Dry, Normal color Neurological: Sensation intact, Motor intact, Cranial nerves intact, Alert, Oriented Psychiatric: Affect appropriate, Mood appropriate Interpretation - Radiology Interpretation Radiology Interpretation By: Radiologist Radiology Results: No acute changes Exam Interpreted: CXR Critical Care Note - Critical Care Note Total Time (mins): 35 Course - Course Hematology/Chemistry: 09/04/18 19:15 09/04/18 19:15 Orders, Labs, Meds: Lab Review 09/04/18 09/04/18 09/04/18 18:19 19:15 19:15 WBC 9.44 RBC 3.84 L Hgb 12.2 Hct 39.2 MCV 102.1 H MCH 31.8 H MCHC 31.1 L RDW Coeff of Manoj 14.6 Plt Count 360 Immature Gran % (Auto) 0.4 Neut % (Auto) 67.6 Lymph % (Auto) 20.9 Edwards % (Auto) 7.8 Eos % (Auto) 3.0 Baso % (Auto) 0.3 Immature Gran # (Auto) 0.0 Neut # (Auto) 6.4 Lymph # (Auto) 2.0 Edwards # (Auto) 0.7 Eos # (Auto) 0.3 Baso # (Auto) 0.0 Puncture Site Lrad O2 Saturation 92.0 L ABG pH 7.315 L ABG pCO2 45.9 H ABG pO2 68.0 L ABG HCO3 23.4 ABG Total CO2 25 ABG Base Excess -3 L Dawson Test + FiO2 % 21.0 Sodium 140.6 Potassium 5.15 H Chloride 104.1 Carbon Dioxide 27.2 Anion Gap 14.45 BUN 24.0 H Creatinine 1.22 Estimated GFR (MDRD) 44.00 BUN/Creatinine Ratio 19.67 Glucose 138.5 H Calcium 8.45 Total Bilirubin 0.44 AST 25.3 ALT 19.9 Alkaline Phosphatase 148.1 H Total Creatine Kinase 75.9 Troponin I 0.052 Total Protein 8.29 H Albumin 3.97 Globulin 4.32 Albumin/Globulin Ratio 0.91 Orders Category Date Time Status ABG DRAW REQUEST Stat CARDIO 09/04/18 18:19 Completed EKG-(ED ONLY) Stat CARDIO 09/04/18 18:19 Completed NEBULIZER TREATMENT Stat CARDIO 09/04/18 18:19 Completed ED IV/MEDIPORT/POWERPORT .ONCE EMERGENCY 09/04/18 18:19 Active ABG Stat LAB 09/04/18 18:19 Completed CBC W/ AUTO DIFF Stat LAB 09/04/18 19:15 Completed COMPREHENSIVE METABOLIC PANEL Stat LAB 09/04/18 19:15 Completed CREATINE KINASE Stat LAB 09/04/18 19:15 Completed TROPONIN I Stat LAB 09/04/18 19:15 Completed 0.9 % Sodium Chloride [Saline Flush] MEDS 09/04/18 18:19 Ordered 1 syr IVF PRN PRN Ipratropium/Albuterol Neb [Duoneb] MEDS 09/04/18 18:19 Discontinued 1 vial NEB ONCE STA CHEST, 2 VIEWS PA & LAT Stat RADS 09/04/18 18:30 Completed Medications Generic Name Dose Route Start Last Admin Trade Name Freq PRN Reason Stop Dose Admin Sodium Chloride 1 syr 09/04/18 18:19 Saline Flush IVF PRN PRN To flush IV Discontinued Medications Generic Name Dose Route Start Last Admin Trade Name Freq PRN Reason Stop Dose Admin Albuterol/Ipratropium 1 vial 09/04/18 18:19 09/04/18 19:25 Duoneb NEB 09/04/18 18:20 1 vial ONCE STA Administration Vital Signs: Temp Pulse Resp BP Pulse Ox 09/04/18 18:13 97.4 F L 97 H 20 148/72 H 89 L Departure - Departure Time of Disposition: 21:10 Disposition: HOME SELF-CARE Discharge Problem: Chronic bronchitis Qualifiers: Chronic bronchitis type: unspecified Qualified Code(s): J42 - Unspecified chronic bronchitis COPD (chronic obstructive pulmonary disease) Qualifiers: COPD type: chronic bronchitis Chronic bronchitis type: simple Qualified Code(s) : J41.0 - Simple chronic bronchitis Instructions: COPD (Chronic Obstructive Pulmonary Disease) (ED), Chronic Bronchitis (ED) Condition: Stable Pt referred to PMD for follow-up: Yes IPMP verified?: No Additional Instructions: Continue to use home oxygen Stop Smoking. Follow up with PCP on thursday Allergies/Adverse Reactions: Allergies duloxetine HCl [From Cymbalta] Allergy (Severe, Verified 09/04/18 18:20) unable to sleep hydrogen peroxide Allergy (Severe, Verified 09/04/18 18:20) rash, skin swells Patient to notify drugstore levofloxacin [From Levaquin] Allergy (Mild, Verified 09/04/18 18:20) Unknown Per patient she states she was on IV Levaquin in hospital for 5 days, then sent home with oral Levaquin. She c/o after 3 doses, she had blisters in her mouth penicillin G Adverse Reaction (Severe, Verified 09/04/18 18:20) Difficulty Breathing clarithromycin [From Biaxin] Adverse Reaction (Mild, Verified 09/04/18 18:20) Rash loperamide HCl [From Imodium A-D] Adverse Reaction (Mild, Verified 09/04/18 18: 20) affects glaucoma aripiprazole [From Abilify] Adverse Reaction (Verified 09/04/18 18:20) cefaclor [From Ceclor] Adverse Reaction (Verified 09/04/18 18:20) ciprofloxacin [From Cipro] Adverse Reaction (Verified 09/04/18 18:20) Rash ketorolac tromethamine [From Toradol] Adverse Reaction (Verified 09/04/18 18:20) Vomiting Penicillins Adverse Reaction (Verified 09/04/18 18:20) Difficulty Breathing sumatriptan [From Imitrex] Adverse Reaction (Verified 09/04/18 18:20) heart attack sumatriptan succinate [From Imitrex] Adverse Reaction (Verified 09/04/18 18:20) heart attack Home Medications: Ambulatory Orders Albuterol Sulfate [Proair Hfa] 2 puff IH Q4H PRN 08/23/14 Isosorbide Mononitrate [Isosorbide Mononitrate ER] 30 mg PO d 05/19/17 Nitroglycerin 0.4 mg SL DIRECTED PRN 06/29/17 Oxycodone HCl/Acetaminophen [Oxycodone-Acetaminophen 10-325] 10 mg PO QID PRN Albuterol Sulfate 0.083% Neb [Albuterol 0.083% Neb] 1 vial NEB RTQID vial.neb 03/08/18 Buspirone HCl 10 mg PO TID 07/08/18 Disposition Discussed With: Patient
--- NOTE | 2018-09-04 20:58 | DI ---
Exam: Chest one-view History: Cough FINDINGS: Cardiac silhouette is upper limits. Pulmonary vasculature is normal. Left pleural fluid and adjacent parenchymal opacity are present. The upper lungs are clear. No acute chest wall abnorm ality. Impression: Small left pleural fluid and adjacent lung opacities stable from 06/09/2018.
== END 2018-09-04 21:20 | disposition home or self-care (01) ==
LOC: ED 18:12
DX: J41.0 Simple chronic bronchitis (principal); R06.02 Shortness of breath; E11.9 Type 2 diabetes mellitus without complications; E03.9 Hypothyroidism, unspecified; E78.5 Hyperlipidemia, unspecified; I25.10 Atherosclerotic heart disease of native coronary artery without angina pectoris; I10 Essential (primary) hypertension; F17.210 Nicotine dependence, cigarettes, uncomplicated; N18.9 Chronic kidney disease, unspecified; D63.1 Anemia in chronic kidney disease; I25.2 Old myocardial infarction; Z87.19 Personal history of other diseases of the digestive system
CPT/HCPCS: 36415; 80053; 82550; 82803; 84484; 85025; 93005; 93010; 94640; 99283

== ENCOUNTER 2018-09-06 14:11 | Emergency (ER) ==
[2018-09-06 14:16] VITALS: BP 159/74; TEMP 98.8; BMI 27.9
--- NOTE | 2018-09-06 16:22 | US ---
EXAM: ULTRASOUND LOWER EXTREMITY VENOUS DOPPLER EXAM HISTORY: Pain and swelling. FINDINGS: Right lower extremity venous Doppler exam. Real time land-scale, Doppler spectral analysi s and color-flow Doppler imaging performed. The veins targeted for evaluation include the common fem oral, greater saphenous, profundus, femoral, popliteal, peroneal, anterior tibial and posterior tibia l. The evaluated veins demonstrated normal spontaneous flow and compression without evidence of th rombosis. IMPRESSION: No venous thrombosis identified within the areas evaluated.
[2018-09-06] MEDS ORDERED: ROCEPHIN IM STA (16:41)
--- NOTE | 2018-09-06 16:51 | ED.PDOC ---
General ED Provider: Dr. LUCAS TURCIOS Chief Complaint: Extremity Pain/Injury Stated Complaint: sowllen rash right leg Time Seen by Physician: 14:20 (see photos) Mode of Arrival: Walk-In Information Source: Patient Exam Limitations: No limitations Primary Care Provider: MARISOL QUINN Nursing and Triage Documentation Reviewed and Agree: Yes Does patient meet sepsis criteria?: No System Inflammatory Response Syndrome: Not Applicable Sepsis Protocol: For patient's 13 years and over: Temp is 96.8 and below OR 101 and greater Pulse >90 BPM Resp >20/minute Acutely Altered Mental Status Are patient's symptoms suggestive of a new infection, such as: -Pneumonia -Skin, Soft Tissue -Endocarditis -UTI -Bone, Joint Infection -Implantable Device -Acute Abdominal Infection -Wound Infection -Meningitis -Blood Stream Catheter Infection -Unknown Skin Complaint Exam - Skin/Soft Tissue Complaint/Exam Onset/Duration: 3 day Symptoms Are: Still present Timing: Intermittent Initial Severity: Mild Current Severity: Mild Character: Reports: Swelling, Raised, Painful Aggravating: Reports: None Alleviating: Reports: None Associated Signs and Symptoms: Reports: Tenderness. Denies: Fever, Chills, Itching, Drainage, Bruising, Red streaks, Joint swelling Related Surgical History: Reports: None Recent Exposure to Others w/Similar Symptoms: No Skin Findings: Present: Erythema Differential Diagnoses: Other (cellulitis) Review of Systems - Review Of Systems Constitutional: Reports: No symptoms Eyes: Reports: No symptoms Ears, Nose, Mouth, Throat: Reports: No symptoms Respiratory: Reports: No symptoms Cardiac: Reports: No symptoms GI: Reports: No symptoms : Reports: No symptoms Musculoskeletal: Reports: Other (edema right leg) Skin: Reports: Rash Neurological: Reports: No symptoms Endocrine: Reports: No symptoms Hematologic/Lymphatic: Reports: No symptoms All Other Systems: Reviewed and Negative Past Medical History - Past Medical History Previously Healthy: No Endocrine: Reports: DM 2, Hypothyroid, Dyslipidemia Cardiovascular: Reports: CAD, [place], Hypertension, CHF Respiratory: Reports: COPD, Bronchitis, Pneumonia Hematological: Reports: Anemia Gastrointestinal: Reports: GERD, Pancreatitis Genitourinary: Reports: CKD Neuro/Psych: Reports: Seizure, Anxiety, Depression Musculoskeletal: Reports: None Cancer: Reports: Other (kidney) Last Menstrual Period: na Other Pertinent Past Medical History: 1 kidney, [place]'s disease, Glaucoma - Surgical History General Surgical History: Reports: Hysterectomy, Appendectomy, Cholecystectomy, Back Surgery, Other (nephrectomy,spleenectomy, partial pancreas,thyroidectomy, perforated colon,3 stents in heart) - Family History Family History: Reports: None - Social History Smoking Status: Current every day smoker, Light tobacco smoker Hx Substance Use: No Alcohol Screening: None - Immunizations Tetanus Shot up to Date: No Influenza Vaccine within 12 Months: No Pneumococcal Vaccine up to Date: No Physical Exam - Physical Exam Appearance: Well-appearing, No pain distress, Well-nourished Eyes: DONY, EOMI, Conjunctiva clear ENT: Ears normal, Nose normal, Oropharynx normal Respiratory: Airway patent, Breath sounds clear, Breath sounds equal, Respirations nonlabored Cardiovascular: RRR, Pulses normal, No rub, No murmur GI/: Soft, Nontender, No masses, Bowel sounds normal, No Organomegaly Musculoskeletal: Normal strength, ROM intact, No edema, No calf tenderness Skin: Warm, Dry (edema pain right leg see photos) Neurological: Sensation intact, Motor intact, Reflexes intact, Cranial nerves intact, Alert, Oriented Psychiatric: Affect appropriate, Mood appropriate Critical Care Note - Critical Care Note Total Time (mins): 0 Course - Course Hematology/Chemistry: 09/06/18 16:00 09/06/18 16:00 Orders, Labs, Meds: Lab Review 09/06/18 09/06/18 09/06/18 16:00 16:00 16:00 WBC 7.91 RBC 3.55 L Hgb 11.5 L Hct 35.9 L MCV 101.1 H MCH 32.4 H MCHC 32.0 RDW Coeff of Manoj 14.6 Plt Count 360 Immature Gran % (Auto) 0.4 Neut % (Auto) 59.5 Lymph % (Auto) 27.9 [place] % (Auto) 7.6 Eos % (Auto) 4.2 Baso % (Auto) 0.4 Immature Gran # (Auto) 0.0 Neut # (Auto) 4.7 Lymph # (Auto) 2.2 [place] # (Auto) 0.6 Eos # (Auto) 0.3 Baso # (Auto) 0.0 PT 10.1 INR 1.01 APTT 27.6 Sodium 139.6 Potassium 4.90 Chloride 106.1 Carbon Dioxide 24.9 Anion Gap 13.50 BUN 18.3 H Creatinine 0.95 Estimated GFR (MDRD) 59.00 BUN/Creatinine Ratio 19.26 Glucose 138.0 H Calcium 8.24 L Total Bilirubin 0.31 AST 17.8 ALT 15.4 Alkaline Phosphatase 128.1 Total Protein 7.46 Albumin 3.51 Globulin 3.95 Albumin/Globulin Ratio 0.88 Orders Category Date Time Status BLOOD CULTURE Stat LAB 09/06/18 16:10 Received CBC W/ AUTO DIFF Stat LAB 09/06/18 16:00 Completed COMPREHENSIVE METABOLIC PANEL Stat LAB 09/06/18 16:00 Received PARTIAL THROMBOPLASTIN TIME Stat LAB 09/06/18 16:00 Received PT WITH INR Stat LAB 09/06/18 16:00 Received Ceftriaxone Sodium [Rocephin] MEDS 09/06/18 16:41 Stat 1 gm IM ONCE STA U/S VENOUS SCAN RT LEG Stat RADS 09/06/18 15:45 Completed Medications Discontinued Medications Generic Name Dose Route Start Last Admin Trade Name Freq PRN Reason Stop Dose Admin Ceftriaxone Sodium 1 gm 09/06/18 16:41 Rocephin IM 09/06/18 16:42 ONCE STA Vital Signs: Temp Pulse Resp BP Pulse Ox 09/06/18 14:11 98.8 F 99 H 22 159/74 H 92 L Departure - Departure Time of Disposition: 16:51 Disposition: HOME SELF-CARE Discharge Problem: Cellulitis Qualifiers: Site of cellulitis: extremity Laterality: right Instructions: Cellulitis (ED) Condition: Good Pt referred to PMD for follow-up: Yes IPMP verified?: No Additional Instructions: Please call your Family Physician as soon as possible to schedule a follow-up appointment. Prescriptions: Clindamycin HCl [Cleocin HCl] 300 mg PO TID #30 capsule Allergies/Adverse Reactions: Allergies duloxetine HCl [From Cymbalta] Allergy (Severe, Verified 09/06/18 15:49) unable to sleep hydrogen peroxide Allergy (Severe, Verified 09/06/18 15:49) rash, skin swells Patient to notify drugstore levofloxacin [From Levaquin] Allergy (Mild, Verified 09/06/18 15:49) Unknown Per patient she states she was on IV Levaquin in hospital for 5 days, then sent home with oral Levaquin. She c/o after 3 doses, she had blisters in her mouth penicillin G Adverse Reaction (Severe, Verified 09/06/18 15:49) Difficulty Breathing clarithromycin [From Biaxin] Adverse Reaction (Mild, Verified 09/06/18 15:49) Rash loperamide HCl [From Imodium A-D] Adverse Reaction (Mild, Verified 09/06/18 15: 49) affects glaucoma aripiprazole [From Abilify] Adverse Reaction (Verified 09/06/18 15:49) cefaclor [From Ceclor] Adverse Reaction (Verified 09/06/18 15:49) ciprofloxacin [From Cipro] Adverse Reaction (Verified 09/06/18 15:49) Rash ketorolac tromethamine [From Toradol] Adverse Reaction (Verified 09/06/18 15:49) Vomiting Penicillins Adverse Reaction (Verified 09/06/18 15:49) Difficulty Breathing sumatriptan [From Imitrex] Adverse Reaction (Verified 09/06/18 15:49) heart attack sumatriptan succinate [From Imitrex] Adverse Reaction (Verified 09/06/18 15:49) heart attack Home Medications: Ambulatory Orders Albuterol Sulfate [Proair Hfa] 2 puff IH Q4H PRN 08/23/14 Isosorbide Mononitrate [Isosorbide Mononitrate ER] 30 mg PO d 05/19/17 Nitroglycerin 0.4 mg SL DIRECTED PRN 06/29/17 Oxycodone HCl/Acetaminophen [Oxycodone-Acetaminophen 10-325] 10 mg PO QID PRN Albuterol Sulfate 0.083% Neb [Albuterol 0.083% Neb] 1 vial NEB RTQID vial.neb 03/08/18 Buspirone HCl 10 mg PO TID 07/08/18 Clindamycin HCl [Cleocin HCl] 300 mg PO TID #30 capsule 09/06/18
[2018-09-06] MEDS ORDERED: LIDOCAINE HCL 1% SDV ONE (17:21)
== END 2018-09-06 17:52 | disposition home or self-care (01) ==
LOC: ED 14:11
DX: L03.115 Cellulitis of right lower limb (principal); M79.604 Pain in right leg; F17.210 Nicotine dependence, cigarettes, uncomplicated; E11.9 Type 2 diabetes mellitus without complications; E03.9 Hypothyroidism, unspecified; E78.5 Hyperlipidemia, unspecified; I25.10 Atherosclerotic heart disease of native coronary artery without angina pectoris; I25.2 Old myocardial infarction; I10 Essential (primary) hypertension; N18.9 Chronic kidney disease, unspecified; D63.1 Anemia in chronic kidney disease; Z87.19 Personal history of other diseases of the digestive system; Z79.899 Other long term (current) drug therapy; Z95.5 Presence of coronary angioplasty implant and graft; Z87.09 Personal history of other diseases of the respiratory system
CPT/HCPCS: 36415; 80053; 85025; 85610; 85730; 87040; 96372; 99283

== ENCOUNTER 2018-10-22 11:47 | Outpatient (CLI) | END 2018-10-22 12:12 | disposition short-term general hospital (02) | LOC: AMBL 11:47 | PROVIDERS: ATTEND Emergency Medicine | DX: R06.02 Shortness of breath (principal); R07.9 Chest pain, unspecified; R60.9 Edema, unspecified; R09.89 Other specified symptoms and signs involving the circulatory and respiratory systems; R00.0 Tachycardia, unspecified; R05 Cough; R51 Headache ==

== ENCOUNTER 2018-11-02 19:42 | Outpatient (CLI) | payer OTHER | END 2018-11-02 20:03 | disposition short-term general hospital (02) | LOC: AMBL 19:42 | PROVIDERS: ATTEND Internal Medicine Geriatric Medicine | DX: R06.03 Acute respiratory distress (principal); R63.5 Abnormal weight gain; I50.9 Heart failure, unspecified; R09.89 Other specified symptoms and signs involving the circulatory and respiratory systems; M79.89 Other specified soft tissue disorders; R53.1 Weakness; R53.83 Other fatigue; R73.9 Hyperglycemia, unspecified ==